=== PATIENT | male | born 1935 | race Caucasian/White ===

== ENCOUNTER 2017-05-22 10:00 | Outpatient (RCR) | payer OTHER, SELFPAY ==
[2017-04-22 00:22] VITALS: BP 143/84; PULSE 67; RESP 16; TEMP 36.7; BMI 21.2
[2017-04-24 09:51] VITALS: BP 134/77; PULSE 62; RESP 18; TEMP 36.4; BMI 21.2
--- NOTE | 2017-04-24 11:09 | PCM.WC.PN ---
(1) Hammer toe of right foot Status: Chronic Current Visit: Yes Code(s): M20.41 - Other hammer toe(s) (acquired), right foot (2) Ulcer of right foot with fat layer exposed Status: Chronic Current Visit: Yes Code(s): L97.512 - Non-pressure chronic ulcer of other part of right foot with fat layer exposed (3) Other specified peripheral vascular diseases Status: Chronic Current Visit: Yes Code(s): I73.89 - Other specified peripheral vascular diseases (4) Malnutrition Status: Chronic Current Visit: Yes Code(s): E46 - Unspecified protein-calorie malnutrition (5) Delayed wound healing Status: Chronic Current Visit: Yes Code(s): T14.8 - Other injury of unspecified body region (6) Osteomyelitis Status: Resolved Current Visit: Yes Code(s): M86.9 - Osteomyelitis, unspecified (7) Traumatic ecchymosis of right foot Status: Acute Current Visit: Yes Code(s): S90.31XA - Contusion of right foot, initial encounter Type of Wound Date of Service: 04/24/17 Chief Complaint: Chronic, nonhealing ulcerations of the right lateral foot and the right fourth toe History of Wound: This is an 81-year-old male who presents with 2 ulcerations on his right foot. He denies fever, chills, nausea, vomiting, loss of appetite. He continues to use Elba as advised. He denies foot pain. He refuses puraply application today due to cost. He reports he bumped his right foot and does not recall exactly when. She thinks this may be the cause of his ulcer site color skin change. Progress of Wound: Improving - Physical Exam Vital Signs Temp Pulse Resp BP 97.6 F L 62 18 134/77 H 04/24/17 09:51 04/24/17 09:51 04/24/17 09:51 04/24/17 09:51 General: Alert, Oriented x3, Cooperative Extremities: No cyanosis, Capillary Refill Less than 3 Seconds, No Calf Tenderness - Negative Heidi and Alfonso sign bilateral, Diminished Peripheral Pulses Skin: Ulcer/ Wound - No purulence, no erythema, no streaking, no odor, no exposed bone or deep tissue today. There is devitalized dorsal wound margin on the lateral right foot that appears ecchymotic. The skin is still well adhered however this is a new finding. Otherwise this ulcer has decreased in size. The fourth toe abuts the third toe. In the wound base is granular to the site. Wound Measurements and Assessment - Nurse 1 - General Ulcer Measurement Start: 04/24/17 09:51 Freq: Status: Active Protocol: Activity Type Activity Date Activity User E-Sign Co-Sign Detail Recorded Client Recorded Date Recorded By Document 04/24/17 09:51 DL [id number] 04/24/17 09:58 DL 04/24/17 09:51 Wound Center Nurse 1 [Ulcer Assessment Protocol: WC.WD.LOC] #2 Right Lateral Foot -Current Size (cm) - Length 0.7 -Current Size (cm) - Width 0.6 -Current Size (cm) - Depth 0.1 -Total Square Cm 0.42 -Photo Taken No -Exudate Amt Small (1-33%) -Exudate Type Serosanguineous -Wound Margin Distinct, Outline Attached -Granulation Amt Medium (34-66%) -Granulation Quality Red -Necrosis Amt Medium (34-66%) -Necrotic Tissue Type Adherent Slough -Structure Exposed N/A -Texture (Alba-wound Skin Appearance) No Abnormality -Moisture (Alba-wound Skin Appearance Maceration ) -Color (Alba-wound Skin Appearance) Ecchymosis -Temperature (Alba-wound Skin No Abnormality Appearance) (Pt Warm) -Ulcer Cleansing Rinsed/ Irrigated with Saline -Foul Odor after Cleansing No -Anesthetic Used 4% Lidocaine Solution #1 Right 4th Toe -Current Size (cm) - Length 0.2 -Current Size (cm) - Width 0.3 -Current Size (cm) - Depth 0.1 -Total Square Cm 0.06 -Photo Taken No -Exudate Amt Small (1-33%) -Exudate Type Serosanguineous -Wound Margin Thickened -Granulation Amt Small (1-33%) -Granulation Quality [place] -Necrosis Amt Small (1-33%) -Necrotic Tissue Type Adherent Slough -Structure Exposed N/A -Texture (Alba-wound Skin Appearance) No Abnormality -Moisture (Alba-wound Skin Appearance Dry/Scaly ) -Color (Alba-wound Skin Appearance) No Abnormality -Temperature (Alba-wound Skin No Abnormality Appearance) (Pt Warm) -Ulcer Cleansing Rinsed/ Irrigated with Saline -Foul Odor after Cleansing No -Anesthetic Used 4% Lidocaine Solution [place] - Nurse 2 - General Ulcer CM Notes Start: 04/24/17 09:51 Freq: Status: Active Protocol: Activity Type Activity Date Activity User E-Sign Co-Sign Detail Recorded Client Recorded Date Recorded By Document 04/24/17 10:15 [id number] 04/24/17 10:18 04/24/17 10:15 Wound Center Nurse 2 [Procedure/Treatment] #2 Right Lateral Foot -Time 10:16 -Correct Patient Yes -Correct Side, Site, Position Yes -Correct Procedure Yes -Procedure Performed Yes -Type of Procedure Debridement -Clinical Debridement Subcutaneous -Post Debridement Size (cm) - Length 0.8 -Post Debridement Size (cm) - Width 0.7 -Post Debridement Size (cm) - Depth 0.1 -Total Square Cm 0.56 -Wound/Ulcer Outcome Not Healed -Ulcer Cleansing Rinsed/ Irrigated with Saline -Foul Odor after Cleansing No -Bioengineered Tissue No -Cetacaine [place] No -Topical Lidocaine (%) 5 -Bleeding Controlled with Pressure -Treatment Response Procedure Tolerated Well #1 Right 4th Toe -Time 10:16 -Correct Patient Yes -Correct Side, Site, Position Yes -Correct Procedure Yes -Procedure Performed Yes -Type of Procedure Debridement -Clinical Debridement Subcutaneous -Post Debridement Size (cm) - Length 0.3 -Post Debridement Size (cm) - Width 0.4 -Post Debridement Size (cm) - Depth 0.1 -Total Square Cm 0.12 -Wound/Ulcer Outcome Not Healed -Ulcer Cleansing Rinsed/ Irrigated with Saline -Foul Odor after Cleansing No -Bioengineered Tissue No -Cetacaine [place] No -Topical Lidocaine (%) 5 -Bleeding Controlled with Pressure -Treatment Response Procedure Tolerated Well [See Physician Procedure note for Specifics] Pain Scale: 0-10 Numeric [Pain] -Is Patient Pain Free? Yes Musculoskeletal: No Tenderness to Palpation of Joints or Extremities, Muscle Wasting, - - Dorsal contraction and varus rotation of lesser digits. Third toe abuts fourth toe. Compartments remain soft to the foot and ankle right lower extremity Neurological: - - Lack of epicritic sensation light touch Psych/Mental Status: Normal Affect, Appropriate Debridement Note Post-Debridement Measurements/Treatment [place] - Nurse 2 - General Ulcer CM Notes Start: 04/24/17 09:51 Freq: Status: Active Protocol: Activity Type Activity Date Activity User E-Sign Co-Sign Detail Recorded Client Recorded Date Recorded By Document 04/24/17 10:15 [id number] 04/24/17 10:18 04/24/17 10:15 Wound Center Nurse 2 #2 Right Lateral Foot -Time 10:16 -Correct Patient Yes -Correct Side, Site, Position Yes -Correct Procedure Yes -Procedure Performed Yes -Type of Procedure Debridement -Clinical Debridement Subcutaneous -Post Debridement Size (cm) - Length 0.8 -Post Debridement Size (cm) - Width 0.7 -Post Debridement Size (cm) - Depth 0.1 -Total Square Cm 0.56 -Wound/Ulcer Outcome Not Healed -Ulcer Cleansing Rinsed/ Irrigated with Saline -Foul Odor after Cleansing No -Bioengineered Tissue No -Cetacaine [place] No -Topical Lidocaine (%) 5 -Bleeding Controlled with Pressure -Treatment Response Procedure Tolerated Well #1 Right 4th Toe -Time 10:16 -Correct Patient Yes -Correct Side, Site, Position Yes -Correct Procedure Yes -Procedure Performed Yes -Type of Procedure Debridement -Clinical Debridement Subcutaneous -Post Debridement Size (cm) - Length 0.3 -Post Debridement Size (cm) - Width 0.4 -Post Debridement Size (cm) - Depth 0.1 -Total Square Cm 0.12 -Wound/Ulcer Outcome Not Healed -Ulcer Cleansing Rinsed/ Irrigated with Saline -Foul Odor after Cleansing No -Bioengineered Tissue No -Cetacaine [place] No -Topical Lidocaine (%) 5 -Bleeding Controlled with Pressure -Treatment Response Procedure Tolerated Well Pain Scale: 0-10 Numeric Is Patient Pain Free? Yes Wound debrided: Lateral foot Laterality: Right Type of Debridement: Excisional debridement Anesthesia Used: 4% Lidocaine Solution Depth: in the subcutaneous layer Percentage of wound debrided: 100 Instrument Used: #15 blade Tissue Removed: Fibrous, devitalized subcutaneous, biofilm, slough Severity: Fat Layer Exposed Amount of bleeding with debridement: Mild Bleeding Controlled with: Pressure Patient tolerated procedure well - Additional Wound Wound debrided: Medial distal fourth toe Laterality: Right Type of Debridement: Excisional debridement Anesthesia Used: 4% Lidocaine Solution Depth: in the subcutaneous layer Percentage of wound debrided: 100 Instrument Used: #15 blade Tissue Removed: Fibrous, devitalized subcutaneous, biofilm, slough Severity: Fat Layer Exposed Amount of bleeding with debridement: None Bleeding Controlled with: Pressure Patient tolerated procedure: Patient tolerated procedure well Assessment/Plan Active Problems Hammer toe of right foot (Chronic) Ulcer of right foot with fat layer exposed (Chronic) Other specified peripheral vascular diseases (Chronic) Malnutrition (Chronic) Delayed wound healing (Chronic) Traumatic ecchymosis of right foot (Acute) Assessment: Nonhealing ulcer right fourth toe (bone previously exposed ; osteomyelitis)-treated and stable. right lateral foot (fat exposed; gouty tophi resolved). Severe peripheral vascular disease. Malnutrition. Delayed healing. Bilateral hammertoe deformities. Bruise right foot Plan: I Reviewed and discussed his case this morning. Debridement was performed today as noted in the clinical panel. 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 His previous microbiology results are on file. To continue with open toe shoe that does not put pressure on this site. His noninvasive vascular studies were also reviewed which demonstrated significant loss of flow with an TALIA of 0.27 in the right lower extremity. A referral to Dr. Reilly, vascular surgeon was completed and the patient refuses treatment recommendations. His prognosis is significantly worsened due to refusal to proceed with vascular intervention. His laboratory data was reviewed with a white blood cell count 9.7 prealbumin of 25 and hemoglobin A1c of 5.4%. To continue with proper nutrition optimize healing. Understand he is at risk for limb loss. I did also review his right foot x-rays which demonstrated osseous destruction. There is evidence of some tophi formation and diffuse decreased bone density noted to the entire foot. Approval for advanced wound care product has been denied by insurance. To continue to change dressing daily with Elba due to improved granulation formation in both wound beds; this is applied today. Approval for puraply (antimicrobial and collagen dressing) was obtained and he understands he would only be responsible for a co-pay. He refuses application of advanced collagen and antimicrobial product, pureaply. Answered his questions today about the purpose, indications, benefits, risks of this advanced wound care product and highly encourage its use. A dressing was applied today after debridement as noted in the clinical nursing panel. I advised him to take caution with traumatic accidents at home to the foot. He will continue to wear protective shoe gear as previously reviewed. He is not having any pain or signs of infection today and he was reassured of this. To return to clinic in 1 week or call sooner if there are any problems or concerns.
--- NOTE | 2017-04-24 11:15 | PN.PCM_ITS ---
(1) Hammer toe of right foot Status: Chronic Current Visit: Yes Code(s): M20.41 - Other hammer toe(s) ( acquired), right foot (2) Ulcer of right foot with fat layer exposed Status: Chronic Current Visit: Yes Code(s): L97.512 - Non-pressure chronic ulcer of other part of right foot with fat layer exposed (3) Other specified peripheral vascular diseases Status: Chronic Current Visit: Yes Code(s): I73.89 - Other specified peripheral vascular diseases (4) Malnutrition Status: Chronic Current Visit: Yes Code(s): E46 - Unspecified protein- calorie malnutrition (5) Delayed wound healing Status: Chronic Current Visit: Yes Code(s): T14.8 - Other injury of unspecified body region (6) Osteomyelitis Status: Resolved Current Visit: Yes Code(s): M86.9 - Osteomyelitis, unspecified (7) Traumatic ecchymosis of right foot Status: Acute Current Visit: Yes Code(s): S90.31XA - Contusion of right foot , initial encounter Type of Wound Date of Service: 04/24/17 Chief Complaint: Chronic, nonhealing ulcerations of the right lateral foot and the right fourth toe History of Wound: This is an 81-year-old male who presents with 2 ulcerations on his right foot. He denies fever, chills, nausea, vomiting, loss of appetite. He continues to use Elba as advised. He denies foot pain. He refuses puraply application today due to cost. He reports he bumped his right foot and does not recall exactly when. She thinks this may be the cause of his ulcer site color skin change. Progress of Wound: Improving - Physical Exam Vital Signs Temp Pulse Resp BP 97.6 F L 62 18 134/77 H 04/24/17 09:51 04/24/17 09:51 04/24/17 09:51 04/24/17 09:51 General: Alert, Oriented x3, Cooperative Extremities: No cyanosis, Capillary Refill Less than 3 Seconds, No Calf Tenderness - Negative Heidi and Alfonso sign bilateral, Diminished Peripheral Pulses Skin: Ulcer/ Wound - No purulence, no erythema, no streaking, no odor, no exposed bone or deep tissue today. There is devitalized dorsal wound margin on the lateral right foot that appears ecchymotic. The skin is still well adhered however this is a new finding. Otherwise this ulcer has decreased in size. The fourth toe abuts the third toe. In the wound base is granular to the site. Wound Measurements and Assessment - Nurse 1 - General Ulcer Measurement Start: 04/24/17 09:51 Freq: Status: Active Protocol: Activity Type Activity Date Activity User E-Sign Co-Sign Detail Recorded Client Recorded Date Recorded By Document 04/24/17 09:51 DL [id number] 04/24/17 09:58 DL 04/24/17 09:51 Wound Center Nurse 1 [Ulcer Assessment Protocol: WC.WD.LOC] #2 Right Lateral Foot -Current Size (cm) - Length 0.7 -Current Size (cm) - Width 0.6 -Current Size (cm) - Depth 0.1 -Total Square Cm 0.42 -Photo Taken No -Exudate Amt Small (1-33%) -Exudate Type Serosanguineous -Wound Margin Distinct, Outline Attached -Granulation Amt Medium (34-66%) -Granulation Quality Red -Necrosis Amt Medium (34-66%) -Necrotic Tissue Type Adherent Slough -Structure Exposed N/A -Texture (Alba-wound Skin Appearance) No Abnormality -Moisture (Alba-wound Skin Appearance Maceration ) -Color (Alba-wound Skin Appearance) Ecchymosis -Temperature (Alba-wound Skin No Abnormality Appearance) (Pt Warm) -Ulcer Cleansing Rinsed/ Irrigated with Saline -Foul Odor after Cleansing No -Anesthetic Used 4% Lidocaine Solution #1 Right 4th Toe -Current Size (cm) - Length 0.2 -Current Size (cm) - Width 0.3 -Current Size (cm) - Depth 0.1 -Total Square Cm 0.06 -Photo Taken No -Exudate Amt Small (1-33%) -Exudate Type Serosanguineous -Wound Margin Thickened -Granulation Amt Small (1-33%) -Granulation Quality [place] -Necrosis Amt Small (1-33%) -Necrotic Tissue Type Adherent Slough -Structure Exposed N/A -Texture (Alba-wound Skin Appearance) No Abnormality -Moisture (Alba-wound Skin Appearance Dry/Scaly ) -Color (Alba-wound Skin Appearance) No Abnormality -Temperature (Alba-wound Skin No Abnormality Appearance) (Pt Warm) -Ulcer Cleansing Rinsed/ Irrigated with Saline -Foul Odor after Cleansing No -Anesthetic Used 4% Lidocaine Solution [place] - Nurse 2 - General Ulcer CM Notes Start: 04/24/17 09:51 Freq: Status: Active Protocol: Activity Type Activity Date Activity User E-Sign Co-Sign Detail Recorded Client Recorded Date Recorded By Document 04/24/17 10:15 [id number] 04/24/17 10:18 04/24/17 10:15 Wound Center Nurse 2 [Procedure/Treatment] #2 Right Lateral Foot -Time 10:16 -Correct Patient Yes -Correct Side, Site, Position Yes -Correct Procedure Yes -Procedure Performed Yes -Type of Procedure Debridement -Clinical Debridement Subcutaneous -Post Debridement Size (cm) - Length 0.8 -Post Debridement Size (cm) - Width 0.7 -Post Debridement Size (cm) - Depth 0.1 -Total Square Cm 0.56 -Wound/Ulcer Outcome Not Healed -Ulcer Cleansing Rinsed/ Irrigated with Saline -Foul Odor after Cleansing No -Bioengineered Tissue No -Cetacaine [place] No -Topical Lidocaine (%) 5 -Bleeding Controlled with Pressure -Treatment Response Procedure Tolerated Well #1 Right 4th Toe -Time 10:16 -Correct Patient Yes -Correct Side, Site, Position Yes -Correct Procedure Yes -Procedure Performed Yes -Type of Procedure Debridement -Clinical Debridement Subcutaneous -Post Debridement Size (cm) - Length 0.3 -Post Debridement Size (cm) - Width 0.4 -Post Debridement Size (cm) - Depth 0.1 -Total Square Cm 0.12 -Wound/Ulcer Outcome Not Healed -Ulcer Cleansing Rinsed/ Irrigated with Saline -Foul Odor after Cleansing No -Bioengineered Tissue No -Cetacaine [place] No -Topical Lidocaine (%) 5 -Bleeding Controlled with Pressure -Treatment Response Procedure Tolerated Well [See Physician Procedure note for Specifics] Pain Scale: 0-10 Numeric [Pain] -Is Patient Pain Free? Yes Musculoskeletal: No Tenderness to Palpation of Joints or Extremities, Muscle Wasting, - - Dorsal contraction and varus rotation of lesser digits. Third toe abuts fourth toe. Compartments remain soft to the foot and ankle right lower extremity Neurological: - - Lack of epicritic sensation light touch Psych/Mental Status: Normal Affect, Appropriate Debridement Note Post-Debridement Measurements/Treatment [place] - Nurse 2 - General Ulcer CM Notes Start: 04/24/17 09:51 Freq: Status: Active Protocol: Activity Type Activity Date Activity User E-Sign Co-Sign Detail Recorded Client Recorded Date Recorded By Document 04/24/17 10:15 [id number] 04/24/17 10:18 04/24/17 10:15 Wound Center Nurse 2 #2 Right Lateral Foot -Time 10:16 -Correct Patient Yes -Correct Side, Site, Position Yes -Correct Procedure Yes -Procedure Performed Yes -Type of Procedure Debridement -Clinical Debridement Subcutaneous -Post Debridement Size (cm) - Length 0.8 -Post Debridement Size (cm) - Width 0.7 -Post Debridement Size (cm) - Depth 0.1 -Total Square Cm 0.56 -Wound/Ulcer Outcome Not Healed -Ulcer Cleansing Rinsed/ Irrigated with Saline -Foul Odor after Cleansing No -Bioengineered Tissue No -Cetacaine [place] No -Topical Lidocaine (%) 5 -Bleeding Controlled with Pressure -Treatment Response Procedure Tolerated Well #1 Right 4th Toe -Time 10:16 -Correct Patient Yes -Correct Side, Site, Position Yes -Correct Procedure Yes -Procedure Performed Yes -Type of Procedure Debridement -Clinical Debridement Subcutaneous -Post Debridement Size (cm) - Length 0.3 -Post Debridement Size (cm) - Width 0.4 -Post Debridement Size (cm) - Depth 0.1 -Total Square Cm 0.12 -Wound/Ulcer Outcome Not Healed -Ulcer Cleansing Rinsed/ Irrigated with Saline -Foul Odor after Cleansing No -Bioengineered Tissue No -Cetacaine [place] No -Topical Lidocaine (%) 5 -Bleeding Controlled with Pressure -Treatment Response Procedure Tolerated Well Pain Scale: 0-10 Numeric Is Patient Pain Free? Yes Wound debrided: Lateral foot Laterality: Right Type of Debridement: Excisional debridement Anesthesia Used: 4% Lidocaine Solution Depth: in the subcutaneous layer Percentage of wound debrided: 100 Instrument Used: #15 blade Tissue Removed: Fibrous, devitalized subcutaneous, biofilm, slough Severity: Fat Layer Exposed Amount of bleeding with debridement: Mild Bleeding Controlled with: Pressure Patient tolerated procedure well - Additional Wound Wound debrided: Medial distal fourth toe Laterality: Right Type of Debridement: Excisional debridement Anesthesia Used: 4% Lidocaine Solution Depth: in the subcutaneous layer Percentage of wound debrided: 100 Instrument Used: #15 blade Tissue Removed: Fibrous, devitalized subcutaneous, biofilm, slough Severity: Fat Layer Exposed Amount of bleeding with debridement: None Bleeding Controlled with: Pressure Patient tolerated procedure: Patient tolerated procedure well Assessment/Plan Active Problems Hammer toe of right foot (Chronic) Ulcer of right foot with fat layer exposed (Chronic) Other specified peripheral vascular diseases (Chronic) Malnutrition (Chronic) Delayed wound healing (Chronic) Traumatic ecchymosis of right foot (Acute) Assessment: Nonhealing ulcer right fourth toe (bone previously exposed ; osteomyelitis)-treated and stable. right lateral foot (fat exposed; gouty tophi resolved). Severe peripheral vascular disease. Malnutrition. Delayed healing. Bilateral hammertoe deformities. Bruise right foot Plan: I Reviewed and discussed his case this morning. Debridement was performed today as noted in the clinical panel. 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 His previous microbiology results are on file. To continue with open toe shoe that does not put pressure on this site. His noninvasive vascular studies were also reviewed which demonstrated significant loss of flow with an TALIA of 0.27 in the right lower extremity. A referral to Dr. Reilly, vascular surgeon was completed and the patient refuses treatment recommendations. His prognosis is significantly worsened due to refusal to proceed with vascular intervention. His laboratory data was reviewed with a white blood cell count 9.7 prealbumin of 25 and hemoglobin A1c of 5.4%. To continue with proper nutrition optimize healing. Understand he is at risk for limb loss. I did also review his right foot x-rays which demonstrated osseous destruction. There is evidence of some tophi formation and diffuse decreased bone density noted to the entire foot. Approval for advanced wound care product has been denied by insurance. To continue to change dressing daily with Elba due to improved granulation formation in both wound beds; this is applied today. Approval for puraply (antimicrobial and collagen dressing) was obtained and he understands he would only be responsible for a co-pay. He refuses application of advanced collagen and antimicrobial product, pureaply. Answered his questions today about the purpose, indications, benefits, risks of this advanced wound care product and highly encourage its use. A dressing was applied today after debridement as noted in the clinical nursing panel. I advised him to take caution with traumatic accidents at home to the foot. He will continue to wear protective shoe gear as previously reviewed. He is not having any pain or signs of infection today and he was reassured of this. To return to clinic in 1 week or call sooner if there are any problems or concerns.
[2017-05-01 09:52] VITALS: BP 122/58; PULSE 58; RESP 18; TEMP 36.6; BMI 21.2
--- NOTE | 2017-05-01 14:26 | PN.PCM_ITS ---
(1) Hammer toe of right foot Status: Chronic Current Visit: Yes Code(s): M20.41 - Other hammer toe(s) ( acquired), right foot (2) Ulcer of right foot with fat layer exposed Status: Chronic Current Visit: Yes Code(s): L97.512 - Non-pressure chronic ulcer of other part of right foot with fat layer exposed (3) Other specified peripheral vascular diseases Status: Chronic Current Visit: Yes Code(s): I73.89 - Other specified peripheral vascular diseases (4) Malnutrition Status: Chronic Current Visit: Yes Code(s): E46 - Unspecified protein- calorie malnutrition (5) Delayed wound healing Status: Chronic Current Visit: Yes Code(s): T14.8 - Other injury of unspecified body region (6) Osteomyelitis Status: Resolved Current Visit: Yes Code(s): M86.9 - Osteomyelitis, unspecified Type of Wound Date of Service: 05/02/17 Chief Complaint: Chronic, nonhealing ulcerations of the right lateral foot and the right fourth toe History of Wound: This is an 81-year-old male who presents with 2 ulcerations on his right foot. He denies fever, chills, nausea, vomiting, loss of appetite. He continues to use Elba as advised. He denies foot pain. Progress of Wound: Improving - Physical Exam Vital Signs Temp Pulse Resp BP 97.8 F 58 L 18 122/58 H 05/01/17 09:52 05/01/17 09:52 05/01/17 09:52 05/01/17 09:52 General: Alert, Oriented x3, Cooperative Extremities: No cyanosis, No edema, Capillary Refill Less than 3 Seconds, No Calf Tenderness - Negative Heidi and Alfonso sign bilateral, Diminished Peripheral Pulses Skin: Ulcer/ Wound - No purulence, no erythema, no streaking, no exposed bone, no necrosis, no acute infection right foot Wound Measurements and Assessment WC - Nurse 1 - General Ulcer Measurement Start: 04/24/17 09:51 Freq: Status: Active Protocol: Activity Type Activity Date Activity User E-Sign Co-Sign Detail Recorded Client Recorded Date Recorded By Document 05/01/17 09:52 DL [id number] 05/01/17 09:56 DL 05/01/17 09:52 Wound Center Nurse 1 [Ulcer Assessment Protocol: CAMILLE.WD.LOC] #2 Right Lateral Foot -Current Size (cm) - Length 0.6 -Current Size (cm) - Width 1.5 -Current Size (cm) - Depth 0.1 -Total Square Cm 0.90 -Photo Taken No -Exudate Amt Small (1-33%) -Exudate Type Serosanguineous -Wound Margin Thickened -Granulation Amt Large (67-100%) -Granulation Quality [place] -Necrosis Amt Small (1-33%) -Necrotic Tissue Type Adherent Slough -Structure Exposed N/A -Texture (Alba-wound Skin Appearance) Scarring -Moisture (Alba-wound Skin Appearance Dry/Scaly ) -Color (Alba-wound Skin Appearance) Hemosiderin Staining -Temperature (Alba-wound Skin No Abnormality Appearance) (Pt Warm) -Ulcer Cleansing Rinsed/ Irrigated with Saline -Foul Odor after Cleansing No -Anesthetic Used 4% Lidocaine Solution #1 Right 4th Toe -Current Size (cm) - Length 0.5 -Current Size (cm) - Width 0.6 -Current Size (cm) - Depth 0.1 -Total Square Cm 0.30 -Photo Taken No -Exudate Amt None Present (0 %) -Wound Margin Thickened -Granulation Amt None Present (0 %) -Necrosis Amt Large (67-100%) -Necrotic Tissue Type Adherent Slough -Structure Exposed N/A -Texture (Alba-wound Skin Appearance) No Abnormality -Moisture (Alba-wound Skin Appearance Dry/Scaly ) -Color (Alba-wound Skin Appearance) Hemosiderin Staining -Temperature (Alba-wound Skin No Abnormality Appearance) (Pt Warm) -Ulcer Cleansing Rinsed/ Irrigated with Saline -Foul Odor after Cleansing No -Anesthetic Used 4% Lidocaine Solution CAMILLE - Nurse 2 - General Ulcer CM Notes Start: 04/24/17 09:51 Freq: Status: Active Protocol: Activity Type Activity Date Activity User E-Sign Co-Sign Detail Recorded Client Recorded Date Recorded By Document 05/01/17 10:10 [email or web address] [id number] 05/01/17 10:12 LIZ 05/01/17 10:10 Wound Center Nurse 2 [Procedure/Treatment] #2 Right Lateral Foot -Time 10:10 -Correct Patient Yes -Correct Side, Site, Position Yes -Correct Procedure Yes -Procedure Performed Yes -Type of Procedure Debridement -Clinical Debridement Subcutaneous -Post Debridement Size (cm) - Length 0.5 -Post Debridement Size (cm) - Width 1.5 -Post Debridement Size (cm) - Depth 0.1 -Total Square Cm 0.75 -Wound/Ulcer Outcome Not Healed -Ulcer Cleansing Rinsed/ Irrigated with Saline -Foul Odor after Cleansing No -Bioengineered Tissue No -Cetacaine [place] No -Bleeding Controlled with Pressure -Treatment Response Procedure Tolerated Well #1 Right 4th Toe -Time 10:11 -Correct Patient Yes -Correct Side, Site, Position Yes -Correct Procedure Yes -Procedure Performed Yes -Type of Procedure Debridement -Clinical Debridement Subcutaneous -Post Debridement Size (cm) - Length 0.1 -Post Debridement Size (cm) - Width 0.2 -Post Debridement Size (cm) - Depth 0.1 -Total Square Cm 0.02 -Wound/Ulcer Outcome Not Healed -Ulcer Cleansing Rinsed/ Irrigated with Saline -Foul Odor after Cleansing No -Bioengineered Tissue No -Cetacaine [place] No -Bleeding Controlled with Pressure -Treatment Response Procedure Tolerated Well [See Physician Procedure note for Specifics] Pain Scale: 0-10 Numeric [Pain] -Is Patient Pain Free? Yes Musculoskeletal: No Tenderness to Palpation of Joints or Extremities, Muscle Wasting, - - Rigid digital toe deformities. Fourth toe abuts third toe Neurological: - - Lack of epicritic sensation to right foot Psych/Mental Status: Normal Affect, Appropriate Debridement Note Post-Debridement Measurements/Treatment WC - Nurse 2 - General Ulcer CM Notes Start: 04/24/17 09:51 Freq: Status: Active Protocol: Activity Type Activity Date Activity User E-Sign Co-Sign Detail Recorded Client Recorded Date Recorded By Document 04/24/17 10:15 [id number] 04/24/17 10:18 Document 05/01/17 10:10 [id number] 05/01/17 10:12 04/24/17 05/01/17 10:15 10:10 Wound Center Nurse 2 #2 Right Lateral Foot -Time 10:16 10:10 -Correct Patient Yes Yes -Correct Side, Site, Position Yes Yes -Correct Procedure Yes Yes -Procedure Performed Yes Yes -Type of Procedure Debridement Debridement -Clinical Debridement Subcutaneous Subcutaneous -Post Debridement Size (cm) - Length 0.8 0.5 -Post Debridement Size (cm) - Width 0.7 1.5 -Post Debridement Size (cm) - Depth 0.1 0.1 -Total Square Cm 0.56 0.75 -Wound/Ulcer Outcome Not Healed Not Healed -Ulcer Cleansing Rinsed/ Rinsed/ Irrigated with Irrigated with Saline Saline -Foul Odor after Cleansing No No -Bioengineered Tissue No No -Cetacaine [place] No No -Topical Lidocaine (%) 5 -Bleeding Controlled with Pressure Pressure -Treatment Response Procedure Procedure Tolerated Well Tolerated Well #1 Right 4th Toe -Time 10:16 10:11 -Correct Patient Yes Yes -Correct Side, Site, Position Yes Yes -Correct Procedure Yes Yes -Procedure Performed Yes Yes -Type of Procedure Debridement Debridement -Clinical Debridement Subcutaneous Subcutaneous -Post Debridement Size (cm) - Length 0.3 0.1 -Post Debridement Size (cm) - Width 0.4 0.2 -Post Debridement Size (cm) - Depth 0.1 0.1 -Total Square Cm 0.12 0.02 -Wound/Ulcer Outcome Not Healed Not Healed -Ulcer Cleansing Rinsed/ Rinsed/ Irrigated with Irrigated with Saline Saline -Foul Odor after Cleansing No No -Bioengineered Tissue No No -Cetacaine [place] No No -Topical Lidocaine (%) 5 -Bleeding Controlled with Pressure Pressure -Treatment Response Procedure Procedure Tolerated Well Tolerated Well Pain Scale: 0-10 Numeric Is Patient Pain Free? Yes Yes Wound debrided: Lateral forefoot Laterality: Right Type of Debridement: Excisional debridement Anesthesia Used: 4% Lidocaine Solution Depth: in the subcutaneous layer Percentage of wound debrided: 100 Instrument Used: #15 blade Tissue Removed: Fibrous, devitalized subcutaneous, biofilm, slough Severity: Fat Layer Exposed Amount of bleeding with debridement: Mild Bleeding Controlled with: Pressure Patient tolerated procedure well - Additional Wound Wound debrided: Medial distal fourth toe Laterality: Right Type of Debridement: Excisional debridement Anesthesia Used: 4% Lidocaine Solution Depth: in the subcutaneous layer Percentage of wound debrided: 100 Instrument Used: #15 blade Tissue Removed: Fibrous, devitalized subcutaneous, biofilm, slough Severity: Fat Layer Exposed Amount of bleeding with debridement: Mild Bleeding Controlled with: Pressure Patient tolerated procedure: Patient tolerated procedure well Assessment/Plan Active Problems Hammer toe of right foot (Chronic) Ulcer of right foot with fat layer exposed (Chronic) Other specified peripheral vascular diseases (Chronic) Malnutrition (Chronic) Delayed wound healing (Chronic) Traumatic ecchymosis of right foot (Acute) Assessment: Nonhealing ulcer right fourth toe (bone previously exposed ; osteomyelitis)-treated and stable. right lateral foot (fat exposed; gouty tophi resolved). Severe peripheral vascular disease. Malnutrition. Delayed healing. Bilateral hammertoe deformities. Bruise right foot -resolved Plan: I Reviewed and discussed his case this morning. Debridement was performed today as noted in the clinical panel. To continue with open toe shoe that does not put pressure on this site. His noninvasive vascular studies were also reviewed which demonstrated significant loss of flow with an TALIA of 0.27 in the right lower extremity. A referral to Dr. Reilly, vascular surgeon was completed and the patient refuses treatment recommendations. His prognosis is significantly worsened due to refusal to proceed with vascular intervention. His laboratory data was reviewed with a white blood cell count 9.7 prealbumin of 25 and hemoglobin A1c of 5.4%. To continue with proper nutrition optimize healing. Understand he is at risk for limb loss. I did also review his right foot x-rays which demonstrated osseous destruction. There is evidence of some tophi formation and diffuse decreased bone density noted to the entire foot. Approval for advanced wound care product has been denied by insurance. To continue to change dressing daily with Elba or hydrogel/adaptic. Approval for puraply (antimicrobial and collagen dressing) was obtained and he understands he would only be responsible for a co-pay. He refuses application of advanced collagen and antimicrobial product, puraply. To return to clinic in 1 week or call sooner if there are any problems or concerns.
[2017-05-08 09:50] VITALS: BP 155/69; PULSE 65; RESP 18; TEMP 37; BMI 21.2
--- NOTE | 2017-05-08 14:07 | PN.PCM_ITS ---
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 Status: Chronic Code(s): L97.512 - Non-pressure chronic ulcer of other part of right foot with fat layer exposed (3) Other specified peripheral vascular diseases Status: Chronic Code(s): I73.89 - Other specified peripheral vascular diseases (4) Malnutrition Status: Chronic Code(s): E46 - Unspecified protein-calorie malnutrition (5) Delayed wound healing Status: Chronic Code(s): T14.8 - Other injury of unspecified body region (6) Osteomyelitis Status: Resolved Code(s): M86.9 - Osteomyelitis, unspecified Type of Wound Date of Service: 05/12/17 Chief Complaint: Chronic, nonhealing ulcerations of the right lateral foot and the right fourth toe History of Wound: This is an 81-year-old male who presents with 2 ulcerations on his right foot. He denies fever, chills, nausea, vomiting, loss of appetite. He continues to use Elba as advised. He denies foot pain. Progress of Wound: Improving - Physical Exam Vital Signs Temp Pulse Resp BP 98.6 F 65 18 155/69 H 05/08/17 09:50 05/08/17 09:50 05/08/17 09:50 05/08/17 09:50 General: Alert, Oriented x3, Cooperative Extremities: No cyanosis, No edema, Capillary Refill Less than 3 Seconds, No Calf Tenderness - Negative Heidi and Alfonso sign bilateral, Diminished Peripheral Pulses Skin: Ulcer/ Wound - No purulence, no erythema, no streaking, no odor, no infection, no exposed bone. Wound Measurements and Assessment - Nurse 1 - General Ulcer Measurement Start: 04/24/17 09:51 Freq: Status: Active Protocol: Activity Type Activity Date Activity User E-Sign Co-Sign Detail Recorded Client Recorded Date Recorded By Document 05/08/17 09:50 [facility] [id number] 05/08/17 09:59 [facility] 05/08/17 09:50 Wound Center Nurse 1 [Ulcer Assessment Protocol: CAMILLE.WD.LOC] #2 Right Lateral Foot -Combined with other wound No -Current Size (cm) - Length 1.5 -Current Size (cm) - Width 1.9 -Current Size (cm) - Depth 0.3 -Total Square Cm 2.85 -Date of Last Picture (Recall this 05/08/17 field) -Photo Taken Yes -Epithelialization None Present -Tunneling No -Undermining/Tunneling No -Exudate Amt Medium (34-66%) -Exudate Type Serosanguineous -Wound Margin Distinct, Outline Attached -Granulation Amt Small (1-33%) -Granulation Quality [place] -Slough/Fibrin Yes -Necrosis Amt Large (67-100%) -Necrotic Tissue Type Adherent Slough -Texture (Alba-wound Skin Appearance) Scarring -Moisture (Alba-wound Skin Appearance Dry/Scaly ) -Color (Alba-wound Skin Appearance) Assessed -Temperature (Alba-wound Skin No Abnormality Appearance) (Pt Warm) -Tenderness on Palpation (Alba-wound No Skin Appearance) -Ulcer Cleansing Rinsed/ Irrigated with Saline -Foul Odor after Cleansing No -Anesthetic Used 5% Lidocaine Gel #1 Right 4th Toe -Combined with other wound No -Current Size (cm) - Length 2.6 -Current Size (cm) - Width 1 -Current Size (cm) - Depth 0.1 -Total Square Cm 2.6 -Date of Last Picture (Recall this 05/08/17 field) -Photo Taken Yes -Epithelialization None Present -Tunneling No -Undermining/Tunneling No -Exudate Amt None Present (0 %) -Wound Margin Distinct, Outline Attached -Granulation Amt Large (67-100%) -Granulation Quality Red -Slough/Fibrin Yes -Necrosis Amt Small (1-33%) -Necrotic Tissue Type Adherent Slough -Structure Exposed None/Limited to Skin Breakdown -Texture (Alba-wound Skin Appearance) Scarring -Moisture (Alba-wound Skin Appearance Dry/Scaly ) -Color (Alba-wound Skin Appearance) Assessed -Temperature (Alba-wound Skin No Abnormality Appearance) (Pt Warm) -Tenderness on Palpation (Alba-wound No Skin Appearance) -Ulcer Cleansing Rinsed/ Irrigated with Saline -Foul Odor after Cleansing No -Anesthetic Used 5% Lidocaine Gel WC - Nurse 2 - General Ulcer CM Notes Start: 04/24/17 09:51 Freq: Status: Active Protocol: Activity Type Activity Date Activity User E-Sign Co-Sign Detail Recorded Client Recorded Date Recorded By Document 05/08/17 10:37 TM [id number] 05/08/17 10:38 05/08/17 10:37 Wound Center Nurse 2 [Procedure/Treatment] #2 Right Lateral Foot -Time 10:37 -Correct Patient Yes -Correct Side, Site, Position Yes -Correct Procedure Yes -Procedure Performed Yes -Type of Procedure Debridement -Clinical Debridement Subcutaneous -Post Debridement Size (cm) - Length 1.6 -Post Debridement Size (cm) - Width 2.0 -Post Debridement Size (cm) - Depth 0.3 -Total Square Cm 3.20 -Wound/Ulcer Outcome Not Healed -Ulcer Cleansing Rinsed/ Irrigated with Saline -Foul Odor after Cleansing No -Bioengineered Tissue No -Cetacaine [place] No -Topical Lidocaine (%) 5 -Bleeding Controlled with Pressure -Treatment Response Procedure Tolerated Well #1 Right 4th Toe -Time 10:37 -Correct Patient Yes -Correct Side, Site, Position Yes -Correct Procedure Yes -Procedure Performed Yes -Type of Procedure Debridement -Clinical Debridement Subcutaneous -Post Debridement Size (cm) - Length 2.7 -Post Debridement Size (cm) - Width 1.1 -Post Debridement Size (cm) - Depth 0.1 -Total Square Cm 2.97 -Wound/Ulcer Outcome Not Healed -Ulcer Cleansing Rinsed/ Irrigated with Saline -Foul Odor after Cleansing No -Bioengineered Tissue No -Cetacaine [place] No -Topical Lidocaine (%) 5 -Bleeding Controlled with Pressure -Treatment Response Procedure Tolerated Well [See Physician Procedure note for Specifics] Pain Scale: 0-10 Numeric [Pain] -Is Patient Pain Free? Yes Musculoskeletal: No Tenderness to Palpation of Joints or Extremities, Muscle Wasting, - - Rigid dorsal digital contraction with varus rotation of the fifth fourth toes. The fourth toe abuts the third toe Neurological: - - Lack of sensation to digits on right foot Psych/Mental Status: Normal Affect, Appropriate Debridement Note Post-Debridement Measurements/Treatment WC - Nurse 2 - General Ulcer CM Notes Start: 04/24/17 09:51 Freq: Status: Active Protocol: Activity Type Activity Date Activity User E-Sign Co-Sign Detail Recorded Client Recorded Date Recorded By Document 04/24/17 10:15 [id number] 04/24/17 10:18 Document 05/01/17 10:10 [id number] 05/01/17 10:12 JF Document 05/08/17 10:37 [id number] 05/08/17 10:38 04/24/17 05/01/17 05/08/17 10:15 10:10 10:37 Wound Center Nurse 2 #2 Right Lateral Foot -Time 10:16 10:10 10:37 -Correct Patient Yes Yes Yes -Correct Side, Site, Position Yes Yes Yes -Correct Procedure Yes Yes Yes -Procedure Performed Yes Yes Yes -Type of Procedure Debridement Debridement Debridement -Clinical Debridement Subcutaneous Subcutaneous Subcutaneous -Post Debridement Size (cm) - Length 0.8 0.5 1.6 -Post Debridement Size (cm) - Width 0.7 1.5 2.0 -Post Debridement Size (cm) - Depth 0.1 0.1 0.3 -Total Square Cm 0.56 0.75 3.20 -Wound/Ulcer Outcome Not Healed Not Healed Not Healed -Ulcer Cleansing Rinsed/ Rinsed/ Rinsed/ Irrigated with Irrigated with Irrigated with Saline Saline Saline -Foul Odor after Cleansing No No No -Bioengineered Tissue No No No -Cetacaine [place] No No No -Topical Lidocaine (%) 5 5 -Bleeding Controlled with Pressure Pressure Pressure -Treatment Response Procedure Procedure Procedure Tolerated Well Tolerated Well Tolerated Well #1 Right 4th Toe -Time 10:16 10:11 10:37 -Correct Patient Yes Yes Yes -Correct Side, Site, Position Yes Yes Yes -Correct Procedure Yes Yes Yes -Procedure Performed Yes Yes Yes -Type of Procedure Debridement Debridement Debridement -Clinical Debridement Subcutaneous Subcutaneous Subcutaneous -Post Debridement Size (cm) - Length 0.3 0.1 2.7 -Post Debridement Size (cm) - Width 0.4 0.2 1.1 -Post Debridement Size (cm) - Depth 0.1 0.1 0.1 -Total Square Cm 0.12 0.02 2.97 -Wound/Ulcer Outcome Not Healed Not Healed Not Healed -Ulcer Cleansing Rinsed/ Rinsed/ Rinsed/ Irrigated with Irrigated with Irrigated with Saline Saline Saline -Foul Odor after Cleansing No No No -Bioengineered Tissue No No No -Cetacaine [place] No No No -Topical Lidocaine (%) 5 5 -Bleeding Controlled with Pressure Pressure Pressure -Treatment Response Procedure Procedure Procedure Tolerated Well Tolerated Well Tolerated Well Pain Scale: 0-10 Numeric Is Patient Pain Free? Yes Yes Yes Wound debrided: Lateral foot Laterality: Right Type of Debridement: Excisional debridement Anesthesia Used: 4% Lidocaine Solution Depth: in the subcutaneous layer Percentage of wound debrided: 100 Instrument Used: #15 blade Tissue Removed: Fibrous, devitalized subcutaneous, biofilm, slough Severity: Fat Layer Exposed Amount of bleeding with debridement: Mild Bleeding Controlled with: Pressure Patient tolerated procedure well - Additional Wound Wound debrided: Medial distal fourth toe Laterality: Right Type of Debridement: Excisional debridement Anesthesia Used: 4% Lidocaine Solution Depth: in the subcutaneous layer Percentage of wound debrided: 100 Instrument Used: #15 blade Tissue Removed: Fibrous, devitalized subcutaneous, biofilm, slough Severity: Fat Layer Exposed Amount of bleeding with debridement: Mild Bleeding Controlled with: Pressure Patient tolerated procedure: Patient tolerated procedure well Assessment/Plan Assessment: Nonhealing ulcer right fourth toe (bone previously exposed ; osteomyelitis)-treated and stable. right lateral foot (fat exposed; gouty tophi resolved). Severe peripheral vascular disease. Malnutrition. Delayed healing. Bilateral hammertoe deformities. Bruise right foot -resolved Plan: I Reviewed and discussed his case this morning. Debridement was performed today as noted in the clinical panel. To continue with open toe shoe that does not put pressure on this site. His noninvasive vascular studies were also reviewed which demonstrated significant loss of flow with an TALIA of 0.27 in the right lower extremity. A referral to Dr. Reilly, vascular surgeon was completed and the patient refuses treatment recommendations. His prognosis is significantly worsened due to refusal to proceed with vascular intervention. His laboratory data was reviewed with a white blood cell count 9.7 prealbumin of 25 and hemoglobin A1c of 5.4%. To continue with proper nutrition optimize healing. Understand he is at risk for limb loss. I did also review his right foot x-rays which demonstrated osseous destruction. There is evidence of some tophi formation and diffuse decreased bone density noted to the entire foot. Approval for advanced wound care product has been denied by insurance. To continue to change dressing daily with Elba or hydrogel/adaptic. He refuses application of advanced collagen and antimicrobial product, puraply. To decrease pressure at the ulcer site by continuing with a surgical shoe as well as placing a gauze to the proximal webspace between the third and fourth toe to avoid the toes touching. He demonstrates understanding and this application was demonstrated today. To return to clinic in 1 week or call sooner if there are any problems or concerns.
[2017-05-15 10:14] VITALS: BP 136/77; PULSE 96; RESP 18; TEMP 36.6; BMI 21.2
--- NOTE | 2017-05-15 11:10 | PCM.WC.PN ---
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 Status: Chronic Code(s): L97.512 - Non-pressure chronic ulcer of other part of right foot with fat layer exposed (3) Other specified peripheral vascular diseases Status: Chronic Code(s): I73.89 - Other specified peripheral vascular diseases (4) Malnutrition Status: Chronic Code(s): E46 - Unspecified protein-calorie malnutrition (5) Delayed wound healing Status: Chronic Code(s): T14.8 - Other injury of unspecified body region Type of Wound Date of Service: 05/18/17 Chief Complaint: Chronic, nonhealing ulcerations of the right lateral foot and the right fourth toe History of Wound: This is an 81-year-old male who presents with 2 ulcerations on his right foot. He denies fever, chills, nausea, vomiting, loss of appetite. He continues to use Elba as advised. He denies foot pain. Progress of Wound: Improving - Physical Exam Vital Signs Temp Pulse Resp BP 98 F 96 18 136/77 H 05/15/17 10:14 05/15/17 10:14 05/15/17 10:14 05/15/17 10:14 General: Alert, Oriented x3, Cooperative Extremities: No cyanosis, Capillary Refill Less than 3 Seconds, No Calf Tenderness, Diminished Peripheral Pulses Skin: Ulcer/ Wound - No purulence, no erythema, no streaking, no infection, no necrosis. There is full epithelialization to the fourth toe ulcer site and this is healed today. His skin is very atrophic. Wound Measurements and Assessment - Nurse 1 - General Ulcer Measurement Start: 04/24/17 09:51 Freq: Status: Active Protocol: Activity Type Activity Date Activity User E-Sign Co-Sign Detail Recorded Client Recorded Date Recorded By Document 05/15/17 10:14 [facility] [id number] 05/15/17 10:23 [facility] 05/15/17 10:14 Wound Center Nurse 1 [Ulcer Assessment Protocol: CAMILLE.WD.LOC] #2 Right Lateral Foot -Combined with other wound No -Current Size (cm) - Length 0.1 -Current Size (cm) - Width 0.1 -Current Size (cm) - Depth 0.2 -Total Square Cm 0.01 -Photo Taken No -Tunneling No -Undermining/Tunneling No -Exudate Amt Small (1-33%) -Exudate Type Serosanguineous -Wound Margin Distinct, Outline Attached -Granulation Amt Large (67-100%) -Granulation Quality [place] -Slough/Fibrin No -Structure Exposed N/A -Texture (Alba-wound Skin Appearance) Callus Scarring -Moisture (Alba-wound Skin Appearance Dry/Scaly ) -Color (Alba-wound Skin Appearance) Assessed -Temperature (Alba-wound Skin No Abnormality Appearance) (Pt Warm) -Tenderness on Palpation (Alba-wound Yes Skin Appearance) -Ulcer Cleansing Rinsed/ Irrigated with Saline -Foul Odor after Cleansing No -Anesthetic Used 5% Lidocaine Gel #1 Right 4th Toe -Combined with other wound No -Current Size (cm) - Length 0.4 -Current Size (cm) - Width 0.2 -Current Size (cm) - Depth 0.1 -Total Square Cm 0.08 -Photo Taken No -Epithelialization Small 1-33% -Tunneling No -Undermining/Tunneling No -Exudate Amt None Present (0 %) -Wound Margin Distinct, Outline Attached -Granulation Amt Large (67-100%) -Granulation Quality Pale [place] -Slough/Fibrin No -Necrosis Amt None Present (0 %) -Structure Exposed N/A -Texture (Alba-wound Skin Appearance) Callus Scarring -Moisture (Alba-wound Skin Appearance Dry/Scaly ) -Color (Alba-wound Skin Appearance) Assessed -Temperature (Alba-wound Skin No Abnormality Appearance) (Pt Warm) -Tenderness on Palpation (Alba-wound No Skin Appearance) -Ulcer Cleansing Rinsed/ Irrigated with Saline -Foul Odor after Cleansing No -Anesthetic Used 5% Lidocaine Gel WC - Nurse 2 - General Ulcer CM Notes Start: 04/24/17 09:51 Freq: Status: Active Protocol: Activity Type Activity Date Activity User E-Sign Co-Sign Detail Recorded Client Recorded Date Recorded By Document 05/15/17 10:32 [facility] [id number] 05/15/17 10:38 [facility] 05/15/17 10:32 Wound Center Nurse 2 [Procedure/Treatment] #2 Right Lateral Foot -Time 10:33 -Correct Patient Yes -Correct Side, Site, Position Yes -Correct Procedure Yes -Procedure Performed Yes -Type of Procedure Debridement -Clinical Debridement Subcutaneous -Post Debridement Size (cm) - Length 0.4 -Post Debridement Size (cm) - Width 1.4 -Post Debridement Size (cm) - Depth 0.2 -Total Square Cm 0.56 -Wound/Ulcer Outcome Not Healed -Ulcer Cleansing Rinsed/ Irrigated with Saline -Foul Odor after Cleansing No -Bioengineered Tissue No -Cetacaine [place] No -Bleeding Controlled with Pressure -Treatment Response Procedure Tolerated Well #1 Right 4th Toe -Time 10:33 -Correct Patient No -Correct Side, Site, Position No -Correct Procedure No -Procedure Performed No -Post Debridement Size (cm) - Length 0 -Post Debridement Size (cm) - Width 0 -Post Debridement Size (cm) - Depth 0 -Total Square Cm 0 -Wound/Ulcer Outcome Healed- Epithelialized [See Physician Procedure note for Specifics] Pain Scale: 0-10 Numeric [Pain] -Is Patient Pain Free? Yes Musculoskeletal: No Tenderness to Palpation of Joints or Extremities, Muscle Wasting, - - Digital contraction rigid right foot Neurological: - - Lack of sensation to light touch right foot Psych/Mental Status: Normal Affect, Appropriate Debridement Note Post-Debridement Measurements/Treatment WC - Nurse 2 - General Ulcer CM Notes Start: 04/24/17 09:51 Freq: Status: Active Protocol: Activity Type Activity Date Activity User E-Sign Co-Sign Detail Recorded Client Recorded Date Recorded By Document 04/24/17 10:15 [id number] 04/24/17 10:18 Document 05/01/17 10:10 [id number] 05/01/17 10:12 Document 05/08/17 10:37 [id number] 05/08/17 10:38 Document 05/15/17 10:32 [id number] 05/15/17 10:38 04/24/17 05/01/17 05/08/17 10:15 10:10 10:37 Wound Center Nurse 2 #2 Right Lateral Foot -Time 10:16 10:10 10:37 -Correct Patient Yes Yes Yes -Correct Side, Site, Position Yes Yes Yes -Correct Procedure Yes Yes Yes -Procedure Performed Yes Yes Yes -Type of Procedure Debridement Debridement Debridement -Clinical Debridement Subcutaneous Subcutaneous Subcutaneous -Post Debridement Size (cm) - Length 0.8 0.5 1.6 -Post Debridement Size (cm) - Width 0.7 1.5 2.0 -Post Debridement Size (cm) - Depth 0.1 0.1 0.3 -Total Square Cm 0.56 0.75 3.20 -Wound/Ulcer Outcome Not Healed Not Healed Not Healed -Ulcer Cleansing Rinsed/ Rinsed/ Rinsed/ Irrigated with Irrigated with Irrigated with Saline Saline Saline -Foul Odor after Cleansing No No No -Bioengineered Tissue No No No -Cetacaine [place] No No No -Topical Lidocaine (%) 5 5 -Bleeding Controlled with Pressure Pressure Pressure -Treatment Response Procedure Procedure Procedure Tolerated Well Tolerated Well Tolerated Well #1 Right 4th Toe -Time 10:16 10:11 10:37 -Correct Patient Yes Yes Yes -Correct Side, Site, Position Yes Yes Yes -Correct Procedure Yes Yes Yes -Procedure Performed Yes Yes Yes -Type of Procedure Debridement Debridement Debridement -Clinical Debridement Subcutaneous Subcutaneous Subcutaneous -Post Debridement Size (cm) - Length 0.3 0.1 2.7 -Post Debridement Size (cm) - Width 0.4 0.2 1.1 -Post Debridement Size (cm) - Depth 0.1 0.1 0.1 -Total Square Cm 0.12 0.02 2.97 -Wound/Ulcer Outcome Not Healed Not Healed Not Healed -Ulcer Cleansing Rinsed/ Rinsed/ Rinsed/ Irrigated with Irrigated with Irrigated with Saline Saline Saline -Foul Odor after Cleansing No No No -Bioengineered Tissue No No No -Cetacaine [place] No No No -Topical Lidocaine (%) 5 5 -Bleeding Controlled with Pressure Pressure Pressure -Treatment Response Procedure Procedure Procedure Tolerated Well Tolerated Well Tolerated Well Pain Scale: 0-10 Numeric Is Patient Pain Free? Yes Yes Yes 05/15/17 10:32 Wound Center Nurse 2 #2 Right Lateral Foot -Time 10:33 -Correct Patient Yes -Correct Side, Site, Position Yes -Correct Procedure Yes -Procedure Performed Yes -Type of Procedure Debridement -Clinical Debridement Subcutaneous -Post Debridement Size (cm) - Length 0.4 -Post Debridement Size (cm) - Width 1.4 -Post Debridement Size (cm) - Depth 0.2 -Total Square Cm 0.56 -Wound/Ulcer Outcome Not Healed -Ulcer Cleansing Rinsed/ Irrigated with Saline -Foul Odor after Cleansing No -Bioengineered Tissue No -Cetacaine [place] No -Topical Lidocaine (%) -Bleeding Controlled with Pressure -Treatment Response Procedure Tolerated Well #1 Right 4th Toe -Time 10:33 -Correct Patient No -Correct Side, Site, Position No -Correct Procedure No -Procedure Performed No -Type of Procedure -Clinical Debridement -Post Debridement Size (cm) - Length 0 -Post Debridement Size (cm) - Width 0 -Post Debridement Size (cm) - Depth 0 -Total Square Cm 0 -Wound/Ulcer Outcome Healed- Epithelialized -Ulcer Cleansing -Foul Odor after Cleansing -Bioengineered Tissue -Cetacaine [place] -Topical Lidocaine (%) -Bleeding Controlled with -Treatment Response Pain Scale: 0-10 Numeric Is Patient Pain Free? Yes Wound debrided: Lateral forefoot Laterality: Right Type of Debridement: Excisional debridement Anesthesia Used: 4% Lidocaine Solution Depth: in the subcutaneous layer Percentage of wound debrided: 100 Instrument Used: #15 blade Tissue Removed: Fibrous, devitalized subcutaneous, biofilm, slough Severity: Fat Layer Exposed Amount of bleeding with debridement: Mild Bleeding Controlled with: Pressure Patient tolerated procedure well Assessment/Plan Assessment: right fourth toe ulcer- healed. right lateral foot (fat exposed; gouty tophi resolved). Severe peripheral vascular disease. Malnutrition. Delayed healing. Bilateral hammertoe deformities Plan: I Reviewed and discussed his case this morning. Debridement was performed today as noted in the clinical panel. To continue with open toe shoe that does not put pressure on this site. His noninvasive vascular studies were also reviewed which demonstrated significant loss of flow with an TALIA of 0.27 in the right lower extremity. A referral to Dr. Reilly, vascular surgeon was completed and the patient refuses treatment recommendations. His prognosis is significantly worsened due to refusal to proceed with vascular intervention. His laboratory data was reviewed with a white blood cell count 9.7 prealbumin of 25 and hemoglobin A1c of 5.4%. To continue with proper nutrition optimize healing. Understand he is at risk for limb loss. I did also review his right foot x-rays which demonstrated osseous destruction. There is evidence of some tophi formation and diffuse decreased bone density noted to the entire foot. Approval for advanced wound care product has been denied by insurance. To continue to change dressing daily with Elba or hydrogel/adaptic. He refuses application of advanced collagen and antimicrobial product, puraply. To decrease pressure at the ulcer site by continuing with a surgical shoe as well as placing a gauze to the proximal webspace between the third and fourth toe to avoid the toes touching even though this site is recently healed he is at risk for reopening. He demonstrates understanding and this application was demonstrated today. To return to clinic in 1 week or call sooner if there are any problems or concerns.
[2017-05-22 09:45] VITALS: BP 148/70; PULSE 53; RESP 18; TEMP 36.3; BMI 21.2
--- NOTE | 2017-05-22 10:20 | PCM.WC.PN ---
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 Status: Chronic Current Visit: Yes Code(s): L97.512 - Non-pressure chronic ulcer of other part of right foot with fat layer exposed (2) Hammer toe of right foot Status: Chronic Current Visit: Yes Code(s): M20.41 - Other hammer toe(s) (acquired), right foot (3) Other specified peripheral vascular diseases Status: Chronic Current Visit: Yes Code(s): I73.89 - Other specified peripheral vascular diseases (4) Malnutrition Status: Chronic Current Visit: Yes Code(s): E46 - Unspecified protein-calorie malnutrition (5) Delayed wound healing Status: Chronic Current Visit: Yes Code(s): T14.8 - Other injury of unspecified body region Type of Wound Date of Service: 05/22/17 Chief Complaint: Chronic, nonhealing ulcerations of the right lateral foot History of Wound: This is an 81-year-old male who presents with 2 ulcerations on his right foot. He denies fever, chills, nausea, vomiting, loss of appetite. He continues to use Elba as advised. He denies foot pain. He wears a toe spacer. Progress of Wound: Improving - Physical Exam Vital Signs Temp Pulse Resp BP 97.3 F L 53 L 18 148/70 H 05/22/17 09:45 05/22/17 09:45 05/22/17 09:45 05/22/17 09:45 General: Alert, Oriented x3, Cooperative Extremities: No cyanosis, No edema, Capillary Refill Less than 3 Seconds, No Calf Tenderness, Diminished Peripheral Pulses Skin: Ulcer/ Wound - There is no purulence, no erythema, no streaking, no infection, no fluctuance on palpation right foot. The skin is hairless and atrophic. Wound Measurements and Assessment - Nurse 1 - General Ulcer Measurement Start: 04/24/17 09:51 Freq: Status: Active Protocol: Activity Type Activity Date Activity User E-Sign Co-Sign Detail Recorded Client Recorded Date Recorded By Document 05/22/17 09:45 RB [id number] 05/22/17 09:53 RB 05/22/17 09:45 Wound Center Nurse 1 [Ulcer Assessment Protocol: CAMILLE.WD.LOC] #2 Right Lateral Foot -Combined with other wound No -Current Size (cm) - Length 0.1 -Current Size (cm) - Width 0.1 -Current Size (cm) - Depth 0.1 -Total Square Cm 0.01 -Photo Taken No -Tunneling No -Undermining/Tunneling No -Circular Undermining No -Classification - Pressure Ulcer Stage 3 -Exudate Amt None Present (0 %) -Wound Margin Distinct, Outline Attached -Granulation Amt None Present (0 %) -Slough/Fibrin Yes -Necrosis Amt Large (67-100%) -Necrotic Tissue Type Eschar -Structure Exposed N/A -Texture (Alba-wound Skin Appearance) Assessed -Moisture (Alba-wound Skin Appearance Assessed ) -Color (Alba-wound Skin Appearance) Assessed -Temperature (Alba-wound Skin No Abnormality Appearance) (Pt Warm) -Ulcer Cleansing Rinsed/ Irrigated with Saline -Foul Odor after Cleansing No -Anesthetic Used 5% Lidocaine Gel WC - Nurse 2 - General Ulcer CM Notes Start: 04/24/17 09:51 Freq: Status: Active Protocol: Activity Type Activity Date Activity User E-Sign Co-Sign Detail Recorded Client Recorded Date Recorded By Document 05/22/17 10:13 LIZ [id number] 05/22/17 10:14 LIZ 05/22/17 10:13 Wound Center Nurse 2 [Procedure/Treatment] -Time 10:13 -Correct Patient Yes -Correct Side, Site, Position Yes -Correct Procedure Yes -Procedure Performed Yes -Type of Procedure Debridement -Clinical Debridement Subcutaneous -Post Debridement Size (cm) - Length 1.1 -Post Debridement Size (cm) - Width 0.4 -Post Debridement Size (cm) - Depth 0.1 -Total Square Cm 0.44 -Wound/Ulcer Outcome Not Healed -Ulcer Cleansing Rinsed/ Irrigated with Saline -Foul Odor after Cleansing No -Bioengineered Tissue No -Cetacaine [place] No -Bleeding Controlled with Pressure -Treatment Response Procedure Tolerated Well [See Physician Procedure note for Specifics] Pain Scale: 0-10 Numeric [Pain] -Is Patient Pain Free? Yes Musculoskeletal: No Tenderness to Palpation of Joints or Extremities, Muscle Wasting, - - Digital contraction. The fourth toe ulcer remains healed and the fourth toe is not abutting the third toe because the toe spacer remains in place. Neurological: - - Lack of epicritic sensation to light touch right foot Psych/Mental Status: Normal Affect, Appropriate Debridement Note Post-Debridement Measurements/Treatment WC - Nurse 2 - General Ulcer CM Notes Start: 04/24/17 09:51 Freq: Status: Active Protocol: Activity Type Activity Date Activity User E-Sign Co-Sign Detail Recorded Client Recorded Date Recorded By Document 04/24/17 10:15 TM [id number] 04/24/17 10:18 TM Document 05/01/17 10:10 [id number] 05/01/17 10:12 Document 05/08/17 10:37 [id number] 05/08/17 10:38 Document 05/15/17 10:32 [id number] 05/15/17 10:38 Document 05/22/17 10:13 [id number] 05/22/17 10:14 04/24/17 05/01/17 05/08/17 10:15 10:10 10:37 Wound Center Nurse 2 #2 Right Lateral Foot -Time 10:16 10:10 10:37 -Correct Patient Yes Yes Yes -Correct Side, Site, Position Yes Yes Yes -Correct Procedure Yes Yes Yes -Procedure Performed Yes Yes Yes -Type of Procedure Debridement Debridement Debridement -Clinical Debridement Subcutaneous Subcutaneous Subcutaneous -Post Debridement Size (cm) - Length 0.8 0.5 1.6 -Post Debridement Size (cm) - Width 0.7 1.5 2.0 -Post Debridement Size (cm) - Depth 0.1 0.1 0.3 -Total Square Cm 0.56 0.75 3.20 -Wound/Ulcer Outcome Not Healed Not Healed Not Healed -Ulcer Cleansing Rinsed/ Rinsed/ Rinsed/ Irrigated with Irrigated with Irrigated with Saline Saline Saline -Foul Odor after Cleansing No No No -Bioengineered Tissue No No No -Cetacaine [place] No No No -Topical Lidocaine (%) 5 5 -Bleeding Controlled with Pressure Pressure Pressure -Treatment Response Procedure Procedure Procedure Tolerated Well Tolerated Well Tolerated Well #1 Right 4th Toe -Time 10:16 10:11 10:37 -Correct Patient Yes Yes Yes -Correct Side, Site, Position Yes Yes Yes -Correct Procedure Yes Yes Yes -Procedure Performed Yes Yes Yes -Type of Procedure Debridement Debridement Debridement -Clinical Debridement Subcutaneous Subcutaneous Subcutaneous -Post Debridement Size (cm) - Length 0.3 0.1 2.7 -Post Debridement Size (cm) - Width 0.4 0.2 1.1 -Post Debridement Size (cm) - Depth 0.1 0.1 0.1 -Total Square Cm 0.12 0.02 2.97 -Wound/Ulcer Outcome Not Healed Not Healed Not Healed -Ulcer Cleansing Rinsed/ Rinsed/ Rinsed/ Irrigated with Irrigated with Irrigated with Saline Saline Saline -Foul Odor after Cleansing No No No -Bioengineered Tissue No No No -Cetacaine [place] No No No -Topical Lidocaine (%) 5 5 -Bleeding Controlled with Pressure Pressure Pressure -Treatment Response Procedure Procedure Procedure Tolerated Well Tolerated Well Tolerated Well Pain Scale: 0-10 Numeric Is Patient Pain Free? Yes Yes Yes 05/15/17 05/22/17 10:32 10:13 Wound Center Nurse 2 #2 Right Lateral Foot -Time 10:33 10:13 -Correct Patient Yes Yes -Correct Side, Site, Position Yes Yes -Correct Procedure Yes Yes -Procedure Performed Yes Yes -Type of Procedure Debridement Debridement -Clinical Debridement Subcutaneous Subcutaneous -Post Debridement Size (cm) - Length 0.4 1.1 -Post Debridement Size (cm) - Width 1.4 0.4 -Post Debridement Size (cm) - Depth 0.2 0.1 -Total Square Cm 0.56 0.44 -Wound/Ulcer Outcome Not Healed Not Healed -Ulcer Cleansing Rinsed/ Rinsed/ Irrigated with Irrigated with Saline Saline -Foul Odor after Cleansing No No -Bioengineered Tissue No No -Cetacaine [place] No No -Topical Lidocaine (%) -Bleeding Controlled with Pressure Pressure -Treatment Response Procedure Procedure Tolerated Well Tolerated Well #1 Right 4th Toe -Time 10:33 -Correct Patient No -Correct Side, Site, Position No -Correct Procedure No -Procedure Performed No -Type of Procedure -Clinical Debridement -Post Debridement Size (cm) - Length 0 -Post Debridement Size (cm) - Width 0 -Post Debridement Size (cm) - Depth 0 -Total Square Cm 0 -Wound/Ulcer Outcome Healed- Epithelialized -Ulcer Cleansing -Foul Odor after Cleansing -Bioengineered Tissue -Cetacaine [place] -Topical Lidocaine (%) -Bleeding Controlled with -Treatment Response Pain Scale: 0-10 Numeric Is Patient Pain Free? 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 right lateral foot (fat exposed; gouty tophi resolved). Severe peripheral vascular disease. Malnutrition. Delayed healing. Bilateral hammertoe deformities Plan: I Reviewed and discussed his case this morning. Debridement was performed today as noted in the clinical panel. To continue with open toe shoe that does not put pressure on this site. His noninvasive vascular studies were also reviewed which demonstrated significant loss of flow with an TALIA of 0.27 in the right lower extremity. A referral to Dr. Reilly, vascular surgeon was completed and the patient refuses treatment recommendations. His prognosis is significantly worsened due to refusal to proceed with vascular intervention. His laboratory data was reviewed with a white blood cell count 9.7 prealbumin of 25 and hemoglobin A1c of 5.4%. To continue with proper nutrition optimize healing. Understand he is at risk for limb loss. I did also review his right foot x-rays which demonstrated osseous destruction. There is evidence of some tophi formation and diffuse decreased bone density noted to the entire foot. Approval for advanced wound care product has been denied by insurance. To continue to change dressing daily with Elba or hydrogel/adaptic. He refuses application of advanced collagen and antimicrobial product, puraply. To decrease pressure at the ulcer site by continuing with a surgical shoe as well as placing a gauze to the proximal webspace between the third and fourth toe to avoid the toes touching even though this site is recently healed he is at risk for reopening. He demonstrates understanding and this application was demonstrated today. To return to clinic in 1 week or call sooner if there are any problems or concerns.
--- NOTE | 2017-05-22 10:23 | PN.PCM_ITS ---
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 Status: Chronic Current Visit: Yes Code(s): L97.512 - Non-pressure chronic ulcer of other part of right foot with fat layer exposed (2) Hammer toe of right foot Status: Chronic Current Visit: Yes Code(s): M20.41 - Other hammer toe(s) ( acquired), right foot (3) Other specified peripheral vascular diseases Status: Chronic Current Visit: Yes Code(s): I73.89 - Other specified peripheral vascular diseases (4) Malnutrition Status: Chronic Current Visit: Yes Code(s): E46 - Unspecified protein- calorie malnutrition (5) Delayed wound healing Status: Chronic Current Visit: Yes Code(s): T14.8 - Other injury of unspecified body region Type of Wound Date of Service: 05/22/17 Chief Complaint: Chronic, nonhealing ulcerations of the right lateral foot History of Wound: This is an 81-year-old male who presents with 2 ulcerations on his right foot. He denies fever, chills, nausea, vomiting, loss of appetite. He continues to use Elba as advised. He denies foot pain. He wears a toe spacer. Progress of Wound: Improving - Physical Exam Vital Signs Temp Pulse Resp BP 97.3 F L 53 L 18 148/70 H 05/22/17 09:45 05/22/17 09:45 05/22/17 09:45 05/22/17 09:45 General: Alert, Oriented x3, Cooperative Extremities: No cyanosis, No edema, Capillary Refill Less than 3 Seconds, No Calf Tenderness, Diminished Peripheral Pulses Skin: Ulcer/ Wound - There is no purulence, no erythema, no streaking, no infection, no fluctuance on palpation right foot. The skin is hairless and atrophic. Wound Measurements and Assessment - Nurse 1 - General Ulcer Measurement Start: 04/24/17 09:51 Freq: Status: Active Protocol: Activity Type Activity Date Activity User E-Sign Co-Sign Detail Recorded Client Recorded Date Recorded By Document 05/22/17 09:45 RB [id number] 05/22/17 09:53 RB 05/22/17 09:45 Wound Center Nurse 1 [Ulcer Assessment Protocol: CAMILLE.WD.LOC] #2 Right Lateral Foot -Combined with other wound No -Current Size (cm) - Length 0.1 -Current Size (cm) - Width 0.1 -Current Size (cm) - Depth 0.1 -Total Square Cm 0.01 -Photo Taken No -Tunneling No -Undermining/Tunneling No -Circular Undermining No -Classification - Pressure Ulcer Stage 3 -Exudate Amt None Present (0 %) -Wound Margin Distinct, Outline Attached -Granulation Amt None Present (0 %) -Slough/Fibrin Yes -Necrosis Amt Large (67-100%) -Necrotic Tissue Type Eschar -Structure Exposed N/A -Texture (Alba-wound Skin Appearance) Assessed -Moisture (Alba-wound Skin Appearance Assessed ) -Color (Alba-wound Skin Appearance) Assessed -Temperature (Alba-wound Skin No Abnormality Appearance) (Pt Warm) -Ulcer Cleansing Rinsed/ Irrigated with Saline -Foul Odor after Cleansing No -Anesthetic Used 5% Lidocaine Gel WC - Nurse 2 - General Ulcer CM Notes Start: 04/24/17 09:51 Freq: Status: Active Protocol: Activity Type Activity Date Activity User E-Sign Co-Sign Detail Recorded Client Recorded Date Recorded By Document 05/22/17 10:13 LIZ [id number] 05/22/17 10:14 LIZ 05/22/17 10:13 Wound Center Nurse 2 [Procedure/Treatment] -Time 10:13 -Correct Patient Yes -Correct Side, Site, Position Yes -Correct Procedure Yes -Procedure Performed Yes -Type of Procedure Debridement -Clinical Debridement Subcutaneous -Post Debridement Size (cm) - Length 1.1 -Post Debridement Size (cm) - Width 0.4 -Post Debridement Size (cm) - Depth 0.1 -Total Square Cm 0.44 -Wound/Ulcer Outcome Not Healed -Ulcer Cleansing Rinsed/ Irrigated with Saline -Foul Odor after Cleansing No -Bioengineered Tissue No -Cetacaine Tuthill No -Bleeding Controlled with Pressure -Treatment Response Procedure Tolerated Well [See Physician Procedure note for Specifics] Pain Scale: 0-10 Numeric [Pain] -Is Patient Pain Free? Yes Musculoskeletal: No Tenderness to Palpation of Joints or Extremities, Muscle Wasting, - - Digital contraction. The fourth toe ulcer remains healed and the fourth toe is not abutting the third toe because the toe spacer remains in place. Neurological: - - Lack of epicritic sensation to light touch right foot Psych/Mental Status: Normal Affect, Appropriate Debridement Note Post-Debridement Measurements/Treatment WC - Nurse 2 - General Ulcer CM Notes Start: 04/24/17 09:51 Freq: Status: Active Protocol: Activity Type Activity Date Activity User E-Sign Co-Sign Detail Recorded Client Recorded Date Recorded By Document 04/24/17 10:15 TM [id number] 04/24/17 10:18 TM Document 05/01/17 10:10 JF [id number] 05/01/17 10:12 Document 05/08/17 10:37 [id number] 05/08/17 10:38 Document 05/15/17 10:32 [id number] 05/15/17 10:38 Document 05/22/17 10:13 [id number] 05/22/17 10:14 04/24/17 05/01/17 05/08/17 10:15 10:10 10:37 Wound Center Nurse 2 #2 Right Lateral Foot -Time 10:16 10:10 10:37 -Correct Patient Yes Yes Yes -Correct Side, Site, Position Yes Yes Yes -Correct Procedure Yes Yes Yes -Procedure Performed Yes Yes Yes -Type of Procedure Debridement Debridement Debridement -Clinical Debridement Subcutaneous Subcutaneous Subcutaneous -Post Debridement Size (cm) - Length 0.8 0.5 1.6 -Post Debridement Size (cm) - Width 0.7 1.5 2.0 -Post Debridement Size (cm) - Depth 0.1 0.1 0.3 -Total Square Cm 0.56 0.75 3.20 -Wound/Ulcer Outcome Not Healed Not Healed Not Healed -Ulcer Cleansing Rinsed/ Rinsed/ Rinsed/ Irrigated with Irrigated with Irrigated with Saline Saline Saline -Foul Odor after Cleansing No No No -Bioengineered Tissue No No No -Cetacaine Tuthill No No No -Topical Lidocaine (%) 5 5 -Bleeding Controlled with Pressure Pressure Pressure -Treatment Response Procedure Procedure Procedure Tolerated Well Tolerated Well Tolerated Well #1 Right 4th Toe -Time 10:16 10:11 10:37 -Correct Patient Yes Yes Yes -Correct Side, Site, Position Yes Yes Yes -Correct Procedure Yes Yes Yes -Procedure Performed Yes Yes Yes -Type of Procedure Debridement Debridement Debridement -Clinical Debridement Subcutaneous Subcutaneous Subcutaneous -Post Debridement Size (cm) - Length 0.3 0.1 2.7 -Post Debridement Size (cm) - Width 0.4 0.2 1.1 -Post Debridement Size (cm) - Depth 0.1 0.1 0.1 -Total Square Cm 0.12 0.02 2.97 -Wound/Ulcer Outcome Not Healed Not Healed Not Healed -Ulcer Cleansing Rinsed/ Rinsed/ Rinsed/ Irrigated with Irrigated with Irrigated with Saline Saline Saline -Foul Odor after Cleansing No No No -Bioengineered Tissue No No No -Cetacaine Tuthill No No No -Topical Lidocaine (%) 5 5 -Bleeding Controlled with Pressure Pressure Pressure -Treatment Response Procedure Procedure Procedure Tolerated Well Tolerated Well Tolerated Well Pain Scale: 0-10 Numeric Is Patient Pain Free? Yes Yes Yes 05/15/17 05/22/17 10:32 10:13 Wound Center Nurse 2 #2 Right Lateral Foot -Time 10:33 10:13 -Correct Patient Yes Yes -Correct Side, Site, Position Yes Yes -Correct Procedure Yes Yes -Procedure Performed Yes Yes -Type of Procedure Debridement Debridement -Clinical Debridement Subcutaneous Subcutaneous -Post Debridement Size (cm) - Length 0.4 1.1 -Post Debridement Size (cm) - Width 1.4 0.4 -Post Debridement Size (cm) - Depth 0.2 0.1 -Total Square Cm 0.56 0.44 -Wound/Ulcer Outcome Not Healed Not Healed -Ulcer Cleansing Rinsed/ Rinsed/ Irrigated with Irrigated with Saline Saline -Foul Odor after Cleansing No No -Bioengineered Tissue No No -Cetacaine Tuthill No No -Topical Lidocaine (%) -Bleeding Controlled with Pressure Pressure -Treatment Response Procedure Procedure Tolerated Well Tolerated Well #1 Right 4th Toe -Time 10:33 -Correct Patient No -Correct Side, Site, Position No -Correct Procedure No -Procedure Performed No -Type of Procedure -Clinical Debridement -Post Debridement Size (cm) - Length 0 -Post Debridement Size (cm) - Width 0 -Post Debridement Size (cm) - Depth 0 -Total Square Cm 0 -Wound/Ulcer Outcome Healed- Epithelialized -Ulcer Cleansing -Foul Odor after Cleansing -Bioengineered Tissue -Cetacaine Tuthill -Topical Lidocaine (%) -Bleeding Controlled with -Treatment Response Pain Scale: 0-10 Numeric Is Patient Pain Free? 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 right lateral foot (fat exposed; gouty tophi resolved). Severe peripheral vascular disease. Malnutrition. Delayed healing. Bilateral hammertoe deformities Plan: I Reviewed and discussed his case this morning. Debridement was performed today as noted in the clinical panel. To continue with open toe shoe that does not put pressure on this site. His noninvasive vascular studies were also reviewed which demonstrated significant loss of flow with an TALIA of 0.27 in the right lower extremity. A referral to Dr. Reilly, vascular surgeon was completed and the patient refuses treatment recommendations. His prognosis is significantly worsened due to refusal to proceed with vascular intervention. His laboratory data was reviewed with a white blood cell count 9.7 prealbumin of 25 and hemoglobin A1c of 5.4%. To continue with proper nutrition optimize healing. Understand he is at risk for limb loss. I did also review his right foot x-rays which demonstrated osseous destruction. There is evidence of some tophi formation and diffuse decreased bone density noted to the entire foot. Approval for advanced wound care product has been denied by insurance. To continue to change dressing daily with Elba or hydrogel/adaptic. He refuses application of advanced collagen and antimicrobial product, puraply. To decrease pressure at the ulcer site by continuing with a surgical shoe as well as placing a gauze to the proximal webspace between the third and fourth toe to avoid the toes touching even though this site is recently healed he is at risk for reopening. He demonstrates understanding and this application was demonstrated today. To return to clinic in 1 week or call sooner if there are any problems or concerns.
== END 2017-05-22 23:59 ==
LOC: WC 10:00
PROVIDERS: Family Provider Family Medicine; PCP Family Medicine; Visit Provider Podiatrist
DX: I73.89 Other specified peripheral vascular diseases (principal); L97.512 Non-pressure chronic ulcer of other part of right foot with fat layer exposed; M20.41 Other hammer toe(s) (acquired), right foot; R09.89 Other specified symptoms and signs involving the circulatory and respiratory systems; M20.42 Other hammer toe(s) (acquired), left foot; S90.31XA Contusion of right foot, initial encounter; W22.8XXA Striking against or struck by other objects, initial encounter
CPT/HCPCS: 11042

== ENCOUNTER → 2017-06-14 09:42 | Outpatient (CLI) | payer OTHER, SELFPAY ==
--- NOTE | 2017-06-14 10:00 | RAD_ITS ---
STUDY: X-RAY - RIGHT FOOT CLINICAL: Male, 81 years old. Right foot ulceration. TECHNIQUE: 3 view(s) of the foot. COMPARISON: January 08, 2017 FINDINGS: There is stable generalized osteopenia. There are small superior and inferior calcaneal spurs. There is severe arthrosis of the first metatarsophalangeal joint with central erosions with overhanging margins. These findings may represent the sequelae of gout. There are circumscribed erosions of the bases of the fourth and fifth metatarsals which may also be secondary to gout. There is bony erosion of the head of the fifth metatarsal as well as at the base of the proximal phalanx of the fifth digit. These findings may represent remote trauma. There is moderate arthrosis of the DIP joint of the fifth digit. There are hammertoe deformities of the second through fifth digits. There is marked vascular calcification unchanged. RAD/Foot min 3 Views IMPRESSION: Stable appearance of the foot with generalized osteopenia and findings which may represent the sequelae of gout. No bone resorption suggestive of osteomyelitis. Electronically Signed: Beau Lynn MD at 16:52 EST , Service support ,
[2017-06-14 10:06] LABS: Absolute Lymphocyte Count 2.07 X10^3/ul (0.83-4.51); Absolute Neutrophil Count 4.7 X10^3/uL (2.0-7.7); Basophil# 0.04 X10^3/uL; Basophil% 0.5 % (0-1); Eosinophil# 0.33 X10^3/uL; Eosinophils% 4.1 % (0-5); Hematocrit 44.8 % (40-54); Hemoglobin 14.7 g/dl (13.0-16.5); Lymphocyte # 2.07 X10^3/ul (4.0); Lymphocyte % 25.7 % (19-41); Mean Corp Hgb Conc 32.8 g/gl (32-36); Mean Corpuscular Hgb 29.7 pg (27.0-32.0); Mean Corpuscular Volume 90.5 fL (80-94); Mean Platelet Vol. 10.9 fl (6.2-12.0); Monocyte% 11.2 % (0-10); Neutrophil % 58.4 % (47-70); Platelet Count 153 K/mm3 (150-450); RBC Distribution Width CV 14.5 % (11.6-14.6); RBC Distribution Width SD 47.1 fl (35.1-43.9); Red Blood Count 4.95 M/mm3 (4.6-6.2); White Blood Count 8.1 K/mm3 (4.4-11.0)
[2017-06-14 10:11] LABS: POSITIVE COUNT NO; POSITIVE DIFFERENTIAL NO; POSITIVE MORPHOLOGY NO
[2017-06-14 10:34] LABS: Erythrocyte Sedimentation Rate 9 mm/hr (0-20)
[2017-06-14 10:38] LABS: ALB/GLOB Ratio 0.9 RATIO (0.9-2.4); AST(SGOT) 19 U/L (15-37); Alanine Aminotransfer ALT/SGPT 15 U/L (16-61); Albumin, Serum 3.7 g/dL (3.2-5.0); Alkaline Phosphatase 110 U/L (45-117); Anion Gap 5 (5-15); BUN 34 mg/dL (7-18); BUN/Creat Ratio 21.8 RATIO (10-20); CRP 9.29 mg/L (0.0-3.0); Calcium,Total 8.9 mg/dL (8.5-10.1); Chloride 101 mmol/L (98-107); Creatinine, Serum 1.56 mg/dL (0.70-1.30); EST Glomerular Filtration Rate 46 mL/min (>60); Est Glom Filt Rate - Afr Amer 55 mL/min (>60); Globulin 4.2 g/dL (2.2-4.2); Glucose 104 mg/dL (74-106); Potassium 4.9 mmol/L (3.5-5.1); Protein, Total 7.9 g/dL (6.4-8.2); Sodium Level 137 mmol/L (136-145)
== END ==
PROVIDERS: Family Provider Family Medicine; PCP Family Medicine; Visit Provider Podiatrist
DX: L97.512 Non-pressure chronic ulcer of other part of right foot with fat layer exposed (principal); M86.9 Osteomyelitis, unspecified
CPT/HCPCS: 36415; 73630; 80053; 85025; 85652; 86140

== ENCOUNTER 2017-06-19 10:00 | Outpatient (RCR) | payer OTHER, SELFPAY ==
[2017-05-22 09:45] VITALS: BP 148/70
[2017-05-23 00:26] VITALS: PULSE 53; RESP 18; TEMP 36.3
[2017-06-05 10:16] VITALS: BP 137/70; PULSE 54; RESP 20; TEMP 36.8; BMI 21.2
--- NOTE | 2017-06-05 11:53 | PCM.WC.PN ---
(1) Ulcer of toe of right foot Status: Chronic Qualifiers: Non-pressure ulcer stage: with fat layer exposed Qualified Code(s): L97.512 - Non-pressure chronic ulcer of other part of right foot with fat layer exposed Code(s): L97.519 - Non-pressure chronic ulcer of other part of right foot with unspecified severity (2) Hammer toe of right foot Status: Chronic Code(s): M20.41 - Other hammer toe(s) (acquired), right foot (3) Other specified peripheral vascular diseases Status: Chronic Code(s): I73.89 - Other specified peripheral vascular diseases (4) Delayed wound healing Status: Chronic Code(s): T14.8 - Other injury of unspecified body region (5) Malnutrition Status: Chronic Code(s): E46 - Unspecified protein-calorie malnutrition Type of Wound Date of Service: 06/08/17 Chief Complaint: Chronic, nonhealing ulcerations of the right lateral foot. New ulcer to fourth toe right foot History of Wound: This is an 81-year-old male who presents with 2 ulcerations on his right foot. He denies fever, chills, nausea, vomiting, loss of appetite. He continues to use Elba as advised. He denies foot pain. He wears a toe spacer. He is new drainage to his fourth toe and thinks his wound has returned. Progress of Wound: Improving. Recurrent wound today - Physical Exam Vital Signs Temp Pulse Resp BP 98.2 F 54 L 20 H 137/70 H 06/05/17 10:16 06/05/17 10:16 06/05/17 10:16 06/05/17 10:16 General: Alert, Oriented x3, Cooperative Extremities: No cyanosis, Capillary Refill Less than 3 Seconds, No Calf Tenderness, Diminished Peripheral Pulses, Edema, Peripheral Pulses Normal Skin: Ulcer/ Wound - No purulence, no erythema, no streaking, no odor. There is skin discontinuity to the medial right fourth toe and the site has returned with granular base and invagination of adjacent skin. There is no tophi formation. The foot is hairless and has very atrophic skin. No exposed bone is noted. Wound Measurements and Assessment WC - Nurse 1 - General Ulcer Measurement Start: 06/05/17 10:16 Freq: Status: Active Protocol: Activity Type Activity Date Activity User E-Sign Co-Sign Detail Recorded Client Recorded Date Recorded By Document 06/05/17 10:16 [email or web address] [id number] 06/05/17 10:26 RIGOBERTO 06/05/17 10:16 Wound Center Nurse 1 [Ulcer Assessment Protocol: WC.WD.LOC] #2 Right Lateral Foot -Combined with other wound No -Current Size (cm) - Length 0.4 -Current Size (cm) - Width 1.2 -Current Size (cm) - Depth 0 -Total Square Cm 0.48 -Date of Last Picture (Recall this 06/05/17 field) -Photo Taken Yes -Epithelialization Small 1-33% -Tunneling No -Undermining/Tunneling No -Circular Undermining No -Classification - Thickness Full Thickness with Exposed Support Structure -Classification - Pressure Ulcer Stage 3 -Exudate Amt Small (1-33%) -Exudate Type Serosanguineous -Wound Margin Distinct, Outline Attached -Granulation Amt None Present (0 %) -Granulation Quality N/A -Slough/Fibrin Yes -Necrosis Amt None Present (0 %) -Necrotic Tissue Type Eschar -Structure Exposed N/A -Texture (Alba-wound Skin Appearance) No Abnormality -Moisture (Alba-wound Skin Appearance No Abnormality ) -Color (Alba-wound Skin Appearance) No Abnormality -Temperature (Alba-wound Skin No Abnormality Appearance) (Pt Warm) -Tenderness on Palpation (Alba-wound No Skin Appearance) -Ulcer Cleansing Rinsed/ Irrigated with Saline -Anesthetic Used 4% Lidocaine Solution [Edema Assessment] -Lower Limb Edema Present No - Nurse 2 - General Ulcer CM Notes Start: 06/05/17 10:16 Freq: Status: Active Protocol: Activity Type Activity Date Activity User E-Sign Co-Sign Detail Recorded Client Recorded Date Recorded By Document 06/05/17 11:21 LIZ [id number] 06/05/17 11:23 06/05/17 11:21 Wound Center Nurse 2 [Procedure/Treatment] #2 Right Lateral Foot -Time 11:22 -Correct Patient Yes -Correct Side, Site, Position Yes -Correct Procedure Yes -Procedure Performed Yes -Type of Procedure Debridement -Clinical Debridement Subcutaneous -Post Debridement Size (cm) - Length 1.5 -Post Debridement Size (cm) - Width 1.3 -Post Debridement Size (cm) - Depth 0.2 -Total Square Cm 1.95 -Wound/Ulcer Outcome Not Healed -Ulcer Cleansing Rinsed/ Irrigated with Saline -Foul Odor after Cleansing No -Bioengineered Tissue No -Bleeding Controlled with Pressure -Treatment Response Procedure Tolerated Well #1 Right 4th Toe -Time 11:22 -Correct Patient Yes -Correct Side, Site, Position Yes -Correct Procedure Yes -Procedure Performed Yes -Type of Procedure Debridement -Clinical Debridement Subcutaneous -Post Debridement Size (cm) - Length 1.3 -Post Debridement Size (cm) - Width 1.2 -Post Debridement Size (cm) - Depth 0.4 -Total Square Cm 1.56 -Wound/Ulcer Outcome Not Healed -Ulcer Cleansing Rinsed/ Irrigated with Saline -Foul Odor after Cleansing No -Bioengineered Tissue No -Bleeding Controlled with Pressure -Treatment Response Procedure Tolerated Well [See Physician Procedure note for Specifics] Pain Scale: 0-10 Numeric [Pain] -Is Patient Pain Free? Yes Musculoskeletal: No Tenderness to Palpation of Joints or Extremities, Muscle Wasting, - - Dorsal contraction of lesser digits with the fourth toe abutting the third toe. Neurological: - - Lack of epicritic sensation light touch right foot with debridement also Psych/Mental Status: Normal Affect, Appropriate Debridement Note Post-Debridement Measurements/Treatment WC - Nurse 2 - General Ulcer CM Notes Start: 06/05/17 10:16 Freq: Status: Active Protocol: Activity Type Activity Date Activity User E-Sign Co-Sign Detail Recorded Client Recorded Date Recorded By Document 06/05/17 11:21 LIZ [id number] 06/05/17 11:23 LIZ 06/05/17 11:21 Wound Center Nurse 2 #2 Right Lateral Foot -Time 11:22 -Correct Patient Yes -Correct Side, Site, Position Yes -Correct Procedure Yes -Procedure Performed Yes -Type of Procedure Debridement -Clinical Debridement Subcutaneous -Post Debridement Size (cm) - Length 1.5 -Post Debridement Size (cm) - Width 1.3 -Post Debridement Size (cm) - Depth 0.2 -Total Square Cm 1.95 -Wound/Ulcer Outcome Not Healed -Ulcer Cleansing Rinsed/ Irrigated with Saline -Foul Odor after Cleansing No -Bioengineered Tissue No -Bleeding Controlled with Pressure -Treatment Response Procedure Tolerated Well #1 Right 4th Toe -Time 11:22 -Correct Patient Yes -Correct Side, Site, Position Yes -Correct Procedure Yes -Procedure Performed Yes -Type of Procedure Debridement -Clinical Debridement Subcutaneous -Post Debridement Size (cm) - Length 1.3 -Post Debridement Size (cm) - Width 1.2 -Post Debridement Size (cm) - Depth 0.4 -Total Square Cm 1.56 -Wound/Ulcer Outcome Not Healed -Ulcer Cleansing Rinsed/ Irrigated with Saline -Foul Odor after Cleansing No -Bioengineered Tissue No -Bleeding Controlled with Pressure -Treatment Response Procedure Tolerated Well Pain Scale: 0-10 Numeric Is Patient Pain Free? Yes Wound debrided: lateral forefoot Laterality: Right Type of Debridement: Excisional debridement Anesthesia Used: 4% Lidocaine Solution Depth: in the subcutaneous layer Percentage of wound debrided: 100 Instrument Used: #15 blade Tissue Removed: fibrous, devitalilzed subcutaneous, biofilm, slough Severity: Fat Layer Exposed Amount of bleeding with debridement: Mild Bleeding Controlled with: Pressure Patient tolerated procedure well - Additional Wound Wound debrided: medial distal fourth toe Laterality: Left Type of Debridement: Excisional debridement Anesthesia Used: 4% Lidocaine Solution Depth: in the subcutaneous layer Percentage of wound debrided: 100 Instrument Used: #15 blade Tissue Removed: fibrous, devitalilzed subcutaneous, biofilm, slough Severity: Fat Layer Exposed Amount of bleeding with debridement: Mild Bleeding Controlled with: Pressure Patient tolerated procedure: Patient tolerated procedure well Assessment/Plan Assessment: right fourth toe ulcer- returned. right lateral foot (fat exposed; gouty tophi resolved). Severe peripheral vascular disease. Malnutrition. Delayed healing. Bilateral hammertoe deformities Plan: I Reviewed and discussed his case this morning. Debridement was performed today as noted in the clinical panel. To continue with open toe shoe that does not put pressure on this site. His noninvasive vascular studies were also reviewed which demonstrated significant loss of flow with an TALIA of 0.27 in the right lower extremity. A referral to Dr. Reilly, vascular surgeon was completed and the patient refuses treatment recommendations. His prognosis is significantly worsened due to refusal to proceed with vascular intervention. His laboratory data was reviewed with a white blood cell count 9.7 prealbumin of 25 and hemoglobin A1c of 5.4%. To continue with proper nutrition optimize healing. Understand he is at risk for limb loss. I did also review his right foot x-rays which demonstrated osseous destruction. There is evidence of some tophi formation and diffuse decreased bone density noted to the entire foot. Approval for advanced wound care product has been denied by insurance. To continue to change dressing daily with Elba or hydrogel/adaptic. He refuses application of advanced collagen and antimicrobial product, puraply. To decrease pressure at the ulcer site by continuing with a surgical shoe as well as placing a gauze to the proximal webspace between the third and fourth toe to avoid the toes touching even though this site is recently healed he is at risk for reopening. To discontinue foam toe spacer ; this is not likely offload this toe enough to prevent wound formation or worsening status. He demonstrates understanding and this application was demonstrated today. To return to clinic in 1 week or call sooner if there are any problems or concerns.
[2017-06-12 10:05] VITALS: BP 144/81; PULSE 56; RESP 16; TEMP 36.6; BMI 21.2
--- NOTE | 2017-06-12 13:00 | PCM.WC.PN ---
(1) Ulcer of toe of right foot Status: Chronic Current Visit: Yes Qualifiers: Non-pressure ulcer stage: with fat layer exposed Qualified Code(s): L97.512 - Non-pressure chronic ulcer of other part of right foot with fat layer exposed Code(s): L97.519 - Non-pressure chronic ulcer of other part of right foot with unspecified severity (2) Hammer toe of right foot Status: Chronic Current Visit: Yes Code(s): M20.41 - Other hammer toe(s) (acquired), right foot (3) Other specified peripheral vascular diseases Status: Chronic Current Visit: Yes Code(s): I73.89 - Other specified peripheral vascular diseases (4) Delayed wound healing Status: Chronic Current Visit: Yes Code(s): T14.8 - Other injury of unspecified body region (5) Malnutrition Status: Chronic Current Visit: Yes Code(s): E46 - Unspecified protein-calorie malnutrition Type of Wound Date of Service: 06/12/17 Chief Complaint: Chronic, nonhealing ulcerations of the right lateral foot. ulcer to fourth toe right foot History of Wound: This is an 81-year-old male who presents with 2 ulcerations on his right foot. He denies fever, chills, nausea, vomiting, loss of appetite. He continues to use Elba as advised. He denies foot pain. He wears a toe spacer. Progress of Wound: Improving - Physical Exam Vital Signs Temp Pulse Resp BP 97.8 F 56 L 16 144/81 H 06/12/17 10:05 06/12/17 10:05 06/12/17 10:05 06/12/17 10:05 General: Alert, Oriented x3, Cooperative Extremities: No cyanosis, No edema, No Calf Tenderness - Negative prepped right, Diminished Peripheral Pulses, - - Capillary refill less than 4 seconds to the lesser toes right foot Skin: Ulcer/ Wound - No purulence, no erythema, no streaking, no odor no necrosis, no infection right foot. The right fourth toe ulcer does probe to deep capsular tissue not directly to bone. The lateral foot wound has peripheral epithelialization and is progressing well. Wound Measurements and Assessment WC - Nurse 1 - General Ulcer Measurement Start: 06/05/17 10:16 Freq: Status: Active Protocol: Activity Type Activity Date Activity User E-Sign Co-Sign Detail Recorded Client Recorded Date Recorded By Document 06/12/17 10:05 [id number] 06/12/17 10:13 DL 06/12/17 10:05 Wound Center Nurse 1 [Ulcer Assessment] #2 Right Lateral Foot -Current Size (cm) - Length 0.1 -Current Size (cm) - Width 0.5 -Current Size (cm) - Depth 0.1 -Total Square Cm 0.05 -Photo Taken No -Exudate Amt None Present (0 %) -Wound Margin Flat & Intact -Granulation Amt Large (67-100%) -Granulation Quality Muse -Necrosis Amt None Present (0 %) -Structure Exposed N/A -Texture (Alba-wound Skin Appearance) Scarring -Moisture (Alba-wound Skin Appearance Dry/Scaly ) -Color (Alba-wound Skin Appearance) Hemosiderin Staining -Temperature (Alba-wound Skin No Abnormality Appearance) (Pt Warm) -Tenderness on Palpation (Alba-wound No Skin Appearance) -Ulcer Cleansing Rinsed/ Irrigated with Saline #1 Right 4th Toe -Current Size (cm) - Length 0.3 -Current Size (cm) - Width 0.3 -Current Size (cm) - Depth 0.1 -Total Square Cm 0.09 -Photo Taken No -Exudate Amt None Present (0 %) -Wound Margin Thickened -Granulation Amt None Present (0 %) -Necrosis Amt Large (67-100%) -Necrotic Tissue Type Adherent Slough -Structure Exposed N/A -Texture (Alba-wound Skin Appearance) No Abnormality -Moisture (Alba-wound Skin Appearance Dry/Scaly ) -Color (Alba-wound Skin Appearance) Hemosiderin Staining -Temperature (Alba-wound Skin No Abnormality Appearance) (Pt Warm) -Tenderness on Palpation (Alba-wound No Skin Appearance) -Ulcer Cleansing Rinsed/ Irrigated with Saline -Foul Odor after Cleansing No -Anesthetic Used 4% Lidocaine Solution WC - Nurse 2 - General Ulcer CM Notes Start: 06/05/17 10:16 Freq: Status: Active Protocol: Activity Type Activity Date Activity User E-Sign Co-Sign Detail Recorded Client Recorded Date Recorded By Document 06/12/17 10:43 [email or web address] [id number] 06/12/17 10:48 LIZ 06/12/17 10:43 Wound Center Nurse 2 [Procedure/Treatment] #2 Right Lateral Foot -Time 10:45 -Correct Patient Yes -Correct Side, Site, Position Yes -Correct Procedure Yes -Procedure Performed Yes -Type of Procedure Debridement -Clinical Debridement Subcutaneous -Post Debridement Size (cm) - Length 0.2 -Post Debridement Size (cm) - Width 0.5 -Post Debridement Size (cm) - Depth 0.1 -Total Square Cm 0.10 -Wound/Ulcer Outcome Not Healed -Ulcer Cleansing Rinsed/ Irrigated with Saline -Foul Odor after Cleansing No -Bioengineered Tissue No -Bleeding Controlled with Pressure -Treatment Response Procedure Tolerated Well #1 Right 4th Toe -Time 10:45 -Correct Patient Yes -Correct Side, Site, Position Yes -Correct Procedure Yes -Procedure Performed Yes -Type of Procedure Debridement -Clinical Debridement Subcutaneous -Post Debridement Size (cm) - Length 1.0 -Post Debridement Size (cm) - Width 0.4 -Post Debridement Size (cm) - Depth 0.1 -Total Square Cm 0.40 -Wound/Ulcer Outcome Not Healed -Ulcer Cleansing Rinsed/ Irrigated with Saline -Foul Odor after Cleansing No -Bioengineered Tissue No -Bleeding Controlled with Pressure -Treatment Response Procedure Tolerated Well [See Physician Procedure note for Specifics] Pain Scale: 0-10 Numeric [Pain] -Is Patient Pain Free? Yes Musculoskeletal: No Tenderness to Palpation of Joints or Extremities, Muscle Wasting, - - Rigid dorsal contracture abd 4th toe abuts 3rd toe Neurological: - - lack of epicritic sensation via light touch right foot Psych/Mental Status: Normal Affect, Appropriate Debridement Note Post-Debridement Measurements/Treatment WC - Nurse 2 - General Ulcer CM Notes Start: 06/05/17 10:16 Freq: Status: Active Protocol: Activity Type Activity Date Activity User E-Sign Co-Sign Detail Recorded Client Recorded Date Recorded By Document 06/05/17 11:21 [id number] 06/05/17 11:23 Document 06/12/17 10:43 [id number] [id number] 06/12/17 10:48 06/05/17 06/12/17 11:21 10:43 Wound Center Nurse 2 #2 Right Lateral Foot -Time 11:22 10:45 -Correct Patient Yes Yes -Correct Side, Site, Position Yes Yes -Correct Procedure Yes Yes -Procedure Performed Yes Yes -Type of Procedure Debridement Debridement -Clinical Debridement Subcutaneous Subcutaneous -Post Debridement Size (cm) - Length 1.5 0.2 -Post Debridement Size (cm) - Width 1.3 0.5 -Post Debridement Size (cm) - Depth 0.2 0.1 -Total Square Cm 1.95 0.10 -Wound/Ulcer Outcome Not Healed Not Healed -Ulcer Cleansing Rinsed/ Rinsed/ Irrigated with Irrigated with Saline Saline -Foul Odor after Cleansing No No -Bioengineered Tissue No No -Bleeding Controlled with Pressure Pressure -Treatment Response Procedure Procedure Tolerated Well Tolerated Well #1 Right 4th Toe -Time 11:22 10:45 -Correct Patient Yes Yes -Correct Side, Site, Position Yes Yes -Correct Procedure Yes Yes -Procedure Performed Yes Yes -Type of Procedure Debridement Debridement -Clinical Debridement Subcutaneous Subcutaneous -Post Debridement Size (cm) - Length 1.3 1.0 -Post Debridement Size (cm) - Width 1.2 0.4 -Post Debridement Size (cm) - Depth 0.4 0.1 -Total Square Cm 1.56 0.40 -Wound/Ulcer Outcome Not Healed Not Healed -Ulcer Cleansing Rinsed/ Rinsed/ Irrigated with Irrigated with Saline Saline -Foul Odor after Cleansing No No -Bioengineered Tissue No No -Bleeding Controlled with Pressure Pressure -Treatment Response Procedure Procedure Tolerated Well Tolerated Well Pain Scale: 0-10 Numeric Is Patient Pain Free? Yes Yes Wound debrided: fourth toe distal medial Laterality: Right Type of Debridement: Excisional debridement Anesthesia Used: 4% Lidocaine Solution Depth: in the subcutaneous layer Percentage of wound debrided: 100 Instrument Used: #15 blade Tissue Removed: fibrous, devitalized subcutaneous, biofilm, slough Severity: Fat Layer Exposed Amount of bleeding with debridement: Mild Bleeding Controlled with: Pressure Patient tolerated procedure well - Additional Wound Wound debrided: lateral forefoot Type of Debridement: Excisional debridement Anesthesia Used: 4% Lidocaine Solution Percentage of wound debrided: 100 Instrument Used: #15 blade Tissue Removed: fibrous, devitalized subcutaneous, biofilm, slough Severity: Fat Layer Exposed Amount of bleeding with debridement: Mild Bleeding Controlled with: Pressure Patient tolerated procedure: Patient tolerated procedure well Assessment/Plan Active Problems Hammer toe of right foot (Chronic) Ulcer of toe of right foot (Chronic) Other specified peripheral vascular diseases (Chronic) Delayed wound healing (Chronic) Malnutrition (Chronic) Assessment: right fourth toe ulcer - returned; rule out osteomyelitis. right lateral foot (fat exposed; gouty tophi resolved). Severe peripheral vascular disease. Malnutrition. Delayed healing. Bilateral hammertoe deformities Plan: I reviewed and discussed his case this morning. Debridement was performed as noted in the clinical panel. To change dressing every 1-2 days. To continue with open toe shoe that does not put pressure on this site. His noninvasive vascular studies were also reviewed which demonstrated significant loss of flow with an TALIA of 0.27 in the right lower extremity. A referral to Dr. Reilly, vascular surgeon was completed and the patient refuses treatment recommendations. His prognosis is significantly worsened due to refusal to proceed with vascular intervention. His laboratory data was reviewed with a white blood cell count 9.7 prealbumin of 25 and hemoglobin A1c of 5.4%. To continue with proper nutrition optimize healing. Understand he is at risk for limb loss. I did also review his right foot x-rays which demonstrated osseous destruction. There is evidence of some tophi formation and diffuse decreased bone density noted to the entire foot. New labs (cbc, cmp, esr, crp) and updated right foot xray were ordered today for furthe osteomyelitis and delayed healing work up. Approval for advanced wound care product has been denied by insurance. To continue to change dressing daily with Elba or hydrogel/adaptic. He refuses application of advanced collagen and antimicrobial product, puraply. To decrease pressure at the ulcer site by continuing with a surgical shoe as well as placing a gauze to the proximal webspace between the third and fourth toe to avoid the toes touching even though this site is recently healed he is at risk for reopening. To return to clinic in 1 week or call sooner if there are any problems or concerns.
--- NOTE | 2017-06-12 13:06 | PN.PCM_ITS ---
(1) Ulcer of toe of right foot Status: Chronic Current Visit: Yes Qualifiers: Non-pressure ulcer stage: with fat layer exposed Qualified Code(s): L97.512 - Non-pressure chronic ulcer of other part of right foot with fat layer exposed Code(s): L97.519 - Non-pressure chronic ulcer of other part of right foot with unspecified severity (2) Hammer toe of right foot Status: Chronic Current Visit: Yes Code(s): M20.41 - Other hammer toe(s) ( acquired), right foot (3) Other specified peripheral vascular diseases Status: Chronic Current Visit: Yes Code(s): I73.89 - Other specified peripheral vascular diseases (4) Delayed wound healing Status: Chronic Current Visit: Yes Code(s): T14.8 - Other injury of unspecified body region (5) Malnutrition Status: Chronic Current Visit: Yes Code(s): E46 - Unspecified protein- calorie malnutrition Type of Wound Date of Service: 06/12/17 Chief Complaint: Chronic, nonhealing ulcerations of the right lateral foot. ulcer to fourth toe right foot History of Wound: This is an 81-year-old male who presents with 2 ulcerations on his right foot. He denies fever, chills, nausea, vomiting, loss of appetite. He continues to use Elba as advised. He denies foot pain. He wears a toe spacer. Progress of Wound: Improving - Physical Exam Vital Signs Temp Pulse Resp BP 97.8 F 56 L 16 144/81 H 06/12/17 10:05 06/12/17 10:05 06/12/17 10:05 06/12/17 10:05 General: Alert, Oriented x3, Cooperative Extremities: No cyanosis, No edema, No Calf Tenderness - Negative prepped right , Diminished Peripheral Pulses, - - Capillary refill less than 4 seconds to the lesser toes right foot Skin: Ulcer/ Wound - No purulence, no erythema, no streaking, no odor no necrosis, no infection right foot. The right fourth toe ulcer does probe to deep capsular tissue not directly to bone. The lateral foot wound has peripheral epithelialization and is progressing well. Wound Measurements and Assessment WC - Nurse 1 - General Ulcer Measurement Start: 06/05/17 10:16 Freq: Status: Active Protocol: Activity Type Activity Date Activity User E-Sign Co-Sign Detail Recorded Client Recorded Date Recorded By Document 06/12/17 10:05 [id number] 06/12/17 10:13 DL 06/12/17 10:05 Wound Center Nurse 1 [Ulcer Assessment] #2 Right Lateral Foot -Current Size (cm) - Length 0.1 -Current Size (cm) - Width 0.5 -Current Size (cm) - Depth 0.1 -Total Square Cm 0.05 -Photo Taken No -Exudate Amt None Present (0 %) -Wound Margin Flat & Intact -Granulation Amt Large (67-100%) -Granulation Quality [place] -Necrosis Amt None Present (0 %) -Structure Exposed N/A -Texture (Alba-wound Skin Appearance) Scarring -Moisture (Alba-wound Skin Appearance Dry/Scaly ) -Color (Alba-wound Skin Appearance) Hemosiderin Staining -Temperature (Alba-wound Skin No Abnormality Appearance) (Pt Warm) -Tenderness on Palpation (Alba-wound No Skin Appearance) -Ulcer Cleansing Rinsed/ Irrigated with Saline #1 Right 4th Toe -Current Size (cm) - Length 0.3 -Current Size (cm) - Width 0.3 -Current Size (cm) - Depth 0.1 -Total Square Cm 0.09 -Photo Taken No -Exudate Amt None Present (0 %) -Wound Margin Thickened -Granulation Amt None Present (0 %) -Necrosis Amt Large (67-100%) -Necrotic Tissue Type Adherent Slough -Structure Exposed N/A -Texture (Alba-wound Skin Appearance) No Abnormality -Moisture (Alba-wound Skin Appearance Dry/Scaly ) -Color (Alba-wound Skin Appearance) Hemosiderin Staining -Temperature (Alba-wound Skin No Abnormality Appearance) (Pt Warm) -Tenderness on Palpation (Alba-wound No Skin Appearance) -Ulcer Cleansing Rinsed/ Irrigated with Saline -Foul Odor after Cleansing No -Anesthetic Used 4% Lidocaine Solution WC - Nurse 2 - General Ulcer CM Notes Start: 06/05/17 10:16 Freq: Status: Active Protocol: Activity Type Activity Date Activity User E-Sign Co-Sign Detail Recorded Client Recorded Date Recorded By Document 06/12/17 10:43 [email or web address] [id number] 06/12/17 10:48 LIZ 06/12/17 10:43 Wound Center Nurse 2 [Procedure/Treatment] #2 Right Lateral Foot -Time 10:45 -Correct Patient Yes -Correct Side, Site, Position Yes -Correct Procedure Yes -Procedure Performed Yes -Type of Procedure Debridement -Clinical Debridement Subcutaneous -Post Debridement Size (cm) - Length 0.2 -Post Debridement Size (cm) - Width 0.5 -Post Debridement Size (cm) - Depth 0.1 -Total Square Cm 0.10 -Wound/Ulcer Outcome Not Healed -Ulcer Cleansing Rinsed/ Irrigated with Saline -Foul Odor after Cleansing No -Bioengineered Tissue No -Bleeding Controlled with Pressure -Treatment Response Procedure Tolerated Well #1 Right 4th Toe -Time 10:45 -Correct Patient Yes -Correct Side, Site, Position Yes -Correct Procedure Yes -Procedure Performed Yes -Type of Procedure Debridement -Clinical Debridement Subcutaneous -Post Debridement Size (cm) - Length 1.0 -Post Debridement Size (cm) - Width 0.4 -Post Debridement Size (cm) - Depth 0.1 -Total Square Cm 0.40 -Wound/Ulcer Outcome Not Healed -Ulcer Cleansing Rinsed/ Irrigated with Saline -Foul Odor after Cleansing No -Bioengineered Tissue No -Bleeding Controlled with Pressure -Treatment Response Procedure Tolerated Well [See Physician Procedure note for Specifics] Pain Scale: 0-10 Numeric [Pain] -Is Patient Pain Free? Yes Musculoskeletal: No Tenderness to Palpation of Joints or Extremities, Muscle Wasting, - - Rigid dorsal contracture abd 4th toe abuts 3rd toe Neurological: - - lack of epicritic sensation via light touch right foot Psych/Mental Status: Normal Affect, Appropriate Debridement Note Post-Debridement Measurements/Treatment WC - Nurse 2 - General Ulcer CM Notes Start: 06/05/17 10:16 Freq: Status: Active Protocol: Activity Type Activity Date Activity User E-Sign Co-Sign Detail Recorded Client Recorded Date Recorded By Document 06/05/17 11:21 [id number] 06/05/17 11:23 Document 06/12/17 10:43 [id number] [id number] 06/12/17 10:48 06/05/17 06/12/17 11:21 10:43 Wound Center Nurse 2 #2 Right Lateral Foot -Time 11:22 10:45 -Correct Patient Yes Yes -Correct Side, Site, Position Yes Yes -Correct Procedure Yes Yes -Procedure Performed Yes Yes -Type of Procedure Debridement Debridement -Clinical Debridement Subcutaneous Subcutaneous -Post Debridement Size (cm) - Length 1.5 0.2 -Post Debridement Size (cm) - Width 1.3 0.5 -Post Debridement Size (cm) - Depth 0.2 0.1 -Total Square Cm 1.95 0.10 -Wound/Ulcer Outcome Not Healed Not Healed -Ulcer Cleansing Rinsed/ Rinsed/ Irrigated with Irrigated with Saline Saline -Foul Odor after Cleansing No No -Bioengineered Tissue No No -Bleeding Controlled with Pressure Pressure -Treatment Response Procedure Procedure Tolerated Well Tolerated Well #1 Right 4th Toe -Time 11:22 10:45 -Correct Patient Yes Yes -Correct Side, Site, Position Yes Yes -Correct Procedure Yes Yes -Procedure Performed Yes Yes -Type of Procedure Debridement Debridement -Clinical Debridement Subcutaneous Subcutaneous -Post Debridement Size (cm) - Length 1.3 1.0 -Post Debridement Size (cm) - Width 1.2 0.4 -Post Debridement Size (cm) - Depth 0.4 0.1 -Total Square Cm 1.56 0.40 -Wound/Ulcer Outcome Not Healed Not Healed -Ulcer Cleansing Rinsed/ Rinsed/ Irrigated with Irrigated with Saline Saline -Foul Odor after Cleansing No No -Bioengineered Tissue No No -Bleeding Controlled with Pressure Pressure -Treatment Response Procedure Procedure Tolerated Well Tolerated Well Pain Scale: 0-10 Numeric Is Patient Pain Free? Yes Yes Wound debrided: fourth toe distal medial Laterality: Right Type of Debridement: Excisional debridement Anesthesia Used: 4% Lidocaine Solution Depth: in the subcutaneous layer Percentage of wound debrided: 100 Instrument Used: #15 blade Tissue Removed: fibrous, devitalized subcutaneous, biofilm, slough Severity: Fat Layer Exposed Amount of bleeding with debridement: Mild Bleeding Controlled with: Pressure Patient tolerated procedure well - Additional Wound Wound debrided: lateral forefoot Type of Debridement: Excisional debridement Anesthesia Used: 4% Lidocaine Solution Percentage of wound debrided: 100 Instrument Used: #15 blade Tissue Removed: fibrous, devitalized subcutaneous, biofilm, slough Severity: Fat Layer Exposed Amount of bleeding with debridement: Mild Bleeding Controlled with: Pressure Patient tolerated procedure: Patient tolerated procedure well Assessment/Plan Active Problems Hammer toe of right foot (Chronic) Ulcer of toe of right foot (Chronic) Other specified peripheral vascular diseases (Chronic) Delayed wound healing (Chronic) Malnutrition (Chronic) Assessment: right fourth toe ulcer - returned; rule out osteomyelitis. right lateral foot (fat exposed; gouty tophi resolved). Severe peripheral vascular disease. Malnutrition. Delayed healing. Bilateral hammertoe deformities Plan: I reviewed and discussed his case this morning. Debridement was performed as noted in the clinical panel. To change dressing every 1-2 days. To continue with open toe shoe that does not put pressure on this site. His noninvasive vascular studies were also reviewed which demonstrated significant loss of flow with an TALIA of 0.27 in the right lower extremity. A referral to Dr. Reilly, vascular surgeon was completed and the patient refuses treatment recommendations. His prognosis is significantly worsened due to refusal to proceed with vascular intervention. His laboratory data was reviewed with a white blood cell count 9.7 prealbumin of 25 and hemoglobin A1c of 5.4%. To continue with proper nutrition optimize healing. Understand he is at risk for limb loss. I did also review his right foot x-rays which demonstrated osseous destruction. There is evidence of some tophi formation and diffuse decreased bone density noted to the entire foot. New labs (cbc, cmp, esr, crp) and updated right foot xray were ordered today for furthe osteomyelitis and delayed healing work up. Approval for advanced wound care product has been denied by insurance. To continue to change dressing daily with Elba or hydrogel/ adaptic. He refuses application of advanced collagen and antimicrobial product , puraply. To decrease pressure at the ulcer site by continuing with a surgical shoe as well as placing a gauze to the proximal webspace between the third and fourth toe to avoid the toes touching even though this site is recently healed he is at risk for reopening. To return to clinic in 1 week or call sooner if there are any problems or concerns.
[2017-06-19 10:20] VITALS: BP 127/60; PULSE 60; RESP 16; TEMP 36.3; BMI 21.2
--- NOTE | 2017-06-19 11:49 | PN.PCM_ITS ---
(1) Ulcer of toe of right foot Status: Chronic Current Visit: Yes Qualifiers: Non-pressure ulcer stage: with fat layer exposed Qualified Code(s): L97.512 - Non-pressure chronic ulcer of other part of right foot with fat layer exposed Code(s): L97.519 - Non-pressure chronic ulcer of other part of right foot with unspecified severity (2) Hammer toe of right foot Status: Chronic Current Visit: Yes Code(s): M20.41 - Other hammer toe(s) ( acquired), right foot (3) Other specified peripheral vascular diseases Status: Chronic Current Visit: Yes Code(s): I73.89 - Other specified peripheral vascular diseases (4) Delayed wound healing Status: Chronic Current Visit: Yes Code(s): T14.8 - Other injury of unspecified body region (5) Malnutrition Status: Chronic Current Visit: Yes Code(s): E46 - Unspecified protein- calorie malnutrition Type of Wound Date of Service: 06/19/17 Chief Complaint: Chronic, nonhealing ulcerations of the right lateral foot. ulcer to fourth toe right foot. New ulcer left fourth toe. New ulcer right third toe History of Wound: This is an 81-year-old male who presents with 2 ulcerations on his right foot. He denies fever, chills, nausea, vomiting, loss of appetite. He continues to use Elba as advised. He denies foot pain. He wears a toe spacer. He is not aware that he has been foot ulcers however he reports comfort to the right third toe and the left fourth toe. He denies any known redness odor or drainage Progress of Wound: Improving lateral right foot. Stable right fourth toe. New ulcers noted - Physical Exam Vital Signs Temp Pulse Resp BP 97.3 F L 60 16 127/60 H 06/19/17 10:20 06/19/17 10:20 06/19/17 10:20 06/19/17 10:20 General: Alert, Oriented x3, Cooperative Extremities: No cyanosis, Capillary Refill Less than 3 Seconds, No Calf Tenderness - Negative Heidi and Alfonso bilateral, Diminished Peripheral Pulses, Edema - Scant, - - Digital deformities are rigid bilateral Skin: Ulcer/ Wound - No purulence, no erythema, no streaking, no infection, no eschar. The skin is atrophic and hairless bilateral, - - Toenails are long, thick, dystrophic, with subungual debris to digits 1, 2, 3, 4, and 5 bilateral foot. There is a callus with no bleeding or ulcer noted to the sub-fifth metatarsal head of the left foot Wound Measurements and Assessment WC - Nurse 1 - General Ulcer Measurement Start: 06/05/17 10:16 Freq: Status: Active Protocol: Activity Type Activity Date Activity User E-Sign Co-Sign Detail Recorded Client Recorded Date Recorded By Document 06/19/17 10:20 [facility] [id number] 06/19/17 10:28 [facility] 06/19/17 10:20 Wound Center Nurse 1 [Ulcer Assessment] #2 Right Lateral Foot -Combined with other wound No -Current Size (cm) - Length 0.3 -Current Size (cm) - Width 0.6 -Current Size (cm) - Depth 0.1 -Total Square Cm 0.18 -Photo Taken No -Epithelialization None Present -Tunneling No -Undermining/Tunneling No -Exudate Amt Small (1-33%) -Exudate Type Serosanguineous -Wound Margin Distinct, Outline Attached -Granulation Amt None Present (0 %) -Slough/Fibrin Yes -Necrosis Amt Large (67-100%) -Necrotic Tissue Type Eschar -Structure Exposed N/A -Texture (Alba-wound Skin Appearance) Scarring -Moisture (Alba-wound Skin Appearance Weeping ) -Color (Alba-wound Skin Appearance) Assessed -Temperature (Alba-wound Skin No Abnormality Appearance) (Pt Warm) -Tenderness on Palpation (Alba-wound Yes Skin Appearance) -Ulcer Cleansing Rinsed/ Irrigated with Saline -Foul Odor after Cleansing No -Anesthetic Used 4% Lidocaine Solution #1 Right 4th Toe -Combined with other wound No -Current Size (cm) - Length 1.3 -Current Size (cm) - Width 0.3 -Current Size (cm) - Depth 0.1 -Total Square Cm 0.39 -Photo Taken No -Epithelialization None Present -Tunneling No -Undermining/Tunneling No -Exudate Amt Small (1-33%) -Exudate Type Sanguineous -Wound Margin Distinct, Outline Attached -Granulation Amt None Present (0 %) -Slough/Fibrin Yes -Necrosis Amt Large (67-100%) -Necrotic Tissue Type Eschar -Structure Exposed N/A -Texture (Alba-wound Skin Appearance) Scarring -Moisture (Alba-wound Skin Appearance Dry/Scaly ) -Color (Alba-wound Skin Appearance) Assessed -Temperature (Alba-wound Skin No Abnormality Appearance) (Pt Warm) -Tenderness on Palpation (Alba-wound No Skin Appearance) -Ulcer Cleansing Rinsed/ Irrigated with Saline -Foul Odor after Cleansing No -Anesthetic Used 4% Lidocaine Solution WC - Nurse 2 - General Ulcer CM Notes Start: 06/05/17 10:16 Freq: Status: Active Protocol: Activity Type Activity Date Activity User E-Sign Co-Sign Detail Recorded Client Recorded Date Recorded By Document 06/19/17 10:45 TM [id number] 06/19/17 10:52 TM 06/19/17 10:45 Wound Center Nurse 2 [Procedure/Treatment] #4 left 4th toe -Time 10:50 -Correct Patient Yes -Correct Side, Site, Position Yes -Correct Procedure Yes -Procedure Performed Yes -Type of Procedure Debridement -Clinical Debridement Subcutaneous -Post Debridement Size (cm) - Length 0.8 -Post Debridement Size (cm) - Width 0.4 -Post Debridement Size (cm) - Depth 0.1 -Total Square Cm 0.32 -Wound/Ulcer Outcome Not Healed -Ulcer Cleansing Rinsed/ Irrigated with Saline -Foul Odor after Cleansing No -Bioengineered Tissue No -Topical Lidocaine (%) 4 -Bleeding Controlled with Pressure -Treatment Response Procedure Tolerated Well #3 right 3rd toe -Time 10:48 -Correct Patient Yes -Correct Side, Site, Position Yes -Correct Procedure Yes -Procedure Performed Yes -Type of Procedure Debridement -Clinical Debridement Subcutaneous -Post Debridement Size (cm) - Length 0.5 -Post Debridement Size (cm) - Width 0.9 -Post Debridement Size (cm) - Depth 0.1 -Total Square Cm 0.45 -Wound/Ulcer Outcome Not Healed -Ulcer Cleansing Rinsed/ Irrigated with Saline -Foul Odor after Cleansing No -Bioengineered Tissue No -Bleeding Controlled with Pressure -Treatment Response Procedure Tolerated Well #2 Right Lateral Foot -Time 10:46 -Correct Patient Yes -Correct Side, Site, Position Yes -Correct Procedure Yes -Procedure Performed Yes -Type of Procedure Debridement -Clinical Debridement Subcutaneous -Post Debridement Size (cm) - Length 0.4 -Post Debridement Size (cm) - Width 0.7 -Post Debridement Size (cm) - Depth 0.1 -Total Square Cm 0.28 -Wound/Ulcer Outcome Not Healed -Ulcer Cleansing Rinsed/ Irrigated with Saline -Foul Odor after Cleansing No -Bioengineered Tissue No -Topical Lidocaine (%) 4 -Bleeding Controlled with Pressure -Treatment Response Procedure Tolerated Well #1 Right 4th Toe -Time 10:46 -Correct Patient Yes -Correct Side, Site, Position Yes -Correct Procedure Yes -Procedure Performed Yes -Type of Procedure Debridement -Clinical Debridement Subcutaneous -Post Debridement Size (cm) - Length 1.4 -Post Debridement Size (cm) - Width 0.4 -Post Debridement Size (cm) - Depth 0.1 -Total Square Cm 0.56 -Wound/Ulcer Outcome Not Healed -Ulcer Cleansing Rinsed/ Irrigated with Saline -Foul Odor after Cleansing No -Bioengineered Tissue No -Topical Lidocaine (%) 4 -Bleeding Controlled with Pressure -Treatment Response Procedure Tolerated Well [See Physician Procedure note for Specifics] Pain Scale: 0-10 Numeric [Pain] -Is Patient Pain Free? Yes Musculoskeletal: No Tenderness to Palpation of Joints or Extremities, Muscle Wasting Neurological: - - Lack of epicritic sensation light touch bilateral lower extremities Psych/Mental Status: Normal Affect, Appropriate Debridement Note Post-Debridement Measurements/Treatment WC - Nurse 2 - General Ulcer CM Notes Start: 06/05/17 10:16 Freq: Status: Active Protocol: Activity Type Activity Date Activity User E-Sign Co-Sign Detail Recorded Client Recorded Date Recorded By Document 06/05/17 11:21 [id number] 06/05/17 11:23 Document 06/12/17 10:43 [id number] 06/12/17 10:48 Document 06/19/17 10:45 [id number] 06/19/17 10:52 06/05/17 06/12/17 06/19/17 11:21 10:43 10:45 Wound Center Nurse 2 #4 left 4th toe -Time 10:50 -Correct Patient Yes -Correct Side, Site, Position Yes -Correct Procedure Yes -Procedure Performed Yes -Type of Procedure Debridement -Clinical Debridement Subcutaneous -Post Debridement Size (cm) - Length 0.8 -Post Debridement Size (cm) - Width 0.4 -Post Debridement Size (cm) - Depth 0.1 -Total Square Cm 0.32 -Wound/Ulcer Outcome Not Healed -Ulcer Cleansing Rinsed/ Irrigated with Saline -Foul Odor after Cleansing No -Bioengineered Tissue No -Topical Lidocaine (%) 4 -Bleeding Controlled with Pressure -Treatment Response Procedure Tolerated Well #3 right 3rd toe -Time 10:48 -Correct Patient Yes -Correct Side, Site, Position Yes -Correct Procedure Yes -Procedure Performed Yes -Type of Procedure Debridement -Clinical Debridement Subcutaneous -Post Debridement Size (cm) - Length 0.5 -Post Debridement Size (cm) - Width 0.9 -Post Debridement Size (cm) - Depth 0.1 -Total Square Cm 0.45 -Wound/Ulcer Outcome Not Healed -Ulcer Cleansing Rinsed/ Irrigated with Saline -Foul Odor after Cleansing No -Bioengineered Tissue No -Bleeding Controlled with Pressure -Treatment Response Procedure Tolerated Well #2 Right Lateral Foot -Time 11:22 10:45 10:46 -Correct Patient Yes Yes Yes -Correct Side, Site, Position Yes Yes Yes -Correct Procedure Yes Yes Yes -Procedure Performed Yes Yes Yes -Type of Procedure Debridement Debridement Debridement -Clinical Debridement Subcutaneous Subcutaneous Subcutaneous -Post Debridement Size (cm) - Length 1.5 0.2 0.4 -Post Debridement Size (cm) - Width 1.3 0.5 0.7 -Post Debridement Size (cm) - Depth 0.2 0.1 0.1 -Total Square Cm 1.95 0.10 0.28 -Wound/Ulcer Outcome Not Healed Not Healed Not Healed -Ulcer Cleansing Rinsed/ Rinsed/ Rinsed/ Irrigated with Irrigated with Irrigated with Saline Saline Saline -Foul Odor after Cleansing No No No -Bioengineered Tissue No No No -Topical Lidocaine (%) 4 -Bleeding Controlled with Pressure Pressure Pressure -Treatment Response Procedure Procedure Procedure Tolerated Well Tolerated Well Tolerated Well #1 Right 4th Toe -Time 11:22 10:45 10:46 -Correct Patient Yes Yes Yes -Correct Side, Site, Position Yes Yes Yes -Correct Procedure Yes Yes Yes -Procedure Performed Yes Yes Yes -Type of Procedure Debridement Debridement Debridement -Clinical Debridement Subcutaneous Subcutaneous Subcutaneous -Post Debridement Size (cm) - Length 1.3 1.0 1.4 -Post Debridement Size (cm) - Width 1.2 0.4 0.4 -Post Debridement Size (cm) - Depth 0.4 0.1 0.1 -Total Square Cm 1.56 0.40 0.56 -Wound/Ulcer Outcome Not Healed Not Healed Not Healed -Ulcer Cleansing Rinsed/ Rinsed/ Rinsed/ Irrigated with Irrigated with Irrigated with Saline Saline Saline -Foul Odor after Cleansing No No No -Bioengineered Tissue No No No -Topical Lidocaine (%) 4 -Bleeding Controlled with Pressure Pressure Pressure -Treatment Response Procedure Procedure Procedure Tolerated Well Tolerated Well Tolerated Well Pain Scale: 0-10 Numeric Is Patient Pain Free? Yes Yes Yes Wound debrided: lateral forefoot Laterality: Right Wound Grade/Stage: grade 1 Type of Debridement: Excisional debridement Anesthesia Used: 4% Lidocaine Solution Depth: in the subcutaneous layer Percentage of wound debrided: 100 Instrument Used: #15 blade Tissue Removed: fibrous, devitalized subcutaneous, biofilm, slough Severity: Fat Layer Exposed Amount of bleeding with debridement: Mild Bleeding Controlled with: Pressure Patient tolerated procedure well - Additional Wound Wound debrided: distal medial fourth toe Laterality: Right Wound Grade/Stage: grade 1 Type of Debridement: Excisional debridement Anesthesia Used: 4% Lidocaine Solution Depth: in the subcutaneous layer Percentage of wound debrided: 100 Instrument Used: #15 blade Tissue Removed: fibrous, devitalized subcutaneous, biofilm, slough Severity: Fat Layer Exposed Amount of bleeding with debridement: Mild Bleeding Controlled with: Pressure Patient tolerated procedure: Patient tolerated procedure well - Additional Wound Wound debrided: distal third toe Laterality: Right Wound Grade/Stage: grade 1 Type of Debridement: Excisional debridement Anesthesia Used: 4% Lidocaine Solution Depth: in the subcutaneous layer Percentage of wound debrided: 100 Instrument Used: #15 blade Tissue Removed: fibrous, devitalized subcutaneous, biofilm, slough Severity: Fat Layer Exposed Amount of bleeding with debridement: Mild Bleeding Controlled with: Pressure Patient tolerated procedure: Patient tolerated procedure well - Additional Wound Wound debrided: distal lateral fourth toe Laterality: Left Wound Grade/Stage: grade 1 Type of Debridement: Excisional debridement Anesthesia Used: 4% Lidocaine Solution Depth: in the subcutaneous layer Percentage of wound debrided: 100 Instrument Used: #15 blade Tissue Removed: fibrous, devitalized subcutaneous, biofilm, slough Severity: Fat Layer Exposed Amount of bleeding with debridement: Mild Bleeding Controlled with: Pressure Patient tolerated procedure: Patient tolerated procedure well Assessment/Plan Active Problems Hammer toe of right foot (Chronic) Ulcer of toe of right foot (Chronic) Other specified peripheral vascular diseases (Chronic) Delayed wound healing (Chronic) Malnutrition (Chronic) Assessment: right fourth toe ulcer. right lateral foot (fat exposed; gouty tophi resolved). New right third toe ulcer. New left fourth toe ulcer. Severe peripheral vascular disease. Malnutrition. Delayed healing. Bilateral hammertoe deformities Plan: I reviewed and discussed his case this morning. Debridement was performed as noted in the clinical panel. To change dressing every 1-2 days. To continue with open toe shoe that does not put pressure on this site. Toe ulcers are noted. He was reassured there are no signs of infection. His noninvasive vascular studies were also reviewed which demonstrated significant loss of flow with an TALIA of 0.27 in the right lower extremity. A referral to Dr. Reilly, vascular surgeon was completed and the patient refuses treatment recommendations. His prognosis is significantly worsened due to refusal to proceed with vascular intervention. His laboratory data was reviewed with a white blood cell count 9.7 prealbumin of 25 and hemoglobin A1c of 5.4%. To continue with proper nutrition optimize healing. Understand he is at risk for limb loss. I did also review his right foot x-rays which demonstrated osseous destruction. There is evidence of some tophi formation and diffuse decreased bone density noted to the entire foot. New labs (cbc, cmp, esr, crp) and updated right foot xray were ordered and reviewed today. He has generalized osteopenia and his foot x-rays but no bone resorption suggestive of osteomyelitis. His white blood cell count was 8.1, limitation rate 9 9.29. His albumin is noted at 3.7 and hemoglobin A1c at 5.4%. Approval for advanced wound care product has been denied by insurance. To continue to change dressing daily with Elba or hydrogel/adaptic. He refuses application of advanced collagen and antimicrobial product, puraply. To decrease pressure at the ulcer site by continuing with a surgical shoe as well as placing a gauze to the proximal webspace between the third and fourth toe to avoid the toes touching even though this site is recently healed he is at risk for reopening. A surgical shoe was ordered for the left lower extremity to keep pressure off of his newly recognized toe ulcer site. He does not feel safe trimming his nails and calluses on his own and elongated toenails appear to be putting pressure on the wound sites. A clean nail nipper was used to debrided the toenails 1, 2, 3, 4, 5 bilateral to reduce them in length and thickness to relieve pressure and avoid further ulcer formation. The callus sub-fifth metatarsal head of the left foot was also debrided with a 15 blade to reduce the risk of wound infection. No incident was noted and he tolerated this well. To return to clinic in 1 week or call sooner if there are any problems or concerns.
== END 2017-06-19 23:59 ==
LOC: WC 10:00
PROVIDERS: Family Provider Family Medicine; PCP Family Medicine; Visit Provider Podiatrist
DX: I73.89 Other specified peripheral vascular diseases (principal); L97.512 Non-pressure chronic ulcer of other part of right foot with fat layer exposed; M20.41 Other hammer toe(s) (acquired), right foot; R09.89 Other specified symptoms and signs involving the circulatory and respiratory systems; R60.0 Localized edema; L97.522 Non-pressure chronic ulcer of other part of left foot with fat layer exposed; M20.42 Other hammer toe(s) (acquired), left foot; M1A.9XX1 Chronic gout, unspecified, with tophus (tophi)
CPT/HCPCS: 11042; 11721

== ENCOUNTER 2017-07-17 10:00 | Outpatient (RCR) | payer OTHER, SELFPAY ==
[2017-06-20 00:25] VITALS: BP 148/70; PULSE 60; RESP 16; TEMP 36.3; BMI 21.2
[2017-06-26 13:50] VITALS: BMI 21.2
--- NOTE | 2017-06-26 14:45 | PN.PCM_ITS ---
(1) Chronic ulcer of left foot with fat layer exposed Status: Chronic Current Visit: Yes Code(s): L97.522 - Non-pressure chronic ulcer of other part of left foot with fat layer exposed (2) Hammer toe of right foot Status: Chronic Current Visit: Yes Code(s): M20.41 - Other hammer toe(s) ( acquired), right foot (3) Other specified peripheral vascular diseases Status: Chronic Current Visit: Yes Code(s): I73.89 - Other specified peripheral vascular diseases (4) Hammer toe of left foot Status: Chronic Current Visit: Yes Code(s): M20.42 - Other hammer toe(s) ( acquired), left foot (5) Delayed wound healing Status: Chronic Current Visit: No Code(s): T14.8 - Other injury of unspecified body region (6) Malnutrition Status: Chronic Current Visit: No Code(s): E46 - Unspecified protein- calorie malnutrition (7) Ulcer of right foot with fat layer exposed Status: Chronic Current Visit: Yes Code(s): L97.512 - Non-pressure chronic ulcer of other part of right foot with fat layer exposed Type of Wound Date of Service: 06/26/17 Chief Complaint: Chronic, nonhealing ulcerations of the right lateral foot. ulcer to fourth toe right foot. New ulcer left fourth toe. New ulcer right third toe History of Wound: This is an 81-year-old male who presents with 3 ulcerations on his right foot and one ulcer to the left fourth toe. He denies fever, chills , nausea, vomiting, loss of appetite. He continues to use Elba as advised. He denies foot pain. He wears a toe spacer. He is considering proceeding with vascular intervention and skin graft substitute intervention. He is apprehensive due to previous poor experiences. He had a major complication with the previous arterial surgery when he lived in [facility] and he also did not feel comfortable with his previous vascular surgery referral. Progress of Wound: Stable bilateral - Physical Exam Vital Signs Temp Pulse Resp BP 97.3 F L 60 16 148/70 H 06/20/17 00:25 06/20/17 00:25 06/20/17 00:25 06/20/17 00:25 General: Alert, Oriented x3, Cooperative Extremities: No cyanosis, Capillary Refill Less than 3 Seconds, No Calf Tenderness, Diminished Peripheral Pulses Skin: Ulcer/ Wound - No purulence, no erythema, no streaking, no infection. The skin is atrophic and hairless and there is significant delays in healing Wound Measurements and Assessment WC - Nurse 1 - General Ulcer Measurement Start: 06/26/17 13:50 Freq: Status: Active Protocol: Activity Type Activity Date Activity User E-Sign Co-Sign Detail Recorded Client Recorded Date Recorded By Document 06/26/17 13:50 [facility] [id number] 06/26/17 14:03 [facility] 06/26/17 13:50 Wound Center Nurse 1 [Ulcer Assessment] #4 left 4th toe -Combined with other wound No -Current Size (cm) - Length 0.1 -Current Size (cm) - Width 0.2 -Current Size (cm) - Depth 0.1 -Total Square Cm 0.02 -Photo Taken No -Epithelialization None Present -Tunneling No -Undermining/Tunneling No -Exudate Amt None Present (0 %) -Wound Margin Distinct, Outline Attached -Granulation Amt None Present (0 %) -Slough/Fibrin Yes -Necrosis Amt Large (67-100%) -Necrotic Tissue Type Eschar -Structure Exposed N/A -Texture (Alba-wound Skin Appearance) Callus Scarring -Moisture (Alba-wound Skin Appearance Dry/Scaly ) -Color (Alba-wound Skin Appearance) Assessed -Temperature (Alba-wound Skin No Abnormality Appearance) (Pt Warm) -Tenderness on Palpation (Alba-wound Yes Skin Appearance) -Ulcer Cleansing Rinsed/ Irrigated with Saline -Foul Odor after Cleansing No -Anesthetic Used 5% Lidocaine Gel #3 right 3rd toe -Combined with other wound No -Current Size (cm) - Length 0.1 -Current Size (cm) - Width 0.1 -Current Size (cm) - Depth 0.1 -Total Square Cm 0.01 -Photo Taken No -Epithelialization None Present -Tunneling No -Undermining/Tunneling No -Exudate Amt None Present (0 %) -Granulation Amt None Present (0 %) -Slough/Fibrin Yes -Necrosis Amt Large (67-100%) -Necrotic Tissue Type Eschar -Structure Exposed N/A -Texture (Alba-wound Skin Appearance) Callus Scarring -Moisture (Alba-wound Skin Appearance Dry/Scaly ) -Color (Alba-wound Skin Appearance) Assessed -Temperature (Alba-wound Skin No Abnormality Appearance) (Pt Warm) -Tenderness on Palpation (Alba-wound No Skin Appearance) -Ulcer Cleansing Rinsed/ Irrigated with Saline -Foul Odor after Cleansing No -Anesthetic Used 5% Lidocaine Gel #2 Right Lateral Foot -Combined with other wound No -Current Size (cm) - Length 0.1 -Current Size (cm) - Width 0.1 -Current Size (cm) - Depth 0.1 -Total Square Cm 0.01 -Photo Taken No -Epithelialization None Present -Tunneling No -Undermining/Tunneling No -Exudate Amt None Present (0 %) -Granulation Amt None Present (0 %) -Slough/Fibrin Yes -Necrosis Amt Large (67-100%) -Necrotic Tissue Type Adherent Slough -Structure Exposed N/A -Texture (Alba-wound Skin Appearance) Callus Scarring -Moisture (Alba-wound Skin Appearance Dry/Scaly ) -Color (Alba-wound Skin Appearance) No Abnormality Assessed -Temperature (Alba-wound Skin No Abnormality Appearance) (Pt Warm) -Tenderness on Palpation (Alba-wound No Skin Appearance) -Ulcer Cleansing Rinsed/ Irrigated with Saline -Foul Odor after Cleansing No -Anesthetic Used 4% Lidocaine Solution #1 Right 4th Toe -Combined with other wound No -Current Size (cm) - Length 0.9 -Current Size (cm) - Width 0.4 -Current Size (cm) - Depth 0.1 -Total Square Cm 0.36 -Photo Taken No -Epithelialization None Present -Tunneling No -Undermining/Tunneling No -Exudate Amt None Present (0 %) -Granulation Amt None Present (0 %) -Slough/Fibrin Yes -Necrosis Amt Large (67-100%) -Necrotic Tissue Type Eschar -Structure Exposed N/A -Texture (Alba-wound Skin Appearance) Callus Scarring -Moisture (Alba-wound Skin Appearance Dry/Scaly ) -Color (Alba-wound Skin Appearance) Assessed -Temperature (Alba-wound Skin No Abnormality Appearance) (Pt Warm) -Tenderness on Palpation (Alba-wound No Skin Appearance) -Ulcer Cleansing Rinsed/ Irrigated with Saline -Foul Odor after Cleansing No -Anesthetic Used 5% Lidocaine Gel WC - Nurse 2 - General Ulcer CM Notes Start: 06/26/17 13:50 Freq: Status: Active Protocol: Activity Type Activity Date Activity User E-Sign Co-Sign Detail Recorded Client Recorded Date Recorded By Document 06/26/17 14:11 [id number] 06/26/17 14:18 06/26/17 14:11 Wound Center Nurse 2 [Procedure/Treatment] #4 left 4th toe -Time 14:11 -Correct Patient Yes -Correct Side, Site, Position Yes -Correct Procedure Yes -Procedure Performed Yes -Type of Procedure Debridement -Clinical Debridement Subcutaneous -Post Debridement Size (cm) - Length 0.2 -Post Debridement Size (cm) - Width 0.3 -Post Debridement Size (cm) - Depth 0.1 -Total Square Cm 0.06 -Wound/Ulcer Outcome Not Healed -Ulcer Cleansing Rinsed/ Irrigated with Saline -Foul Odor after Cleansing No -Bioengineered Tissue No -Topical Lidocaine (%) 5 -Bleeding Controlled with Pressure -Treatment Response Procedure Tolerated Well #3 right 3rd toe -Time 14:16 -Correct Patient Yes -Correct Side, Site, Position Yes -Correct Procedure Yes -Procedure Performed Yes -Type of Procedure Debridement -Clinical Debridement Subcutaneous -Post Debridement Size (cm) - Length 0.2 -Post Debridement Size (cm) - Width 0.2 -Post Debridement Size (cm) - Depth 0.1 -Total Square Cm 0.04 -Wound/Ulcer Outcome Not Healed -Ulcer Cleansing Rinsed/ Irrigated with Saline -Foul Odor after Cleansing No -Bioengineered Tissue No -Topical Lidocaine (%) 5 -Bleeding Controlled with Pressure -Treatment Response Procedure Tolerated Well #2 Right Lateral Foot -Time 14:17 -Correct Patient Yes -Correct Side, Site, Position Yes -Correct Procedure Yes -Procedure Performed Yes -Type of Procedure Debridement -Clinical Debridement Subcutaneous -Post Debridement Size (cm) - Length 0.2 -Post Debridement Size (cm) - Width 0.2 -Post Debridement Size (cm) - Depth 0.1 -Total Square Cm 0.04 -Wound/Ulcer Outcome Not Healed -Ulcer Cleansing Rinsed/ Irrigated with Saline -Foul Odor after Cleansing No -Bioengineered Tissue No -Topical Lidocaine (%) 5 -Bleeding Controlled with Pressure -Treatment Response Procedure Not Tolerated Well #1 Right 4th Toe -Time 14:17 -Correct Patient Yes -Correct Side, Site, Position Yes -Correct Procedure Yes -Procedure Performed Yes -Type of Procedure Debridement -Clinical Debridement Subcutaneous -Post Debridement Size (cm) - Length 1.0 -Post Debridement Size (cm) - Width 0.5 -Post Debridement Size (cm) - Depth 0.1 -Total Square Cm 0.50 -Wound/Ulcer Outcome Not Healed -Ulcer Cleansing Rinsed/ Irrigated with Saline -Foul Odor after Cleansing No -Bioengineered Tissue No -Topical Lidocaine (%) 5 -Bleeding Controlled with Pressure -Treatment Response Procedure Not Tolerated Well [See Physician Procedure note for Specifics] Pain Scale: 0-10 Numeric [Pain] -Is Patient Pain Free? Yes Musculoskeletal: No Tenderness to Palpation of Joints or Extremities, Muscle Wasting, - - Rigid digital contraction bilateral Neurological: - - Lack of epicritic sensation light touch bilateral lower extremity Psych/Mental Status: Normal Affect, Appropriate Debridement Note Post-Debridement Measurements/Treatment WC - Nurse 2 - General Ulcer CM Notes Start: 06/26/17 13:50 Freq: Status: Active Protocol: Activity Type Activity Date Activity User E-Sign Co-Sign Detail Recorded Client Recorded Date Recorded By Document 06/26/17 14:11 [id number] 06/26/17 14:18 06/26/17 14:11 Wound Center Nurse 2 #4 left 4th toe -Time 14:11 -Correct Patient Yes -Correct Side, Site, Position Yes -Correct Procedure Yes -Procedure Performed Yes -Type of Procedure Debridement -Clinical Debridement Subcutaneous -Post Debridement Size (cm) - Length 0.2 -Post Debridement Size (cm) - Width 0.3 -Post Debridement Size (cm) - Depth 0.1 -Total Square Cm 0.06 -Wound/Ulcer Outcome Not Healed -Ulcer Cleansing Rinsed/ Irrigated with Saline -Foul Odor after Cleansing No -Bioengineered Tissue No -Topical Lidocaine (%) 5 -Bleeding Controlled with Pressure -Treatment Response Procedure Tolerated Well #3 right 3rd toe -Time 14:16 -Correct Patient Yes -Correct Side, Site, Position Yes -Correct Procedure Yes -Procedure Performed Yes -Type of Procedure Debridement -Clinical Debridement Subcutaneous -Post Debridement Size (cm) - Length 0.2 -Post Debridement Size (cm) - Width 0.2 -Post Debridement Size (cm) - Depth 0.1 -Total Square Cm 0.04 -Wound/Ulcer Outcome Not Healed -Ulcer Cleansing Rinsed/ Irrigated with Saline -Foul Odor after Cleansing No -Bioengineered Tissue No -Topical Lidocaine (%) 5 -Bleeding Controlled with Pressure -Treatment Response Procedure Tolerated Well #2 Right Lateral Foot -Time 14:17 -Correct Patient Yes -Correct Side, Site, Position Yes -Correct Procedure Yes -Procedure Performed Yes -Type of Procedure Debridement -Clinical Debridement Subcutaneous -Post Debridement Size (cm) - Length 0.2 -Post Debridement Size (cm) - Width 0.2 -Post Debridement Size (cm) - Depth 0.1 -Total Square Cm 0.04 -Wound/Ulcer Outcome Not Healed -Ulcer Cleansing Rinsed/ Irrigated with Saline -Foul Odor after Cleansing No -Bioengineered Tissue No -Topical Lidocaine (%) 5 -Bleeding Controlled with Pressure -Treatment Response Procedure Not Tolerated Well #1 Right 4th Toe -Time 14:17 -Correct Patient Yes -Correct Side, Site, Position Yes -Correct Procedure Yes -Procedure Performed Yes -Type of Procedure Debridement -Clinical Debridement Subcutaneous -Post Debridement Size (cm) - Length 1.0 -Post Debridement Size (cm) - Width 0.5 -Post Debridement Size (cm) - Depth 0.1 -Total Square Cm 0.50 -Wound/Ulcer Outcome Not Healed -Ulcer Cleansing Rinsed/ Irrigated with Saline -Foul Odor after Cleansing No -Bioengineered Tissue No -Topical Lidocaine (%) 5 -Bleeding Controlled with Pressure -Treatment Response Procedure Not Tolerated Well Pain Scale: 0-10 Numeric Is Patient Pain Free? Yes Wound debrided: lateral forefoot Laterality: Right Type of Debridement: Excisional debridement Anesthesia Used: 4% Lidocaine Solution Depth: in the subcutaneous layer Percentage of wound debrided: 100 Instrument Used: #15 blade Tissue Removed: fibrous, devitalized subcutaneous, biofilm, slough Severity: Fat Layer Exposed Amount of bleeding with debridement: Mild Bleeding Controlled with: Pressure Patient tolerated procedure well - Additional Wound Wound debrided: medial 4th distal toe Laterality: Right Type of Debridement: Excisional debridement Anesthesia Used: 4% Lidocaine Solution Depth: in the subcutaneous layer Percentage of wound debrided: 100 Instrument Used: #15 blade Tissue Removed: fibrous, devitalized subcutaneous, biofilm, slough Severity: Fat Layer Exposed Amount of bleeding with debridement: Mild Bleeding Controlled with: Pressure Patient tolerated procedure: Patient tolerated procedure well - Additional Wound Wound debrided: distal third toe Laterality: Right Type of Debridement: Excisional debridement Anesthesia Used: 4% Lidocaine Solution Depth: Down to and including healthy tissue Percentage of wound debrided: 100 Instrument Used: #15 blade Tissue Removed: fibrous, devitalized subcutaneous, biofilm, slough Severity: Fat Layer Exposed Amount of bleeding with debridement: Mild Bleeding Controlled with: Pressure Patient tolerated procedure: Patient tolerated procedure well - Additional Wound Wound debrided: distal fourth toe Laterality: Left Type of Debridement: Excisional debridement Anesthesia Used: 4% Lidocaine Solution Depth: in the subcutaneous layer Percentage of wound debrided: 100 Instrument Used: #15 blade Tissue Removed: fibrous, devitalized subcutaneous, biofilm, slough Severity: Fat Layer Exposed Amount of bleeding with debridement: Mild Bleeding Controlled with: Pressure Patient tolerated procedure: Patient tolerated procedure well Assessment/Plan Active Problems 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 right lateral foot (fat exposed; gouty tophi resolved). right third toe ulcer. left fourth toe ulcer. Severe peripheral vascular disease. Malnutrition. Delayed healing. Bilateral hammertoe deformities Plan: I reviewed and discussed his case this morning. Debridement was performed as noted in the clinical panel. To change dressing every 1-2 days. To continue with open toe shoe that does not put pressure on this site. Toe ulcers are noted. He was reassured there are no signs of infection. His noninvasive vascular studies were also reviewed which demonstrated significant loss of flow with an TALIA of 0.27 in the right lower extremity. He would like to consider a new referral in the future and is not amenable to proceed at this time. His prognosis is significantly worsened due to refusal to proceed with vascular intervention. His laboratory data was reviewed with a white blood cell count 9.7 prealbumin of 25 and hemoglobin A1c of 5.4%. To continue with proper nutrition optimize healing. Understand he is at risk for limb loss. I did also review his right foot x-rays which demonstrated osseous destruction. There is evidence of some tophi formation and diffuse decreased bone density noted to the entire foot. He has generalized osteopenia and his foot x-rays but no bone resorption suggestive of osteomyelitis. His white blood cell count was 8.1, sedimentation rate 9. His albumin is noted at 3.7 and hemoglobin A1c at 5.4%. Approval for advanced wound care product has been denied by insurance. To continue to change dressing daily with Elba or hydrogel/ adaptic. He refuses application of advanced collagen and antimicrobial product , puraply. To decrease pressure at the ulcer site by continuing with a surgical shoe as well as placing a gauze to the proximal webspace between the third and fourth toe to avoid the toes touching even though this site is recently healed he is at risk for reopening. Continue bilateral surgical shoe use. To return to clinic in 1 week or call sooner if there are any problems or concerns.
[2017-07-03 14:18] VITALS: BP 147/68; PULSE 64; RESP 16; TEMP 36.3; BMI 21.2
--- NOTE | 2017-07-03 17:23 | PN.PCM_ITS ---
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 Status: Chronic Current Visit: Yes Code(s): L97.512 - Non-pressure chronic ulcer of other part of right foot with fat layer exposed (2) Chronic ulcer of left foot with fat layer exposed Status: Chronic Current Visit: Yes Code(s): L97.522 - Non-pressure chronic ulcer of other part of left foot with fat layer exposed (3) Hammer toe of right foot Status: Chronic Current Visit: Yes Code(s): M20.41 - Other hammer toe(s) ( acquired), right foot (4) Other specified peripheral vascular diseases Status: Chronic Current Visit: Yes Code(s): I73.89 - Other specified peripheral vascular diseases (5) Hammer toe of left foot Status: Chronic Current Visit: Yes Code(s): M20.42 - Other hammer toe(s) ( acquired), left foot (6) Delayed wound healing Status: Chronic Current Visit: No Code(s): T14.8 - Other injury of unspecified body region (7) Malnutrition Status: Chronic Current Visit: No Code(s): E46 - Unspecified protein- calorie malnutrition Type of Wound Date of Service: 07/05/17 Chief Complaint: Chronic, nonhealing ulcerations of the right lateral foot. ulcer to fourth toe right foot. peripheral vascular disease. delayed healing History of Wound: This is an 81-year-old male who presents with 3 ulcerations on his right foot and one ulcer to the left fourth toe. He denies fever, chills , nausea, vomiting, loss of appetite. He continues to use Elba as advised. He denies foot pain. He wears a toe spacer. He is considering proceeding with vascular intervention and skin graft substitute intervention. He is apprehensive due to previous poor experiences. He had a major complication with the previous arterial surgery. He denies other new injuries or wound formation. Progress of Wound: Stable bilateral - Physical Exam Vital Signs Temp Pulse Resp BP 97.4 F L 64 16 147/68 H 07/03/17 14:18 07/03/17 14:18 07/03/17 14:18 07/03/17 14:18 General: Alert, Oriented x3, Cooperative Extremities: No cyanosis, No edema, Capillary Refill Less than 3 Seconds, Diminished Peripheral Pulses Skin: Ulcer/ Wound - no purulence, no erythema, no infction, no streaking, no odor, no infection bilateral. the skin is atrophic and hairless. Wound Measurements and Assessment WC - Nurse 1 - General Ulcer Measurement Start: 06/26/17 13:50 Freq: Status: Active Protocol: Activity Type Activity Date Activity User E-Sign Co-Sign Detail Recorded Client Recorded Date Recorded By Document 07/03/17 14:18 DL [id number] 07/03/17 14:27 DL 07/03/17 14:18 Wound Center Nurse 1 [Ulcer Assessment] #4 left 4th toe -Current Size (cm) - Length 0.4 -Current Size (cm) - Width 0.4 -Current Size (cm) - Depth 0.1 -Total Square Cm 0.16 -Photo Taken No -Exudate Amt None Present (0 %) -Wound Margin Thickened -Granulation Amt None Present (0 %) -Necrosis Amt Large (67-100%) -Necrotic Tissue Type Adherent Slough -Structure Exposed N/A -Texture (Alba-wound Skin Appearance) Callus -Moisture (Alba-wound Skin Appearance Dry/Scaly ) -Color (Alba-wound Skin Appearance) Hemosiderin Staining -Temperature (Alba-wound Skin No Abnormality Appearance) (Pt Warm) -Ulcer Cleansing Rinsed/ Irrigated with Saline -Foul Odor after Cleansing No -Anesthetic Used 4% Lidocaine Solution #3 right 3rd toe -Current Size (cm) - Length 0.3 -Current Size (cm) - Width 0.4 -Current Size (cm) - Depth 0.2 -Total Square Cm 0.12 -Photo Taken No -Exudate Amt None Present (0 %) -Wound Margin Thickened -Granulation Amt Small (1-33%) -Granulation Quality Pale -Necrosis Amt Small (1-33%) -Necrotic Tissue Type Adherent Slough -Structure Exposed N/A -Texture (Alba-wound Skin Appearance) Callus -Moisture (Alba-wound Skin Appearance Dry/Scaly ) -Color (Alba-wound Skin Appearance) Hemosiderin Staining -Temperature (Alba-wound Skin No Abnormality Appearance) (Pt Warm) -Ulcer Cleansing Rinsed/ Irrigated with Saline -Foul Odor after Cleansing No -Anesthetic Used 4% Lidocaine Solution #2 Right Lateral Foot -Current Size (cm) - Length 0.2 -Current Size (cm) - Width 0.2 -Current Size (cm) - Depth 0.2 -Total Square Cm 0.04 -Photo Taken No -Exudate Amt None Present (0 %) -Wound Margin Distinct, Outline Attached -Granulation Amt Small (1-33%) -Granulation Quality [place] -Necrosis Amt Small (1-33%) -Necrotic Tissue Type Adherent Slough -Structure Exposed N/A -Texture (Alba-wound Skin Appearance) Localized Edema -Moisture (Alba-wound Skin Appearance Dry/Scaly ) -Color (Alba-wound Skin Appearance) Hemosiderin Staining -Temperature (Alba-wound Skin No Abnormality Appearance) (Pt Warm) -Ulcer Cleansing Rinsed/ Irrigated with Saline -Foul Odor after Cleansing No -Anesthetic Used 4% Lidocaine Solution #1 Right 4th Toe -Current Size (cm) - Length 0.7 -Current Size (cm) - Width 0.2 -Current Size (cm) - Depth 0.1 -Total Square Cm 0.14 -Photo Taken No -Exudate Amt None Present (0 %) -Wound Margin Thickened -Granulation Amt Small (1-33%) -Granulation Quality Pale -Necrosis Amt Small (1-33%) -Necrotic Tissue Type Adherent Slough -Structure Exposed N/A -Texture (Alba-wound Skin Appearance) Scarring -Moisture (Alba-wound Skin Appearance Dry/Scaly ) -Color (Alba-wound Skin Appearance) Hemosiderin Staining -Temperature (Alba-wound Skin No Abnormality Appearance) (Pt Warm) -Ulcer Cleansing Rinsed/ Irrigated with Saline -Foul Odor after Cleansing No -Anesthetic Used 4% Lidocaine Solution WC - Nurse 2 - General Ulcer CM Notes Start: 06/26/17 13:50 Freq: Status: Active Protocol: Activity Type Activity Date Activity User E-Sign Co-Sign Detail Recorded Client Recorded Date Recorded By Document 07/03/17 14:56 LIZ [id number] 07/03/17 14:58 LIZ 07/03/17 14:56 Wound Center Nurse 2 [Procedure/Treatment] #4 left 4th toe -Time 14:56 -Correct Patient Yes -Correct Side, Site, Position Yes -Correct Procedure Yes -Procedure Performed Yes -Type of Procedure Debridement -Clinical Debridement Subcutaneous -Post Debridement Size (cm) - Length 0.4 -Post Debridement Size (cm) - Width 0.6 -Post Debridement Size (cm) - Depth 0.1 -Total Square Cm 0.24 -Wound/Ulcer Outcome Not Healed -Ulcer Cleansing Rinsed/ Irrigated with Saline -Foul Odor after Cleansing No -Bioengineered Tissue No -Bleeding Controlled with Pressure -Treatment Response Procedure Tolerated Well #3 right 3rd toe -Time 14:56 -Correct Patient Yes -Correct Side, Site, Position Yes -Correct Procedure Yes -Procedure Performed Yes -Type of Procedure Debridement -Clinical Debridement Subcutaneous -Post Debridement Size (cm) - Length 0.4 -Post Debridement Size (cm) - Width 0.4 -Post Debridement Size (cm) - Depth 0.1 -Total Square Cm 0.16 -Wound/Ulcer Outcome Not Healed -Ulcer Cleansing Rinsed/ Irrigated with Saline -Foul Odor after Cleansing No -Bioengineered Tissue No -Bleeding Controlled with Pressure -Treatment Response Procedure Tolerated Well #2 Right Lateral Foot -Time 14:57 -Correct Patient Yes -Correct Side, Site, Position Yes -Correct Procedure Yes -Procedure Performed Yes -Type of Procedure Debridement -Clinical Debridement Subcutaneous -Post Debridement Size (cm) - Length 0.2 -Post Debridement Size (cm) - Width 0.3 -Post Debridement Size (cm) - Depth 0.1 -Total Square Cm 0.06 -Wound/Ulcer Outcome Not Healed -Ulcer Cleansing Rinsed/ Irrigated with Saline -Foul Odor after Cleansing No -Bioengineered Tissue No -Bleeding Controlled with Pressure -Treatment Response Procedure Tolerated Well #1 Right 4th Toe -Time 14:57 -Correct Patient Yes -Correct Side, Site, Position Yes -Correct Procedure Yes -Procedure Performed Yes -Type of Procedure Debridement -Clinical Debridement Subcutaneous -Post Debridement Size (cm) - Length 0.7 -Post Debridement Size (cm) - Width 0.3 -Post Debridement Size (cm) - Depth 0.1 -Total Square Cm 0.21 -Wound/Ulcer Outcome Not Healed -Ulcer Cleansing Rinsed/ Irrigated with Saline -Foul Odor after Cleansing No -Bioengineered Tissue No -Bleeding Controlled with Pressure -Treatment Response Procedure Tolerated Well [See Physician Procedure note for Specifics] Pain Scale: 0-10 Numeric [Pain] -Is Patient Pain Free? Yes Musculoskeletal: No Tenderness to Palpation of Joints or Extremities, Muscle Wasting, - - non reducible digital contractions Neurological: - - decreased sensation via light touch bilateral Psych/Mental Status: Normal Affect, Appropriate Debridement Note Post-Debridement Measurements/Treatment WC - Nurse 2 - General Ulcer CM Notes Start: 06/26/17 13:50 Freq: Status: Active Protocol: Activity Type Activity Date Activity User E-Sign Co-Sign Detail Recorded Client Recorded Date Recorded By Document 06/26/17 14:11 [id number] 06/26/17 14:18 TM Document 07/03/17 14:56 [id number] 07/03/17 14:58 06/26/17 07/03/17 14:11 14:56 Wound Center Nurse 2 #4 left 4th toe -Time 14:11 14:56 -Correct Patient Yes Yes -Correct Side, Site, Position Yes Yes -Correct Procedure Yes Yes -Procedure Performed Yes Yes -Type of Procedure Debridement Debridement -Clinical Debridement Subcutaneous Subcutaneous -Post Debridement Size (cm) - Length 0.2 0.4 -Post Debridement Size (cm) - Width 0.3 0.6 -Post Debridement Size (cm) - Depth 0.1 0.1 -Total Square Cm 0.06 0.24 -Wound/Ulcer Outcome Not Healed Not Healed -Ulcer Cleansing Rinsed/ Rinsed/ Irrigated with Irrigated with Saline Saline -Foul Odor after Cleansing No No -Bioengineered Tissue No No -Topical Lidocaine (%) 5 -Bleeding Controlled with Pressure Pressure -Treatment Response Procedure Procedure Tolerated Well Tolerated Well #3 right 3rd toe -Time 14:16 14:56 -Correct Patient Yes Yes -Correct Side, Site, Position Yes Yes -Correct Procedure Yes Yes -Procedure Performed Yes Yes -Type of Procedure Debridement Debridement -Clinical Debridement Subcutaneous Subcutaneous -Post Debridement Size (cm) - Length 0.2 0.4 -Post Debridement Size (cm) - Width 0.2 0.4 -Post Debridement Size (cm) - Depth 0.1 0.1 -Total Square Cm 0.04 0.16 -Wound/Ulcer Outcome Not Healed Not Healed -Ulcer Cleansing Rinsed/ Rinsed/ Irrigated with Irrigated with Saline Saline -Foul Odor after Cleansing No No -Bioengineered Tissue No No -Topical Lidocaine (%) 5 -Bleeding Controlled with Pressure Pressure -Treatment Response Procedure Procedure Tolerated Well Tolerated Well #2 Right Lateral Foot -Time 14:17 14:57 -Correct Patient Yes Yes -Correct Side, Site, Position Yes Yes -Correct Procedure Yes Yes -Procedure Performed Yes Yes -Type of Procedure Debridement Debridement -Clinical Debridement Subcutaneous Subcutaneous -Post Debridement Size (cm) - Length 0.2 0.2 -Post Debridement Size (cm) - Width 0.2 0.3 -Post Debridement Size (cm) - Depth 0.1 0.1 -Total Square Cm 0.04 0.06 -Wound/Ulcer Outcome Not Healed Not Healed -Ulcer Cleansing Rinsed/ Rinsed/ Irrigated with Irrigated with Saline Saline -Foul Odor after Cleansing No No -Bioengineered Tissue No No -Topical Lidocaine (%) 5 -Bleeding Controlled with Pressure Pressure -Treatment Response Procedure Not Procedure Tolerated Well Tolerated Well #1 Right 4th Toe -Time 14:17 14:57 -Correct Patient Yes Yes -Correct Side, Site, Position Yes Yes -Correct Procedure Yes Yes -Procedure Performed Yes Yes -Type of Procedure Debridement Debridement -Clinical Debridement Subcutaneous Subcutaneous -Post Debridement Size (cm) - Length 1.0 0.7 -Post Debridement Size (cm) - Width 0.5 0.3 -Post Debridement Size (cm) - Depth 0.1 0.1 -Total Square Cm 0.50 0.21 -Wound/Ulcer Outcome Not Healed Not Healed -Ulcer Cleansing Rinsed/ Rinsed/ Irrigated with Irrigated with Saline Saline -Foul Odor after Cleansing No No -Bioengineered Tissue No No -Topical Lidocaine (%) 5 -Bleeding Controlled with Pressure Pressure -Treatment Response Procedure Not Procedure Tolerated Well Tolerated Well Pain Scale: 0-10 Numeric Is Patient Pain Free? Yes Yes Wound debrided: lateral foot Laterality: Right Type of Debridement: Excisional debridement Anesthesia Used: 4% Lidocaine Solution Depth: in the subcutaneous layer Percentage of wound debrided: 100 Instrument Used: #15 blade Tissue Removed: fibrous, devitalized subcutaneous, biofilm, slough Severity: Fat Layer Exposed Amount of bleeding with debridement: Mild Bleeding Controlled with: Pressure Patient tolerated procedure well - Additional Wound Wound debrided: 4th toe Laterality: Right Type of Debridement: Excisional debridement Anesthesia Used: 4% Lidocaine Solution Depth: Down to and including healthy tissue Percentage of wound debrided: 100 Instrument Used: #15 blade Tissue Removed: fibrous, devitalized subcutaneous, biofilm, slough Severity: Fat Layer Exposed Amount of bleeding with debridement: Mild Bleeding Controlled with: Pressure Patient tolerated procedure: Patient tolerated procedure well - Additional Wound Wound debrided: distal third toe Laterality: Right Type of Debridement: Excisional debridement Anesthesia Used: 4% Lidocaine Solution Depth: in the subcutaneous layer Percentage of wound debrided: 100 Instrument Used: #15 blade Tissue Removed: fibrous, devitalized subcutaneous, biofilm, slough Severity: Fat Layer Exposed Amount of bleeding with debridement: Mild Bleeding Controlled with: Pressure Patient tolerated procedure: Patient tolerated procedure well - Additional Wound Wound debrided: distal fourth toe Laterality: Left Type of Debridement: Excisional debridement Anesthesia Used: 4% Lidocaine Solution Depth: in the subcutaneous layer Percentage of wound debrided: 100 Instrument Used: #15 blade Tissue Removed: fibrous, devitalized subcutaneous, biofilm, slough Severity: Fat Layer Exposed Amount of bleeding with debridement: Mild Bleeding Controlled with: Pressure Patient tolerated procedure: Patient tolerated procedure well Assessment/Plan Active Problems 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 right lateral foot (fat exposed; gouty tophi resolved). right third toe ulcer. left fourth toe ulcer. Severe peripheral vascular disease. Malnutrition. Delayed healing. Bilateral hammertoe deformities Plan: I reviewed and discussed his case this morning. Debridement was performed as noted in the clinical panel. To change dressing every 1-2 days with aquacel ag. To continue with open toe shoe that does not put pressure on this site. Toe ulcers are noted. He was reassured there are no signs of infection. His noninvasive vascular studies were also reviewed which demonstrated significant loss of flow with an TALIA of 0.27 in the right lower extremity. He would like to consider a new referral and this was provided today (Dr. Cazares). His prognosis is significantly worsened due to refusal to proceed with vascular intervention. His laboratory data was reviewed with a white blood cell count 9.7 prealbumin of 25 and hemoglobin A1c of 5.4%. To continue with proper nutrition optimize healing. Understand he is at risk for limb loss. I did also review his right foot x-rays which demonstrated osseous destruction. There is evidence of some tophi formation and diffuse decreased bone density noted to the entire foot. He has generalized osteopenia and his foot x-rays but no bone resorption suggestive of osteomyelitis. His white blood cell count was 8.1, sedimentation rate 9. His albumin is noted at 3.7 and hemoglobin A1c at 5.4%. Approval for advanced wound care product has been denied by insurance. To continue to change dressing daily with Elba or hydrogel/adaptic. He refuses application of advanced collagen and antimicrobial product, puraply. To decrease pressure at the ulcer site by continuing with a surgical shoe as well as placing a gauze to the proximal webspace between the third and fourth toe to avoid the toes touching even though this site is recently healed he is at risk for reopening. Continue bilateral surgical shoe use. To return to clinic in 1 week or call sooner if there are any problems or concerns.
[2017-07-10 09:53] VITALS: BP 131/61; PULSE 59; RESP 18; TEMP 36.6; BMI 21.2
--- NOTE | 2017-07-10 12:43 | PN.PCM_ITS ---
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 Status: Chronic Current Visit: Yes Code(s): L97.512 - Non-pressure chronic ulcer of other part of right foot with fat layer exposed (2) Chronic ulcer of left foot with fat layer exposed Status: Chronic Current Visit: Yes Code(s): L97.522 - Non-pressure chronic ulcer of other part of left foot with fat layer exposed (3) Hammer toe of right foot Status: Chronic Current Visit: Yes Code(s): M20.41 - Other hammer toe(s) ( acquired), right foot (4) Other specified peripheral vascular diseases Status: Chronic Current Visit: Yes Code(s): I73.89 - Other specified peripheral vascular diseases (5) Hammer toe of left foot Status: Chronic Current Visit: Yes Code(s): M20.42 - Other hammer toe(s) ( acquired), left foot (6) Malnutrition Status: Chronic Current Visit: Yes Code(s): E46 - Unspecified protein- calorie malnutrition (7) Delayed wound healing Status: Chronic Current Visit: Yes Code(s): T14.8XXD - Other injury of unspecified body region, subsequent encounter Type of Wound Date of Service: 07/10/17 Chief Complaint: Chronic, nonhealing ulcerations of the right and left foot. peripheral vascular disease. delayed healing History of Wound: This is an 81-year-old male who presents with multiple ulcerations on his right foot and one ulcer to the left fourth toe. He denies fever, chills, nausea, vomiting, loss of appetite. He continues to use [facility] as advised. He denies foot pain. He wears a toe spacer. He is considering proceeding with vascular intervention and skin graft substitute intervention. He has an appointment scheduled for vascular consultation with Dr. Cazares for August 07, 2017. He is apprehensive due to previous poor experiences. He had a major complication with the previous arterial surgery. He denies other new injuries or wound formation. Progress of Wound: Stable bilateral. Healed right fourth toe - Physical Exam Vital Signs Temp Pulse Resp BP 97.8 F 59 L 18 131/61 H 07/10/17 09:53 07/10/17 09:53 07/10/17 09:53 07/10/17 09:53 General: Alert, Oriented x3, Cooperative Extremities: No cyanosis, Capillary Refill Less than 3 Seconds, No Calf Tenderness - Negative Heidi and Alfonso sign bilateral, Diminished Peripheral Pulses Skin: Ulcer/ Wound - No purulence, no erythema, no streaking, no infection, no exposed bone or deep tissue noted today bilateral. The peripheral skin is atrophic and hairless. There is full epithelialization noted to the right fourth distal medial toe Wound Measurements and Assessment WC - Nurse 1 - General Ulcer Measurement Start: 06/26/17 13:50 Freq: Status: Active Protocol: Activity Type Activity Date Activity User E-Sign Co-Sign Detail Recorded Client Recorded Date Recorded By Document 07/10/17 09:53 [id number] 07/10/17 09:59 LIZ 07/10/17 09:53 Wound Center Nurse 1 [Ulcer Assessment] #4 left 4th toe -Combined with other wound No -Current Size (cm) - Length 0.4 -Current Size (cm) - Width 0.3 -Current Size (cm) - Depth 0.1 -Total Square Cm 0.12 -Photo Taken No -Epithelialization Large 67-100% -Tunneling No -Undermining/Tunneling No -Circular Undermining No -Exudate Amt None Present (0 %) -Wound Margin Flat & Intact -Granulation Amt None Present (0 %) -Slough/Fibrin Yes -Necrosis Amt Medium (34-66%) -Necrotic Tissue Type Adherent Slough -Structure Exposed N/A -Texture (Alba-wound Skin Appearance) Assessed Scarring -Moisture (Alba-wound Skin Appearance Assessed ) Dry/Scaly -Color (Alba-wound Skin Appearance) Assessed -Temperature (Alba-wound Skin No Abnormality Appearance) (Pt Warm) -Tenderness on Palpation (Alba-wound No Skin Appearance) -Ulcer Cleansing Rinsed/ Irrigated with Saline -Foul Odor after Cleansing No -Anesthetic Used 4% Lidocaine Solution #3 right 3rd toe -Combined with other wound No -Current Size (cm) - Length 0.4 -Current Size (cm) - Width 0.5 -Current Size (cm) - Depth 0.1 -Total Square Cm 0.20 -Photo Taken No -Epithelialization Large 67-100% -Tunneling No -Undermining/Tunneling No -Circular Undermining No -Exudate Amt None Present (0 %) -Wound Margin Flat & Intact -Granulation Amt Small (1-33%) -Granulation Quality Pale -Slough/Fibrin Yes -Necrosis Amt Medium (34-66%) -Necrotic Tissue Type Adherent Slough -Structure Exposed N/A -Texture (Alba-wound Skin Appearance) Assessed Callus Scarring -Moisture (Alba-wound Skin Appearance Assessed ) Dry/Scaly -Color (Alba-wound Skin Appearance) Assessed -Temperature (Alba-wound Skin No Abnormality Appearance) (Pt Warm) -Tenderness on Palpation (Alba-wound No Skin Appearance) -Ulcer Cleansing Rinsed/ Irrigated with Saline -Foul Odor after Cleansing No -Anesthetic Used 4% Lidocaine Solution #2 Right Lateral Foot -Combined with other wound No -Current Size (cm) - Length 0.5 -Current Size (cm) - Width 0.4 -Current Size (cm) - Depth 0.1 -Total Square Cm 0.20 -Photo Taken No -Epithelialization Medium 34-66% -Tunneling No -Undermining/Tunneling No -Circular Undermining No -Exudate Amt None Present (0 %) -Wound Margin Flat & Intact -Granulation Amt None Present (0 %) -Slough/Fibrin Yes -Necrosis Amt Large (67-100%) -Necrotic Tissue Type Adherent Slough -Structure Exposed N/A -Texture (Alba-wound Skin Appearance) Assessed Localized Edema -Moisture (Alba-wound Skin Appearance Assessed ) Dry/Scaly -Color (Alba-wound Skin Appearance) Assessed -Temperature (Alba-wound Skin No Abnormality Appearance) (Pt Warm) -Tenderness on Palpation (Alba-wound No Skin Appearance) -Ulcer Cleansing Rinsed/ Irrigated with Saline -Foul Odor after Cleansing No -Anesthetic Used 4% Lidocaine Solution #1 Right 4th Toe -Combined with other wound No -Current Size (cm) - Length 0.1 -Current Size (cm) - Width 0.1 -Current Size (cm) - Depth 0.1 -Total Square Cm 0.01 -Photo Taken No -Epithelialization Large 67-100% -Tunneling No -Undermining/Tunneling No -Circular Undermining No -Exudate Amt None Present (0 %) -Wound Margin Flat & Intact -Granulation Amt None Present (0 %) -Slough/Fibrin Yes -Necrosis Amt Large (67-100%) -Necrotic Tissue Type Adherent Slough -Structure Exposed N/A -Texture (Alba-wound Skin Appearance) Assessed Scarring -Moisture (Alba-wound Skin Appearance Assessed ) Dry/Scaly -Color (Alba-wound Skin Appearance) Assessed -Temperature (Alba-wound Skin No Abnormality Appearance) (Pt Warm) -Tenderness on Palpation (Alba-wound No Skin Appearance) -Ulcer Cleansing Rinsed/ Irrigated with Saline -Foul Odor after Cleansing No -Anesthetic Used 4% Lidocaine Solution [Edema Assessment] -Lower Limb Edema Present NA WC - Nurse 2 - General Ulcer CM Notes Start: 06/26/17 13:50 Freq: Status: Active Protocol: Activity Type Activity Date Activity User E-Sign Co-Sign Detail Recorded Client Recorded Date Recorded By Document 07/10/17 10:24 LIZ [id number] 07/10/17 10:29 LIZ 07/10/17 10:24 Wound Center Nurse 2 [Procedure/Treatment] #4 left 4th toe -Time 10:24 -Correct Patient Yes -Correct Side, Site, Position Yes -Correct Procedure Yes -Procedure Performed Yes -Type of Procedure Debridement -Clinical Debridement Subcutaneous -Post Debridement Size (cm) - Length 0.4 -Post Debridement Size (cm) - Width 0.4 -Post Debridement Size (cm) - Depth 0.1 -Total Square Cm 0.16 -Wound/Ulcer Outcome Healed- Epithelialized -Ulcer Cleansing Rinsed/ Irrigated with Saline -Foul Odor after Cleansing No -Bioengineered Tissue No -Bleeding Controlled with Pressure -Treatment Response Procedure Tolerated Well #3 right 3rd toe -Time 10:24 -Correct Patient Yes -Correct Side, Site, Position Yes -Correct Procedure Yes -Procedure Performed Yes -Type of Procedure Debridement -Clinical Debridement Subcutaneous -Post Debridement Size (cm) - Length 0.5 -Post Debridement Size (cm) - Width 0.5 -Post Debridement Size (cm) - Depth 0.1 -Total Square Cm 0.25 -Wound/Ulcer Outcome Not Healed -Ulcer Cleansing Rinsed/ Irrigated with Saline -Foul Odor after Cleansing No -Bioengineered Tissue No -Bleeding Controlled with Pressure -Treatment Response Procedure Tolerated Well #2 Right Lateral Foot -Time 10:24 -Correct Patient Yes -Correct Side, Site, Position Yes -Correct Procedure Yes -Procedure Performed Yes -Type of Procedure Debridement -Clinical Debridement Subcutaneous -Post Debridement Size (cm) - Length 0.5 -Post Debridement Size (cm) - Width 0.5 -Post Debridement Size (cm) - Depth 0.1 -Total Square Cm 0.25 -Wound/Ulcer Outcome Not Healed -Bioengineered Tissue No -Bleeding Controlled with Pressure -Treatment Response Procedure Tolerated Well #1 Right 4th Toe -Time 10:25 -Correct Patient No -Correct Side, Site, Position No -Correct Procedure No -Procedure Performed No -Post Debridement Size (cm) - Length 0 -Post Debridement Size (cm) - Width 0 -Post Debridement Size (cm) - Depth 0 -Total Square Cm 0 -Wound/Ulcer Outcome Healed- Epithelialized -Ulcer Cleansing Rinsed/ Irrigated with Saline -Foul Odor after Cleansing No -Bioengineered Tissue No -Bleeding Controlled with Pressure -Treatment Response Procedure Tolerated Well [See Physician Procedure note for Specifics] Pain Scale: 0-10 Numeric [Pain] -Is Patient Pain Free? Yes Musculoskeletal: No Tenderness to Palpation of Joints or Extremities, Muscle Wasting, - - Rigid contraction of bilateral digits. No crepitus on palpation Neurological: - - Altered sensation via light touch bilateral lower extremities Psych/Mental Status: Normal Affect, Appropriate Debridement Note Post-Debridement Measurements/Treatment WC - Nurse 2 - General Ulcer CM Notes Start: 06/26/17 13:50 Freq: Status: Active Protocol: Activity Type Activity Date Activity User E-Sign Co-Sign Detail Recorded Client Recorded Date Recorded By Document 06/26/17 14:11 [id number] 06/26/17 14:18 Document 07/03/17 14:56 [id number] 07/03/17 14:58 Document 07/10/17 10:24 [id number] 07/10/17 10:29 06/26/17 07/03/17 07/10/17 14:11 14:56 10:24 Wound Center Nurse 2 #4 left 4th toe -Time 14:11 14:56 10:24 -Correct Patient Yes Yes Yes -Correct Side, Site, Position Yes Yes Yes -Correct Procedure Yes Yes Yes -Procedure Performed Yes Yes Yes -Type of Procedure Debridement Debridement Debridement -Clinical Debridement Subcutaneous Subcutaneous Subcutaneous -Post Debridement Size (cm) - Length 0.2 0.4 0.4 -Post Debridement Size (cm) - Width 0.3 0.6 0.4 -Post Debridement Size (cm) - Depth 0.1 0.1 0.1 -Total Square Cm 0.06 0.24 0.16 -Wound/Ulcer Outcome Not Healed Not Healed Healed- Epithelialized -Ulcer Cleansing Rinsed/ Rinsed/ Rinsed/ Irrigated with Irrigated with Irrigated with Saline Saline Saline -Foul Odor after Cleansing No No No -Bioengineered Tissue No No No -Topical Lidocaine (%) 5 -Bleeding Controlled with Pressure Pressure Pressure -Treatment Response Procedure Procedure Procedure Tolerated Well Tolerated Well Tolerated Well #3 right 3rd toe -Time 14:16 14:56 10:24 -Correct Patient Yes Yes Yes -Correct Side, Site, Position Yes Yes Yes -Correct Procedure Yes Yes Yes -Procedure Performed Yes Yes Yes -Type of Procedure Debridement Debridement Debridement -Clinical Debridement Subcutaneous Subcutaneous Subcutaneous -Post Debridement Size (cm) - Length 0.2 0.4 0.5 -Post Debridement Size (cm) - Width 0.2 0.4 0.5 -Post Debridement Size (cm) - Depth 0.1 0.1 0.1 -Total Square Cm 0.04 0.16 0.25 -Wound/Ulcer Outcome Not Healed Not Healed Not Healed -Ulcer Cleansing Rinsed/ Rinsed/ Rinsed/ Irrigated with Irrigated with Irrigated with Saline Saline Saline -Foul Odor after Cleansing No No No -Bioengineered Tissue No No No -Topical Lidocaine (%) 5 -Bleeding Controlled with Pressure Pressure Pressure -Treatment Response Procedure Procedure Procedure Tolerated Well Tolerated Well Tolerated Well #2 Right Lateral Foot -Time 14:17 14:57 10:24 -Correct Patient Yes Yes Yes -Correct Side, Site, Position Yes Yes Yes -Correct Procedure Yes Yes Yes -Procedure Performed Yes Yes Yes -Type of Procedure Debridement Debridement Debridement -Clinical Debridement Subcutaneous Subcutaneous Subcutaneous -Post Debridement Size (cm) - Length 0.2 0.2 0.5 -Post Debridement Size (cm) - Width 0.2 0.3 0.5 -Post Debridement Size (cm) - Depth 0.1 0.1 0.1 -Total Square Cm 0.04 0.06 0.25 -Wound/Ulcer Outcome Not Healed Not Healed Not Healed -Ulcer Cleansing Rinsed/ Rinsed/ Irrigated with Irrigated with Saline Saline -Foul Odor after Cleansing No No -Bioengineered Tissue No No No -Topical Lidocaine (%) 5 -Bleeding Controlled with Pressure Pressure Pressure -Treatment Response Procedure Not Procedure Procedure Tolerated Well Tolerated Well Tolerated Well #1 Right 4th Toe -Time 14:17 14:57 10:25 -Correct Patient Yes Yes No -Correct Side, Site, Position Yes Yes No -Correct Procedure Yes Yes No -Procedure Performed Yes Yes No -Type of Procedure Debridement Debridement -Clinical Debridement Subcutaneous Subcutaneous -Post Debridement Size (cm) - Length 1.0 0.7 0 -Post Debridement Size (cm) - Width 0.5 0.3 0 -Post Debridement Size (cm) - Depth 0.1 0.1 0 -Total Square Cm 0.50 0.21 0 -Wound/Ulcer Outcome Not Healed Not Healed Healed- Epithelialized -Ulcer Cleansing Rinsed/ Rinsed/ Rinsed/ Irrigated with Irrigated with Irrigated with Saline Saline Saline -Foul Odor after Cleansing No No No -Bioengineered Tissue No No No -Topical Lidocaine (%) 5 -Bleeding Controlled with Pressure Pressure Pressure -Treatment Response Procedure Not Procedure Procedure Tolerated Well Tolerated Well Tolerated Well Pain Scale: 0-10 Numeric Is Patient Pain Free? Yes Yes Yes Wound debrided: Lateral distal forefoot Laterality: Right Type of Debridement: Excisional debridement Anesthesia Used: 4% Lidocaine Solution Depth: in the subcutaneous layer Percentage of wound debrided: 100 Instrument Used: #15 blade Tissue Removed: fibrous, devitalized subcutaneous, biofilm, slough Severity: Fat Layer Exposed Amount of bleeding with debridement: Mild Bleeding Controlled with: Pressure Patient tolerated procedure well - Additional Wound Wound debrided: Distal third toe Laterality: Right Type of Debridement: Excisional debridement Anesthesia Used: 4% Lidocaine Solution Depth: in the subcutaneous layer Percentage of wound debrided: 100 Instrument Used: #15 blade Tissue Removed: fibrous, devitalized subcutaneous, biofilm, slough Severity: Fat Layer Exposed Amount of bleeding with debridement: Mild Bleeding Controlled with: Pressure Patient tolerated procedure: Patient tolerated procedure well - Additional Wound Wound debrided: Distal fourth toe Laterality: Left Type of Debridement: Excisional debridement Anesthesia Used: 4% Lidocaine Solution Depth: in the subcutaneous layer Percentage of wound debrided: 100 Instrument Used: #15 blade Tissue Removed: fibrous, devitalized subcutaneous, biofilm, slough Severity: Fat Layer Exposed Amount of bleeding with debridement: Mild Bleeding Controlled with: Pressure Patient tolerated procedure: Patient tolerated procedure well Assessment/Plan Active Problems Chronic ulcer of left foot with fat layer exposed (Chronic) Delayed wound healing (Chronic) Hammer toe of right foot (Chronic) Other specified peripheral vascular diseases (Chronic) Hammer toe of left foot (Chronic) Malnutrition (Chronic) Ulcer of right foot with fat layer exposed (Chronic) Assessment: right fourth toe ulcer -healed. right lateral foot (fat exposed; gouty tophi resolved). right third toe ulcer. left fourth toe ulcer. Severe peripheral vascular disease. Malnutrition. Delayed healing. Bilateral hammertoe deformities Plan: I reviewed and discussed his case this morning. Debridement was performed as noted in the clinical panel. To change dressing every 1-2 days with aquacel ag. To continue with open toe shoe that does not put pressure on this site. Toe ulcers are noted. He was reassured there are no signs of infection. His noninvasive vascular studies were also reviewed which demonstrated significant loss of flow with an TALIA of 0.27 in the right lower extremity. He would like to consider a new referral and this was provided today (Dr. Cazares). His prognosis is significantly worsened due to refusal to proceed with vascular intervention. He is now scheduled for consultation and compliance was reiterated. His laboratory data was reviewed with a white blood cell count 9.7 prealbumin of 25 and hemoglobin A1c of 5.4%. To continue with proper nutrition optimize healing. Understand he is at risk for limb loss. I did also review his right foot x-rays which demonstrated osseous destruction. There is evidence of some tophi formation and diffuse decreased bone density noted to the entire foot. He has generalized osteopenia and his foot x-rays but no bone resorption suggestive of osteomyelitis. His white blood cell count was 8.1, sedimentation rate 9. His albumin is noted at 3.7 and hemoglobin A1c at 5.4%. Approval for advanced wound care product has been denied by insurance noted. To decrease pressure at the ulcer site by continuing with a surgical shoe as well as placing a gauze to the proximal webspace between the third and fourth toe to avoid the toes touching even though this site is recently healed he is at risk for reopening. Continue bilateral surgical shoe use. To return to clinic in 1 week or call sooner if there are any problems or concerns.
[2017-07-17 10:04] VITALS: BP 114/56; PULSE 55; RESP 18; TEMP 36.8; BMI 21.2
--- NOTE | 2017-07-17 11:38 | PN.PCM_ITS ---
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 Status: Chronic Current Visit: Yes Code(s): L97.512 - Non-pressure chronic ulcer of other part of right foot with fat layer exposed (2) Chronic ulcer of left foot with fat layer exposed Status: Chronic Current Visit: Yes Code(s): L97.522 - Non-pressure chronic ulcer of other part of left foot with fat layer exposed (3) Hammer toe of right foot Status: Chronic Current Visit: Yes Code(s): M20.41 - Other hammer toe(s) ( acquired), right foot (4) Other specified peripheral vascular diseases Status: Chronic Current Visit: Yes Code(s): I73.89 - Other specified peripheral vascular diseases (5) Hammer toe of left foot Status: Chronic Current Visit: Yes Code(s): M20.42 - Other hammer toe(s) ( acquired), left foot (6) Malnutrition Status: Chronic Current Visit: Yes Code(s): E46 - Unspecified protein- calorie malnutrition (7) Delayed wound healing Status: Chronic Current Visit: Yes Code(s): T14.8XXD - Other injury of unspecified body region, subsequent encounter Type of Wound Date of Service: 07/17/17 Chief Complaint: Chronic, nonhealing ulcerations of the right and left foot. peripheral vascular disease. delayed healing History of Wound: This is an 81-year-old male who presents with multiple ulcerations on his right foot and one ulcer to the left fourth toe. He denies fever, chills, nausea, vomiting, loss of appetite. He continues to use aquacell Ag as advised. He denies foot pain. He wears a toe spacer. He is considering proceeding with vascular intervention and skin graft substitute intervention. He has an appointment scheduled for vascular consultation with Dr. Cazares for August 07, 2017. He denies other new injuries or wound formation. Progress of Wound: Stable bilateral - Physical Exam Vital Signs Temp Pulse Resp BP 98.2 F 55 L 18 114/56 L 07/17/17 10:04 07/17/17 10:04 07/17/17 10:04 07/17/17 10:04 General: Alert, Oriented x3, Cooperative Extremities: No cyanosis, No edema, Capillary Refill Less than 3 Seconds, No Calf Tenderness, Diminished Peripheral Pulses Skin: Ulcer/ Wound - No purulence, no erythema, no streaking, no exposed deep tissue, no infection Bilateral. The skin is atrophic and there is no hair present bilateral lower extremities Wound Measurements and Assessment WC - Nurse 1 - General Ulcer Measurement Start: 06/26/17 13:50 Freq: Status: Active Protocol: Activity Type Activity Date Activity User E-Sign Co-Sign Detail Recorded Client Recorded Date Recorded By Document 07/17/17 10:04 LIZ [id number] 07/17/17 10:08 LIZ 07/17/17 10:04 Wound Center Nurse 1 [Ulcer Assessment] #4 left 4th toe -Combined with other wound No -Current Size (cm) - Length 0.1 -Current Size (cm) - Width 0.1 -Current Size (cm) - Depth 0.1 -Total Square Cm 0.01 -Photo Taken No -Epithelialization Large 67-100% -Tunneling No -Undermining/Tunneling No -Circular Undermining No -Exudate Amt None Present (0 %) -Wound Margin Flat & Intact -Granulation Amt None Present (0 %) -Slough/Fibrin Yes -Necrosis Amt Large (67-100%) -Necrotic Tissue Type Adherent Slough -Structure Exposed N/A -Texture (Alba-wound Skin Appearance) Assessed -Moisture (Alba-wound Skin Appearance Assessed ) Dry/Scaly -Temperature (Alba-wound Skin No Abnormality Appearance) (Pt Warm) -Tenderness on Palpation (Alba-wound No Skin Appearance) -Ulcer Cleansing Rinsed/ Irrigated with Saline -Foul Odor after Cleansing No -Anesthetic Used 4% Lidocaine Solution #3 right 3rd toe -Combined with other wound No -Current Size (cm) - Length 0.2 -Current Size (cm) - Width 1.0 -Current Size (cm) - Depth 0.1 -Total Square Cm 0.20 -Photo Taken No -Epithelialization Small 1-33% -Tunneling No -Undermining/Tunneling No -Circular Undermining No -Exudate Amt Small (1-33%) -Exudate Type Serosanguineous -Wound Margin Flat & Intact -Granulation Amt None Present (0 %) -Slough/Fibrin Yes -Necrosis Amt Large (67-100%) -Necrotic Tissue Type Adherent Slough -Structure Exposed N/A -Texture (Alba-wound Skin Appearance) Assessed Scarring -Moisture (Alba-wound Skin Appearance Assessed ) Dry/Scaly -Color (Alba-wound Skin Appearance) Assessed -Temperature (Alba-wound Skin No Abnormality Appearance) (Pt Warm) -Tenderness on Palpation (Alba-wound No Skin Appearance) -Ulcer Cleansing Rinsed/ Irrigated with Saline -Foul Odor after Cleansing No -Anesthetic Used 4% Lidocaine Solution #2 Right Lateral Foot -Combined with other wound No -Current Size (cm) - Length 0.1 -Current Size (cm) - Width 0.1 -Current Size (cm) - Depth 0.1 -Total Square Cm 0.01 -Photo Taken No -Epithelialization Medium 34-66% -Tunneling No -Undermining/Tunneling No -Circular Undermining No -Exudate Amt Small (1-33%) -Exudate Type Serosanguineous -Wound Margin Flat & Intact -Granulation Amt Small (1-33%) -Granulation Quality [place] -Slough/Fibrin Yes -Necrosis Amt Medium (34-66%) -Necrotic Tissue Type Adherent Slough -Structure Exposed N/A -Texture (Alba-wound Skin Appearance) Assessed -Moisture (Alba-wound Skin Appearance Assessed ) Dry/Scaly -Color (Alba-wound Skin Appearance) Assessed -Temperature (Alba-wound Skin No Abnormality Appearance) (Pt Warm) -Tenderness on Palpation (Alba-wound No Skin Appearance) -Ulcer Cleansing Rinsed/ Irrigated with Saline -Foul Odor after Cleansing No -Anesthetic Used 4% Lidocaine Solution [Edema Assessment] -Lower Limb Edema Present No WC - Nurse 2 - General Ulcer CM Notes Start: 06/26/17 13:50 Freq: Status: Active Protocol: Activity Type Activity Date Activity User E-Sign Co-Sign Detail Recorded Client Recorded Date Recorded By Document 07/17/17 10:24 LIZ [id number] 07/17/17 10:26 LIZ 07/17/17 10:24 Wound Center Nurse 2 [Procedure/Treatment] #4 left 4th toe -Time 10:25 -Correct Patient Yes -Correct Side, Site, Position Yes -Correct Procedure Yes -Procedure Performed Yes -Type of Procedure Debridement -Clinical Debridement Subcutaneous -Post Debridement Size (cm) - Length 0.1 -Post Debridement Size (cm) - Width 0.2 -Post Debridement Size (cm) - Depth 0.1 -Total Square Cm 0.02 -Wound/Ulcer Outcome Not Healed -Ulcer Cleansing Rinsed/ Irrigated with Saline -Foul Odor after Cleansing No -Bioengineered Tissue No -Bleeding Controlled with Pressure -Treatment Response Procedure Tolerated Well #3 right 3rd toe -Time 10:25 -Correct Patient Yes -Correct Side, Site, Position Yes -Correct Procedure Yes -Procedure Performed Yes -Type of Procedure Debridement -Clinical Debridement Subcutaneous -Post Debridement Size (cm) - Length 0.3 -Post Debridement Size (cm) - Width 1.2 -Post Debridement Size (cm) - Depth 0.1 -Total Square Cm 0.36 -Wound/Ulcer Outcome Not Healed -Ulcer Cleansing Rinsed/ Irrigated with Saline -Foul Odor after Cleansing No -Bioengineered Tissue No -Bleeding Controlled with Pressure -Treatment Response Procedure Tolerated Well #2 Right Lateral Foot -Time 10:26 -Correct Patient Yes -Correct Side, Site, Position Yes -Correct Procedure Yes -Procedure Performed Yes -Type of Procedure Debridement -Clinical Debridement Subcutaneous -Post Debridement Size (cm) - Length 0.2 -Post Debridement Size (cm) - Width 0.2 -Post Debridement Size (cm) - Depth 0.1 -Total Square Cm 0.04 -Wound/Ulcer Outcome Not Healed -Ulcer Cleansing Rinsed/ Irrigated with Saline -Foul Odor after Cleansing No -Bioengineered Tissue No -Bleeding Controlled with Pressure -Treatment Response Procedure Tolerated Well [See Physician Procedure note for Specifics] Pain Scale: 0-10 Numeric [Pain] -Is Patient Pain Free? Yes Musculoskeletal: Muscle Wasting, - - Digital contraction rigid bilateral Neurological: - - Lack of epicritic sensation light touch bilateral lower extremities Psych/Mental Status: Normal Affect, Appropriate Debridement Note Post-Debridement Measurements/Treatment WC - Nurse 2 - General Ulcer CM Notes Start: 06/26/17 13:50 Freq: Status: Active Protocol: Activity Type Activity Date Activity User E-Sign Co-Sign Detail Recorded Client Recorded Date Recorded By Document 06/26/17 14:11 [id number] 06/26/17 14:18 Document 07/03/17 14:56 [id number] 07/03/17 14:58 Document 07/10/17 10:24 [id number] [id number] 07/10/17 10:29 Document 07/17/17 10:24 [id number] 07/17/17 10:26 06/26/17 07/03/17 07/10/17 14:11 14:56 10:24 Wound Center Nurse 2 #4 left 4th toe -Time 14:11 14:56 10:24 -Correct Patient Yes Yes Yes -Correct Side, Site, Position Yes Yes Yes -Correct Procedure Yes Yes Yes -Procedure Performed Yes Yes Yes -Type of Procedure Debridement Debridement Debridement -Clinical Debridement Subcutaneous Subcutaneous Subcutaneous -Post Debridement Size (cm) - Length 0.2 0.4 0.4 -Post Debridement Size (cm) - Width 0.3 0.6 0.4 -Post Debridement Size (cm) - Depth 0.1 0.1 0.1 -Total Square Cm 0.06 0.24 0.16 -Wound/Ulcer Outcome Not Healed Not Healed Healed- Epithelialized -Ulcer Cleansing Rinsed/ Rinsed/ Rinsed/ Irrigated with Irrigated with Irrigated with Saline Saline Saline -Foul Odor after Cleansing No No No -Bioengineered Tissue No No No -Topical Lidocaine (%) 5 -Bleeding Controlled with Pressure Pressure Pressure -Treatment Response Procedure Procedure Procedure Tolerated Well Tolerated Well Tolerated Well #3 right 3rd toe -Time 14:16 14:56 10:24 -Correct Patient Yes Yes Yes -Correct Side, Site, Position Yes Yes Yes -Correct Procedure Yes Yes Yes -Procedure Performed Yes Yes Yes -Type of Procedure Debridement Debridement Debridement -Clinical Debridement Subcutaneous Subcutaneous Subcutaneous -Post Debridement Size (cm) - Length 0.2 0.4 0.5 -Post Debridement Size (cm) - Width 0.2 0.4 0.5 -Post Debridement Size (cm) - Depth 0.1 0.1 0.1 -Total Square Cm 0.04 0.16 0.25 -Wound/Ulcer Outcome Not Healed Not Healed Not Healed -Ulcer Cleansing Rinsed/ Rinsed/ Rinsed/ Irrigated with Irrigated with Irrigated with Saline Saline Saline -Foul Odor after Cleansing No No No -Bioengineered Tissue No No No -Topical Lidocaine (%) 5 -Bleeding Controlled with Pressure Pressure Pressure -Treatment Response Procedure Procedure Procedure Tolerated Well Tolerated Well Tolerated Well #2 Right Lateral Foot -Time 14:17 14:57 10:24 -Correct Patient Yes Yes Yes -Correct Side, Site, Position Yes Yes Yes -Correct Procedure Yes Yes Yes -Procedure Performed Yes Yes Yes -Type of Procedure Debridement Debridement Debridement -Clinical Debridement Subcutaneous Subcutaneous Subcutaneous -Post Debridement Size (cm) - Length 0.2 0.2 0.5 -Post Debridement Size (cm) - Width 0.2 0.3 0.5 -Post Debridement Size (cm) - Depth 0.1 0.1 0.1 -Total Square Cm 0.04 0.06 0.25 -Wound/Ulcer Outcome Not Healed Not Healed Not Healed -Ulcer Cleansing Rinsed/ Rinsed/ Irrigated with Irrigated with Saline Saline -Foul Odor after Cleansing No No -Bioengineered Tissue No No No -Topical Lidocaine (%) 5 -Bleeding Controlled with Pressure Pressure Pressure -Treatment Response Procedure Not Procedure Procedure Tolerated Well Tolerated Well Tolerated Well #1 Right 4th Toe -Time 14:17 14:57 10:25 -Correct Patient Yes Yes No -Correct Side, Site, Position Yes Yes No -Correct Procedure Yes Yes No -Procedure Performed Yes Yes No -Type of Procedure Debridement Debridement -Clinical Debridement Subcutaneous Subcutaneous -Post Debridement Size (cm) - Length 1.0 0.7 0 -Post Debridement Size (cm) - Width 0.5 0.3 0 -Post Debridement Size (cm) - Depth 0.1 0.1 0 -Total Square Cm 0.50 0.21 0 -Wound/Ulcer Outcome Not Healed Not Healed Healed- Epithelialized -Ulcer Cleansing Rinsed/ Rinsed/ Rinsed/ Irrigated with Irrigated with Irrigated with Saline Saline Saline -Foul Odor after Cleansing No No No -Bioengineered Tissue No No No -Topical Lidocaine (%) 5 -Bleeding Controlled with Pressure Pressure Pressure -Treatment Response Procedure Not Procedure Procedure Tolerated Well Tolerated Well Tolerated Well Pain Scale: 0-10 Numeric Is Patient Pain Free? Yes Yes Yes 07/17/17 10:24 Wound Center Nurse 2 #4 left 4th toe -Time 10:25 -Correct Patient Yes -Correct Side, Site, Position Yes -Correct Procedure Yes -Procedure Performed Yes -Type of Procedure Debridement -Clinical Debridement Subcutaneous -Post Debridement Size (cm) - Length 0.1 -Post Debridement Size (cm) - Width 0.2 -Post Debridement Size (cm) - Depth 0.1 -Total Square Cm 0.02 -Wound/Ulcer Outcome Not Healed -Ulcer Cleansing Rinsed/ Irrigated with Saline -Foul Odor after Cleansing No -Bioengineered Tissue No -Topical Lidocaine (%) -Bleeding Controlled with Pressure -Treatment Response Procedure Tolerated Well #3 right 3rd toe -Time 10:25 -Correct Patient Yes -Correct Side, Site, Position Yes -Correct Procedure Yes -Procedure Performed Yes -Type of Procedure Debridement -Clinical Debridement Subcutaneous -Post Debridement Size (cm) - Length 0.3 -Post Debridement Size (cm) - Width 1.2 -Post Debridement Size (cm) - Depth 0.1 -Total Square Cm 0.36 -Wound/Ulcer Outcome Not Healed -Ulcer Cleansing Rinsed/ Irrigated with Saline -Foul Odor after Cleansing No -Bioengineered Tissue No -Topical Lidocaine (%) -Bleeding Controlled with Pressure -Treatment Response Procedure Tolerated Well #2 Right Lateral Foot -Time 10:26 -Correct Patient Yes -Correct Side, Site, Position Yes -Correct Procedure Yes -Procedure Performed Yes -Type of Procedure Debridement -Clinical Debridement Subcutaneous -Post Debridement Size (cm) - Length 0.2 -Post Debridement Size (cm) - Width 0.2 -Post Debridement Size (cm) - Depth 0.1 -Total Square Cm 0.04 -Wound/Ulcer Outcome Not Healed -Ulcer Cleansing Rinsed/ Irrigated with Saline -Foul Odor after Cleansing No -Bioengineered Tissue No -Topical Lidocaine (%) -Bleeding Controlled with Pressure -Treatment Response Procedure Tolerated Well #1 Right 4th Toe -Time -Correct Patient -Correct Side, Site, Position -Correct Procedure -Procedure Performed -Type of Procedure -Clinical Debridement -Post Debridement Size (cm) - Length -Post Debridement Size (cm) - Width -Post Debridement Size (cm) - Depth -Total Square Cm -Wound/Ulcer Outcome -Ulcer Cleansing -Foul Odor after Cleansing -Bioengineered Tissue -Topical Lidocaine (%) -Bleeding Controlled with -Treatment Response Pain Scale: 0-10 Numeric Is Patient Pain Free? Yes Wound debrided: lateral foot Laterality: Right Wound Grade/Stage: Type of Debridement: Excisional debridement Anesthesia Used: 4% Lidocaine Solution Depth: in the subcutaneous layer Percentage of wound debrided: 100 Instrument Used: #15 blade Tissue Removed: fibrous, devitalized subcutaneous, biofilm, slough Severity: Fat Layer Exposed Amount of bleeding with debridement: Mild Bleeding Controlled with: Pressure Patient tolerated procedure well - Additional Wound Wound debrided: distal third toe Laterality: Right Type of Debridement: Excisional debridement Anesthesia Used: 4% Lidocaine Solution Depth: in the subcutaneous layer Percentage of wound debrided: 100 Instrument Used: #15 blade Tissue Removed: fibrous, devitalized subcutaneous, biofilm, slough Severity: Fat Layer Exposed Amount of bleeding with debridement: Mild Bleeding Controlled with: Pressure Patient tolerated procedure: Patient tolerated procedure well - Additional Wound Wound debrided: distal fourth toe Laterality: Left Type of Debridement: Excisional debridement Anesthesia Used: 4% Lidocaine Solution Depth: in the subcutaneous layer Percentage of wound debrided: 100 Instrument Used: #15 blade Tissue Removed: fibrous, devitalized subcutaneous, biofilm, slough Severity: Fat Layer Exposed Amount of bleeding with debridement: Mild Bleeding Controlled with: Pressure Patient tolerated procedure: Patient tolerated procedure well Assessment/Plan Active Problems Chronic ulcer of left foot with fat layer exposed (Chronic) Delayed wound healing (Chronic) Hammer toe of right foot (Chronic) Other specified peripheral vascular diseases (Chronic) Hammer toe of left foot (Chronic) Malnutrition (Chronic) Ulcer of right foot with fat layer exposed (Chronic) Assessment: right fourth toe ulcer - remains healed. right lateral foot (fat exposed; gouty tophi resolved). right third toe ulcer. left fourth toe ulcer. Severe peripheral vascular disease. Malnutrition. Delayed healing. Bilateral hammertoe deformities Plan: I reviewed and discussed his case this morning. Debridement was performed as noted in the clinical panel. To change dressing every 1-2 days with aquacel ag. To continue with open toe shoe that does not put pressure on this site. Toe ulcers are noted. He was reassured there are no signs of infection. His noninvasive vascular studies were also reviewed which demonstrated significant loss of flow with an TALIA of 0.27 in the right lower extremity. He would like to consider a new referral and this was provided today (Dr. Cazares). His prognosis is significantly worsened due to refusal to proceed with vascular intervention. He is now scheduled for consultation and compliance was reiterated. His laboratory data was reviewed with a white blood cell count 9.7 prealbumin of 25 and hemoglobin A1c of 5.4%. To continue with proper nutrition optimize healing. Understand he is at risk for limb loss. I did also review his right foot x-rays which demonstrated osseous destruction. There is evidence of some tophi formation and diffuse decreased bone density noted to the entire foot. He has generalized osteopenia and his foot x-rays but no bone resorption suggestive of osteomyelitis. His white blood cell count was 8.1, sedimentation rate 9. His albumin is noted at 3.7 and hemoglobin A1c at 5.4%. Approval for advanced wound care product has been denied by insurance noted. To decrease pressure at the ulcer site by continuing with a surgical shoe as well as placing a gauze to the proximal webspace between the third and fourth toe to avoid the toes touching even though this site is recently healed he is at risk for reopening. Continue bilateral surgical shoe use. To return to clinic in 1 week or call sooner if there are any problems or concerns.
== END 2017-07-20 23:59 ==
LOC: WC 10:00
PROVIDERS: Family Provider Family Medicine; PCP Family Medicine; Visit Provider Podiatrist
DX: I73.89 Other specified peripheral vascular diseases (principal); L97.512 Non-pressure chronic ulcer of other part of right foot with fat layer exposed; L97.522 Non-pressure chronic ulcer of other part of left foot with fat layer exposed; M20.41 Other hammer toe(s) (acquired), right foot; M20.42 Other hammer toe(s) (acquired), left foot
CPT/HCPCS: 11042

== ENCOUNTER 2017-08-14 11:00 | Outpatient (RCR) | payer OTHER, SELFPAY ==
[2017-07-21 00:26] VITALS: BP 148/70; PULSE 55; RESP 18; TEMP 36.8; BMI 21.2
[2017-07-24 10:33] VITALS: BP 141/86; PULSE 53; RESP 20; TEMP 37; BMI 21.2
--- NOTE | 2017-07-24 11:16 | PN.PCM_ITS ---
(1) Chronic ulcer of left foot with fat layer exposed Status: Chronic Current Visit: Yes Code(s): L97.522 - Non-pressure chronic ulcer of other part of left foot with fat layer exposed (2) Delayed wound healing Status: Chronic Current Visit: Yes Code(s): T14.8XXD - Other injury of unspecified body region, subsequent encounter (3) Hammer toe of right foot Status: Chronic Current Visit: Yes Code(s): M20.41 - Other hammer toe(s) ( acquired), right foot (4) Other specified peripheral vascular diseases Status: Chronic Current Visit: Yes Code(s): I73.89 - Other specified peripheral vascular diseases (5) Hammer toe of left foot Status: Chronic Current Visit: Yes Code(s): M20.42 - Other hammer toe(s) ( acquired), left foot (6) Malnutrition Status: Chronic Current Visit: Yes Code(s): E46 - Unspecified protein- calorie malnutrition (7) Ulcer of right foot with fat layer exposed Status: Chronic Current Visit: Yes Code(s): L97.512 - Non-pressure chronic ulcer of other part of right foot with fat layer exposed Type of Wound Date of Service: 07/25/17 Chief Complaint: Chronic, nonhealing ulcerations of the right and left foot. peripheral vascular disease. delayed healing History of Wound: This is an 81-year-old male who presents with multiple ulcerations on his right foot and one ulcer to the left fourth toe. He denies fever, chills, nausea, vomiting, loss of appetite. He continues to use aquacel Ag as advised. He denies foot pain. He wears a toe spacer. He is considering proceeding with vascular intervention and skin graft substitute intervention. He has an appointment scheduled for vascular consultation with Dr. Cazares for August 07, 2017. He denies other new injuries or wound formation. Progress of Wound: Improving bilateral - Physical Exam Vital Signs Temp Pulse Resp BP 98.6 F 53 L 20 H 141/86 H 07/24/17 10:33 07/24/17 10:33 07/24/17 10:33 07/24/17 10:33 General: Alert, Oriented x3, Cooperative Extremities: No cyanosis, No edema, Capillary Refill Less than 3 Seconds, No Calf Tenderness, Diminished Peripheral Pulses Skin: Ulcer/ Wound - No purulence, no erythema, no streaking, no odor bilateral , - - There is no hair present in the skin is atrophic bilateral lower extremities Wound Measurements and Assessment WC - Nurse 1 - General Ulcer Measurement Start: 07/24/17 10:33 Freq: Status: Active Protocol: Activity Type Activity Date Activity User E-Sign Co-Sign Detail Recorded Client Recorded Date Recorded By Document 07/24/17 10:33 RIGOBERTO [id number] 07/24/17 10:40 RIGOBERTO 07/24/17 10:33 Wound Center Nurse 1 [Ulcer Assessment] #4 left 4th toe -Combined with other wound No -Current Size (cm) - Length 0.1 -Current Size (cm) - Width 0.1 -Current Size (cm) - Depth 0.1 -Total Square Cm 0.01 -Date of Last Picture (Recall this 07/24/17 field) -Photo Taken Yes -Circular Undermining No -Classification - Thickness Full Thickness without Exposed Support Structure -Exudate Amt None Present (0 %) -Wound Margin Distinct, Outline Attached -Granulation Amt Medium (34-66%) -Granulation Quality N/A -Slough/Fibrin Yes -Necrosis Amt None Present (0 %) -Necrotic Tissue Type Adherent Slough -Structure Exposed N/A -Texture (Alba-wound Skin Appearance) No Abnormality -Moisture (Alba-wound Skin Appearance No Abnormality ) -Color (Alba-wound Skin Appearance) No Abnormality -Temperature (Alba-wound Skin No Abnormality Appearance) (Pt Warm) -Tenderness on Palpation (Alba-wound No Skin Appearance) -Ulcer Cleansing Rinsed/ Irrigated with Saline -Foul Odor after Cleansing No -Anesthetic Used 4% Lidocaine Solution #3 right 3rd toe -Combined with other wound No -Current Size (cm) - Length 0.1 -Current Size (cm) - Width 0.1 -Current Size (cm) - Depth 0.1 -Total Square Cm 0.01 -Date of Last Picture (Recall this 07/24/17 field) -Photo Taken Yes -Epithelialization Medium 34-66% -Tunneling No -Undermining/Tunneling No -Circular Undermining No -Classification - Thickness Full Thickness without Exposed Support Structure -Exudate Amt None Present (0 %) -Wound Margin Distinct, Outline Attached -Granulation Amt Medium (34-66%) -Granulation Quality N/A -Slough/Fibrin Yes -Necrosis Amt None Present (0 %) -Necrotic Tissue Type Adherent Slough -Structure Exposed N/A -Texture (Alba-wound Skin Appearance) No Abnormality -Moisture (Alba-wound Skin Appearance No Abnormality ) -Color (Laba-wound Skin Appearance) No Abnormality -Temperature (Alba-wound Skin No Abnormality Appearance) (Pt Warm) -Ulcer Cleansing Rinsed/ Irrigated with Saline -Foul Odor after Cleansing No -Anesthetic Used 4% Lidocaine Solution #2 Right Lateral Foot -Combined with other wound No -Current Size (cm) - Length 0.1 -Current Size (cm) - Width 0.1 -Current Size (cm) - Depth 0.1 -Total Square Cm 0.01 -Date of Last Picture (Recall this 07/24/17 field) -Photo Taken Yes -Epithelialization None Present -Tunneling No -Undermining/Tunneling No -Circular Undermining No -Classification - Thickness Full Thickness with Exposed Support Structure -Classification - Pressure Ulcer Stage 3 -Exudate Amt None Present (0 %) -Wound Margin Distinct, Outline Attached -Granulation Amt Medium (34-66%) -Granulation Quality N/A -Slough/Fibrin Yes -Necrosis Amt None Present (0 %) -Necrotic Tissue Type Adherent Slough -Structure Exposed N/A -Texture (Alba-wound Skin Appearance) No Abnormality -Moisture (Alba-wound Skin Appearance No Abnormality ) -Color (Alba-wound Skin Appearance) No Abnormality -Temperature (Alba-wound Skin No Abnormality Appearance) (Pt Warm) -Tenderness on Palpation (Alba-wound No Skin Appearance) -Ulcer Cleansing Rinsed/ Irrigated with Saline -Foul Odor after Cleansing No -Anesthetic Used 4% Lidocaine Solution WC - Nurse 2 - General Ulcer CM Notes Start: 07/24/17 10:33 Freq: Status: Active Protocol: Activity Type Activity Date Activity User E-Sign Co-Sign Detail Recorded Client Recorded Date Recorded By Document 07/24/17 10:44 LIZ [id number] 07/24/17 10:47 LIZ 07/24/17 10:44 Wound Center Nurse 2 [Procedure/Treatment] #4 left 4th toe -Time 10:45 -Correct Patient Yes -Correct Side, Site, Position Yes -Correct Procedure Yes -Procedure Performed Yes -Type of Procedure Debridement -Clinical Debridement Subcutaneous -Post Debridement Size (cm) - Length 0.4 -Post Debridement Size (cm) - Width 0.3 -Post Debridement Size (cm) - Depth 0.1 -Total Square Cm 0.12 -Wound/Ulcer Outcome Not Healed -Ulcer Cleansing Rinsed/ Irrigated with Saline -Foul Odor after Cleansing No -Bioengineered Tissue No -Bleeding Controlled with Pressure -Treatment Response Procedure Tolerated Well #3 right 3rd toe -Time 10:46 -Correct Patient Yes -Correct Side, Site, Position Yes -Correct Procedure Yes -Procedure Performed Yes -Type of Procedure Debridement -Clinical Debridement Subcutaneous -Post Debridement Size (cm) - Length 0.2 -Post Debridement Size (cm) - Width 0.2 -Post Debridement Size (cm) - Depth 0.1 -Total Square Cm 0.04 -Wound/Ulcer Outcome Not Healed -Ulcer Cleansing Rinsed/ Irrigated with Saline -Foul Odor after Cleansing No -Bioengineered Tissue No -Bleeding Controlled with Pressure -Treatment Response Procedure Tolerated Well #2 Right Lateral Foot -Time 10:46 -Correct Patient Yes -Correct Side, Site, Position Yes -Correct Procedure Yes -Procedure Performed Yes -Type of Procedure Debridement -Clinical Debridement Subcutaneous -Post Debridement Size (cm) - Length 0.3 -Post Debridement Size (cm) - Width 0.1 -Post Debridement Size (cm) - Depth 0.1 -Total Square Cm 0.03 -Wound/Ulcer Outcome Not Healed -Ulcer Cleansing Rinsed/ Irrigated with Saline -Foul Odor after Cleansing No -Bioengineered Tissue No -Bleeding Controlled with Pressure -Treatment Response Procedure Tolerated Well [See Physician Procedure note for Specifics] Pain Scale: 0-10 Numeric [Pain] -Is Patient Pain Free? Yes Musculoskeletal: No Tenderness to Palpation of Joints or Extremities, Muscle Wasting, - - Dorsal rigid contraction of bilateral toes ?5 Neurological: - - Lack of epicritic sensation light touch toes bilateral Psych/Mental Status: Normal Affect, Appropriate Debridement Note Post-Debridement Measurements/Treatment WC - Nurse 2 - General Ulcer CM Notes Start: 07/24/17 10:33 Freq: Status: Active Protocol: Activity Type Activity Date Activity User E-Sign Co-Sign Detail Recorded Client Recorded Date Recorded By Document 07/24/17 10:44 LIZ [id number] 07/24/17 10:47 LIZ 07/24/17 10:44 Wound Center Nurse 2 #4 left 4th toe -Time 10:45 -Correct Patient Yes -Correct Side, Site, Position Yes -Correct Procedure Yes -Procedure Performed Yes -Type of Procedure Debridement -Clinical Debridement Subcutaneous -Post Debridement Size (cm) - Length 0.4 -Post Debridement Size (cm) - Width 0.3 -Post Debridement Size (cm) - Depth 0.1 -Total Square Cm 0.12 -Wound/Ulcer Outcome Not Healed -Ulcer Cleansing Rinsed/ Irrigated with Saline -Foul Odor after Cleansing No -Bioengineered Tissue No -Bleeding Controlled with Pressure -Treatment Response Procedure Tolerated Well #3 right 3rd toe -Time 10:46 -Correct Patient Yes -Correct Side, Site, Position Yes -Correct Procedure Yes -Procedure Performed Yes -Type of Procedure Debridement -Clinical Debridement Subcutaneous -Post Debridement Size (cm) - Length 0.2 -Post Debridement Size (cm) - Width 0.2 -Post Debridement Size (cm) - Depth 0.1 -Total Square Cm 0.04 -Wound/Ulcer Outcome Not Healed -Ulcer Cleansing Rinsed/ Irrigated with Saline -Foul Odor after Cleansing No -Bioengineered Tissue No -Bleeding Controlled with Pressure -Treatment Response Procedure Tolerated Well #2 Right Lateral Foot -Time 10:46 -Correct Patient Yes -Correct Side, Site, Position Yes -Correct Procedure Yes -Procedure Performed Yes -Type of Procedure Debridement -Clinical Debridement Subcutaneous -Post Debridement Size (cm) - Length 0.3 -Post Debridement Size (cm) - Width 0.1 -Post Debridement Size (cm) - Depth 0.1 -Total Square Cm 0.03 -Wound/Ulcer Outcome Not Healed -Ulcer Cleansing Rinsed/ Irrigated with Saline -Foul Odor after Cleansing No -Bioengineered Tissue No -Bleeding Controlled with Pressure -Treatment Response Procedure Tolerated Well Pain Scale: 0-10 Numeric Is Patient Pain Free? Yes Wound debrided: lateral forefoot Laterality: Right Type of Debridement: Excisional debridement Anesthesia Used: 4% Lidocaine Solution Depth: in the subcutaneous layer Percentage of wound debrided: 100 Instrument Used: #15 blade Tissue Removed: Devitalized subcutaneous, biofilm, slough, fibrous tissue Severity: Fat Layer Exposed Amount of bleeding with debridement: Mild Bleeding Controlled with: Pressure Patient tolerated procedure well - Additional Wound Wound debrided: distal third toe Laterality: Right Type of Debridement: Excisional debridement Depth: in the subcutaneous layer Percentage of wound debrided: 100 Instrument Used: #15 blade Tissue Removed: Devitalized subcutaneous, biofilm, slough, fibrous tissue Severity: Fat Layer Exposed Amount of bleeding with debridement: Mild Bleeding Controlled with: Pressure Patient tolerated procedure: Patient tolerated procedure well - Additional Wound Wound debrided: distal 4th toe Laterality: Left Type of Debridement: Excisional debridement Anesthesia Used: 4% Lidocaine Solution Depth: in the subcutaneous layer Percentage of wound debrided: 100 Instrument Used: #15 blade Tissue Removed: Devitalized subcutaneous, biofilm, slough, fibrous tissue Severity: Fat Layer Exposed Amount of bleeding with debridement: Mild Bleeding Controlled with: Pressure Patient tolerated procedure: Patient tolerated procedure well Assessment/Plan Active Problems Chronic ulcer of left foot with fat layer exposed (Chronic) Delayed wound healing (Chronic) Hammer toe of right foot (Chronic) Other specified peripheral vascular diseases (Chronic) Hammer toe of left foot (Chronic) Malnutrition (Chronic) Ulcer of right foot with fat layer exposed (Chronic) Assessment: right fourth toe ulcer - remains healed. right lateral foot (fat exposed). right third toe ulcer. left fourth toe ulcer. Severe peripheral vascular disease. Malnutrition. Delayed healing. Bilateral hammertoe deformities Plan: I reviewed and discussed his case this morning. Debridement was performed as noted in the clinical panel. To change dressing every 1-2 days with aquacel ag. To continue with open toe shoe that does not put pressure on this site. Toe ulcers are noted. He was reassured there are no signs of infection. His noninvasive vascular studies were also reviewed which demonstrated significant loss of flow with an TALIA of 0.27 in the right lower extremity. He would like to consider a new referral and this was provided today (Dr. Cazares). His prognosis is significantly worsened due to refusal to proceed with vascular intervention. He is now scheduled for consultation and compliance was reiterated. His laboratory data was reviewed with a white blood cell count 9.7 prealbumin of 25 and hemoglobin A1c of 5.4%. To continue with proper nutrition optimize healing. Understand he is at risk for limb loss. I did also review his right foot x-rays which demonstrated osseous destruction. There is evidence of some tophi formation and diffuse decreased bone density noted to the entire foot. He has generalized osteopenia and his foot x-rays but no bone resorption suggestive of osteomyelitis. His white blood cell count was 8.1, sedimentation rate 9. His albumin is noted at 3.7 and hemoglobin A1c at 5.4%. Approval for advanced wound care product has been denied by insurance noted. To decrease pressure at the ulcer site by continuing with a surgical shoe as well as placing a gauze to the proximal webspace between the third and fourth toe to avoid the toes touching even though this site is recently healed he is at risk for reopening. Continue bilateral surgical shoe use. To return to clinic in 1 week or call sooner if there are any problems or concerns.
[2017-07-31 09:57] VITALS: BP 132/61; PULSE 58; RESP 16; TEMP 36.6; BMI 21.2
--- NOTE | 2017-07-31 11:08 | PCM.WC.PN ---
(1) Chronic ulcer of left foot with fat layer exposed Status: Chronic Current Visit: Yes Code(s): L97.522 - Non-pressure chronic ulcer of other part of left foot with fat layer exposed (2) Delayed wound healing Status: Chronic Current Visit: Yes Code(s): T14.8XXD - Other injury of unspecified body region, subsequent encounter (3) Hammer toe of right foot Status: Chronic Current Visit: Yes Code(s): M20.41 - Other hammer toe(s) (acquired), right foot (4) Other specified peripheral vascular diseases Status: Chronic Current Visit: Yes Code(s): I73.89 - Other specified peripheral vascular diseases (5) Hammer toe of left foot Status: Chronic Current Visit: Yes Code(s): M20.42 - Other hammer toe(s) (acquired), left foot (6) Malnutrition Status: Chronic Current Visit: Yes Code(s): E46 - Unspecified protein-calorie malnutrition (7) Ulcer of right foot with fat layer exposed Status: Chronic Current Visit: Yes Code(s): L97.512 - Non-pressure chronic ulcer of other part of right foot with fat layer exposed Type of Wound Date of Service: 07/31/17 Chief Complaint: Chronic, nonhealing ulcerations of the right and left foot. peripheral vascular disease. delayed healing History of Wound: This is an 81-year-old male who presents with multiple ulcerations on his right foot and one ulcer to the left fourth toe. He denies fever, chills, nausea, vomiting, loss of appetite. He continues to use aquacel Ag as advised. He denies foot pain. He wears a toe spacer. He is considering proceeding with vascular intervention and skin graft substitute intervention. He has an appointment scheduled for vascular consultation with Dr. Cazares for August 07, 2017. He denies other new injuries or wound formation. Progress of Wound: Stable - Physical Exam Vital Signs Temp Pulse Resp BP 97.8 F 58 L 16 132/61 H 07/31/17 09:57 07/31/17 09:57 07/31/17 09:57 07/31/17 09:57 General: Alert, Oriented x3, Cooperative Extremities: No cyanosis, Capillary Refill Less than 3 Seconds, No Calf Tenderness, Diminished Peripheral Pulses, Edema, - - Rigid digital contraction unchanged bilateral lower extremities Skin: Ulcer/ Wound - No purulence, no erythema, streaking, no odor, no exposed bone or joint, bilateral., - - The skin is hairless and atrophic bilateral Wound Measurements and Assessment WC - Nurse 1 - General Ulcer Measurement Start: 07/24/17 10:33 Freq: Status: Active Protocol: Activity Type Activity Date Activity User E-Sign Co-Sign Detail Recorded Client Recorded Date Recorded By Document 07/31/17 09:57 [facility] [id number] 07/31/17 10:06 [facility] 07/31/17 09:57 Wound Center Nurse 1 [Ulcer Assessment] #4 left 4th toe -Combined with other wound No -Current Size (cm) - Length 0.4 -Current Size (cm) - Width 0.1 -Current Size (cm) - Depth 0.1 -Total Square Cm 0.04 -Photo Taken No -Epithelialization Medium 34-66% -Tunneling No -Undermining/Tunneling No -Circular Undermining No -Exudate Amt None Present (0 %) -Wound Margin Distinct, Outline Attached -Granulation Amt Small (1-33%) -Granulation Quality Red -Slough/Fibrin Yes -Necrosis Amt Large (67-100%) -Necrotic Tissue Type Adherent Slough -Structure Exposed N/A -Texture (Alba-wound Skin Appearance) Callus -Moisture (Alba-wound Skin Appearance Dry/Scaly ) -Color (Alba-wound Skin Appearance) Ecchymosis -Temperature (Alba-wound Skin No Abnormality Appearance) (Pt Warm) -Tenderness on Palpation (Alba-wound No Skin Appearance) -Ulcer Cleansing Rinsed/ Irrigated with Saline -Foul Odor after Cleansing No -Anesthetic Used 5% Lidocaine Gel #3 right 3rd toe -Combined with other wound No -Current Size (cm) - Length 0.1 -Current Size (cm) - Width 0.1 -Current Size (cm) - Depth 0.1 -Total Square Cm 0.01 -Photo Taken No -Epithelialization Large 67-100% -Tunneling No -Undermining/Tunneling No -Circular Undermining No -Exudate Amt None Present (0 %) -Texture (Alba-wound Skin Appearance) Callus -Moisture (Alba-wound Skin Appearance Dry/Scaly ) -Color (Alba-wound Skin Appearance) Assessed -Temperature (Alba-wound Skin No Abnormality Appearance) (Pt Warm) -Tenderness on Palpation (Alba-wound No Skin Appearance) -Ulcer Cleansing Wound Cleanser -Foul Odor after Cleansing No -Anesthetic Used 5% Lidocaine Gel #2 Right Lateral Foot -Combined with other wound No -Current Size (cm) - Length 0.1 -Current Size (cm) - Width 0.2 -Current Size (cm) - Depth 0.2 -Total Square Cm 0.02 -Photo Taken No -Epithelialization None Present -Tunneling No -Undermining/Tunneling No -Circular Undermining No -Exudate Amt Small (1-33%) -Exudate Type Serosanguineous -Wound Margin Distinct, Outline Attached -Granulation Amt Large (67-100%) -Granulation Quality Ensley -Slough/Fibrin No -Necrosis Amt None Present (0 %) -Structure Exposed N/A -Texture (Alba-wound Skin Appearance) Scarring -Moisture (Alba-wound Skin Appearance Maceration ) -Color (Alba-wound Skin Appearance) Palor -Temperature (Alba-wound Skin No Abnormality Appearance) (Pt Warm) -Tenderness on Palpation (Alba-wound No Skin Appearance) -Ulcer Cleansing Rinsed/ Irrigated with Saline -Foul Odor after Cleansing No -Anesthetic Used 5% Lidocaine Gel WC - Nurse 2 - General Ulcer CM Notes Start: 07/24/17 10:33 Freq: Status: Active Protocol: Activity Type Activity Date Activity User E-Sign Co-Sign Detail Recorded Client Recorded Date Recorded By Document 07/31/17 10:32 [id number] 07/31/17 10:34 07/31/17 10:32 Wound Center Nurse 2 [Procedure/Treatment] #4 left 4th toe -Time 10:32 -Correct Patient Yes -Correct Side, Site, Position Yes -Correct Procedure Yes -Procedure Performed Yes -Type of Procedure Debridement -Clinical Debridement Subcutaneous -Post Debridement Size (cm) - Length 0.5 -Post Debridement Size (cm) - Width 0.2 -Post Debridement Size (cm) - Depth 0.1 -Total Square Cm 0.10 -Wound/Ulcer Outcome Not Healed -Ulcer Cleansing Rinsed/ Irrigated with Saline -Foul Odor after Cleansing No -Bioengineered Tissue No -Topical Lidocaine (%) 5 -Bleeding Controlled with Pressure -Treatment Response Procedure Tolerated Well #3 right 3rd toe -Time 10:32 -Correct Patient Yes -Correct Side, Site, Position Yes -Correct Procedure Yes -Procedure Performed Yes -Type of Procedure Debridement -Clinical Debridement Subcutaneous -Post Debridement Size (cm) - Length 0.1 -Post Debridement Size (cm) - Width 0.1 -Post Debridement Size (cm) - Depth 0.1 -Total Square Cm 0.01 -Wound/Ulcer Outcome Not Healed -Ulcer Cleansing Rinsed/ Irrigated with Saline -Foul Odor after Cleansing No -Bioengineered Tissue No -Topical Lidocaine (%) 5 -Bleeding Controlled with Pressure -Treatment Response Procedure Tolerated Well #2 Right Lateral Foot -Time 10:33 -Correct Patient Yes -Correct Side, Site, Position Yes -Correct Procedure Yes -Procedure Performed Yes -Type of Procedure Debridement -Clinical Debridement Subcutaneous -Post Debridement Size (cm) - Length 0.2 -Post Debridement Size (cm) - Width 0.2 -Post Debridement Size (cm) - Depth 0.2 -Total Square Cm 0.04 -Wound/Ulcer Outcome Not Healed -Ulcer Cleansing Rinsed/ Irrigated with Saline -Foul Odor after Cleansing No -Bioengineered Tissue No -Topical Lidocaine (%) 5 -Bleeding Controlled with Pressure -Treatment Response Procedure Tolerated Well [See Physician Procedure note for Specifics] Pain Scale: 0-10 Numeric [Pain] -Is Patient Pain Free? Yes Musculoskeletal: No Tenderness to Palpation of Joints or Extremities, Muscle Wasting Neurological: Sensory exam intact to light touch and pain Psych/Mental Status: Normal Affect, Appropriate Debridement Note Post-Debridement Measurements/Treatment WC - Nurse 2 - General Ulcer CM Notes Start: 07/24/17 10:33 Freq: Status: Active Protocol: Activity Type Activity Date Activity User E-Sign Co-Sign Detail Recorded Client Recorded Date Recorded By Document 07/24/17 10:44 [id number] 07/24/17 10:47 Document 07/31/17 10:32 TM [id number] 07/31/17 10:34 TM 07/24/17 07/31/17 10:44 10:32 Wound Center Nurse 2 #4 left 4th toe -Time 10:45 10:32 -Correct Patient Yes Yes -Correct Side, Site, Position Yes Yes -Correct Procedure Yes Yes -Procedure Performed Yes Yes -Type of Procedure Debridement Debridement -Clinical Debridement Subcutaneous Subcutaneous -Post Debridement Size (cm) - Length 0.4 0.5 -Post Debridement Size (cm) - Width 0.3 0.2 -Post Debridement Size (cm) - Depth 0.1 0.1 -Total Square Cm 0.12 0.10 -Wound/Ulcer Outcome Not Healed Not Healed -Ulcer Cleansing Rinsed/ Rinsed/ Irrigated with Irrigated with Saline Saline -Foul Odor after Cleansing No No -Bioengineered Tissue No No -Topical Lidocaine (%) 5 -Bleeding Controlled with Pressure Pressure -Treatment Response Procedure Procedure Tolerated Well Tolerated Well #3 right 3rd toe -Time 10:46 10:32 -Correct Patient Yes Yes -Correct Side, Site, Position Yes Yes -Correct Procedure Yes Yes -Procedure Performed Yes Yes -Type of Procedure Debridement Debridement -Clinical Debridement Subcutaneous Subcutaneous -Post Debridement Size (cm) - Length 0.2 0.1 -Post Debridement Size (cm) - Width 0.2 0.1 -Post Debridement Size (cm) - Depth 0.1 0.1 -Total Square Cm 0.04 0.01 -Wound/Ulcer Outcome Not Healed Not Healed -Ulcer Cleansing Rinsed/ Rinsed/ Irrigated with Irrigated with Saline Saline -Foul Odor after Cleansing No No -Bioengineered Tissue No No -Topical Lidocaine (%) 5 -Bleeding Controlled with Pressure Pressure -Treatment Response Procedure Procedure Tolerated Well Tolerated Well #2 Right Lateral Foot -Time 10:46 10:33 -Correct Patient Yes Yes -Correct Side, Site, Position Yes Yes -Correct Procedure Yes Yes -Procedure Performed Yes Yes -Type of Procedure Debridement Debridement -Clinical Debridement Subcutaneous Subcutaneous -Post Debridement Size (cm) - Length 0.3 0.2 -Post Debridement Size (cm) - Width 0.1 0.2 -Post Debridement Size (cm) - Depth 0.1 0.2 -Total Square Cm 0.03 0.04 -Wound/Ulcer Outcome Not Healed Not Healed -Ulcer Cleansing Rinsed/ Rinsed/ Irrigated with Irrigated with Saline Saline -Foul Odor after Cleansing No No -Bioengineered Tissue No No -Topical Lidocaine (%) 5 -Bleeding Controlled with Pressure Pressure -Treatment Response Procedure Procedure Tolerated Well Tolerated Well Pain Scale: 0-10 Numeric Is Patient Pain Free? Yes Yes Wound debrided: lateral forefoot Laterality: Right Type of Debridement: Excisional debridement Anesthesia Used: 4% Lidocaine Solution Depth: in the subcutaneous layer Percentage of wound debrided: 100 Instrument Used: #15 blade Severity: Fat Layer Exposed Amount of bleeding with debridement: Mild Bleeding Controlled with: Pressure Patient tolerated procedure well - Additional Wound Wound debrided: distal third toe Laterality: Right Type of Debridement: Excisional debridement Depth: in the subcutaneous layer Percentage of wound debrided: 100 Instrument Used: #15 blade Tissue Removed: fibrous, devitalized subcutaneous, biofilm, slough Severity: Fat Layer Exposed Amount of bleeding with debridement: Mild Bleeding Controlled with: Pressure Patient tolerated procedure: Patient tolerated procedure well - Additional Wound Wound debrided: distal fourth toe Laterality: Left Type of Debridement: Excisional debridement Anesthesia Used: 4% Lidocaine Solution Depth: in the subcutaneous layer Percentage of wound debrided: 100 Instrument Used: #15 blade Tissue Removed: fibrous, devitalized subcutaneous, biofilm, slough Severity: Fat Layer Exposed Amount of bleeding with debridement: Mild Bleeding Controlled with: Pressure Patient tolerated procedure: Patient tolerated procedure well Assessment/Plan Active Problems Chronic ulcer of left foot with fat layer exposed (Chronic) Delayed wound healing (Chronic) Hammer toe of right foot (Chronic) Other specified peripheral vascular diseases (Chronic) Hammer toe of left foot (Chronic) Malnutrition (Chronic) Ulcer of right foot with fat layer exposed (Chronic) Assessment: right fourth toe ulcer - remains healed. right lateral foot (fat exposed). right third toe ulcer. left fourth toe ulcer. Severe peripheral vascular disease. Malnutrition. Delayed healing. Bilateral hammertoe deformities Plan: I reviewed and discussed his case this morning. Debridement was performed as noted in the clinical panel. To change dressing every 1-2 days with aquacel ag. To continue with open toe shoe that does not put pressure on this site. Toe ulcers are noted. He was reassured there are no signs of infection. His noninvasive vascular studies were also reviewed which demonstrated significant loss of flow with an TALIA of 0.27 in the right lower extremity. He would like to consider a new referral and this was provided today (Dr. Cazares). His prognosis is significantly worsened due to refusal to proceed with vascular intervention. He is now scheduled for consultation and compliance was reiterated. His laboratory data was reviewed with a white blood cell count 9.7 prealbumin of 25 and hemoglobin A1c of 5.4%. To continue with proper nutrition optimize healing. Understand he is at risk for limb loss. I did also review his right foot x-rays which demonstrated osseous destruction. There is evidence of some tophi formation and diffuse decreased bone density noted to the entire foot. He has generalized osteopenia and his foot x-rays but no bone resorption suggestive of osteomyelitis. His white blood cell count was 8.1, sedimentation rate 9. His albumin is noted at 3.7 and hemoglobin A1c at 5.4%. Approval for advanced wound care product has been denied by insurance noted. To decrease pressure at the ulcer site by continuing with a surgical shoe as well as placing a gauze to the proximal webspace between the third and fourth toe to avoid the toes touching even though this site is recently healed he is at risk for reopening. Continue bilateral surgical shoe use. To return to clinic in 1 week or call sooner if there are any problems or concerns.
--- NOTE | 2017-07-31 11:11 | PN.PCM_ITS ---
(1) Chronic ulcer of left foot with fat layer exposed Status: Chronic Current Visit: Yes Code(s): L97.522 - Non-pressure chronic ulcer of other part of left foot with fat layer exposed (2) Delayed wound healing Status: Chronic Current Visit: Yes Code(s): T14.8XXD - Other injury of unspecified body region, subsequent encounter (3) Hammer toe of right foot Status: Chronic Current Visit: Yes Code(s): M20.41 - Other hammer toe(s) ( acquired), right foot (4) Other specified peripheral vascular diseases Status: Chronic Current Visit: Yes Code(s): I73.89 - Other specified peripheral vascular diseases (5) Hammer toe of left foot Status: Chronic Current Visit: Yes Code(s): M20.42 - Other hammer toe(s) ( acquired), left foot (6) Malnutrition Status: Chronic Current Visit: Yes Code(s): E46 - Unspecified protein- calorie malnutrition (7) Ulcer of right foot with fat layer exposed Status: Chronic Current Visit: Yes Code(s): L97.512 - Non-pressure chronic ulcer of other part of right foot with fat layer exposed Type of Wound Date of Service: 07/31/17 Chief Complaint: Chronic, nonhealing ulcerations of the right and left foot. peripheral vascular disease. delayed healing History of Wound: This is an 81-year-old male who presents with multiple ulcerations on his right foot and one ulcer to the left fourth toe. He denies fever, chills, nausea, vomiting, loss of appetite. He continues to use aquacel Ag as advised. He denies foot pain. He wears a toe spacer. He is considering proceeding with vascular intervention and skin graft substitute intervention. He has an appointment scheduled for vascular consultation with Dr. Cazares for August 07, 2017. He denies other new injuries or wound formation. Progress of Wound: Stable - Physical Exam Vital Signs Temp Pulse Resp BP 97.8 F 58 L 16 132/61 H 07/31/17 09:57 07/31/17 09:57 07/31/17 09:57 07/31/17 09:57 General: Alert, Oriented x3, Cooperative Extremities: No cyanosis, Capillary Refill Less than 3 Seconds, No Calf Tenderness, Diminished Peripheral Pulses, Edema, - - Rigid digital contraction unchanged bilateral lower extremities Skin: Ulcer/ Wound - No purulence, no erythema, streaking, no odor, no exposed bone or joint, bilateral., - - The skin is hairless and atrophic bilateral Wound Measurements and Assessment WC - Nurse 1 - General Ulcer Measurement Start: 07/24/17 10:33 Freq: Status: Active Protocol: Activity Type Activity Date Activity User E-Sign Co-Sign Detail Recorded Client Recorded Date Recorded By Document 07/31/17 09:57 [facility] [id number] 07/31/17 10:06 [facility] 07/31/17 09:57 W[facility] Center Nurse 1 [Ulcer Assessment] #4 left 4th toe -Combined with other wound No -Current Size (cm) - Length 0.4 -Current Size (cm) - Width 0.1 -Current Size (cm) - Depth 0.1 -Total Square Cm 0.04 -Photo Taken No -Epithelialization Medium 34-66% -Tunneling No -Undermining/Tunneling No -Circular Undermining No -Exudate Amt None Present (0 %) -Wound Margin Distinct, Outline Attached -Granulation Amt Small (1-33%) -Granulation Quality Red -Slough/Fibrin Yes -Necrosis Amt Large (67-100%) -Necrotic Tissue Type Adherent Slough -Structure Exposed N/A -Texture (Alba-wound Skin Appearance) Callus -Moisture (Alba-wound Skin Appearance Dry/Scaly ) -Color (Alba-wound Skin Appearance) Ecchymosis -Temperature (Alba-wound Skin No Abnormality Appearance) (Pt Warm) -Tenderness on Palpation (Alba-wound No Skin Appearance) -Ulcer Cleansing Rinsed/ Irrigated with Saline -Foul Odor after Cleansing No -Anesthetic Used 5% Lidocaine Gel #3 right 3rd toe -Combined with other wound No -Current Size (cm) - Length 0.1 -Current Size (cm) - Width 0.1 -Current Size (cm) - Depth 0.1 -Total Square Cm 0.01 -Photo Taken No -Epithelialization Large 67-100% -Tunneling No -Undermining/Tunneling No -Circular Undermining No -Exudate Amt None Present (0 %) -Texture (Alba-wound Skin Appearance) Callus -Moisture (Alba-wound Skin Appearance Dry/Scaly ) -Color (Alba-wound Skin Appearance) Assessed -Temperature (Alba-wound Skin No Abnormality Appearance) (Pt Warm) -Tenderness on Palpation (Alba-wound No Skin Appearance) -Ulcer Cleansing Wound Cleanser -Foul Odor after Cleansing No -Anesthetic Used 5% Lidocaine Gel #2 Right Lateral Foot -Combined with other wound No -Current Size (cm) - Length 0.1 -Current Size (cm) - Width 0.2 -Current Size (cm) - Depth 0.2 -Total Square Cm 0.02 -Photo Taken No -Epithelialization None Present -Tunneling No -Undermining/Tunneling No -Circular Undermining No -Exudate Amt Small (1-33%) -Exudate Type Serosanguineous -Wound Margin Distinct, Outline Attached -Granulation Amt Large (67-100%) -Granulation Quality [place] -Slough/Fibrin No -Necrosis Amt None Present (0 %) -Structure Exposed N/A -Texture (Alba-wound Skin Appearance) Scarring -Moisture (Alba-wound Skin Appearance Maceration ) -Color (Alba-wound Skin Appearance) Palor -Temperature (Alba-wound Skin No Abnormality Appearance) (Pt Warm) -Tenderness on Palpation (Alba-wound No Skin Appearance) -Ulcer Cleansing Rinsed/ Irrigated with Saline -Foul Odor after Cleansing No -Anesthetic Used 5% Lidocaine Gel WC - Nurse 2 - General Ulcer CM Notes Start: 07/24/17 10:33 Freq: Status: Active Protocol: Activity Type Activity Date Activity User E-Sign Co-Sign Detail Recorded Client Recorded Date Recorded By Document 07/31/17 10:32 [id number] 07/31/17 10:34 07/31/17 10:32 Wound Center Nurse 2 [Procedure/Treatment] #4 left 4th toe -Time 10:32 -Correct Patient Yes -Correct Side, Site, Position Yes -Correct Procedure Yes -Procedure Performed Yes -Type of Procedure Debridement -Clinical Debridement Subcutaneous -Post Debridement Size (cm) - Length 0.5 -Post Debridement Size (cm) - Width 0.2 -Post Debridement Size (cm) - Depth 0.1 -Total Square Cm 0.10 -Wound/Ulcer Outcome Not Healed -Ulcer Cleansing Rinsed/ Irrigated with Saline -Foul Odor after Cleansing No -Bioengineered Tissue No -Topical Lidocaine (%) 5 -Bleeding Controlled with Pressure -Treatment Response Procedure Tolerated Well #3 right 3rd toe -Time 10:32 -Correct Patient Yes -Correct Side, Site, Position Yes -Correct Procedure Yes -Procedure Performed Yes -Type of Procedure Debridement -Clinical Debridement Subcutaneous -Post Debridement Size (cm) - Length 0.1 -Post Debridement Size (cm) - Width 0.1 -Post Debridement Size (cm) - Depth 0.1 -Total Square Cm 0.01 -Wound/Ulcer Outcome Not Healed -Ulcer Cleansing Rinsed/ Irrigated with Saline -Foul Odor after Cleansing No -Bioengineered Tissue No -Topical Lidocaine (%) 5 -Bleeding Controlled with Pressure -Treatment Response Procedure Tolerated Well #2 Right Lateral Foot -Time 10:33 -Correct Patient Yes -Correct Side, Site, Position Yes -Correct Procedure Yes -Procedure Performed Yes -Type of Procedure Debridement -Clinical Debridement Subcutaneous -Post Debridement Size (cm) - Length 0.2 -Post Debridement Size (cm) - Width 0.2 -Post Debridement Size (cm) - Depth 0.2 -Total Square Cm 0.04 -Wound/Ulcer Outcome Not Healed -Ulcer Cleansing Rinsed/ Irrigated with Saline -Foul Odor after Cleansing No -Bioengineered Tissue No -Topical Lidocaine (%) 5 -Bleeding Controlled with Pressure -Treatment Response Procedure Tolerated Well [See Physician Procedure note for Specifics] Pain Scale: 0-10 Numeric [Pain] -Is Patient Pain Free? Yes Musculoskeletal: No Tenderness to Palpation of Joints or Extremities, Muscle Wasting Neurological: Sensory exam intact to light touch and pain Psych/Mental Status: Normal Affect, Appropriate Debridement Note Post-Debridement Measurements/Treatment WC - Nurse 2 - General Ulcer CM Notes Start: 07/24/17 10:33 Freq: Status: Active Protocol: Activity Type Activity Date Activity User E-Sign Co-Sign Detail Recorded Client Recorded Date Recorded By Document 07/24/17 10:44 [id number] 07/24/17 10:47 Document 07/31/17 10:32 TM [id number] 07/31/17 10:34 TM 07/24/17 07/31/17 10:44 10:32 Wound Center Nurse 2 #4 left 4th toe -Time 10:45 10:32 -Correct Patient Yes Yes -Correct Side, Site, Position Yes Yes -Correct Procedure Yes Yes -Procedure Performed Yes Yes -Type of Procedure Debridement Debridement -Clinical Debridement Subcutaneous Subcutaneous -Post Debridement Size (cm) - Length 0.4 0.5 -Post Debridement Size (cm) - Width 0.3 0.2 -Post Debridement Size (cm) - Depth 0.1 0.1 -Total Square Cm 0.12 0.10 -Wound/Ulcer Outcome Not Healed Not Healed -Ulcer Cleansing Rinsed/ Rinsed/ Irrigated with Irrigated with Saline Saline -Foul Odor after Cleansing No No -Bioengineered Tissue No No -Topical Lidocaine (%) 5 -Bleeding Controlled with Pressure Pressure -Treatment Response Procedure Procedure Tolerated Well Tolerated Well #3 right 3rd toe -Time 10:46 10:32 -Correct Patient Yes Yes -Correct Side, Site, Position Yes Yes -Correct Procedure Yes Yes -Procedure Performed Yes Yes -Type of Procedure Debridement Debridement -Clinical Debridement Subcutaneous Subcutaneous -Post Debridement Size (cm) - Length 0.2 0.1 -Post Debridement Size (cm) - Width 0.2 0.1 -Post Debridement Size (cm) - Depth 0.1 0.1 -Total Square Cm 0.04 0.01 -Wound/Ulcer Outcome Not Healed Not Healed -Ulcer Cleansing Rinsed/ Rinsed/ Irrigated with Irrigated with Saline Saline -Foul Odor after Cleansing No No -Bioengineered Tissue No No -Topical Lidocaine (%) 5 -Bleeding Controlled with Pressure Pressure -Treatment Response Procedure Procedure Tolerated Well Tolerated Well #2 Right Lateral Foot -Time 10:46 10:33 -Correct Patient Yes Yes -Correct Side, Site, Position Yes Yes -Correct Procedure Yes Yes -Procedure Performed Yes Yes -Type of Procedure Debridement Debridement -Clinical Debridement Subcutaneous Subcutaneous -Post Debridement Size (cm) - Length 0.3 0.2 -Post Debridement Size (cm) - Width 0.1 0.2 -Post Debridement Size (cm) - Depth 0.1 0.2 -Total Square Cm 0.03 0.04 -Wound/Ulcer Outcome Not Healed Not Healed -Ulcer Cleansing Rinsed/ Rinsed/ Irrigated with Irrigated with Saline Saline -Foul Odor after Cleansing No No -Bioengineered Tissue No No -Topical Lidocaine (%) 5 -Bleeding Controlled with Pressure Pressure -Treatment Response Procedure Procedure Tolerated Well Tolerated Well Pain Scale: 0-10 Numeric Is Patient Pain Free? Yes Yes Wound debrided: lateral forefoot Laterality: Right Type of Debridement: Excisional debridement Anesthesia Used: 4% Lidocaine Solution Depth: in the subcutaneous layer Percentage of wound debrided: 100 Instrument Used: #15 blade Severity: Fat Layer Exposed Amount of bleeding with debridement: Mild Bleeding Controlled with: Pressure Patient tolerated procedure well - Additional Wound Wound debrided: distal third toe Laterality: Right Type of Debridement: Excisional debridement Depth: in the subcutaneous layer Percentage of wound debrided: 100 Instrument Used: #15 blade Tissue Removed: fibrous, devitalized subcutaneous, biofilm, slough Severity: Fat Layer Exposed Amount of bleeding with debridement: Mild Bleeding Controlled with: Pressure Patient tolerated procedure: Patient tolerated procedure well - Additional Wound Wound debrided: distal fourth toe Laterality: Left Type of Debridement: Excisional debridement Anesthesia Used: 4% Lidocaine Solution Depth: in the subcutaneous layer Percentage of wound debrided: 100 Instrument Used: #15 blade Tissue Removed: fibrous, devitalized subcutaneous, biofilm, slough Severity: Fat Layer Exposed Amount of bleeding with debridement: Mild Bleeding Controlled with: Pressure Patient tolerated procedure: Patient tolerated procedure well Assessment/Plan Active Problems Chronic ulcer of left foot with fat layer exposed (Chronic) Delayed wound healing (Chronic) Hammer toe of right foot (Chronic) Other specified peripheral vascular diseases (Chronic) Hammer toe of left foot (Chronic) Malnutrition (Chronic) Ulcer of right foot with fat layer exposed (Chronic) Assessment: right fourth toe ulcer - remains healed. right lateral foot (fat exposed). right third toe ulcer. left fourth toe ulcer. Severe peripheral vascular disease. Malnutrition. Delayed healing. Bilateral hammertoe deformities Plan: I reviewed and discussed his case this morning. Debridement was performed as noted in the clinical panel. To change dressing every 1-2 days with aquacel ag. To continue with open toe shoe that does not put pressure on this site. Toe ulcers are noted. He was reassured there are no signs of infection. His noninvasive vascular studies were also reviewed which demonstrated significant loss of flow with an TALIA of 0.27 in the right lower extremity. He would like to consider a new referral and this was provided today (Dr. Cazares). His prognosis is significantly worsened due to refusal to proceed with vascular intervention. He is now scheduled for consultation and compliance was reiterated. His laboratory data was reviewed with a white blood cell count 9.7 prealbumin of 25 and hemoglobin A1c of 5.4%. To continue with proper nutrition optimize healing. Understand he is at risk for limb loss. I did also review his right foot x-rays which demonstrated osseous destruction. There is evidence of some tophi formation and diffuse decreased bone density noted to the entire foot. He has generalized osteopenia and his foot x-rays but no bone resorption suggestive of osteomyelitis. His white blood cell count was 8.1, sedimentation rate 9. His albumin is noted at 3.7 and hemoglobin A1c at 5.4%. Approval for advanced wound care product has been denied by insurance noted. To decrease pressure at the ulcer site by continuing with a surgical shoe as well as placing a gauze to the proximal webspace between the third and fourth toe to avoid the toes touching even though this site is recently healed he is at risk for reopening. Continue bilateral surgical shoe use. To return to clinic in 1 week or call sooner if there are any problems or concerns.
[2017-08-07 13:07] VITALS: BP 122/64; PULSE 57; RESP 16; TEMP 36; BMI 21.2
--- NOTE | 2017-08-07 15:35 | PN.PCM_ITS ---
(1) Chronic ulcer of left foot with fat layer exposed Status: Chronic Current Visit: Yes Code(s): L97.522 - Non-pressure chronic ulcer of other part of left foot with fat layer exposed (2) Delayed wound healing Status: Chronic Current Visit: Yes Code(s): T14.8XXD - Other injury of unspecified body region, subsequent encounter (3) Hammer toe of right foot Status: Chronic Current Visit: Yes Code(s): M20.41 - Other hammer toe(s) ( acquired), right foot (4) Other specified peripheral vascular diseases Status: Chronic Current Visit: Yes Code(s): I73.89 - Other specified peripheral vascular diseases (5) Hammer toe of left foot Status: Chronic Current Visit: Yes Code(s): M20.42 - Other hammer toe(s) ( acquired), left foot (6) Malnutrition Status: Chronic Current Visit: Yes Code(s): E46 - Unspecified protein- calorie malnutrition (7) Ulcer of right foot with fat layer exposed Status: Chronic Current Visit: Yes Code(s): L97.512 - Non-pressure chronic ulcer of other part of right foot with fat layer exposed Type of Wound Date of Service: 08/07/17 Chief Complaint: Chronic, nonhealing ulcerations of the right and left foot. peripheral vascular disease. delayed healing History of Wound: This is an 81-year-old male who presents with multiple ulcerations on his right foot and one ulcer to the left fourth toe. He denies fever, chills, nausea, vomiting, loss of appetite. He continues to use aquacel Ag as advised. He denies foot pain. He wears a toe spacer. He is considering proceeding with vascular intervention and skin graft substitute intervention. He has an appointment scheduled for vascular consultation with Dr. Cazares for August 07, 2017. He attended this session and additional Doppler workup will be scheduled within the next couple weeks. He denies other new injuries or wound formation. Progress of Wound: Stable. Healed right third toe - Physical Exam Vital Signs Temp Pulse Resp BP 96.8 F L 57 L 16 122/64 H 08/07/17 13:07 08/07/17 13:07 08/07/17 13:07 08/07/17 13:07 General: Alert, Oriented x3, Cooperative Extremities: No cyanosis, No edema, Capillary Refill Less than 3 Seconds, No Calf Tenderness - Negative Heidi and Alfonso bilateral, Diminished Peripheral Pulses Skin: Ulcer/ Wound - No purulence, no erythema, skin, no odor, no versus other crystal-like exudate coming from the lateral right foot ulcer. This does not look infected. There is no exposed bone or joint. There is full epithelialization to the distal right third toe. Bilateral lower extremities are lacking hair and the skin is very atrophic Wound Measurements and Assessment WC - Nurse 1 - General Ulcer Measurement Start: 07/24/17 10:33 Freq: Status: Active Protocol: Activity Type Activity Date Activity User E-Sign Co-Sign Detail Recorded Client Recorded Date Recorded By Document 08/07/17 13:07 [id number] 08/07/17 13:10 08/07/17 13:07 Wound Center Nurse 1 [Ulcer Assessment] #4 left 4th toe -Combined with other wound No -Current Size (cm) - Length 0.2 -Current Size (cm) - Width 0.2 -Current Size (cm) - Depth 0.1 -Total Square Cm 0.04 -Photo Taken No -Epithelialization Medium 34-66% -Tunneling No -Undermining/Tunneling No -Circular Undermining No -Exudate Amt None Present (0 %) -Wound Margin Flat & Intact -Granulation Amt Medium (34-66%) -Granulation Quality Red -Slough/Fibrin Yes -Necrosis Amt Small (1-33%) -Necrotic Tissue Type Adherent Slough -Structure Exposed N/A -Texture (Alba-wound Skin Appearance) Assessed Scarring -Moisture (Alba-wound Skin Appearance Assessed ) Dry/Scaly -Color (Alba-wound Skin Appearance) Assessed -Temperature (Alba-wound Skin No Abnormality Appearance) (Pt Warm) -Tenderness on Palpation (Alba-wound No Skin Appearance) -Ulcer Cleansing Rinsed/ Irrigated with Saline -Foul Odor after Cleansing No -Anesthetic Used 4% Lidocaine Solution #3 right 3rd toe -Combined with other wound No -Current Size (cm) - Length 0.1 -Current Size (cm) - Width 0.1 -Current Size (cm) - Depth 0.1 -Total Square Cm 0.01 -Photo Taken No -Epithelialization Large 67-100% -Tunneling No -Undermining/Tunneling No -Circular Undermining No -Exudate Amt None Present (0 %) -Wound Margin Flat & Intact -Granulation Amt None Present (0 %) -Slough/Fibrin No -Structure Exposed N/A -Texture (Alba-wound Skin Appearance) Assessed -Moisture (Alba-wound Skin Appearance Assessed ) Dry/Scaly -Color (Alba-wound Skin Appearance) Assessed -Temperature (Alba-wound Skin No Abnormality Appearance) (Pt Warm) -Tenderness on Palpation (Alba-wound No Skin Appearance) -Ulcer Cleansing Rinsed/ Irrigated with Saline -Foul Odor after Cleansing No -Anesthetic Used 4% Lidocaine Solution #2 Right Lateral Foot -Combined with other wound No -Current Size (cm) - Length 0.2 -Current Size (cm) - Width 0.3 -Current Size (cm) - Depth 0.1 -Total Square Cm 0.06 -Photo Taken No -Epithelialization Medium 34-66% -Tunneling No -Undermining/Tunneling No -Circular Undermining No -Exudate Amt Small (1-33%) -Exudate Type Serosanguineous -Wound Margin Flat & Intact -Granulation Amt Small (1-33%) -Granulation Quality Red -Slough/Fibrin Yes -Necrosis Amt Large (67-100%) -Necrotic Tissue Type Adherent Slough -Structure Exposed N/A -Texture (Alba-wound Skin Appearance) Assessed Localized Edema -Moisture (Alba-wound Skin Appearance Assessed ) Dry/Scaly -Color (Alba-wound Skin Appearance) Assessed -Temperature (Alba-wound Skin No Abnormality Appearance) (Pt Warm) -Tenderness on Palpation (Alba-wound No Skin Appearance) -Ulcer Cleansing Rinsed/ Irrigated with Saline -Foul Odor after Cleansing No -Anesthetic Used 4% Lidocaine Solution [Edema Assessment] -Lower Limb Edema Present No WC - Nurse 2 - General Ulcer CM Notes Start: 07/24/17 10:33 Freq: Status: Active Protocol: Activity Type Activity Date Activity User E-Sign Co-Sign Detail Recorded Client Recorded Date Recorded By Document 08/07/17 13:14 LIZ [id number] 08/07/17 13:34 LIZ 08/07/17 13:14 Wound Center Nurse 2 [Procedure/Treatment] #4 left 4th toe -Time 13:18 -Correct Patient Yes -Correct Side, Site, Position Yes -Correct Procedure Yes -Procedure Performed Yes -Type of Procedure Debridement -Clinical Debridement Subcutaneous -Post Debridement Size (cm) - Length 0.5 -Post Debridement Size (cm) - Width 0.2 -Post Debridement Size (cm) - Depth 0.1 -Total Square Cm 0.10 -Wound/Ulcer Outcome Not Healed -Ulcer Cleansing Rinsed/ Irrigated with Saline -Foul Odor after Cleansing No -Bioengineered Tissue No -Bleeding Controlled with Pressure -Treatment Response Procedure Tolerated Well #3 right 3rd toe -Time 13:19 -Correct Patient No -Correct Side, Site, Position No -Correct Procedure No -Procedure Performed No -Post Debridement Size (cm) - Length 0 -Post Debridement Size (cm) - Width 0 -Post Debridement Size (cm) - Depth 0 -Total Square Cm 0 -Wound/Ulcer Outcome Healed- Epithelialized #2 Right Lateral Foot -Time 13:19 -Correct Patient Yes -Correct Side, Site, Position Yes -Correct Procedure Yes -Procedure Performed Yes -Type of Procedure Debridement -Clinical Debridement Subcutaneous -Post Debridement Size (cm) - Length 0.7 -Post Debridement Size (cm) - Width 0.6 -Post Debridement Size (cm) - Depth 0.2 -Total Square Cm 0.42 -Wound/Ulcer Outcome Not Healed -Ulcer Cleansing Rinsed/ Irrigated with Saline -Foul Odor after Cleansing No -Bioengineered Tissue No -Bleeding Controlled with Pressure -Treatment Response Procedure Tolerated Well [See Physician Procedure note for Specifics] Musculoskeletal: No Tenderness to Palpation of Joints or Extremities, Muscle Wasting, - - Rigid contraction of lesser toes unchanged bilateral Neurological: - - Lack of normal epicritic sensation light touch bilateral lower extremity Psych/Mental Status: Normal Affect, Appropriate Debridement Note Post-Debridement Measurements/Treatment WC - Nurse 2 - General Ulcer CM Notes Start: 07/24/17 10:33 Freq: Status: Active Protocol: Activity Type Activity Date Activity User E-Sign Co-Sign Detail Recorded Client Recorded Date Recorded By Document 07/24/17 10:44 [id number] 07/24/17 10:47 Document 07/31/17 10:32 [id number] 07/31/17 10:34 Document 08/07/17 13:14 [id number] 08/07/17 13:34 07/24/17 07/31/17 08/07/17 10:44 10:32 13:14 Wound Center Nurse 2 #4 left 4th toe -Time 10:45 10:32 13:18 -Correct Patient Yes Yes Yes -Correct Side, Site, Position Yes Yes Yes -Correct Procedure Yes Yes Yes -Procedure Performed Yes Yes Yes -Type of Procedure Debridement Debridement Debridement -Clinical Debridement Subcutaneous Subcutaneous Subcutaneous -Post Debridement Size (cm) - Length 0.4 0.5 0.5 -Post Debridement Size (cm) - Width 0.3 0.2 0.2 -Post Debridement Size (cm) - Depth 0.1 0.1 0.1 -Total Square Cm 0.12 0.10 0.10 -Wound/Ulcer Outcome Not Healed Not Healed Not Healed -Ulcer Cleansing Rinsed/ Rinsed/ Rinsed/ Irrigated with Irrigated with Irrigated with Saline Saline Saline -Foul Odor after Cleansing No No No -Bioengineered Tissue No No No -Topical Lidocaine (%) 5 -Bleeding Controlled with Pressure Pressure Pressure -Treatment Response Procedure Procedure Procedure Tolerated Well Tolerated Well Tolerated Well #3 right 3rd toe -Time 10:46 10:32 13:19 -Correct Patient Yes Yes No -Correct Side, Site, Position Yes Yes No -Correct Procedure Yes Yes No -Procedure Performed Yes Yes No -Type of Procedure Debridement Debridement -Clinical Debridement Subcutaneous Subcutaneous -Post Debridement Size (cm) - Length 0.2 0.1 0 -Post Debridement Size (cm) - Width 0.2 0.1 0 -Post Debridement Size (cm) - Depth 0.1 0.1 0 -Total Square Cm 0.04 0.01 0 -Wound/Ulcer Outcome Not Healed Not Healed Healed- Epithelialized -Ulcer Cleansing Rinsed/ Rinsed/ Irrigated with Irrigated with Saline Saline -Foul Odor after Cleansing No No -Bioengineered Tissue No No -Topical Lidocaine (%) 5 -Bleeding Controlled with Pressure Pressure -Treatment Response Procedure Procedure Tolerated Well Tolerated Well #2 Right Lateral Foot -Time 10:46 10:33 13:19 -Correct Patient Yes Yes Yes -Correct Side, Site, Position Yes Yes Yes -Correct Procedure Yes Yes Yes -Procedure Performed Yes Yes Yes -Type of Procedure Debridement Debridement Debridement -Clinical Debridement Subcutaneous Subcutaneous Subcutaneous -Post Debridement Size (cm) - Length 0.3 0.2 0.7 -Post Debridement Size (cm) - Width 0.1 0.2 0.6 -Post Debridement Size (cm) - Depth 0.1 0.2 0.2 -Total Square Cm 0.03 0.04 0.42 -Wound/Ulcer Outcome Not Healed Not Healed Not Healed -Ulcer Cleansing Rinsed/ Rinsed/ Rinsed/ Irrigated with Irrigated with Irrigated with Saline Saline Saline -Foul Odor after Cleansing No No No -Bioengineered Tissue No No No -Topical Lidocaine (%) 5 -Bleeding Controlled with Pressure Pressure Pressure -Treatment Response Procedure Procedure Procedure Tolerated Well Tolerated Well Tolerated Well Pain Scale: 0-10 Numeric Is Patient Pain Free? Yes Yes Wound debrided: lateral forefoot Laterality: Right Type of Debridement: Excisional debridement Anesthesia Used: 4% Lidocaine Solution Depth: in the subcutaneous layer Percentage of wound debrided: 100 Instrument Used: #15 blade Tissue Removed: fibrous, devitalized subcutaneous, biofilm, slough Severity: Fat Layer Exposed Amount of bleeding with debridement: Mild Bleeding Controlled with: Pressure Patient tolerated procedure well - Additional Wound Wound debrided: distal fourth toe Laterality: Left Type of Debridement: Excisional debridement Anesthesia Used: 4% Lidocaine Solution Depth: in the subcutaneous layer Percentage of wound debrided: 100 Instrument Used: #15 blade Tissue Removed: fibrous, devitalized subcutaneous, biofilm, slough Severity: Fat Layer Exposed Amount of bleeding with debridement: Mild Bleeding Controlled with: Pressure Patient tolerated procedure: Patient tolerated procedure well Assessment/Plan Active Problems Chronic ulcer of left foot with fat layer exposed (Chronic) Delayed wound healing (Chronic) Hammer toe of right foot (Chronic) Other specified peripheral vascular diseases (Chronic) Hammer toe of left foot (Chronic) Malnutrition (Chronic) Ulcer of right foot with fat layer exposed (Chronic) Assessment: right third toe ulcer - healed today. right lateral foot (fat exposed). left fourth toe ulcer (fat exposed). Severe peripheral vascular disease. Malnutrition. Delayed healing. Bilateral hammertoe deformities Plan: I reviewed and discussed his case this morning. Debridement was performed as noted in the clinical panel. To change dressing every 1-2 days with aquacel ag. To continue with open toe shoe that does not put pressure on this site. Toe ulcers are noted. He was reassured there are no signs of infection. His noninvasive vascular studies were also reviewed which demonstrated significant loss of flow with an TALIA of 0.27 in the right lower extremity. He attended the vascular surgery referral is recommended an additional screening exam will be scheduled. His prognosis is significantly worsened due to his previous refusal to proceed with vascular intervention. His laboratory data was reviewed with a white blood cell count 9.7 prealbumin of 25 and hemoglobin A1c of 5.4%. To continue with proper nutrition optimize healing. Understand he is at risk for limb loss. I did also review his right foot x-rays which demonstrated osseous destruction. There is evidence of some tophi formation and diffuse decreased bone density noted to the entire foot. He has generalized osteopenia and his foot x-rays but no bone resorption suggestive of osteomyelitis. His white blood cell count was 8.1, sedimentation rate 9. His albumin is noted at 3.7 and hemoglobin A1c at 5.4%. Approval for advanced wound care product has been denied by insurance noted. To decrease pressure at the ulcer site by continuing with a surgical shoe as well as placing a gauze to the proximal webspace between the third and fourth toe to avoid the toes touching even though this site is recently healed he is at risk for reopening. Continue bilateral surgical shoe use. 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 To return to clinic in 1 week or call sooner if there are any problems or concerns.
[2017-08-14 11:54] VITALS: BP 146/71; PULSE 59; RESP 18; TEMP 36.5; BMI 21.2
--- NOTE | 2017-08-14 13:18 | PCM.WC.PN ---
(1) Chronic ulcer of left foot with fat layer exposed Status: Chronic Current Visit: Yes Code(s): L97.522 - Non-pressure chronic ulcer of other part of left foot with fat layer exposed (2) Delayed wound healing Status: Chronic Current Visit: Yes Code(s): T14.8XXD - Other injury of unspecified body region, subsequent encounter (3) Hammer toe of right foot Status: Chronic Current Visit: Yes Code(s): M20.41 - Other hammer toe(s) (acquired), right foot (4) Other specified peripheral vascular diseases Status: Chronic Current Visit: Yes Code(s): I73.89 - Other specified peripheral vascular diseases (5) Hammer toe of left foot Status: Chronic Current Visit: Yes Code(s): M20.42 - Other hammer toe(s) (acquired), left foot (6) Malnutrition Status: Chronic Current Visit: Yes Code(s): E46 - Unspecified protein-calorie malnutrition (7) Ulcer of right foot with fat layer exposed Status: Chronic Current Visit: Yes Code(s): L97.512 - Non-pressure chronic ulcer of other part of right foot with fat layer exposed Type of Wound Date of Service: 08/16/17 Chief Complaint: Chronic, nonhealing ulcerations of the right and left foot. peripheral vascular disease. delayed healing. New ulcer right second toe History of Wound: This is an 81-year-old male who presents with multiple ulcerations on his right foot and one ulcer to the left fourth toe. He denies fever, chills, nausea, vomiting, loss of appetite. He continues to use aquacel Ag as advised. He denies foot pain. He wears a toe spacer. He is considering proceeding with vascular intervention and skin graft substitute intervention. He has an appointment scheduled for vascular consultation with Dr. Cazares for August 07, 2017. He attended this session and additional Doppler workup will be scheduled within the next couple weeks. He does report a new ulcer to his right second toe and denies distinct trauma. Progress of Wound: Stable. new ulcer noted - Physical Exam Vital Signs Temp Pulse Resp BP 97.7 F L 59 L 18 146/71 H 08/14/17 11:54 08/14/17 11:54 08/14/17 11:54 08/14/17 11:54 General: Alert, Oriented x3, Cooperative Extremities: No cyanosis, No edema, Capillary Refill Less than 3 Seconds, No Calf Tenderness - Negative Heidi and Alfonso sign bilateral, Diminished Peripheral Pulses Skin: Ulcer/ Wound - No erythema, no purulence, no odor, no acute signs of infection or nicki necrosis. There is no probe to bone or deep tissue structures bilateral. The skin is very atrophic and hairless. There is no tophi expressed from any of the wound beds today. The wound beds are fibrous and granular base. Wound Measurements and Assessment WC - Nurse 1 - General Ulcer Measurement Start: 07/24/17 10:33 Freq: Status: Active Protocol: Activity Type Activity Date Activity User E-Sign Co-Sign Detail Recorded Client Recorded Date Recorded By Document 08/14/17 11:54 RB [id number] 08/14/17 12:08 RB 08/14/17 11:54 Wound Center Nurse 1 [Ulcer Assessment] 5. R second toe -Combined with other wound No -Current Size (cm) - Length 0.7 -Current Size (cm) - Width 1 -Current Size (cm) - Depth 0.1 -Total Square Cm 0.7 -Photo Taken Yes -Tunneling No -Undermining/Tunneling No -Circular Undermining No -Classification - Thickness Full Thickness without Exposed Support Structure -Exudate Amt Small (1-33%) -Exudate Type Serosanguineous -Wound Margin Distinct, Outline Attached -Granulation Amt Large (67-100%) -Granulation [place] -Slough/Fibrin Yes -Necrosis Amt Small (1-33%) -Necrotic Tissue Type Adherent Slough -Structure Exposed N/A -Texture (Alba-wound Skin Appearance) Assessed -Moisture (Alba-wound Skin Appearance Assessed ) -Color (Alba-wound Skin Appearance) Assessed -Temperature (Alba-wound Skin No Abnormality Appearance) (Pt Warm) -Tenderness on Palpation (Alba-wound No Skin Appearance) -Ulcer Cleansing Rinsed/ Irrigated with Saline -Foul Odor after Cleansing No -Anesthetic Used 5% Lidocaine Gel #4 left 4th toe -Combined with other wound No -Current Size (cm) - Length 0.5 -Current Size (cm) - Width 0.4 -Current Size (cm) - Depth 0.2 -Total Square Cm 0.20 -Photo Taken No -Tunneling No -Undermining/Tunneling No -Circular Undermining No -Classification - Thickness Full Thickness without Exposed Support Structure -Exudate Amt Small (1-33%) -Exudate Type Serosanguineous -Wound Margin Distinct, Outline Attached -Granulation Amt Medium (34-66%) -Granulation [place] -Slough/Fibrin Yes -Necrosis Amt Medium (34-66%) -Necrotic Tissue Type Adherent Slough -Structure Exposed N/A -Texture (Alba-wound Skin Appearance) Assessed -Moisture (Alba-wound Skin Appearance Assessed ) Dry/Scaly -Color (Alba-wound Skin Appearance) Assessed -Temperature (Alba-wound Skin No Abnormality Appearance) (Pt Warm) -Tenderness on Palpation (Alba-wound No Skin Appearance) -Ulcer Cleansing Rinsed/ Irrigated with Saline -Foul Odor after Cleansing No -Anesthetic Used 5% Lidocaine Gel #2 Right Lateral Foot -Combined with other wound No -Current Size (cm) - Length 0.2 -Current Size (cm) - Width 0.2 -Current Size (cm) - Depth 0.2 -Total Square Cm 0.04 -Photo Taken No -Tunneling No -Undermining/Tunneling No -Circular Undermining No -Classification - Thickness Full Thickness without Exposed Support Structure -Exudate Amt Small (1-33%) -Exudate Type Serosanguineous -Wound Margin Distinct, Outline Attached -Granulation Amt Medium (34-66%) -Granulation [place] -Slough/Fibrin Yes -Necrosis Amt Medium (34-66%) -Necrotic Tissue Type Adherent Slough -Structure Exposed N/A -Texture (Alba-wound Skin Appearance) Assessed Callus -Moisture (Alba-wound Skin Appearance Dry/Scaly ) -Color (Alba-wound Skin Appearance) Assessed -Temperature (Alba-wound Skin No Abnormality Appearance) (Pt Warm) -Tenderness on Palpation (Alba-wound No Skin Appearance) -Ulcer Cleansing Rinsed/ Irrigated with Saline -Foul Odor after Cleansing No -Anesthetic Used 5% Lidocaine Gel WC - Nurse 2 - General Ulcer CM Notes Start: 07/24/17 10:33 Freq: Status: Active Protocol: Activity Type Activity Date Activity User E-Sign Co-Sign Detail Recorded Client Recorded Date Recorded By Document 08/14/17 12:23 LIZ [id number] 08/14/17 12:26 LIZ 08/14/17 12:23 Wound Center Nurse 2 [Procedure/Treatment] 5. R second toe -Time 12:24 -Correct Patient Yes -Correct Side, Site, Position Yes -Correct Procedure Yes -Procedure Performed Yes -Type of Procedure Debridement -Clinical Debridement Subcutaneous -Post Debridement Size (cm) - Length 0.8 -Post Debridement Size (cm) - Width 1 -Post Debridement Size (cm) - Depth 0.1 -Total Square Cm 0.8 -Wound/Ulcer Outcome Not Healed -Ulcer Cleansing Rinsed/ Irrigated with Saline -Foul Odor after Cleansing No -Bioengineered Tissue No -Bleeding Controlled with Pressure -Treatment Response Procedure Tolerated Well #4 left 4th toe -Time 12:24 -Correct Patient Yes -Correct Side, Site, Position Yes -Correct Procedure Yes -Procedure Performed Yes -Type of Procedure Debridement -Clinical Debridement Subcutaneous -Post Debridement Size (cm) - Length 0.5 -Post Debridement Size (cm) - Width 0.5 -Post Debridement Size (cm) - Depth 0.1 -Total Square Cm 0.25 -Wound/Ulcer Outcome Not Healed -Ulcer Cleansing Rinsed/ Irrigated with Saline -Foul Odor after Cleansing No -Bioengineered Tissue No -Bleeding Controlled with Pressure -Treatment Response Procedure Tolerated Well #2 Right Lateral Foot -Time 12:25 -Correct Patient Yes -Correct Side, Site, Position Yes -Correct Procedure Yes -Procedure Performed Yes -Type of Procedure Debridement -Clinical Debridement Subcutaneous -Post Debridement Size (cm) - Length 0.3 -Post Debridement Size (cm) - Width 0.2 -Post Debridement Size (cm) - Depth 0.1 -Total Square Cm 0.06 -Wound/Ulcer Outcome Not Healed -Ulcer Cleansing Rinsed/ Irrigated with Saline -Foul Odor after Cleansing No -Bioengineered Tissue No -Bleeding Controlled with Pressure -Treatment Response Procedure Tolerated Well [See Physician Procedure note for Specifics] Pain Scale: 0-10 Numeric [Pain] -Is Patient Pain Free? Yes Musculoskeletal: No Tenderness to Palpation of Joints or Extremities, Muscle Wasting, - - Dorsal contraction of lesser digits bilateral Neurological: Sensory exam intact to light touch and pain Psych/Mental Status: Normal Affect, Appropriate Debridement Note Post-Debridement Measurements/Treatment WC - Nurse 2 - General Ulcer CM Notes Start: 07/24/17 10:33 Freq: Status: Active Protocol: Activity Type Activity Date Activity User E-Sign Co-Sign Detail Recorded Client Recorded Date Recorded By Document 07/24/17 10:44 [id number] 07/24/17 10:47 JF Document 07/31/17 10:32 [id number] 07/31/17 10:34 TM Document 08/07/17 13:14 JF [id number] 08/07/17 13:34 JF Document 08/14/17 12:23 JF [id number] 08/14/17 12:26 JF 07/24/17 07/31/17 08/07/17 10:44 10:32 13:14 Wound Center Nurse 2 5. R second toe -Time -Correct Patient -Correct Side, Site, Position -Correct Procedure -Procedure Performed -Type of Procedure -Clinical Debridement -Post Debridement Size (cm) - Length -Post Debridement Size (cm) - Width -Post Debridement Size (cm) - Depth -Total Square Cm -Wound/Ulcer Outcome -Ulcer Cleansing -Foul Odor after Cleansing -Bioengineered Tissue -Bleeding Controlled with -Treatment Response #4 left 4th toe -Time 10:45 10:32 13:18 -Correct Patient Yes Yes Yes -Correct Side, Site, Position Yes Yes Yes -Correct Procedure Yes Yes Yes -Procedure Performed Yes Yes Yes -Type of Procedure Debridement Debridement Debridement -Clinical Debridement Subcutaneous Subcutaneous Subcutaneous -Post Debridement Size (cm) - Length 0.4 0.5 0.5 -Post Debridement Size (cm) - Width 0.3 0.2 0.2 -Post Debridement Size (cm) - Depth 0.1 0.1 0.1 -Total Square Cm 0.12 0.10 0.10 -Wound/Ulcer Outcome Not Healed Not Healed Not Healed -Ulcer Cleansing Rinsed/ Rinsed/ Rinsed/ Irrigated with Irrigated with Irrigated with Saline Saline Saline -Foul Odor after Cleansing No No No -Bioengineered Tissue No No No -Topical Lidocaine (%) 5 -Bleeding Controlled with Pressure Pressure Pressure -Treatment Response Procedure Procedure Procedure Tolerated Well Tolerated Well Tolerated Well #3 right 3rd toe -Time 10:46 10:32 13:19 -Correct Patient Yes Yes No -Correct Side, Site, Position Yes Yes No -Correct Procedure Yes Yes No -Procedure Performed Yes Yes No -Type of Procedure Debridement Debridement -Clinical Debridement Subcutaneous Subcutaneous -Post Debridement Size (cm) - Length 0.2 0.1 0 -Post Debridement Size (cm) - Width 0.2 0.1 0 -Post Debridement Size (cm) - Depth 0.1 0.1 0 -Total Square Cm 0.04 0.01 0 -Wound/Ulcer Outcome Not Healed Not Healed Healed- Epithelialized -Ulcer Cleansing Rinsed/ Rinsed/ Irrigated with Irrigated with Saline Saline -Foul Odor after Cleansing No No -Bioengineered Tissue No No -Topical Lidocaine (%) 5 -Bleeding Controlled with Pressure Pressure -Treatment Response Procedure Procedure Tolerated Well Tolerated Well #2 Right Lateral Foot -Time 10:46 10:33 13:19 -Correct Patient Yes Yes Yes -Correct Side, Site, Position Yes Yes Yes -Correct Procedure Yes Yes Yes -Procedure Performed Yes Yes Yes -Type of Procedure Debridement Debridement Debridement -Clinical Debridement Subcutaneous Subcutaneous Subcutaneous -Post Debridement Size (cm) - Length 0.3 0.2 0.7 -Post Debridement Size (cm) - Width 0.1 0.2 0.6 -Post Debridement Size (cm) - Depth 0.1 0.2 0.2 -Total Square Cm 0.03 0.04 0.42 -Wound/Ulcer Outcome Not Healed Not Healed Not Healed -Ulcer Cleansing Rinsed/ Rinsed/ Rinsed/ Irrigated with Irrigated with Irrigated with Saline Saline Saline -Foul Odor after Cleansing No No No -Bioengineered Tissue No No No -Topical Lidocaine (%) 5 -Bleeding Controlled with Pressure Pressure Pressure -Treatment Response Procedure Procedure Procedure Tolerated Well Tolerated Well Tolerated Well Pain Scale: 0-10 Numeric Is Patient Pain Free? Yes Yes 08/14/17 12:23 Wound Center Nurse 2 5. R second toe -Time 12:24 -Correct Patient Yes -Correct Side, Site, Position Yes -Correct Procedure Yes -Procedure Performed Yes -Type of Procedure Debridement -Clinical Debridement Subcutaneous -Post Debridement Size (cm) - Length 0.8 -Post Debridement Size (cm) - Width 1 -Post Debridement Size (cm) - Depth 0.1 -Total Square Cm 0.8 -Wound/Ulcer Outcome Not Healed -Ulcer Cleansing Rinsed/ Irrigated with Saline -Foul Odor after Cleansing No -Bioengineered Tissue No -Bleeding Controlled with Pressure -Treatment Response Procedure Tolerated Well #4 left 4th toe -Time 12:24 -Correct Patient Yes -Correct Side, Site, Position Yes -Correct Procedure Yes -Procedure Performed Yes -Type of Procedure Debridement -Clinical Debridement Subcutaneous -Post Debridement Size (cm) - Length 0.5 -Post Debridement Size (cm) - Width 0.5 -Post Debridement Size (cm) - Depth 0.1 -Total Square Cm 0.25 -Wound/Ulcer Outcome Not Healed -Ulcer Cleansing Rinsed/ Irrigated with Saline -Foul Odor after Cleansing No -Bioengineered Tissue No -Topical Lidocaine (%) -Bleeding Controlled with Pressure -Treatment Response Procedure Tolerated Well #3 right 3rd toe -Time -Correct Patient -Correct Side, Site, Position -Correct Procedure -Procedure Performed -Type of Procedure -Clinical Debridement -Post Debridement Size (cm) - Length -Post Debridement Size (cm) - Width -Post Debridement Size (cm) - Depth -Total Square Cm -Wound/Ulcer Outcome -Ulcer Cleansing -Foul Odor after Cleansing -Bioengineered Tissue -Topical Lidocaine (%) -Bleeding Controlled with -Treatment Response #2 Right Lateral Foot -Time 12:25 -Correct Patient Yes -Correct Side, Site, Position Yes -Correct Procedure Yes -Procedure Performed Yes -Type of Procedure Debridement -Clinical Debridement Subcutaneous -Post Debridement Size (cm) - Length 0.3 -Post Debridement Size (cm) - Width 0.2 -Post Debridement Size (cm) - Depth 0.1 -Total Square Cm 0.06 -Wound/Ulcer Outcome Not Healed -Ulcer Cleansing Rinsed/ Irrigated with Saline -Foul Odor after Cleansing No -Bioengineered Tissue No -Topical Lidocaine (%) -Bleeding Controlled with Pressure -Treatment Response Procedure Tolerated Well Pain Scale: 0-10 Numeric Is Patient Pain Free? Yes Wound debrided: third toe Laterality: Right Type of Debridement: Excisional debridement Anesthesia Used: 5% Lidocaine Gel Depth: in the subcutaneous layer Percentage of wound debrided: 100 Instrument Used: #15 blade Tissue Removed: fibrous, devitalized subcutaneous, biofilm, slough Severity: Fat Layer Exposed Amount of bleeding with debridement: Mild Bleeding Controlled with: Pressure Patient tolerated procedure well - Additional Wound Wound debrided: lateral forefoot Laterality: Right Type of Debridement: Excisional debridement Anesthesia Used: 5% Lidocaine Gel Depth: in the subcutaneous layer Percentage of wound debrided: 100 Instrument Used: #15 blade Tissue Removed: fibrous, devitalized subcutaneous, biofilm, slough Severity: Fat Layer Exposed Amount of bleeding with debridement: Mild Bleeding Controlled with: Pressure Patient tolerated procedure: Patient tolerated procedure well - Additional Wound Wound debrided: distal 2nd toe Laterality: Right Type of Debridement: Excisional debridement Anesthesia Used: 5% Lidocaine Gel Depth: in the subcutaneous layer Percentage of wound debrided: 100 Instrument Used: #15 blade Tissue Removed: fibrous, devitalized subcutaneous, biofilm, slough Severity: Fat Layer Exposed Amount of bleeding with debridement: Mild Bleeding Controlled with: Pressure Patient tolerated procedure: Patient tolerated procedure well - Additional Wound Wound debrided: fourth toe Laterality: Left Type of Debridement: Excisional debridement Anesthesia Used: 5% Lidocaine Gel Depth: in the subcutaneous layer Percentage of wound debrided: 100 Instrument Used: #15 blade Tissue Removed: fibrous, devitalized subcutaneous, biofilm, slough Severity: Fat Layer Exposed Amount of bleeding with debridement: Mild Bleeding Controlled with: Pressure Patient tolerated procedure: Patient tolerated procedure well Assessment/Plan Active Problems Chronic ulcer of left foot with fat layer exposed (Chronic) Delayed wound healing (Chronic) Hammer toe of right foot (Chronic) Other specified peripheral vascular diseases (Chronic) Hammer toe of left foot (Chronic) Malnutrition (Chronic) Ulcer of right foot with fat layer exposed (Chronic) Assessment: right third toe ulcer. right lateral foot (fat exposed). left fourth toe ulcer (fat exposed). new right second distal toe ulcer (fat exposed). Severe peripheral vascular disease. Malnutrition. Delayed healing. Bilateral hammertoe deformities Plan: I reviewed and discussed his case this morning. Debridement was performed as noted in the clinical panel. To change dressing every 1-2 days with aquacel ag. To continue with open toe shoe that does not put pressure on this site. Toe ulcers are noted. He was reassured there are no signs of infection. His noninvasive vascular studies were also reviewed which demonstrated significant loss of flow with an TALIA of 0.27 in the right lower extremity. He attended the vascular surgery referral is recommended an additional screening exam will be scheduled. His prognosis is significantly worsened due to his previous way with proceeding with vascular intervention. His laboratory data was reviewed with a white blood cell count 9.7 prealbumin of 25 and hemoglobin A1c of 5.4%. To continue with proper nutrition optimize healing. Understand he is at risk for limb loss. I did also review his right foot x-rays which demonstrated osseous destruction. There is evidence of some tophi formation and diffuse decreased bone density noted to the entire foot. He has generalized osteopenia and his foot x-rays but no bone resorption suggestive of osteomyelitis. His white blood cell count was 8.1, sedimentation rate 9. His albumin is noted at 3.7 and hemoglobin A1c at 5.4%. Approval for advanced wound care product has been denied by insurance noted. To decrease pressure at the ulcer site by continuing with a surgical shoe as well as placing a gauze to the proximal webspace between the third and fourth toe to avoid the toes touching even though this site is recently healed he is at risk for reopening. Continue bilateral surgical shoe use. 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 To return to clinic in 1 week or call sooner if there are any problems or concerns.
== END 2017-08-19 23:59 ==
LOC: WC 11:00
PROVIDERS: Family Provider Family Medicine; PCP Family Medicine; Visit Provider Podiatrist
DX: I73.9 Peripheral vascular disease, unspecified (principal); M20.42 Other hammer toe(s) (acquired), left foot; L97.512 Non-pressure chronic ulcer of other part of right foot with fat layer exposed; L97.522 Non-pressure chronic ulcer of other part of left foot with fat layer exposed; M20.41 Other hammer toe(s) (acquired), right foot; M85.879 Other specified disorders of bone density and structure, unspecified ankle and foot
CPT/HCPCS: 11042

== ENCOUNTER → 2017-08-28 09:36 | Outpatient (CLI) | payer OTHER, SELFPAY ==
--- NOTE | 2017-08-28 09:39 | ADU_ITS ---
Reason For Study: ATHEROSCLEROSIS Right Velocities Left Velocities Common Femoral Artery, mid = 86 cm./sec. Common Femoral Artery, mid = 64 cm./sec. Supf Femoral Artery, prox = 83 cm./sec. Supf. Femoral Artery, prox = 64 cm./sec. Supf Femoral Artery, mid = 75 cm./sec. Supf. Femoral Artery, mid = 67 cm./sec. Supf Femoral Artery, dist. = 65 cm./sec. Supf. Femoral Artery, dist = 67 cm./sec. Profunda Femoral Artery = 72 cm./sec. Profunda Femoral Artery = 84 cm./sec. Popliteal Artery, prox. = 66 cm./sec. Popliteal Artery, proximal, = 65 cm./sec. Popliteal Artery, dist = 58 cm./sec. Popliteal Artery, distal = 133 cm./sec. Post. Tibial Artery, prox = 35 cm./sec. Post. Tibial Artery, prox = 52 cm./sec. Post. Tibial Artery, mid = 41 cm./sec. Absent flow mid to distal [employer]SEM[employer]ER. Absent flow SEMICONDUCTOR ASSEMBLER distally. Peroneal Artery, prox = 53 cm./sec. Peroneal Artery, prox = 64 cm./sec. Peroneal Artery, mid = 78 cm./sec. Peroneal Artery, mid = 83 cm./sec. Peroneal Artery,dist. = 89 cm./sec. Peroneal Artery,dist = 93 cm./sec. Ant.Tibial Artery, prox = 34 cm./sec. Ant. Tibial Artery, prox = 24 cm./sec. Ant Tibial Artery, mid = 33 cm./sec. Ant. Tibial Artery, mid = 64 cm./sec. Ant. Tibial Artery, distal = 86 cm./sec. Ant. Tibial Artery, dist = 32 cm./sec. Procedure Exam performed in department. Interpretation Summary 1. Right leg no stenosis except occluded posterior tibial artery. Otherwise triphasic flow. 2. Left leg no stenosis except posterior tibial occlussion. Triphasic flow through popliteal and monophasic flow in tibials. Ordering Physician: Torrey Cazares Referring Physician: Torrey Cazares Performed By: Patrica Ford RDCS, RVT
--- NOTE | 2017-08-28 11:35 | LEAS ---
Arterial Study - Arterial Study Arterial Study: next Date of scan 08/28/[address] Cazares History: Patient with nonhealing wound right lower extremity is been at the wound center is here for evaluation does have a history of hyperlipidemia hypertension coronary artery disease with a stent Interpretation: Right lower extremity does have pulsatile flow down through the at the ankle both the posterior tibial and dorsalis pedis are noncompressible Left lower extremity again at the ankle noncompressibility from the posterior tibial and the dorsalis pedis Impression: 1. Bilateral lower extremities show noncompressibility throughout bilateral lower extremities. Further evaluation as clinically warranted
== END ==
PROVIDERS: Family Provider Family Medicine; PCP Family Medicine; Visit Provider Surgery Vascular Surgery
DX: I70.235 Atherosclerosis of native arteries of right leg with ulceration of other part of foot (principal); I70.245 Atherosclerosis of native arteries of left leg with ulceration of other part of foot
CPT/HCPCS: 93922; 93925

== ENCOUNTER 2017-09-18 10:30 | Outpatient (RCR) | payer OTHER, SELFPAY ==
[2017-08-20 00:25] VITALS: BP 148/70; PULSE 59; RESP 18; TEMP 36.5; BMI 21.2
[2017-08-21 10:46] VITALS: BP 142/69; PULSE 59; RESP 18; TEMP 36.9; BMI 21.2
--- NOTE | 2017-08-21 13:10 | PN.PCM_ITS ---
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 Status: Chronic Current Visit: Yes Code(s): L97.512 - Non-pressure chronic ulcer of other part of right foot with fat layer exposed (2) Chronic ulcer of left foot with fat layer exposed Status: Chronic Current Visit: Yes Code(s): L97.522 - Non-pressure chronic ulcer of other part of left foot with fat layer exposed (3) Delayed wound healing Status: Chronic Current Visit: Yes Code(s): T14.8XXD - Other injury of unspecified body region, subsequent encounter (4) Hammer toe of right foot Status: Chronic Current Visit: Yes Code(s): M20.41 - Other hammer toe(s) ( acquired), right foot (5) Other specified peripheral vascular diseases Status: Chronic Current Visit: Yes Code(s): I73.89 - Other specified peripheral vascular diseases Type of Wound Date of Service: 08/22/17 Chief Complaint: Chronic, nonhealing ulcerations of the right and left foot. peripheral vascular disease. delayed healing. ulcer right second toe History of Wound: This is an 81-year-old male who presents with multiple ulcerations on his right foot and one ulcer to the left fourth toe. He denies fever, chills, nausea, vomiting, loss of appetite. He continues to use aquacel Ag as advised. He denies foot pain. He wears a toe spacer. He is considering proceeding with vascular intervention and skin graft substitute intervention. He had an appointment scheduled for vascular consultation with Dr. Cazares for August 07, 2017. He attended this session and additional Doppler workup will be scheduled within the next couple weeks. Progress of Wound: Stable - Physical Exam Vital Signs Temp Pulse Resp BP 98.4 F 59 L 18 142/69 H 08/21/17 10:46 08/21/17 10:46 08/21/17 10:46 08/21/17 10:46 General: Alert, Oriented x3, Cooperative Extremities: No cyanosis, Capillary Refill Less than 3 Seconds, No Calf Tenderness - Negative Heidi and Alfonso sign bilateral, Diminished Peripheral Pulses, Edema - mild bilateral Skin: Ulcer/ Wound - No purulence, no erythema, streaking, no infection bilateral, - - atrophic skin bilateral lower extremities Wound Measurements and Assessment WC - Nurse 1 - General Ulcer Measurement Start: 05/02/18 10:45 Freq: Status: Active Protocol: Activity Type Activity Date Activity User E-Sign Co-Sign Detail Recorded Client Recorded Date Recorded By Document 08/21/17 10:46 LIZ [id number] 08/21/17 10:50 LIZ 08/21/17 10:46 Wound Center Nurse 1 [Ulcer Assessment] 5. R second toe -Combined with other wound No -Current Size (cm) - Length 0.5 -Current Size (cm) - Width 0.4 -Current Size (cm) - Depth 0.1 -Total Square Cm 0.20 -Photo Taken No -Epithelialization Medium 34-66% -Tunneling No -Undermining/Tunneling No -Circular Undermining No -Exudate Amt Small (1-33%) -Exudate Type Serosanguineous -Wound Margin Flat & Intact -Granulation Amt Medium (34-66%) -Granulation Quality [place] -Slough/Fibrin Yes -Necrosis Amt Small (1-33%) -Necrotic Tissue Type Adherent Slough -Structure Exposed N/A -Texture (Alba-wound Skin Appearance) Assessed Callus -Moisture (Alba-wound Skin Appearance Assessed ) Dry/Scaly -Color (Alba-wound Skin Appearance) Assessed -Temperature (Alba-wound Skin No Abnormality Appearance) (Pt Warm) -Tenderness on Palpation (Alba-wound No Skin Appearance) -Ulcer Cleansing Rinsed/ Irrigated with Saline -Foul Odor after Cleansing No -Anesthetic Used 4% Lidocaine Solution #4 left 4th toe -Combined with other wound No -Current Size (cm) - Length 0.2 -Current Size (cm) - Width 0.4 -Current Size (cm) - Depth 0.1 -Total Square Cm 0.08 -Photo Taken No -Epithelialization Small 1-33% -Tunneling No -Undermining/Tunneling No -Circular Undermining No -Exudate Amt Small (1-33%) -Exudate Type Serosanguineous -Wound Margin Flat & Intact -Granulation Amt Large (67-100%) -Granulation Quality Red -Slough/Fibrin Yes -Necrosis Amt Small (1-33%) -Necrotic Tissue Type Adherent Slough -Structure Exposed N/A -Texture (Alba-wound Skin Appearance) Assessed Callus -Moisture (Alba-wound Skin Appearance Assessed ) Dry/Scaly -Color (Alba-wound Skin Appearance) Assessed -Temperature (Alba-wound Skin No Abnormality Appearance) (Pt Warm) -Tenderness on Palpation (Alba-wound No Skin Appearance) -Ulcer Cleansing Rinsed/ Irrigated with Saline -Foul Odor after Cleansing No -Anesthetic Used 4% Lidocaine Solution #2 Right Lateral Foot -Combined with other wound No -Current Size (cm) - Length 0.3 -Current Size (cm) - Width 0.2 -Current Size (cm) - Depth 0.2 -Total Square Cm 0.06 -Photo Taken No -Epithelialization Small 1-33% -Tunneling No -Undermining/Tunneling No -Circular Undermining No -Exudate Amt Small (1-33%) -Exudate Type Serosanguineous -Wound Margin Flat & Intact -Granulation Amt Large (67-100%) -Granulation Quality Red -Slough/Fibrin Yes -Necrosis Amt Small (1-33%) -Necrotic Tissue Type Adherent Slough -Structure Exposed N/A -Texture (Alba-wound Skin Appearance) Assessed -Moisture (Alba-wound Skin Appearance Assessed ) Maceration -Color (Alba-wound Skin Appearance) Assessed -Temperature (Alba-wound Skin No Abnormality Appearance) (Pt Warm) -Tenderness on Palpation (Alba-wound No Skin Appearance) -Ulcer Cleansing Rinsed/ Irrigated with Saline -Foul Odor after Cleansing No -Anesthetic Used 4% Lidocaine Solution [Edema Assessment] -Lower Limb Edema Present No WC - Nurse 2 - General Ulcer CM Notes Start: 08/21/17 10:45 Freq: Status: Active Protocol: Activity Type Activity Date Activity User E-Sign Co-Sign Detail Recorded Client Recorded Date Recorded By Document 08/21/17 11:15 [id number] 08/21/17 11:19 08/21/17 11:15 Wound Center Nurse 2 [Procedure/Treatment] 5. R second toe -Time 11:16 -Correct Patient Yes -Correct Side, Site, Position Yes -Correct Procedure Yes -Procedure Performed Yes -Type of Procedure Debridement -Clinical Debridement Subcutaneous -Post Debridement Size (cm) - Length 0.6 -Post Debridement Size (cm) - Width 0.5 -Post Debridement Size (cm) - Depth 0.1 -Total Square Cm 0.30 -Wound/Ulcer Outcome Not Healed -Ulcer Cleansing Rinsed/ Irrigated with Saline -Foul Odor after Cleansing No -Bioengineered Tissue No -Topical Lidocaine (%) 4 -Bleeding Controlled with Pressure -Treatment Response Procedure Tolerated Well #4 left 4th toe -Time 11:17 -Correct Patient Yes -Correct Side, Site, Position Yes -Correct Procedure Yes -Procedure Performed Yes -Type of Procedure Debridement -Clinical Debridement Subcutaneous -Post Debridement Size (cm) - Length 0.3 -Post Debridement Size (cm) - Width 0.5 -Post Debridement Size (cm) - Depth 0.1 -Total Square Cm 0.15 -Wound/Ulcer Outcome Not Healed -Ulcer Cleansing Rinsed/ Irrigated with Saline -Foul Odor after Cleansing No -Bioengineered Tissue No -Topical Lidocaine (%) 4 -Bleeding Controlled with Pressure -Treatment Response Procedure Tolerated Well #2 Right Lateral Foot -Time 11:17 -Correct Patient Yes -Correct Side, Site, Position Yes -Correct Procedure Yes -Procedure Performed Yes -Type of Procedure Debridement -Clinical Debridement Subcutaneous -Post Debridement Size (cm) - Length 0.4 -Post Debridement Size (cm) - Width 0.3 -Post Debridement Size (cm) - Depth 0.2 -Total Square Cm 0.12 -Wound/Ulcer Outcome Not Healed -Ulcer Cleansing Rinsed/ Irrigated with Saline -Foul Odor after Cleansing No -Bioengineered Tissue No -Topical Lidocaine (%) 4 -Bleeding Controlled with Pressure -Treatment Response Procedure Tolerated Well [See Physician Procedure note for Specifics] Pain Scale: 0-10 Numeric [Pain] -Is Patient Pain Free? Yes Musculoskeletal: No Tenderness to Palpation of Joints or Extremities, Muscle Wasting, - - dorsal digital contraction bilateral bilateral Neurological: - - lack of sensation light touch to digits bilateral Psych/Mental Status: Normal Affect, Appropriate Debridement Note Post-Debridement Measurements/Treatment WC - Nurse 2 - General Ulcer CM Notes Start: 08/21/17 10:45 Freq: Status: Active Protocol: Activity Type Activity Date Activity User E-Sign Co-Sign Detail Recorded Client Recorded Date Recorded By Document 08/21/17 11:15 [id number] 08/21/17 11:19 08/21/17 11:15 Wound Center Nurse 2 5. R second toe -Time 11:16 -Correct Patient Yes -Correct Side, Site, Position Yes -Correct Procedure Yes -Procedure Performed Yes -Type of Procedure Debridement -Clinical Debridement Subcutaneous -Post Debridement Size (cm) - Length 0.6 -Post Debridement Size (cm) - Width 0.5 -Post Debridement Size (cm) - Depth 0.1 -Total Square Cm 0.30 -Wound/Ulcer Outcome Not Healed -Ulcer Cleansing Rinsed/ Irrigated with Saline -Foul Odor after Cleansing No -Bioengineered Tissue No -Topical Lidocaine (%) 4 -Bleeding Controlled with Pressure -Treatment Response Procedure Tolerated Well #4 left 4th toe -Time 11:17 -Correct Patient Yes -Correct Side, Site, Position Yes -Correct Procedure Yes -Procedure Performed Yes -Type of Procedure Debridement -Clinical Debridement Subcutaneous -Post Debridement Size (cm) - Length 0.3 -Post Debridement Size (cm) - Width 0.5 -Post Debridement Size (cm) - Depth 0.1 -Total Square Cm 0.15 -Wound/Ulcer Outcome Not Healed -Ulcer Cleansing Rinsed/ Irrigated with Saline -Foul Odor after Cleansing No -Bioengineered Tissue No -Topical Lidocaine (%) 4 -Bleeding Controlled with Pressure -Treatment Response Procedure Tolerated Well #2 Right Lateral Foot -Time 11:17 -Correct Patient Yes -Correct Side, Site, Position Yes -Correct Procedure Yes -Procedure Performed Yes -Type of Procedure Debridement -Clinical Debridement Subcutaneous -Post Debridement Size (cm) - Length 0.4 -Post Debridement Size (cm) - Width 0.3 -Post Debridement Size (cm) - Depth 0.2 -Total Square Cm 0.12 -Wound/Ulcer Outcome Not Healed -Ulcer Cleansing Rinsed/ Irrigated with Saline -Foul Odor after Cleansing No -Bioengineered Tissue No -Topical Lidocaine (%) 4 -Bleeding Controlled with Pressure -Treatment Response Procedure Tolerated Well Pain Scale: 0-10 Numeric Is Patient Pain Free? Yes Wound debrided: lateral foot Laterality: Left Type of Debridement: Excisional debridement Anesthesia Used: 5% Lidocaine Gel Depth: in the subcutaneous layer Percentage of wound debrided: 100 Instrument Used: #15 blade Tissue Removed: fibrous, devitalized subcutaneous, biofilm, slough Severity: Fat Layer Exposed Amount of bleeding with debridement: Mild Bleeding Controlled with: Pressure Patient tolerated procedure well - Additional Wound Wound debrided: distal second toe Laterality: Left Type of Debridement: Excisional debridement Anesthesia Used: 5% Lidocaine Gel Depth: in the subcutaneous layer Percentage of wound debrided: 100 Instrument Used: #15 blade Tissue Removed: fibrous, devitalized subcutaneous, biofilm, slough Severity: Fat Layer Exposed Amount of bleeding with debridement: Mild Bleeding Controlled with: Pressure Patient tolerated procedure: Patient tolerated procedure well - Additional Wound Wound debrided: distal fourth toe Laterality: Left Type of Debridement: Excisional debridement Anesthesia Used: 5% Lidocaine Gel Depth: in the subcutaneous layer Percentage of wound debrided: 100 Instrument Used: #15 blade Tissue Removed: fibrous, devitalized subcutaneous, biofilm, slough Severity: Fat Layer Exposed Amount of bleeding with debridement: Mild Bleeding Controlled with: Pressure Patient tolerated procedure: Patient tolerated procedure well Assessment/Plan Active Problems 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 right lateral foot (fat exposed). left fourth toe ulcer (fat exposed). Severe peripheral vascular disease. Malnutrition. Delayed healing. Bilateral hammertoe deformities Plan: I reviewed and discussed his case this morning. Debridement was performed as noted in the clinical panel. To change dressing every 1-2 days with aquacel ag. To continue with open toe shoe that does not put pressure on this site. Toe ulcers are noted. He was reassured there are no signs of infection. His noninvasive vascular studies were also reviewed which demonstrated significant loss of flow with an TALIA of 0.27 in the right lower extremity. He attended the vascular surgery referral is recommended an additional screening exam will be scheduled. His prognosis is significantly worsened due to his previous way with proceeding with vascular intervention. His laboratory data was reviewed with a white blood cell count 9.7 prealbumin of 25 and hemoglobin A1c of 5.4%. To continue with proper nutrition optimize healing. Understand he is at risk for limb loss. I did also review his right foot x-rays which demonstrated osseous destruction. There is evidence of some tophi formation and diffuse decreased bone density noted to the entire foot. He has generalized osteopenia and his foot x-rays but no bone resorption suggestive of osteomyelitis. His white blood cell count was 8.1, sedimentation rate 9. His albumin is noted at 3.7 and hemoglobin A1c at 5.4%. Approval for advanced wound care product has been denied by insurance noted. To decrease pressure at the ulcer site by continuing with a surgical shoe as well as placing a gauze to the proximal webspace between the third and fourth toe to avoid the toes touching even though this site is recently healed he is at risk for reopening. Continue bilateral surgical shoe use. 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 I recommend he returns to clinic in 1 week with another wound care center provider; it is noted he has a vascular evaluation scheduled for next Saturday. He refuses and plans to return to clinic in two weeks.
[2017-09-04 10:38] VITALS: BP 175/64; PULSE 55; RESP 18; TEMP 36.6; BMI 21.2
--- NOTE | 2017-09-04 13:13 | PN.PCM_ITS ---
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 Status: Chronic Current Visit: Yes Code(s): L97.512 - Non-pressure chronic ulcer of other part of right foot with fat layer exposed (2) Chronic ulcer of left foot with fat layer exposed Status: Chronic Current Visit: Yes Code(s): L97.522 - Non-pressure chronic ulcer of other part of left foot with fat layer exposed (3) Delayed wound healing Status: Chronic Current Visit: Yes Code(s): T14.8XXD - Other injury of unspecified body region, subsequent encounter (4) Hammer toe of right foot Status: Chronic Current Visit: Yes Code(s): M20.41 - Other hammer toe(s) ( acquired), right foot (5) Other specified peripheral vascular diseases Status: Chronic Current Visit: Yes Code(s): I73.89 - Other specified peripheral vascular diseases Type of Wound Date of Service: 09/04/17 Chief Complaint: Chronic, nonhealing ulcerations of the right and left foot. peripheral vascular disease. delayed healing. ulcer right second toe History of Wound: This is an 81-year-old male who presents with multiple ulcerations on his right foot and one ulcer to the left fourth toe. He denies fever, chills, nausea, vomiting, loss of appetite. He continues to use aquacel Ag as advised. He denies foot pain. He wears a toe spacer. He is scheduled to proceed with vascular intervention and skin graft substitute intervention this upcoming month. 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 He now thinks he has a finger infection with swelling and joint pain. He denies following up with his PCP recently for this condition. Progress of Wound: Stable - Physical Exam Vital Signs Temp Pulse Resp BP 97.8 F 55 L 18 175/64 H 09/04/17 10:38 09/04/17 10:38 09/04/17 10:38 09/04/17 10:38 General: Alert, Oriented x3, Cooperative Extremities: No cyanosis, Capillary Refill Less than 3 Seconds, No Calf Tenderness - negative krista and choe sign bilateral, Diminished Peripheral Pulses, Edema - mild bilateral Skin: Ulcer/ Wound - no purulence, no erythema, no streaking, no odor, no acute infection bilateral foot. atrophic skin without hair Wound Measurements and Assessment WC - Nurse 1 - General Ulcer Measurement Start: 08/21/17 10:45 Freq: Status: Active Protocol: Activity Type Activity Date Activity User E-Sign Co-Sign Detail Recorded Client Recorded Date Recorded By Document 09/04/17 10:38 DL [id number] 09/04/17 10:47 DL 09/04/17 10:38 Wound Center Nurse 1 [Ulcer Assessment] 5. R second toe -Current Size (cm) - Length 0.2 -Current Size (cm) - Width 0.2 -Current Size (cm) - Depth 0.2 -Total Square Cm 0.04 -Photo Taken No -Maximum Distance #2 (cm) 0.2 -Circular Undermining Yes -Exudate Amt None Present (0 %) -Wound Margin Thickened -Granulation Amt Small (1-33%) -Granulation Quality Pale -Necrosis Amt Small (1-33%) -Necrotic Tissue Type Adherent Slough -Structure Exposed N/A -Texture (Alba-wound Skin Appearance) Callus -Moisture (Alba-wound Skin Appearance Dry/Scaly ) -Color (Alba-wound Skin Appearance) No Abnormality Hemosiderin Staining -Temperature (Alba-wound Skin No Abnormality Appearance) (Pt Warm) -Ulcer Cleansing Wound Cleanser -Anesthetic Used 4% Lidocaine Solution #4 left 4th toe -Current Size (cm) - Length 0.1 -Current Size (cm) - Width 0.1 -Current Size (cm) - Depth 0.1 -Total Square Cm 0.01 -Photo Taken No -Exudate Amt None Present (0 %) -Wound Margin Thickened -Granulation Amt None Present (0 %) -Necrosis Amt Small (1-33%) -Necrotic Tissue Type Adherent Slough -Structure Exposed N/A -Texture (Alba-wound Skin Appearance) Callus -Moisture (Alba-wound Skin Appearance Dry/Scaly ) -Color (Alba-wound Skin Appearance) Hemosiderin Staining -Temperature (Alba-wound Skin No Abnormality Appearance) (Pt Warm) -Tenderness on Palpation (Alba-wound No Skin Appearance) -Ulcer Cleansing Wound Cleanser -Foul Odor after Cleansing No -Anesthetic Used 4% Lidocaine Solution #2 Right Lateral Foot -Current Size (cm) - Length 0.1 -Current Size (cm) - Width 0.1 -Current Size (cm) - Depth 1 -Total Square Cm 0.01 -Photo Taken No -Exudate Amt None Present (0 %) -Wound Margin Thickened -Granulation Amt Small (1-33%) -Granulation Quality Red -Necrosis Amt Small (1-33%) -Necrotic Tissue Type Adherent Slough -Structure Exposed N/A -Texture (Alba-wound Skin Appearance) Assessed -Moisture (Alba-wound Skin Appearance Dry/Scaly ) -Color (Alba-wound Skin Appearance) Hemosiderin Staining -Temperature (Alba-wound Skin No Abnormality Appearance) (Pt Warm) -Tenderness on Palpation (Alba-wound No Skin Appearance) -Ulcer Cleansing Wound Cleanser -Foul Odor after Cleansing No -Anesthetic Used 4% Lidocaine Solution WC - Nurse 2 - General Ulcer CM Notes Start: 08/21/17 10:45 Freq: Status: Active Protocol: Activity Type Activity Date Activity User E-Sign Co-Sign Detail Recorded Client Recorded Date Recorded By Document 09/04/17 11:00 [id number] 09/04/17 11:02 09/04/17 11:00 Wound Center Nurse 2 [Procedure/Treatment] 5. R second toe -Time 11:01 -Correct Patient Yes -Correct Side, Site, Position Yes -Correct Procedure Yes -Procedure Performed Yes -Type of Procedure Debridement -Clinical Debridement Subcutaneous -Post Debridement Size (cm) - Length 0.9 -Post Debridement Size (cm) - Width 0.3 -Post Debridement Size (cm) - Depth 0.1 -Total Square Cm 0.27 -Wound/Ulcer Outcome Not Healed -Foul Odor after Cleansing No -Bioengineered Tissue No -Bleeding Controlled with Pressure -Treatment Response Procedure Tolerated Well #4 left 4th toe -Time 11:01 -Correct Patient Yes -Correct Side, Site, Position Yes -Correct Procedure Yes -Procedure Performed Yes -Type of Procedure Debridement -Clinical Debridement Subcutaneous -Post Debridement Size (cm) - Length 0.2 -Post Debridement Size (cm) - Width 0.3 -Post Debridement Size (cm) - Depth 0.1 -Total Square Cm 0.06 -Wound/Ulcer Outcome Not Healed -Ulcer Cleansing Rinsed/ Irrigated with Saline -Foul Odor after Cleansing No -Bioengineered Tissue No -Bleeding Controlled with Pressure -Treatment Response Procedure Tolerated Well #2 Right Lateral Foot -Time 11:01 -Correct Patient Yes -Correct Side, Site, Position Yes -Correct Procedure Yes -Procedure Performed Yes -Type of Procedure Debridement -Clinical Debridement Subcutaneous -Post Debridement Size (cm) - Length 0.1 -Post Debridement Size (cm) - Width 0.1 -Post Debridement Size (cm) - Depth 0.1 -Total Square Cm 0.01 -Wound/Ulcer Outcome Not Healed -Ulcer Cleansing Rinsed/ Irrigated with Saline -Foul Odor after Cleansing No -Bioengineered Tissue No -Bleeding Controlled with Pressure -Treatment Response Procedure Tolerated Well [See Physician Procedure note for Specifics] Pain Scale: 0-10 Numeric [Pain] -Is Patient Pain Free? Yes Musculoskeletal: No Tenderness to Palpation of Joints or Extremities, Muscle Wasting, - - dorsal contraction of lesser toes bilateral Neurological: - - epicritic sensation via light touch bilateral lower extremities Psych/Mental Status: Normal Affect, Appropriate Debridement Note Post-Debridement Measurements/Treatment WC - Nurse 2 - General Ulcer CM Notes Start: 08/21/17 10:45 Freq: Status: Active Protocol: Activity Type Activity Date Activity User E-Sign Co-Sign Detail Recorded Client Recorded Date Recorded By Document 08/21/17 11:15 [id number] 08/21/17 11:19 Document 09/04/17 11:00 [id number] 09/04/17 11:02 08/21/17 09/04/17 11:15 11:00 Wound Center Nurse 2 5. R second toe -Time 11:16 11:01 -Correct Patient Yes Yes -Correct Side, Site, Position Yes Yes -Correct Procedure Yes Yes -Procedure Performed Yes Yes -Type of Procedure Debridement Debridement -Clinical Debridement Subcutaneous Subcutaneous -Post Debridement Size (cm) - Length 0.6 0.9 -Post Debridement Size (cm) - Width 0.5 0.3 -Post Debridement Size (cm) - Depth 0.1 0.1 -Total Square Cm 0.30 0.27 -Wound/Ulcer Outcome Not Healed Not Healed -Ulcer Cleansing Rinsed/ Irrigated with Saline -Foul Odor after Cleansing No No -Bioengineered Tissue No No -Topical Lidocaine (%) 4 -Bleeding Controlled with Pressure Pressure -Treatment Response Procedure Procedure Tolerated Well Tolerated Well #4 left 4th toe -Time 11:17 11:01 -Correct Patient Yes Yes -Correct Side, Site, Position Yes Yes -Correct Procedure Yes Yes -Procedure Performed Yes Yes -Type of Procedure Debridement Debridement -Clinical Debridement Subcutaneous Subcutaneous -Post Debridement Size (cm) - Length 0.3 0.2 -Post Debridement Size (cm) - Width 0.5 0.3 -Post Debridement Size (cm) - Depth 0.1 0.1 -Total Square Cm 0.15 0.06 -Wound/Ulcer Outcome Not Healed Not Healed -Ulcer Cleansing Rinsed/ Rinsed/ Irrigated with Irrigated with Saline Saline -Foul Odor after Cleansing No No -Bioengineered Tissue No No -Topical Lidocaine (%) 4 -Bleeding Controlled with Pressure Pressure -Treatment Response Procedure Procedure Tolerated Well Tolerated Well #2 Right Lateral Foot -Time 11:17 11:01 -Correct Patient Yes Yes -Correct Side, Site, Position Yes Yes -Correct Procedure Yes Yes -Procedure Performed Yes Yes -Type of Procedure Debridement Debridement -Clinical Debridement Subcutaneous Subcutaneous -Post Debridement Size (cm) - Length 0.4 0.1 -Post Debridement Size (cm) - Width 0.3 0.1 -Post Debridement Size (cm) - Depth 0.2 0.1 -Total Square Cm 0.12 0.01 -Wound/Ulcer Outcome Not Healed Not Healed -Ulcer Cleansing Rinsed/ Rinsed/ Irrigated with Irrigated with Saline Saline -Foul Odor after Cleansing No No -Bioengineered Tissue No No -Topical Lidocaine (%) 4 -Bleeding Controlled with Pressure Pressure -Treatment Response Procedure Procedure Tolerated Well Tolerated Well Pain Scale: 0-10 Numeric Is Patient Pain Free? Yes Yes Wound debrided: lateral forefoot Laterality: Right Wound Grade/Stage: grade 1 Type of Debridement: Excisional debridement Anesthesia Used: 5% Lidocaine Gel Depth: in the subcutaneous layer Percentage of wound debrided: 100 Instrument Used: #15 blade Tissue Removed: fibrous, devitalized subcutaneous tissue, biofilm, slough Severity: Fat Layer Exposed Amount of bleeding with debridement: Mild Bleeding Controlled with: Pressure Patient tolerated procedure well - Additional Wound Wound debrided: 2 toe Laterality: Right Wound Grade/Stage: grade 1 Type of Debridement: Excisional debridement Anesthesia Used: 5% Lidocaine Gel Depth: in the subcutaneous layer Percentage of wound debrided: 100 Instrument Used: #15 blade Tissue Removed: fibrous, devitalized subcutaneous tissue, biofilm, slough Severity: Fat Layer Exposed Amount of bleeding with debridement: Mild Bleeding Controlled with: Pressure Patient tolerated procedure: Patient tolerated procedure well - Additional Wound Wound debrided: 4th toe Laterality: Left Wound Grade/Stage: grade 1 Type of Debridement: Excisional debridement Anesthesia Used: 5% Lidocaine Gel Depth: in the subcutaneous layer Percentage of wound debrided: 100 Instrument Used: #15 blade Tissue Removed: fibrous, devitalized subcutaneous tissue, biofilm, slough Severity: Fat Layer Exposed Amount of bleeding with debridement: Mild Bleeding Controlled with: Pressure Patient tolerated procedure: Patient tolerated procedure well Assessment/Plan Active Problems 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 right lateral foot (fat exposed). left fourth toe ulcer (fat exposed). Severe peripheral vascular disease. Malnutrition. Delayed healing. Bilateral hammertoe deformities Plan: I reviewed and discussed his case this morning. Debridement was performed as noted in the clinical panel. To change dressing every 1-2 days with aquacel ag. To continue with open toe shoe that does not put pressure on this site. Toe ulcers are noted. He was reassured there are no signs of infection. His noninvasive vascular studies were also reviewed which demonstrated significant loss of flow with an TALIA of 0.27 in the right lower extremity. He attended the vascular surgery and will proceed with surgical intervention this upcoming month with Dr. Cazares. His laboratory data was reviewed with a white blood cell count 9.7 prealbumin of 25 and hemoglobin A1c of 5.4%. To continue with proper nutrition optimize healing. Understand he is at risk for limb loss. I did also review his right foot x-rays which demonstrated osseous destruction. There is evidence of some tophi formation and diffuse decreased bone density noted to the entire foot. He has generalized osteopenia and his foot x-rays but no bone resorption suggestive of osteomyelitis. His white blood cell count was 8.1, sedimentation rate 9. His albumin is noted at 3.7 and hemoglobin A1c at 5.4%. Approval for advanced wound care product has been denied by insurance noted. . Continue bilateral surgical shoe use. 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 I also suspect he may have a gout or other arthritic systemic condition contributing to his hand condition. He is asking for treatment of his hand today and I reminded him that this is not a my scope of practice. I recommend he probably follows up with his primary care physician. I will request a primary care physician visit via written method for long-term gout management and additional hand evaluation. This note will be faxed to Dr. Anderson or colleague for communication purposes. I recommend he returns to clinic in 1 week or call sooner if he has any questions or concerns.
[2017-09-11 10:21] VITALS: BP 138/74; PULSE 51; RESP 18; TEMP 36.4; BMI 21.2
--- NOTE | 2017-09-11 10:51 | PCM.WC.PN ---
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 Status: Chronic Current Visit: Yes Code(s): L97.512 - Non-pressure chronic ulcer of other part of right foot with fat layer exposed (2) Chronic ulcer of left foot with fat layer exposed Status: Chronic Current Visit: Yes Code(s): L97.522 - Non-pressure chronic ulcer of other part of left foot with fat layer exposed (3) Delayed wound healing Status: Chronic Current Visit: Yes Code(s): T14.8XXD - Other injury of unspecified body region, subsequent encounter (4) Hammer toe of right foot Status: Chronic Current Visit: Yes Code(s): M20.41 - Other hammer toe(s) (acquired), right foot (5) Other specified peripheral vascular diseases Status: Chronic Current Visit: Yes Code(s): I73.89 - Other specified peripheral vascular diseases Type of Wound Date of Service: 09/11/17 Chief Complaint: Chronic, nonhealing ulcerations of the right and left foot. peripheral vascular disease. delayed healing. ulcer right second toe History of Wound: This is an 81-year-old male who presents with multiple ulcerations on his right foot and one ulcer to the left fourth toe. He denies fever, chills, nausea, vomiting, loss of appetite. He continues to use aquacel Ag as advised. He denies foot pain. He wears a toe spacer. He is scheduled to proceed with vascular intervention. He is scheduled to have left lower extremity intervention surgery in [address] Cazares. 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 He now thinks he has a finger infection with swelling and joint pain. He did follow-up as advised with his PCP recently for these conditions. He denies redness or odor to the feet. Progress of Wound: Stable right toe and left toe wounds. Worse lateral right forefoot - Physical Exam Vital Signs Temp Pulse Resp BP 97.5 F L 51 L 18 138/74 H 09/11/17 10:21 09/11/17 10:21 09/11/17 10:21 09/11/17 10:21 General: Alert, Oriented x3, Cooperative Extremities: No cyanosis, Capillary Refill Less than 3 Seconds, No Calf Tenderness, Diminished Peripheral Pulses, Edema - Mild Skin: Ulcer/ Wound - No purulence, erythema, streaking, odor, no infection bilateral. There is inflammation to the right lateral forefoot wound with increased serosanguineous drainage and additional gouty tophi expression is noted and removed from the wound today. There is no purulence or nicki necrosis. His skin is atrophic bilateral lower extremities without hair. Wound Measurements and Assessment WC - Nurse 1 - General Ulcer Measurement Start: 08/21/17 10:45 Freq: Status: Active Protocol: Activity Type Activity Date Activity User E-Sign Co-Sign Detail Recorded Client Recorded Date Recorded By Document 09/11/17 10:21 DL [id number] 09/11/17 10:31 DL 09/11/17 10:21 Wound Center Nurse 1 [Ulcer Assessment] 5. R second toe -Current Size (cm) - Length 0.3 -Current Size (cm) - Width 0.2 -Current Size (cm) - Depth 0.2 -Total Square Cm 0.06 -Photo Taken No -Exudate Amt None Present (0 %) -Wound Margin Thickened -Granulation Amt Small (1-33%) -Granulation Quality [place] -Necrosis Amt None Present (0 %) -Structure Exposed N/A -Texture (Alba-wound Skin Appearance) Callus Scarring -Moisture (Alba-wound Skin Appearance Dry/Scaly ) -Color (Alba-wound Skin Appearance) No Abnormality -Temperature (Alba-wound Skin No Abnormality Appearance) (Pt Warm) -Tenderness on Palpation (Alba-wound No Skin Appearance) -Ulcer Cleansing Rinsed/ Irrigated with Saline -Foul Odor after Cleansing No -Anesthetic Used 4% Lidocaine Solution #4 left 4th toe -Current Size (cm) - Length 0.1 -Current Size (cm) - Width 0.1 -Current Size (cm) - Depth 0.1 -Total Square Cm 0.01 -Photo Taken No -Exudate Amt None Present (0 %) -Wound Margin Thickened -Granulation Amt None Present (0 %) -Necrosis Amt Small (1-33%) -Necrotic Tissue Type Adherent Slough -Structure Exposed N/A -Texture (Alba-wound Skin Appearance) No Abnormality -Moisture (Alba-wound Skin Appearance No Abnormality ) -Color (Alba-wound Skin Appearance) No Abnormality -Temperature (Alba-wound Skin No Abnormality Appearance) (Pt Warm) -Ulcer Cleansing Rinsed/ Irrigated with Saline -Foul Odor after Cleansing No #2 Right Lateral Foot -Current Size (cm) - Length 0.7 -Current Size (cm) - Width 0.5 -Current Size (cm) - Depth 0.1 -Total Square Cm 0.35 -Photo Taken No -Exudate Amt None Present (0 %) -Wound Margin Thickened -Granulation Amt None Present (0 %) -Necrosis Amt Large (67-100%) -Necrotic Tissue Type Adherent Slough -Structure Exposed N/A -Texture (Alba-wound Skin Appearance) No Abnormality -Moisture (Alba-wound Skin Appearance Dry/Scaly ) -Color (Alba-wound Skin Appearance) Hemosiderin Staining -Temperature (Alba-wound Skin No Abnormality Appearance) (Pt Warm) -Ulcer Cleansing Rinsed/ Irrigated with Saline -Foul Odor after Cleansing No -Anesthetic Used 4% Lidocaine Solution WC - Nurse 2 - General Ulcer CM Notes Start: 08/21/17 10:45 Freq: Status: Active Protocol: Activity Type Activity Date Activity User E-Sign Co-Sign Detail Recorded Client Recorded Date Recorded By Document 09/11/17 10:44 LIZ [id number] 09/11/17 10:47 LIZ 09/11/17 10:44 Wound Center Nurse 2 [Procedure/Treatment] 5. R second toe -Time 10:45 -Correct Patient Yes -Correct Side, Site, Position Yes -Correct Procedure Yes -Procedure Performed Yes -Type of Procedure Debridement -Clinical Debridement Subcutaneous -Post Debridement Size (cm) - Length 0.7 -Post Debridement Size (cm) - Width 0.3 -Post Debridement Size (cm) - Depth 0.2 -Total Square Cm 0.21 -Wound/Ulcer Outcome Not Healed -Ulcer Cleansing Rinsed/ Irrigated with Saline -Foul Odor after Cleansing No -Bioengineered Tissue No -Bleeding Controlled with Pressure -Treatment Response Procedure Tolerated Well #4 left 4th toe -Time 10:45 -Correct Patient Yes -Correct Side, Site, Position Yes -Correct Procedure Yes -Procedure Performed Yes -Type of Procedure Debridement -Clinical Debridement Subcutaneous -Post Debridement Size (cm) - Length 0.5 -Post Debridement Size (cm) - Width 0.3 -Post Debridement Size (cm) - Depth 0.2 -Total Square Cm 0.15 #2 Right Lateral Foot -Time 10:45 -Correct Patient Yes -Correct Side, Site, Position Yes -Correct Procedure Yes -Procedure Performed Yes -Type of Procedure Debridement -Clinical Debridement Subcutaneous -Post Debridement Size (cm) - Length 0.9 -Post Debridement Size (cm) - Width 0.9 -Post Debridement Size (cm) - Depth 0.2 -Total Square Cm 0.81 -Wound/Ulcer Outcome Not Healed -Ulcer Cleansing Rinsed/ Irrigated with Saline -Foul Odor after Cleansing No -Bioengineered Tissue No -Bleeding Controlled with Pressure -Treatment Response Procedure Tolerated Well [See Physician Procedure note for Specifics] Pain Scale: 0-10 Numeric [Pain] -Is Patient Pain Free? Yes Musculoskeletal: No Tenderness to Palpation of Joints or Extremities, Muscle Wasting, - - Rigid digital contractions bilateral lower extremities Neurological: - - Lack of epicritic sensation to bilateral lower extremities including the digits Psych/Mental Status: Normal Affect, Appropriate Debridement Note Post-Debridement Measurements/Treatment WC - Nurse 2 - General Ulcer CM Notes Start: 08/21/17 10:45 Freq: Status: Active Protocol: Activity Type Activity Date Activity User E-Sign Co-Sign Detail Recorded Client Recorded Date Recorded By Document 08/21/17 11:15 [id number] 08/21/17 11:19 Document 09/04/17 11:00 [id number] 09/04/17 11:02 Document 09/11/17 10:44 [id number] 09/11/17 10:47 08/21/17 09/04/17 09/11/17 11:15 11:00 10:44 Wound Center Nurse 2 5. R second toe -Time 11:16 11:01 10:45 -Correct Patient Yes Yes Yes -Correct Side, Site, Position Yes Yes Yes -Correct Procedure Yes Yes Yes -Procedure Performed Yes Yes Yes -Type of Procedure Debridement Debridement Debridement -Clinical Debridement Subcutaneous Subcutaneous Subcutaneous -Post Debridement Size (cm) - Length 0.6 0.9 0.7 -Post Debridement Size (cm) - Width 0.5 0.3 0.3 -Post Debridement Size (cm) - Depth 0.1 0.1 0.2 -Total Square Cm 0.30 0.27 0.21 -Wound/Ulcer Outcome Not Healed Not Healed Not Healed -Ulcer Cleansing Rinsed/ Rinsed/ Irrigated with Irrigated with Saline Saline -Foul Odor after Cleansing No No No -Bioengineered Tissue No No No -Topical Lidocaine (%) 4 -Bleeding Controlled with Pressure Pressure Pressure -Treatment Response Procedure Procedure Procedure Tolerated Well Tolerated Well Tolerated Well #4 left 4th toe -Time 11:17 11:01 10:45 -Correct Patient Yes Yes Yes -Correct Side, Site, Position Yes Yes Yes -Correct Procedure Yes Yes Yes -Procedure Performed Yes Yes Yes -Type of Procedure Debridement Debridement Debridement -Clinical Debridement Subcutaneous Subcutaneous Subcutaneous -Post Debridement Size (cm) - Length 0.3 0.2 0.5 -Post Debridement Size (cm) - Width 0.5 0.3 0.3 -Post Debridement Size (cm) - Depth 0.1 0.1 0.2 -Total Square Cm 0.15 0.06 0.15 -Wound/Ulcer Outcome Not Healed Not Healed -Ulcer Cleansing Rinsed/ Rinsed/ Irrigated with Irrigated with Saline Saline -Foul Odor after Cleansing No No -Bioengineered Tissue No No -Topical Lidocaine (%) 4 -Bleeding Controlled with Pressure Pressure -Treatment Response Procedure Procedure Tolerated Well Tolerated Well #2 Right Lateral Foot -Time 11:17 11:01 10:45 -Correct Patient Yes Yes Yes -Correct Side, Site, Position Yes Yes Yes -Correct Procedure Yes Yes Yes -Procedure Performed Yes Yes Yes -Type of Procedure Debridement Debridement Debridement -Clinical Debridement Subcutaneous Subcutaneous Subcutaneous -Post Debridement Size (cm) - Length 0.4 0.1 0.9 -Post Debridement Size (cm) - Width 0.3 0.1 0.9 -Post Debridement Size (cm) - Depth 0.2 0.1 0.2 -Total Square Cm 0.12 0.01 0.81 -Wound/Ulcer Outcome Not Healed Not Healed Not Healed -Ulcer Cleansing Rinsed/ Rinsed/ Rinsed/ Irrigated with Irrigated with Irrigated with Saline Saline Saline -Foul Odor after Cleansing No No No -Bioengineered Tissue No No No -Topical Lidocaine (%) 4 -Bleeding Controlled with Pressure Pressure Pressure -Treatment Response Procedure Procedure Procedure Tolerated Well Tolerated Well Tolerated Well Pain Scale: 0-10 Numeric Is Patient Pain Free? Yes Yes Yes Wound debrided: lateral foot Laterality: Right Type of Debridement: Excisional debridement Anesthesia Used: 5% Lidocaine Gel Depth: in the subcutaneous layer Percentage of wound debrided: 100 Instrument Used: #15 blade Tissue Removed: fibrous, devitalized subcutaneous, biofilm, slough. tophi Severity: Fat Layer Exposed Amount of bleeding with debridement: Mild Bleeding Controlled with: Pressure Patient tolerated procedure well - Additional Wound Wound debrided: distal third toe Laterality: Right Type of Debridement: Excisional debridement Anesthesia Used: 5% Lidocaine Gel Depth: in the subcutaneous layer Percentage of wound debrided: 100 Instrument Used: #15 blade Tissue Removed: fibrous, devitalized subcutaneous, biofilm, slough Severity: Fat Layer Exposed Amount of bleeding with debridement: Mild Bleeding Controlled with: Pressure Patient tolerated procedure: Patient tolerated procedure well - Additional Wound Wound debrided: distal fourth toe Laterality: Left Type of Debridement: Excisional debridement Anesthesia Used: 5% Lidocaine Gel Depth: in the subcutaneous layer Percentage of wound debrided: 100 Instrument Used: #15 blade Tissue Removed: fibrous, devitalized subcutaneous, biofilm, slough Severity: Fat Layer Exposed Amount of bleeding with debridement: Mild Bleeding Controlled with: Pressure Patient tolerated procedure: Patient tolerated procedure well Assessment/Plan Active Problems Chronic ulcer of left foot with fat layer exposed (Chronic) Delayed wound healing (Chronic) Hammer toe of right foot (Chronic) Other specified peripheral vascular diseases (Chronic) Ulcer of right foot with fat layer exposed (Chronic) Assessment: right toe ulcer. right lateral foot (fat exposed). left fourth toe ulcer (fat exposed). Severe peripheral vascular disease. Malnutrition. Delayed healing. Bilateral hammertoe deformities Plan: I reviewed and discussed his case this morning. Debridement was performed as noted in the clinical panel. To change dressing every 1-2 days with aquacel ag. To continue with open toe shoe that does not put pressure on this site. Toe ulcers are noted. He was reassured there are no signs of infection. His noninvasive vascular studies were also reviewed which demonstrated significant loss of flow with an TALIA of 0.27 in the right lower extremity. He attended the vascular surgery and will proceed with surgical intervention this upcoming month with Dr. Cazares on 09/25. His full note will be requested. His laboratory data was reviewed with a white blood cell count 9.7 prealbumin of 25 and hemoglobin A1c of 5.4%. To continue with proper nutrition optimize healing. Understand he is at risk for limb loss. I did also review his right foot x-rays which demonstrated osseous destruction. There is evidence of some tophi formation and diffuse decreased bone density noted to the entire foot. He has generalized osteopenia and his foot x-rays but no bone resorption suggestive of osteomyelitis. His white blood cell count was 8.1, sedimentation rate 9. His albumin is noted at 3.7 and hemoglobin A1c at 5.4%. Approval for advanced wound care product has been denied by insurance noted. . Continue bilateral surgical shoe use. Futher gout work up was initiated when he saw his primary care physician Dr. Iniguez this past week. He was started on a new medication for better control. He is asking for treatment of his hand today and reports his primary care physician also address this with him during his recent visit. I recommend he returns to clinic in 1 week or call sooner if he has any questions or concerns.
--- NOTE | 2017-09-11 10:57 | PN.PCM_ITS ---
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 Status: Chronic Current Visit: Yes Code(s): L97.512 - Non-pressure chronic ulcer of other part of right foot with fat layer exposed (2) Chronic ulcer of left foot with fat layer exposed Status: Chronic Current Visit: Yes Code(s): L97.522 - Non-pressure chronic ulcer of other part of left foot with fat layer exposed (3) Delayed wound healing Status: Chronic Current Visit: Yes Code(s): T14.8XXD - Other injury of unspecified body region, subsequent encounter (4) Hammer toe of right foot Status: Chronic Current Visit: Yes Code(s): M20.41 - Other hammer toe(s) ( acquired), right foot (5) Other specified peripheral vascular diseases Status: Chronic Current Visit: Yes Code(s): I73.89 - Other specified peripheral vascular diseases Type of Wound Date of Service: 09/11/17 Chief Complaint: Chronic, nonhealing ulcerations of the right and left foot. peripheral vascular disease. delayed healing. ulcer right second toe History of Wound: This is an 81-year-old male who presents with multiple ulcerations on his right foot and one ulcer to the left fourth toe. He denies fever, chills, nausea, vomiting, loss of appetite. He continues to use aquacel Ag as advised. He denies foot pain. He wears a toe spacer. He is scheduled to proceed with vascular intervention. He is scheduled to have left lower extremity intervention surgery in [address] Cazares. 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 He now thinks he has a finger infection with swelling and joint pain. He did follow -up as advised with his PCP recently for these conditions. He denies redness or odor to the feet. Progress of Wound: Stable right toe and left toe wounds. Worse lateral right forefoot - Physical Exam Vital Signs Temp Pulse Resp BP 97.5 F L 51 L 18 138/74 H 09/11/17 10:21 09/11/17 10:21 09/11/17 10:21 09/11/17 10:21 General: Alert, Oriented x3, Cooperative Extremities: No cyanosis, Capillary Refill Less than 3 Seconds, No Calf Tenderness, Diminished Peripheral Pulses, Edema - Mild Skin: Ulcer/ Wound - No purulence, erythema, streaking, odor, no infection bilateral. There is inflammation to the right lateral forefoot wound with increased serosanguineous drainage and additional gouty tophi expression is noted and removed from the wound today. There is no purulence or nicki necrosis. His skin is atrophic bilateral lower extremities without hair. Wound Measurements and Assessment WC - Nurse 1 - General Ulcer Measurement Start: 08/21/17 10:45 Freq: Status: Active Protocol: Activity Type Activity Date Activity User E-Sign Co-Sign Detail Recorded Client Recorded Date Recorded By Document 09/11/17 10:21 DL [id number] 09/11/17 10:31 DL 09/11/17 10:21 Wound Center Nurse 1 [Ulcer Assessment] 5. R second toe -Current Size (cm) - Length 0.3 -Current Size (cm) - Width 0.2 -Current Size (cm) - Depth 0.2 -Total Square Cm 0.06 -Photo Taken No -Exudate Amt None Present (0 %) -Wound Margin Thickened -Granulation Amt Small (1-33%) -Granulation Quality [place] -Necrosis Amt None Present (0 %) -Structure Exposed N/A -Texture (Alba-wound Skin Appearance) Callus Scarring -Moisture (Alba-wound Skin Appearance Dry/Scaly ) -Color (Alba-wound Skin Appearance) No Abnormality -Temperature (Alba-wound Skin No Abnormality Appearance) (Pt Warm) -Tenderness on Palpation (Alba-wound No Skin Appearance) -Ulcer Cleansing Rinsed/ Irrigated with Saline -Foul Odor after Cleansing No -Anesthetic Used 4% Lidocaine Solution #4 left 4th toe -Current Size (cm) - Length 0.1 -Current Size (cm) - Width 0.1 -Current Size (cm) - Depth 0.1 -Total Square Cm 0.01 -Photo Taken No -Exudate Amt None Present (0 %) -Wound Margin Thickened -Granulation Amt None Present (0 %) -Necrosis Amt Small (1-33%) -Necrotic Tissue Type Adherent Slough -Structure Exposed N/A -Texture (Alba-wound Skin Appearance) No Abnormality -Moisture (Alba-wound Skin Appearance No Abnormality ) -Color (Alba-wound Skin Appearance) No Abnormality -Temperature (Alba-wound Skin No Abnormality Appearance) (Pt Warm) -Ulcer Cleansing Rinsed/ Irrigated with Saline -Foul Odor after Cleansing No #2 Right Lateral Foot -Current Size (cm) - Length 0.7 -Current Size (cm) - Width 0.5 -Current Size (cm) - Depth 0.1 -Total Square Cm 0.35 -Photo Taken No -Exudate Amt None Present (0 %) -Wound Margin Thickened -Granulation Amt None Present (0 %) -Necrosis Amt Large (67-100%) -Necrotic Tissue Type Adherent Slough -Structure Exposed N/A -Texture (Alba-wound Skin Appearance) No Abnormality -Moisture (Alba-wound Skin Appearance Dry/Scaly ) -Color (Alba-wound Skin Appearance) Hemosiderin Staining -Temperature (Alba-wound Skin No Abnormality Appearance) (Pt Warm) -Ulcer Cleansing Rinsed/ Irrigated with Saline -Foul Odor after Cleansing No -Anesthetic Used 4% Lidocaine Solution WC - Nurse 2 - General Ulcer CM Notes Start: 08/21/17 10:45 Freq: Status: Active Protocol: Activity Type Activity Date Activity User E-Sign Co-Sign Detail Recorded Client Recorded Date Recorded By Document 09/11/17 10:44 LIZ [id number] 09/11/17 10:47 LIZ 09/11/17 10:44 Wound Center Nurse 2 [Procedure/Treatment] 5. R second toe -Time 10:45 -Correct Patient Yes -Correct Side, Site, Position Yes -Correct Procedure Yes -Procedure Performed Yes -Type of Procedure Debridement -Clinical Debridement Subcutaneous -Post Debridement Size (cm) - Length 0.7 -Post Debridement Size (cm) - Width 0.3 -Post Debridement Size (cm) - Depth 0.2 -Total Square Cm 0.21 -Wound/Ulcer Outcome Not Healed -Ulcer Cleansing Rinsed/ Irrigated with Saline -Foul Odor after Cleansing No -Bioengineered Tissue No -Bleeding Controlled with Pressure -Treatment Response Procedure Tolerated Well #4 left 4th toe -Time 10:45 -Correct Patient Yes -Correct Side, Site, Position Yes -Correct Procedure Yes -Procedure Performed Yes -Type of Procedure Debridement -Clinical Debridement Subcutaneous -Post Debridement Size (cm) - Length 0.5 -Post Debridement Size (cm) - Width 0.3 -Post Debridement Size (cm) - Depth 0.2 -Total Square Cm 0.15 #2 Right Lateral Foot -Time 10:45 -Correct Patient Yes -Correct Side, Site, Position Yes -Correct Procedure Yes -Procedure Performed Yes -Type of Procedure Debridement -Clinical Debridement Subcutaneous -Post Debridement Size (cm) - Length 0.9 -Post Debridement Size (cm) - Width 0.9 -Post Debridement Size (cm) - Depth 0.2 -Total Square Cm 0.81 -Wound/Ulcer Outcome Not Healed -Ulcer Cleansing Rinsed/ Irrigated with Saline -Foul Odor after Cleansing No -Bioengineered Tissue No -Bleeding Controlled with Pressure -Treatment Response Procedure Tolerated Well [See Physician Procedure note for Specifics] Pain Scale: 0-10 Numeric [Pain] -Is Patient Pain Free? Yes Musculoskeletal: No Tenderness to Palpation of Joints or Extremities, Muscle Wasting, - - Rigid digital contractions bilateral lower extremities Neurological: - - Lack of epicritic sensation to bilateral lower extremities including the digits Psych/Mental Status: Normal Affect, Appropriate Debridement Note Post-Debridement Measurements/Treatment WC - Nurse 2 - General Ulcer CM Notes Start: 08/21/17 10:45 Freq: Status: Active Protocol: Activity Type Activity Date Activity User E-Sign Co-Sign Detail Recorded Client Recorded Date Recorded By Document 08/21/17 11:15 [id number] 08/21/17 11:19 Document 09/04/17 11:00 [id number] 09/04/17 11:02 Document 09/11/17 10:44 [id number] 09/11/17 10:47 08/21/17 09/04/17 09/11/17 11:15 11:00 10:44 Wound Center Nurse 2 5. R second toe -Time 11:16 11:01 10:45 -Correct Patient Yes Yes Yes -Correct Side, Site, Position Yes Yes Yes -Correct Procedure Yes Yes Yes -Procedure Performed Yes Yes Yes -Type of Procedure Debridement Debridement Debridement -Clinical Debridement Subcutaneous Subcutaneous Subcutaneous -Post Debridement Size (cm) - Length 0.6 0.9 0.7 -Post Debridement Size (cm) - Width 0.5 0.3 0.3 -Post Debridement Size (cm) - Depth 0.1 0.1 0.2 -Total Square Cm 0.30 0.27 0.21 -Wound/Ulcer Outcome Not Healed Not Healed Not Healed -Ulcer Cleansing Rinsed/ Rinsed/ Irrigated with Irrigated with Saline Saline -Foul Odor after Cleansing No No No -Bioengineered Tissue No No No -Topical Lidocaine (%) 4 -Bleeding Controlled with Pressure Pressure Pressure -Treatment Response Procedure Procedure Procedure Tolerated Well Tolerated Well Tolerated Well #4 left 4th toe -Time 11:17 11:01 10:45 -Correct Patient Yes Yes Yes -Correct Side, Site, Position Yes Yes Yes -Correct Procedure Yes Yes Yes -Procedure Performed Yes Yes Yes -Type of Procedure Debridement Debridement Debridement -Clinical Debridement Subcutaneous Subcutaneous Subcutaneous -Post Debridement Size (cm) - Length 0.3 0.2 0.5 -Post Debridement Size (cm) - Width 0.5 0.3 0.3 -Post Debridement Size (cm) - Depth 0.1 0.1 0.2 -Total Square Cm 0.15 0.06 0.15 -Wound/Ulcer Outcome Not Healed Not Healed -Ulcer Cleansing Rinsed/ Rinsed/ Irrigated with Irrigated with Saline Saline -Foul Odor after Cleansing No No -Bioengineered Tissue No No -Topical Lidocaine (%) 4 -Bleeding Controlled with Pressure Pressure -Treatment Response Procedure Procedure Tolerated Well Tolerated Well #2 Right Lateral Foot -Time 11:17 11:01 10:45 -Correct Patient Yes Yes Yes -Correct Side, Site, Position Yes Yes Yes -Correct Procedure Yes Yes Yes -Procedure Performed Yes Yes Yes -Type of Procedure Debridement Debridement Debridement -Clinical Debridement Subcutaneous Subcutaneous Subcutaneous -Post Debridement Size (cm) - Length 0.4 0.1 0.9 -Post Debridement Size (cm) - Width 0.3 0.1 0.9 -Post Debridement Size (cm) - Depth 0.2 0.1 0.2 -Total Square Cm 0.12 0.01 0.81 -Wound/Ulcer Outcome Not Healed Not Healed Not Healed -Ulcer Cleansing Rinsed/ Rinsed/ Rinsed/ Irrigated with Irrigated with Irrigated with Saline Saline Saline -Foul Odor after Cleansing No No No -Bioengineered Tissue No No No -Topical Lidocaine (%) 4 -Bleeding Controlled with Pressure Pressure Pressure -Treatment Response Procedure Procedure Procedure Tolerated Well Tolerated Well Tolerated Well Pain Scale: 0-10 Numeric Is Patient Pain Free? Yes Yes Yes Wound debrided: lateral foot Laterality: Right Type of Debridement: Excisional debridement Anesthesia Used: 5% Lidocaine Gel Depth: in the subcutaneous layer Percentage of wound debrided: 100 Instrument Used: #15 blade Tissue Removed: fibrous, devitalized subcutaneous, biofilm, slough. tophi Severity: Fat Layer Exposed Amount of bleeding with debridement: Mild Bleeding Controlled with: Pressure Patient tolerated procedure well - Additional Wound Wound debrided: distal third toe Laterality: Right Type of Debridement: Excisional debridement Anesthesia Used: 5% Lidocaine Gel Depth: in the subcutaneous layer Percentage of wound debrided: 100 Instrument Used: #15 blade Tissue Removed: fibrous, devitalized subcutaneous, biofilm, slough Severity: Fat Layer Exposed Amount of bleeding with debridement: Mild Bleeding Controlled with: Pressure Patient tolerated procedure: Patient tolerated procedure well - Additional Wound Wound debrided: distal fourth toe Laterality: Left Type of Debridement: Excisional debridement Anesthesia Used: 5% Lidocaine Gel Depth: in the subcutaneous layer Percentage of wound debrided: 100 Instrument Used: #15 blade Tissue Removed: fibrous, devitalized subcutaneous, biofilm, slough Severity: Fat Layer Exposed Amount of bleeding with debridement: Mild Bleeding Controlled with: Pressure Patient tolerated procedure: Patient tolerated procedure well Assessment/Plan Active Problems Chronic ulcer of left foot with fat layer exposed (Chronic) Delayed wound healing (Chronic) Hammer toe of right foot (Chronic) Other specified peripheral vascular diseases (Chronic) Ulcer of right foot with fat layer exposed (Chronic) Assessment: right toe ulcer. right lateral foot (fat exposed). left fourth toe ulcer (fat exposed). Severe peripheral vascular disease. Malnutrition. Delayed healing. Bilateral hammertoe deformities Plan: I reviewed and discussed his case this morning. Debridement was performed as noted in the clinical panel. To change dressing every 1-2 days with aquacel ag. To continue with open toe shoe that does not put pressure on this site. Toe ulcers are noted. He was reassured there are no signs of infection. His noninvasive vascular studies were also reviewed which demonstrated significant loss of flow with an TALIA of 0.27 in the right lower extremity. He attended the vascular surgery and will proceed with surgical intervention this upcoming month with Dr. Cazares on 09/25. His full note will be requested. His laboratory data was reviewed with a white blood cell count 9.7 prealbumin of 25 and hemoglobin A1c of 5.4%. To continue with proper nutrition optimize healing. Understand he is at risk for limb loss. I did also review his right foot x-rays which demonstrated osseous destruction. There is evidence of some tophi formation and diffuse decreased bone density noted to the entire foot. He has generalized osteopenia and his foot x-rays but no bone resorption suggestive of osteomyelitis. His white blood cell count was 8.1 , sedimentation rate 9. His albumin is noted at 3.7 and hemoglobin A1c at 5.4% . Approval for advanced wound care product has been denied by insurance noted. . Continue bilateral surgical shoe use. Futher gout work up was initiated when he saw his primary care physician Dr. Iniguez this past week. He was started on a new medication for better control. He is asking for treatment of his hand today and reports his primary care physician also address this with him during his recent visit. I recommend he returns to clinic in 1 week or call sooner if he has any questions or concerns.
[2017-09-18 11:15] VITALS: BP 157/84; PULSE 58; RESP 18; TEMP 36.6; BMI 21.2
--- NOTE | 2017-09-18 11:54 | PN.PCM_ITS ---
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 Status: Chronic Current Visit: Yes Code(s): L97.512 - Non-pressure chronic ulcer of other part of right foot with fat layer exposed (2) Chronic ulcer of left foot with fat layer exposed Status: Chronic Current Visit: Yes Code(s): L97.522 - Non-pressure chronic ulcer of other part of left foot with fat layer exposed (3) Delayed wound healing Status: Chronic Current Visit: Yes Code(s): T14.8XXD - Other injury of unspecified body region, subsequent encounter (4) Hammer toe of right foot Status: Chronic Current Visit: Yes Code(s): M20.41 - Other hammer toe(s) ( acquired), right foot (5) Other specified peripheral vascular diseases Status: Chronic Current Visit: Yes Code(s): I73.89 - Other specified peripheral vascular diseases (6) Tinea unguium Status: Chronic Current Visit: Yes Code(s): B35.1 - Tinea unguium Type of Wound Date of Service: 09/18/17 Chief Complaint: Chronic, nonhealing ulcerations of the right and left foot. peripheral vascular disease. delayed healing. ulcer right toe-2. toenails History of Wound: This is an 81-year-old male who presents with multiple ulcerations on his right foot and one ulcer to the left fourth toe. He denies fever, chills, nausea, vomiting, loss of appetite. He continues to use aquacel Ag as advised. He denies foot pain. He wears a toe spacer. He is scheduled to proceed with vascular intervention. He is scheduled to have left lower extremity intervention surgery in [address] Cazares. 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 He now thinks he has a finger infection with swelling and joint pain. He did follow -up as advised with his PCP recently for these conditions. He denies redness or odor to the feet. He also complains of long thick toenails that he is unable to trim on his own. He asked for help today. He also is concerned because the long thick toenail is starting to digging into his adjacent good skin and he does not want any new wound formation. He does have known peripheral vascular disease and is under the care of vascular physician, Dr. Cazares. He also asked for help trimming his calluses to his left foot in which he also does not feel safe performing on his own. Progress of Wound: Stable - Physical Exam Vital Signs Temp Pulse Resp BP 97.8 F 58 L 18 157/84 H 09/18/17 11:15 09/18/17 11:15 09/18/17 11:15 09/18/17 11:15 General: Alert, Oriented x3, Cooperative Extremities: No cyanosis, No edema, Capillary Refill Less than 3 Seconds, No Calf Tenderness, Diminished Peripheral Pulses, - - Rigid digital deformity is noted bilateral. The toes abut each other bilateral Skin: Ulcer/ Wound - No purulence, no erythema, streaking, no odor, no acute infection, no necrosis, no exposed bone or deep capsular tissue bilateral lower extremities. His skin is atrophic and hairless. No gouty tophi are expressed from any of the wounds today., - - Toenails bilateral 1, 2, 3, 4, 5 are long thick dystrophic with subungual debris and are poking into the adjacent friable skin without new wound formation or infection. There is pain with compression to the right second toenail and left great toenail. No onycholysis is noted bilateral. Callus plantar left heel and distal third toe without some hemorrhagic tissue or ulcer noted with debridement. Wound Measurements and Assessment WC - Nurse 1 - General Ulcer Measurement Start: 08/21/17 10:45 Freq: Status: Active Protocol: Activity Type Activity Date Activity User E-Sign Co-Sign Detail Recorded Client Recorded Date Recorded By Document 09/18/17 11:15 [id number] 09/18/17 11:22 DL 09/18/17 11:15 Wound Center Nurse 1 [Ulcer Assessment] 5. R second toe -Current Size (cm) - Length 0.4 -Current Size (cm) - Width 0.2 -Current Size (cm) - Depth 0.2 -Total Square Cm 0.08 -Photo Taken No -Exudate Amt Small (1-33%) -Exudate Type Serosanguineous -Wound Margin Thickened -Granulation Amt Small (1-33%) -Granulation Quality Pale [place] -Necrosis Amt Small (1-33%) -Necrotic Tissue Type Adherent Slough -Structure Exposed N/A -Texture (Alba-wound Skin Appearance) Callus Localized Edema Scarring -Moisture (Alba-wound Skin Appearance Dry/Scaly ) -Color (Alba-wound Skin Appearance) No Abnormality Erythema -Temperature ([place]ba-wound Skin No Abnormality Appearance) (Pt Warm) -Ulcer Cleansing Rinsed/ Irrigated with Saline -Foul Odor after Cleansing No -Anesthetic Used 4% Lidocaine Solution #4 left 4th toe -Current Size (cm) - Length 0.2 -Current Size (cm) - Width 0.1 -Current Size (cm) - Depth 0.1 -Total Square Cm 0.02 -Photo Taken No -Exudate Amt None Present (0 %) -Wound Margin Thickened -Granulation Amt None Present (0 %) -Necrosis Amt Small (1-33%) -Necrotic Tissue Type Adherent Slough -Structure Exposed N/A -Texture (Alba-wound Skin Appearance) Callus Scarring -Moisture ([place]ba-wound Skin Appearance Dry/Scaly ) -Color (Alba-wound Skin Appearance) No Abnormality -Temperature ([place]-wound Skin No Abnormality Appearance) (Pt Warm) -Ulcer Cleansing Rinsed/ Irrigated with Saline -Foul Odor after Cleansing No -Anesthetic Used 4% Lidocaine Solution #2 Right Lateral Foot -Current Size (cm) - Length 0.3 -Current Size (cm) - Width 0.2 -Current Size (cm) - Depth 0.1 -Total Square Cm 0.06 -Photo Taken No -Exudate Amt None Present (0 %) -Wound Margin Thickened -Granulation Amt None Present (0 %) -Necrosis Amt Small (1-33%) -Necrotic Tissue Type Adherent Slough -Structure Exposed N/A -Texture (Alba-wound Skin Appearance) Scarring -Moisture ([place]ba-wound Skin Appearance Dry/Scaly ) -Color (Alba-wound Skin Appearance) Hemosiderin Staining -Temperature ([place]-wound Skin No Abnormality Appearance) (Pt Warm) -Ulcer Cleansing Rinsed/ Irrigated with Saline -Foul Odor after Cleansing No -Anesthetic Used 4% Lidocaine Solution WC - Nurse 2 - General Ulcer CM Notes Start: 08/21/17 10:45 Freq: Status: Active Protocol: Activity Type Activity Date Activity User E-Sign Co-Sign Detail Recorded Client Recorded Date Recorded By Document 09/18/17 11:29 DL [id number] 09/18/17 11:32 DL 09/18/17 11:29 Wound Center Nurse 2 [Procedure/Treatment] 5. R second toe -Time 11:29 -Correct Patient Yes -Correct Side, Site, Position Yes -Correct Procedure Yes -Procedure Performed Yes -Type of Procedure Debridement -Clinical Debridement Subcutaneous -Post Debridement Size (cm) - Length 0.5 -Post Debridement Size (cm) - Width 0.2 -Post Debridement Size (cm) - Depth 0.2 -Total Square Cm 0.10 -Wound/Ulcer Outcome Not Healed -Ulcer Cleansing Rinsed/ Irrigated with Saline -Foul Odor after Cleansing No -Bioengineered Tissue No -Bleeding Controlled with Pressure -Treatment Response Procedure Tolerated Well #4 left 4th toe -Time 11:30 -Correct Patient Yes -Correct Side, Site, Position Yes -Correct Procedure Yes -Procedure Performed Yes -Type of Procedure Debridement -Clinical Debridement Subcutaneous -Post Debridement Size (cm) - Length 0.3 -Post Debridement Size (cm) - Width 0.2 -Post Debridement Size (cm) - Depth 0.1 -Total Square Cm 0.06 -Wound/Ulcer Outcome Not Healed -Ulcer Cleansing Rinsed/ Irrigated with Saline -Foul Odor after Cleansing No -Bioengineered Tissue No -Bleeding Controlled with Pressure -Treatment Response Procedure Tolerated Well #2 Right Lateral Foot -Time 11:30 -Correct Patient Yes -Correct Side, Site, Position Yes -Correct Procedure Yes -Procedure Performed Yes -Type of Procedure Debridement -Clinical Debridement Subcutaneous -Post Debridement Size (cm) - Length 0.3 -Post Debridement Size (cm) - Width 0.3 -Post Debridement Size (cm) - Depth 0.1 -Total Square Cm 0.09 -Wound/Ulcer Outcome Not Healed -Ulcer Cleansing Rinsed/ Irrigated with Saline -Foul Odor after Cleansing No -Bioengineered Tissue No -Bleeding Controlled with Pressure -Treatment Response Procedure Tolerated Well [See Physician Procedure note for Specifics] Pain Scale: 0-10 Numeric [Pain] -Is Patient Pain Free? Yes Musculoskeletal: No Tenderness to Palpation of Joints or Extremities, Muscle Wasting, - - Compartments bilateral lower extremities remain soft Neurological: - - Lack of epicritic sensation light touch bilateral lower extremities Psych/Mental Status: Normal Affect, Appropriate Debridement Note Post-Debridement Measurements/Treatment WC - Nurse 2 - General Ulcer CM Notes Start: 08/21/17 10:45 Freq: Status: Active Protocol: Activity Type Activity Date Activity User E-Sign Co-Sign Detail Recorded Client Recorded Date Recorded By Document 08/21/17 11:15 TM [id number] 08/21/17 11:19 TM Document 09/04/17 11:00 JF [id number] 09/04/17 11:02 JF Document 09/11/17 10:44 JF [id number] 09/11/17 10:47 JF Document 09/18/17 11:29 DL [id number] 09/18/17 11:32 DL 08/21/17 09/04/17 09/11/17 11:15 11:00 10:44 Wound Center Nurse 2 5. R second toe -Time 11:16 11:01 10:45 -Correct Patient Yes Yes Yes -Correct Side, Site, Position Yes Yes Yes -Correct Procedure Yes Yes Yes -Procedure Performed Yes Yes Yes -Type of Procedure Debridement Debridement Debridement -Clinical Debridement Subcutaneous Subcutaneous Subcutaneous -Post Debridement Size (cm) - Length 0.6 0.9 0.7 -Post Debridement Size (cm) - Width 0.5 0.3 0.3 -Post Debridement Size (cm) - Depth 0.1 0.1 0.2 -Total Square Cm 0.30 0.27 0.21 -Wound/Ulcer Outcome Not Healed Not Healed Not Healed -Ulcer Cleansing Rinsed/ Rinsed/ Irrigated with Irrigated with Saline Saline -Foul Odor after Cleansing No No No -Bioengineered Tissue No No No -Topical Lidocaine (%) 4 -Bleeding Controlled with Pressure Pressure Pressure -Treatment Response Procedure Procedure Procedure Tolerated Well Tolerated Well Tolerated Well #4 left 4th toe -Time 11:17 11:01 10:45 -Correct Patient Yes Yes Yes -Correct Side, Site, Position Yes Yes Yes -Correct Procedure Yes Yes Yes -Procedure Performed Yes Yes Yes -Type of Procedure Debridement Debridement Debridement -Clinical Debridement Subcutaneous Subcutaneous Subcutaneous -Post Debridement Size (cm) - Length 0.3 0.2 0.5 -Post Debridement Size (cm) - Width 0.5 0.3 0.3 -Post Debridement Size (cm) - Depth 0.1 0.1 0.2 -Total Square Cm 0.15 0.06 0.15 -Wound/Ulcer Outcome Not Healed Not Healed -Ulcer Cleansing Rinsed/ Rinsed/ Irrigated with Irrigated with Saline Saline -Foul Odor after Cleansing No No -Bioengineered Tissue No No -Topical Lidocaine (%) 4 -Bleeding Controlled with Pressure Pressure -Treatment Response Procedure Procedure Tolerated Well Tolerated Well #2 Right Lateral Foot -Time 11:17 11:01 10:45 -Correct Patient Yes Yes Yes -Correct Side, Site, Position Yes Yes Yes -Correct Procedure Yes Yes Yes -Procedure Performed Yes Yes Yes -Type of Procedure Debridement Debridement Debridement -Clinical Debridement Subcutaneous Subcutaneous Subcutaneous -Post Debridement Size (cm) - Length 0.4 0.1 0.9 -Post Debridement Size (cm) - Width 0.3 0.1 0.9 -Post Debridement Size (cm) - Depth 0.2 0.1 0.2 -Total Square Cm 0.12 0.01 0.81 -Wound/Ulcer Outcome Not Healed Not Healed Not Healed -Ulcer Cleansing Rinsed/ Rinsed/ Rinsed/ Irrigated with Irrigated with Irrigated with Saline Saline Saline -Foul Odor after Cleansing No No No -Bioengineered Tissue No No No -Topical Lidocaine (%) 4 -Bleeding Controlled with Pressure Pressure Pressure -Treatment Response Procedure Procedure Procedure Tolerated Well Tolerated Well Tolerated Well Pain Scale: 0-10 Numeric Is Patient Pain Free? Yes Yes Yes 09/18/17 11:29 Wound Center Nurse 2 5. R second toe -Time 11:29 -Correct Patient Yes -Correct Side, Site, Position Yes -Correct Procedure Yes -Procedure Performed Yes -Type of Procedure Debridement -Clinical Debridement Subcutaneous -Post Debridement Size (cm) - Length 0.5 -Post Debridement Size (cm) - Width 0.2 -Post Debridement Size (cm) - Depth 0.2 -Total Square Cm 0.10 -Wound/Ulcer Outcome Not Healed -Ulcer Cleansing Rinsed/ Irrigated with Saline -Foul Odor after Cleansing No -Bioengineered Tissue No -Topical Lidocaine (%) -Bleeding Controlled with Pressure -Treatment Response Procedure Tolerated Well #4 left 4th toe -Time 11:30 -Correct Patient Yes -Correct Side, Site, Position Yes -Correct Procedure Yes -Procedure Performed Yes -Type of Procedure Debridement -Clinical Debridement Subcutaneous -Post Debridement Size (cm) - Length 0.3 -Post Debridement Size (cm) - Width 0.2 -Post Debridement Size (cm) - Depth 0.1 -Total Square Cm 0.06 -Wound/Ulcer Outcome Not Healed -Ulcer Cleansing Rinsed/ Irrigated with Saline -Foul Odor after Cleansing No -Bioengineered Tissue No -Topical Lidocaine (%) -Bleeding Controlled with Pressure -Treatment Response Procedure Tolerated Well #2 Right Lateral Foot -Time 11:30 -Correct Patient Yes -Correct Side, Site, Position Yes -Correct Procedure Yes -Procedure Performed Yes -Type of Procedure Debridement -Clinical Debridement Subcutaneous -Post Debridement Size (cm) - Length 0.3 -Post Debridement Size (cm) - Width 0.3 -Post Debridement Size (cm) - Depth 0.1 -Total Square Cm 0.09 -Wound/Ulcer Outcome Not Healed -Ulcer Cleansing Rinsed/ Irrigated with Saline -Foul Odor after Cleansing No -Bioengineered Tissue No -Topical Lidocaine (%) -Bleeding Controlled with Pressure -Treatment Response Procedure Tolerated Well Pain Scale: 0-10 Numeric Is Patient Pain Free? Yes Wound debrided: lateral forefoot Laterality: Right Type of Debridement: Excisional debridement Anesthesia Used: 5% Lidocaine Gel Depth: in the subcutaneous layer Percentage of wound debrided: 100 Instrument Used: #15 blade Tissue Removed: fibrous, devitalized subcutaneous, biofilm, slough Severity: Fat Layer Exposed Amount of bleeding with debridement: Mild Bleeding Controlled with: Pressure Patient tolerated procedure well - Additional Wound Wound debrided: distal 2nd toe Laterality: Right Type of Debridement: Excisional debridement Anesthesia Used: 5% Lidocaine Gel Depth: in the subcutaneous layer Percentage of wound debrided: 100 Instrument Used: #15 blade Tissue Removed: fibrous, devitalized subcutaneous, biofilm, slough Severity: Fat Layer Exposed Amount of bleeding with debridement: Mild Bleeding Controlled with: Pressure Patient tolerated procedure: Patient tolerated procedure well - Additional Wound Wound debrided: distal fourth toe Laterality: Left Anesthesia Used: 5% Lidocaine Gel Depth: in the subcutaneous layer Percentage of wound debrided: 100 Instrument Used: #15 blade Tissue Removed: fibrous, devitalized subcutaneous, biofilm, slough Severity: Fat Layer Exposed Amount of bleeding with debridement: Mild Bleeding Controlled with: Pressure Patient tolerated procedure: Patient tolerated procedure well Assessment/Plan Active Problems Chronic ulcer of left foot with fat layer exposed (Chronic) Delayed wound healing (Chronic) Tinea unguium (Chronic) Hammer toe of right foot (Chronic) Other specified peripheral vascular diseases (Chronic) Ulcer of right foot with fat layer exposed (Chronic) Assessment: right toe ulcer. right lateral foot (fat exposed). left fourth toe ulcer (fat exposed). Severe peripheral vascular disease. Malnutrition. Delayed healing. Bilateral hammertoe deformities. Tinea unguium bilateral [id number]. Callus left foot ?2-no wound or infection Plan: I reviewed and discussed his case this morning. Debridement was performed as noted in the clinical panel. To change dressing every 1-2 days with aquacel ag. To continue with open toe shoe that does not put pressure on this site. He was reassured there are no signs of infection. His noninvasive vascular studies were also reviewed which demonstrated significant loss of flow with an TALIA of 0.27 in the right lower extremity. He attended the vascular surgery and will proceed with surgical intervention this upcoming month with Dr. Cazares on 09/25. His full note will be requested. His laboratory data was reviewed with a white blood cell count 9.7 prealbumin of 25 and hemoglobin A1c of 5.4%. To continue with proper nutrition optimize healing. Understand he is at risk for limb loss. I did also review his right foot x-rays which demonstrated osseous destruction. There is evidence of some tophi formation and diffuse decreased bone density noted to the entire foot. He has generalized osteopenia and his foot x-rays but no bone resorption suggestive of osteomyelitis. His white blood cell count was 8.1, sedimentation rate 9. His albumin is noted at 3.7 and hemoglobin A1c at 5.4%. Approval for advanced wound care product has been denied by insurance noted. . Continue bilateral surgical shoe use. Futher gout work up was initiated when he saw his primary care physician Dr. Iniguez this past week. He was started on a new medication for better control; allopurinol. He denies known side effects. To continue is advised. I recommend he returns to clinic in 1 week or call sooner if he has any questions or concerns. He is not amenable to follow-up with a different physician next week and is scheduled for vascular angioplasty with Dr. Cazares. Therefore, he will return to clinic in 2 weeks. I answered all his questions. I debrided his long thick dystrophic toenails that were causing pressure on his friable adjacent skin to toes 1, 2, 3, 4, and 5 bilateral with nail nippers. There are reduced in length and thickness. I also debrided his left heel callus and left third toe callus without incident with a 15 blade to reduce further wound formation or pain. He was advised to wear protective and supportive shoes. He tolerated this well. He is high risk and was unable to perform this safely on his own. He did see Dr. Cazares on September 04, 2017.
== END 2017-09-19 23:59 ==
LOC: WC 10:30
PROVIDERS: Family Provider Family Medicine; PCP Family Medicine; Visit Provider Podiatrist
DX: L97.512 Non-pressure chronic ulcer of other part of right foot with fat layer exposed (principal); L97.522 Non-pressure chronic ulcer of other part of left foot with fat layer exposed; M20.41 Other hammer toe(s) (acquired), right foot; I73.89 Other specified peripheral vascular diseases; T14.8XXD Other injury of unspecified body region, subsequent encounter; E46 Unspecified protein-calorie malnutrition; B35.1 Tinea unguium; M85.80 Other specified disorders of bone density and structure, unspecified site
CPT/HCPCS: 11042

== ENCOUNTER → 2017-09-25 09:00 | Day surgery (SDC) | payer OTHER, SELFPAY ==
--- NOTE | 2017-09-25 09:00 | DT_ITS ---
This patient was seen during an EMR downtime September 23, 2017 - September 30, 2017. This patient may have a combination of paper and electronic documentation or all paper documentation. All documentation is viewable within the e-chart portion of [facility] for each patient visit.
[2017-09-28 09:04] LABS: Hematocrit 46.3 % (40-54); Hemoglobin 15.4 g/dl (13.0-16.5); Red Blood Count 5.08 M/mm3 (4.6-6.2); White Blood Count 9.9 K/mm3 (4.4-11.0)
[2017-09-28 09:05] LABS: Mean Corp Hgb Conc 33.3 g/gl (32-36); Mean Corpuscular Hgb 30.3 pg (27.0-32.0); Mean Corpuscular Volume 91.1 fL (80-94); Mean Platelet Vol. 11.5 fl (6.2-12.0); Platelet Count 146 K/mm3 (150-450); RBC Distribution Width CV 14.9 % (11.6-14.6); RBC Distribution Width SD 48.6 fl (35.1-43.9); Scan Indicated on CBC? Y/N NO
[2017-09-30 13:39] LABS: BUN 30 mg/dL (7-18); BUN/Creat Ratio 16.9 RATIO (10-20); Calcium,Total 9.1 mg/dL (8.5-10.1); Chloride 103 mmol/L (98-107); Creatinine, Serum 1.77 mg/dL (0.70-1.30); EST Glomerular Filtration Rate 39 mL/min (>60); Est Glom Filt Rate - Afr Amer 47 mL/min (>60); Glucose 105 mg/dL (74-106); Phosphorus 3.2 mg/dL (2.5-4.9); Potassium 4.8 mmol/L (3.5-5.1); Sodium Level 140 mmol/L (136-145)
== END ==
PROVIDERS: Family Provider Family Medicine; PCP Family Medicine; Visit Provider Surgery Vascular Surgery
DX: I73.9 Peripheral vascular disease, unspecified (principal); M19.90 Unspecified osteoarthritis, unspecified site; I10 Essential (primary) hypertension; E78.00 Pure hypercholesterolemia, unspecified; M81.0 Age-related osteoporosis without current pathological fracture; E07.9 Disorder of thyroid, unspecified; Z79.899 Other long term (current) drug therapy; Z87.891 Personal history of nicotine dependence
CPT/HCPCS: 36245; 36415; 37224; 37228; 75710; 76937; 80069; 85027; 99152; 99153; C2623; Q9967; C1725; C1760; C1769; C1887; C1894

== ENCOUNTER 2017-10-16 10:30 | Outpatient (RCR) | payer OTHER, SELFPAY ==
[2017-09-20 00:27] VITALS: BP 157/84; PULSE 58; RESP 18; TEMP 36.6; BMI 21.2
[2017-10-02 10:32] VITALS: BP 142/83; PULSE 58; RESP 18; TEMP 36.6; BMI 21.2
--- NOTE | 2017-10-02 11:35 | PCM.WC.PN ---
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 exposed Status: Resolved Current Visit: Yes Code(s): L97.522 - Non-pressure chronic ulcer of other part of left foot with fat layer exposed (3) Delayed wound healing Status: Chronic Current Visit: Yes Code(s): T14.8XXD - Other injury of unspecified body region, subsequent encounter (4) Hammer toe of right foot Status: Chronic Current Visit: Yes Code(s): M20.41 - Other hammer toe(s) (acquired), right foot (5) Other specified peripheral vascular diseases Status: Chronic Current Visit: Yes Code(s): I73.89 - Other specified peripheral vascular diseases (6) Hammer toe of left foot Status: Chronic Current Visit: Yes Code(s): M20.42 - Other hammer toe(s) (acquired), left foot (7) Ulcer of right foot with fat layer exposed Status: Chronic Current Visit: Yes Code(s): L97.512 - Non-pressure chronic ulcer of other part of right foot with fat layer exposed Type of Wound Date of Service: 10/02/17 Chief Complaint: Chronic, nonhealing ulcerations of the right and left foot. peripheral vascular disease s/p intervention. delayed healing. ulcer right toe-2. Callus left heel and sub-fifth metatarsal head. Blister left second toe History of Wound: This is an 81-year-old male who presents with multiple ulcerations on his right foot and one ulcer to the left fourth toe. He denies fever, chills, nausea, vomiting, loss of appetite. He continues to use aquacel Ag as advised. He denies foot pain. He wears a toe spacer. He had vascular surgery performed left lower extremity this past week on 09/25/2017. He denies complications and is happy he had the procedure done. 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 This is being managed by his primary care physician. He denies redness or odor to the feet. He also complains of calluses to the left foot and is worried these may turn into ulcers; he asked for help trimming these today. Progress of Wound: Healed right lateral foot ulcer. Healed left fourth toe ulcer. Improving right second toe ulcer. New blister left second toe - Physical Exam Vital Signs Temp Pulse Resp BP 97.8 F 58 L 18 142/83 H 10/02/17 10:32 10/02/17 10:32 10/02/17 10:32 10/02/17 10:32 General: Alert, Oriented x3, Cooperative HEENT: Atraumatic Extremities: No cyanosis, Capillary Refill Less than 3 Seconds, No Calf Tenderness - Negative Heidi and Alfonso sign bilateral, Diminished Peripheral Pulses, Edema - Minimal bilateral lower extremities Skin: Ulcer/ Wound - No purulence, no erythema, streaking, no odor, no acute signs of infection bilateral lower extremity. There is full epithelialization and the wound is healed to the lateral right foot and also to the left fourth toe. There is callus formation without wound noted to the sub-fifth metatarsal head and the plantar central heel of the left foot. The right second toe ulcer is decreased in size and has a healthy granular base. There is evidence of a previous serous draining bulla to the dorsal aspect of the left second toe with the overlying skin intact., - - His skin is very atrophic without hair bilateral lower extremities. There is no development of additional tophi formation bilateral Wound Measurements and Assessment WC - Nurse 1 - General Ulcer Measurement Start: 10/02/17 10:31 Freq: Status: Active Protocol: Activity Type Activity Date Activity User E-Sign Co-Sign Detail Recorded Client Recorded Date Recorded By Document 10/02/17 10:32 DL [id number] 10/02/17 10:46 DL 10/02/17 10:32 Wound Center Nurse 1 [Ulcer Assessment] #6 L 2nd toe -Current Size (cm) - Length 4 -Current Size (cm) - Width 2 -Current Size (cm) - Depth 0.1 -Total Square Cm 8 -Photo Taken Yes -Exudate Amt Small (1-33%) -Exudate Type Serosanguineous -Wound Margin Distinct, Outline Attached -Granulation Amt Small (1-33%) -Granulation Quality [place] -Necrosis Amt None Present (0 %) -Structure Exposed N/A -Texture (Alba-wound Skin Appearance) No Abnormality -Moisture (Alba-wound Skin Appearance No Abnormality ) -Color (Alba-wound Skin Appearance) Erythema -Temperature (Alba-wound Skin No Abnormality Appearance) (Pt Warm) -Ulcer Cleansing Rinsed/ Irrigated with Saline -Foul Odor after Cleansing No -Anesthetic Used 4% Lidocaine Solution 5. R second toe -Current Size (cm) - Length 0.2 -Current Size (cm) - Width 0.2 -Current Size (cm) - Depth 0.2 -Total Square Cm 0.04 -Photo Taken No -Maximum Distance #2 (cm) 0.2 -Circular Undermining Yes -Exudate Amt None Present (0 %) -Wound Margin Thickened -Granulation Amt None Present (0 %) -Necrosis Amt Small (1-33%) -Necrotic Tissue Type Adherent Slough -Structure Exposed N/A -Texture (Alba-wound Skin Appearance) Callus -Moisture (Alba-wound Skin Appearance Dry/Scaly ) -Color (Alba-wound Skin Appearance) Hemosiderin Staining -Temperature (Alba-wound Skin No Abnormality Appearance) (Pt Warm) -Tenderness on Palpation (Alba-wound No Skin Appearance) -Ulcer Cleansing Rinsed/ Irrigated with Saline -Foul Odor after Cleansing No -Anesthetic Used 4% Lidocaine Solution #4 left 4th toe -Current Size (cm) - Length 0.4 -Current Size (cm) - Width 0.2 -Current Size (cm) - Depth 0.1 -Total Square Cm 0.08 -Photo Taken No -Exudate Amt None Present (0 %) -Wound Margin Thickened -Granulation Amt None Present (0 %) -Necrosis Amt Small (1-33%) -Necrotic Tissue Type Eschar -Structure Exposed N/A -Texture (Alba-wound Skin Appearance) Scarring -Moisture (Alba-wound Skin Appearance Dry/Scaly ) -Color (Alba-wound Skin Appearance) Hemosiderin Staining -Temperature (Alba-wound Skin No Abnormality Appearance) (Pt Warm) -Tenderness on Palpation (Alba-wound No Skin Appearance) -Ulcer Cleansing Rinsed/ Irrigated with Saline -Foul Odor after Cleansing No -Anesthetic Used 4% Lidocaine Solution #2 Right Lateral Foot -Current Size (cm) - Length 0.2 -Current Size (cm) - Width 0.2 -Current Size (cm) - Depth 0.1 -Total Square Cm 0.04 -Photo Taken No -Exudate Amt None Present (0 %) -Wound Margin Thickened -Granulation Amt Small (1-33%) -Granulation Quality [place] -Necrosis Amt Small (1-33%) -Necrotic Tissue Type Adherent Slough -Structure Exposed N/A -Texture (Alba-wound Skin Appearance) No Abnormality -Moisture (Alba-wound Skin Appearance Dry/Scaly ) -Color (Alba-wound Skin Appearance) Hemosiderin Staining -Temperature (Alba-wound Skin No Abnormality Appearance) (Pt Warm) -Ulcer Cleansing Rinsed/ Irrigated with Saline -Foul Odor after Cleansing No -Anesthetic Used 4% Lidocaine Solution WC - Nurse 2 - General Ulcer CM Notes Start: 10/02/17 10:31 Freq: Status: Active Protocol: Activity Type Activity Date Activity User E-Sign Co-Sign Detail Recorded Client Recorded Date Recorded By Document 10/02/17 11:06 LIZ [id number] 10/02/17 11:16 LIZ 10/02/17 11:06 Wound Center Nurse 2 [Procedure/Treatment] #6 L 2nd toe -Correct Patient No -Correct Side, Site, Position No -Correct Procedure No -Procedure Performed No #4 left 4th toe -Correct Patient No -Correct Side, Site, Position No -Correct Procedure No -Procedure Performed No -Post Debridement Size (cm) - Length 0 -Post Debridement Size (cm) - Width 0 -Post Debridement Size (cm) - Depth 0 -Total Square Cm 0 -Wound/Ulcer Outcome Healed- Epithelialized #2 Right Lateral Foot -Correct Patient No -Correct Side, Site, Position No -Correct Procedure No -Procedure Performed No -Post Debridement Size (cm) - Length 0 -Post Debridement Size (cm) - Width 0 -Post Debridement Size (cm) - Depth 0 -Total Square Cm 0 -Wound/Ulcer Outcome Healed- Epithelialized [See Physician Procedure note for Specifics] Pain Scale: 0-10 Numeric [Pain] -Is Patient Pain Free? Yes Musculoskeletal: No Tenderness to Palpation of Joints or Extremities, Muscle Wasting, - - Nonreducible and rigid digital deformities bilateral. All of the toes are abutting bilateral Neurological: - - Diminished sensation to light touch in wound manipulation bilateral Psych/Mental Status: Normal Affect, Appropriate Debridement Note Post-Debridement Measurements/Treatment - Nurse 2 - General Ulcer CM Notes Start: 10/02/17 10:31 Freq: Status: Active Protocol: Activity Type Activity Date Activity User E-Sign Co-Sign Detail Recorded Client Recorded Date Recorded By Document 10/02/17 11:06 LIZ [id number] 10/02/17 11:16 LIZ 10/02/17 11:06 Wound Center Nurse 2 #6 L 2nd toe -Correct Patient No -Correct Side, Site, Position No -Correct Procedure No -Procedure Performed No #4 left 4th toe -Correct Patient No -Correct Side, Site, Position No -Correct Procedure No -Procedure Performed No -Post Debridement Size (cm) - Length 0 -Post Debridement Size (cm) - Width 0 -Post Debridement Size (cm) - Depth 0 -Total Square Cm 0 -Wound/Ulcer Outcome Healed- Epithelialized #2 Right Lateral Foot -Correct Patient No -Correct Side, Site, Position No -Correct Procedure No -Procedure Performed No -Post Debridement Size (cm) - Length 0 -Post Debridement Size (cm) - Width 0 -Post Debridement Size (cm) - Depth 0 -Total Square Cm 0 -Wound/Ulcer Outcome Healed- Epithelialized Pain Scale: 0-10 Numeric Is Patient Pain Free? Yes Wound debrided: distal 2nd toe Laterality: Right Type of Debridement: Excisional debridement Anesthesia Used: 5% Lidocaine Gel Depth: in the subcutaneous layer Percentage of wound debrided: 100 Instrument Used: #15 blade Tissue Removed: fibrous, devitalized subcutaneous, biofilm, slough Severity: Fat Layer Exposed Amount of bleeding with debridement: Mild Bleeding Controlled with: Pressure Patient tolerated procedure well Assessment/Plan Active Problems Delayed wound healing (Chronic) Blister of toe of left foot (Acute) Hammer toe of right foot (Chronic) Other specified peripheral vascular diseases (Chronic) Hammer toe of left foot (Chronic) Ulcer of right foot with fat layer exposed (Chronic) Assessment: right toe ulcer. right lateral foot (fat exposed). left fourth toe ulcer (fat exposed). Severe peripheral vascular disease. Malnutrition. Delayed healing. Bilateral hammertoe deformities. Tinea unguium bilateral [id number]. Callus left foot ?2-no wound or infection Plan: I reviewed and discussed his case this morning. Debridement was performed as noted in the clinical panel to the only open site which is located to the distal right second toe. It is noted he has healed his right lateral foot wound as well as his distal fourth toe ulcer on the left foot. The new blister is noted to the left second toe and the skin was left in place as a biological dressing. He was advised to place a dry gauze over the drained blister site of the left foot daily. To change dressing every 1-2 days with aquacel ag to the remaining open wound on the right foot. To continue with open toe shoe that does not put pressure on this site. He was reassured there are no signs of infection. His noninvasive vascular studies were also reviewed which demonstrated significant loss of flow with an TALIA of 0.27 in the right lower extremity. He attended the vascular surgery with Dr. Cazares on 09/25 and he is doing well. To follow-up as scheduled. His venous laboratory data was reviewed with a white blood cell count 9.7 prealbumin of 25 and hemoglobin A1c of 5.4%. To continue with proper nutrition optimize healing. He understands he is at risk for limb loss. I did also review his right foot x-rays which demonstrated osseous destruction. There is evidence of some tophi formation and diffuse decreased bone density noted to the entire foot. He has generalized osteopenia and his foot x-rays but no bone resorption suggestive of osteomyelitis. His white blood cell count was 8.1, sedimentation rate 9. His albumin is noted at 3.7 and hemoglobin A1c at 5.4%. Approval for advanced wound care product has been denied by insurance noted. . Continue bilateral surgical shoe use. Futher gout work up was initiated when he saw his primary care physician Dr. Iniguez. His allopurinol dosage was increased to 300 mg daily and he is responding well. I recommend he continue this in a long-term basis as prescribed. I recommend he returns to clinic in 1 week or call sooner if he has any questions or concerns.
[2017-10-09 10:34] VITALS: BP 145/64; PULSE 57; RESP 18; TEMP 36.9; BMI 21.2
--- NOTE | 2017-10-09 11:10 | PCM.WC.PN ---
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 exposed Status: Resolved Current Visit: Yes Code(s): L97.522 - Non-pressure chronic ulcer of other part of left foot with fat layer exposed (3) Delayed wound healing Status: Chronic Current Visit: Yes Code(s): T14.8XXD - Other injury of unspecified body region, subsequent encounter (4) Hammer toe of right foot Status: Chronic Current Visit: Yes Code(s): M20.41 - Other hammer toe(s) (acquired), right foot (5) Other specified peripheral vascular diseases Status: Chronic Current Visit: Yes Code(s): I73.89 - Other specified peripheral vascular diseases (6) Hammer toe of left foot Status: Chronic Current Visit: Yes Code(s): M20.42 - Other hammer toe(s) (acquired), left foot (7) Ulcer of right foot with fat layer exposed Status: Resolved Current Visit: Yes Code(s): L97.512 - Non-pressure chronic ulcer of other part of right foot with fat layer exposed Type of Wound Date of Service: 10/09/17 Chief Complaint: Chronic, nonhealing ulcerations of the right (2 toe) and left foot (4th toe) -all are healed today. Blister healed left second toe. peripheral vascular disease s/p intervention. delayed healing History of Wound: This is an 81-year-old male who presents with multiple ulcerations on his right foot and one ulcer to the left fourth toe. He denies fever, chills, nausea, vomiting, loss of appetite. He continues to use aquacel Ag as advised. He denies foot pain or drainage. He had vascular surgery performed left lower extremity this past week on 09/25/2017. He denies complications and is happy he had the procedure done. 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 She reports right index finger discomfort similar to his previous fifth right finger gout pain. He thinks his protein intake is aggravating this condition and recently decreased use ; reduction in pain was noted around the same time and he asked about this today. This is being managed by his primary care physician. He denies redness or odor to the feet. He denies drainage or redness. Progress of Wound: Remains healed right lateral foot ulcer. Healed left fourth toe ulcer. Healed right second toe ulcer. Healed blister left second toe - Physical Exam Vital Signs Temp Pulse Resp BP 98.4 F 57 L 18 145/64 H 10/09/17 10:34 10/09/17 10:34 10/09/17 10:34 10/09/17 10:34 General: Alert, Oriented x3, Cooperative Extremities: No cyanosis, Capillary Refill Less than 3 Seconds, No Calf Tenderness, Diminished Peripheral Pulses, Edema, - - Rigid digital deformities bilateral lower extremities Skin: Ulcer/ Wound - Full epithelialization is noted to the right second toe today. His previously healed wounds to bilateral feet also remained fully epithelialized. There is no purulence, erythema, streaking, odor, or infection. His previous left dorsal toe blister is also healed, completely dry, and there is evidence of dried blood underneath the outer skin layer which was well adhered and left intact today. His skin is atrophic and hairless bilateral lower extremities, - - There is callusing noted to the distal right second toe at the recently healed ulcer site Wound Measurements and Assessment WC - Nurse 1 - General Ulcer Measurement Start: 10/02/17 10:31 Freq: Status: Active Protocol: Activity Type Activity Date Activity User E-Sign Co-Sign Detail Recorded Client Recorded Date Recorded By Document 10/09/17 10:34 [id number] 10/09/17 10:48 RB 10/09/17 10:34 Wound Center Nurse 1 [Ulcer Assessment] #6 L 2nd toe -Combined with other wound No -Current Size (cm) - Length 0.1 -Current Size (cm) - Width 0.1 -Current Size (cm) - Depth 0.1 -Total Square Cm 0.01 -Tunneling No -Undermining/Tunneling No -Circular Undermining No -Classification - Thickness Full Thickness without Exposed Support Structure -Exudate Amt None Present (0 %) -Wound Margin Distinct, Outline Attached -Granulation Amt Medium (34-66%) -Granulation Quality [place] -Slough/Fibrin Yes -Necrosis Amt Medium (34-66%) -Necrotic Tissue Type Adherent Slough -Structure Exposed N/A -Texture (Alba-wound Skin Appearance) Assessed -Moisture (Alba-wound Skin Appearance Assessed ) Dry/Scaly -Color (Alba-wound Skin Appearance) Assessed Erythema -Temperature (Alba-wound Skin No Abnormality Appearance) (Pt Warm) -Tenderness on Palpation (Alba-wound No Skin Appearance) -Ulcer Cleansing Rinsed/ Irrigated with Saline -Foul Odor after Cleansing No -Anesthetic Used 4% Lidocaine Solution 5. R second toe -Combined with other wound No -Current Size (cm) - Length 0.2 -Current Size (cm) - Width 0.2 -Current Size (cm) - Depth 0.2 -Total Square Cm 0.04 -Photo Taken No -Tunneling No -Undermining/Tunneling No -Circular Undermining No -Classification - Thickness Full Thickness without Exposed Support Structure -Exudate Amt Small (1-33%) -Exudate Type Serosanguineous -Wound Margin Distinct, Outline Attached -Granulation Amt Medium (34-66%) -Granulation Quality [place] -Slough/Fibrin Yes -Necrosis Amt Medium (34-66%) -Necrotic Tissue Type Adherent Slough -Structure Exposed N/A -Texture (Alba-wound Skin Appearance) Assessed -Moisture (Alba-wound Skin Appearance Assessed ) Dry/Scaly -Color (Alba-wound Skin Appearance) Assessed -Temperature (Alba-wound Skin No Abnormality Appearance) (Pt Warm) -Ulcer Cleansing Rinsed/ Irrigated with Saline -Foul Odor after Cleansing No -Anesthetic Used 4% Lidocaine Solution WC - Nurse 2 - General Ulcer CM Notes Start: 10/02/17 10:31 Freq: Status: Active Protocol: Activity Type Activity Date Activity User E-Sign Co-Sign Detail Recorded Client Recorded Date Recorded By Document 10/09/17 11:02 LIZ [id number] 10/09/17 11:04 LIZ 10/09/17 11:02 Wound Center Nurse 2 [Procedure/Treatment] #6 L 2nd toe -Correct Patient No -Correct Side, Site, Position No -Correct Procedure No -Procedure Performed No -Post Debridement Size (cm) - Length 0 -Post Debridement Size (cm) - Width 0 -Post Debridement Size (cm) - Depth 0 -Total Square Cm 0 -Wound/Ulcer Outcome Healed- Epithelialized 5. R second toe -Correct Patient No -Correct Side, Site, Position No -Correct Procedure No -Procedure Performed No -Post Debridement Size (cm) - Length 0 -Post Debridement Size (cm) - Width 0 -Post Debridement Size (cm) - Depth 0 -Total Square Cm 0 -Wound/Ulcer Outcome Healed- Epithelialized [See Physician Procedure note for Specifics] Pain Scale: 0-10 Numeric [Pain] -Is Patient Pain Free? Yes Musculoskeletal: No Tenderness to Palpation of Joints or Extremities, Muscle Wasting Neurological: - - Altered sensation light touch to bilateral lower extremities Psych/Mental Status: Normal Affect, Appropriate Debridement Note Post-Debridement Measurements/Treatment WC - Nurse 2 - General Ulcer CM Notes Start: 10/02/17 10:31 Freq: Status: Active Protocol: Activity Type Activity Date Activity User E-Sign Co-Sign Detail Recorded Client Recorded Date Recorded By Document 10/02/17 11:06 [id number] 10/02/17 11:16 Document 10/09/17 11:02 [id number] 10/09/17 11:04 10/02/17 10/09/17 11:06 11:02 Wound Center Nurse 2 #6 L 2nd toe -Correct Patient No No -Correct Side, Site, Position No No -Correct Procedure No No -Procedure Performed No No -Post Debridement Size (cm) - Length 0 -Post Debridement Size (cm) - Width 0 -Post Debridement Size (cm) - Depth 0 -Total Square Cm 0 -Wound/Ulcer Outcome Healed- Epithelialized 5. R second toe -Correct Patient No -Correct Side, Site, Position No -Correct Procedure No -Procedure Performed No -Post Debridement Size (cm) - Length 0 -Post Debridement Size (cm) - Width 0 -Post Debridement Size (cm) - Depth 0 -Total Square Cm 0 -Wound/Ulcer Outcome Healed- Epithelialized #4 left 4th toe -Correct Patient No -Correct Side, Site, Position No -Correct Procedure No -Procedure Performed No -Post Debridement Size (cm) - Length 0 -Post Debridement Size (cm) - Width 0 -Post Debridement Size (cm) - Depth 0 -Total Square Cm 0 -Wound/Ulcer Outcome Healed- Epithelialized #2 Right Lateral Foot -Correct Patient No -Correct Side, Site, Position No -Correct Procedure No -Procedure Performed No -Post Debridement Size (cm) - Length 0 -Post Debridement Size (cm) - Width 0 -Post Debridement Size (cm) - Depth 0 -Total Square Cm 0 -Wound/Ulcer Outcome Healed- Epithelialized Pain Scale: 0-10 Numeric Is Patient Pain Free? Yes Yes No debridement was completed today - Wounds are healed Assessment/Plan Active Problems Delayed wound healing (Chronic) Blister of toe of left foot (Acute) Hammer toe of right foot (Chronic) Other specified peripheral vascular diseases (Chronic) Hammer toe of left foot (Chronic) Assessment: right toe ulcer healed. right lateral foot remains healed. left fourth toe ulcer healed. Severe peripheral vascular status post intervention disease with vascular surgery. Malnutrition. Delayed healing history. Bilateral hammertoe deformities Plan: I reviewed and discussed his case this morning. Debridement was not performed today because all the wounds are healed. His callus to his right second toe was debrided with a 15 blade to reassure there is no underlying open wound. To discontinue dressing care because the ulcer sites have healed. To continue with open toe shoe that does not put pressure on this site. He will bring his desired shoe gear next week for evaluation. At that time I will confirm that his wounds have remained healed because he is high risk for reopening. He may need a special order for extra-depth shoes in which I can help him set this up after I evaluate his shoe gear next week. He was reassured there are no signs of infection. His noninvasive vascular studies were also reviewed which demonstrated significant loss of flow with an TALIA of 0.27 in the right lower extremity. He attended the vascular surgery with Dr. Cazares on 09/25 and he is doing well. To follow-up as scheduled. A copy of the surgical intervention is pending. He is responding well to his medical treatment for gout. To discontinue protein supplementation now that his wounds are healed. To follow-up with his primary care physician for long-term management of gout as scheduled and is advised. I answered all his questions. I recommend he returns to clinic in 1 week to confirm the wound sites remain healing and for shoe evaluation. He will be discharged after that if things look good again next week.
--- NOTE | 2017-10-09 11:30 | PN.PCM_ITS ---
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 exposed Status: Resolved Current Visit: Yes Code(s): L97.522 - Non-pressure chronic ulcer of other part of left foot with fat layer exposed (3) Delayed wound healing Status: Chronic Current Visit: Yes Code(s): T14.8XXD - Other injury of unspecified body region, subsequent encounter (4) Hammer toe of right foot Status: Chronic Current Visit: Yes Code(s): M20.41 - Other hammer toe(s) ( acquired), right foot (5) Other specified peripheral vascular diseases Status: Chronic Current Visit: Yes Code(s): I73.89 - Other specified peripheral vascular diseases (6) Hammer toe of left foot Status: Chronic Current Visit: Yes Code(s): M20.42 - Other hammer toe(s) ( acquired), left foot (7) Ulcer of right foot with fat layer exposed Status: Resolved Current Visit: Yes Code(s): L97.512 - Non-pressure chronic ulcer of other part of right foot with fat layer exposed Type of Wound Date of Service: 10/09/17 Chief Complaint: Chronic, nonhealing ulcerations of the right (2 toe) and left foot (4th toe) -all are healed today. Blister healed left second toe. peripheral vascular disease s/p intervention. delayed healing History of Wound: This is an 81-year-old male who presents with multiple ulcerations on his right foot and one ulcer to the left fourth toe. He denies fever, chills, nausea, vomiting, loss of appetite. He continues to use aquacel Ag as advised. He denies foot pain or drainage. He had vascular surgery performed left lower extremity this past week on 09/25/2017. He denies complications and is happy he had the procedure done. 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 She reports right index finger discomfort similar to his previous fifth right finger gout pain. He thinks his protein intake is aggravating this condition and recently decreased use ; reduction in pain was noted around the same time and he asked about this today. This is being managed by his primary care physician. He denies redness or odor to the feet. He denies drainage or redness. Progress of Wound: Remains healed right lateral foot ulcer. Healed left fourth toe ulcer. Healed right second toe ulcer. Healed blister left second toe - Physical Exam Vital Signs Temp Pulse Resp BP 98.4 F 57 L 18 145/64 H 10/09/17 10:34 10/09/17 10:34 10/09/17 10:34 10/09/17 10:34 General: Alert, Oriented x3, Cooperative Extremities: No cyanosis, Capillary Refill Less than 3 Seconds, No Calf Tenderness, Diminished Peripheral Pulses, Edema, - - Rigid digital deformities bilateral lower extremities Skin: Ulcer/ Wound - Full epithelialization is noted to the right second toe today. His previously healed wounds to bilateral feet also remained fully epithelialized. There is no purulence, erythema, streaking, odor, or infection. His previous left dorsal toe blister is also healed, completely dry , and there is evidence of dried blood underneath the outer skin layer which was well adhered and left intact today. His skin is atrophic and hairless bilateral lower extremities, - - There is callusing noted to the distal right second toe at the recently healed ulcer site Wound Measurements and Assessment WC - Nurse 1 - General Ulcer Measurement Start: 10/02/17 10:31 Freq: Status: Active Protocol: Activity Type Activity Date Activity User E-Sign Co-Sign Detail Recorded Client Recorded Date Recorded By Document 10/09/17 10:34 [id number] 10/09/17 10:48 RB 10/09/17 10:34 Wound Center Nurse 1 [Ulcer Assessment] #6 L 2nd toe -Combined with other wound No -Current Size (cm) - Length 0.1 -Current Size (cm) - Width 0.1 -Current Size (cm) - Depth 0.1 -Total Square Cm 0.01 -Tunneling No -Undermining/Tunneling No -Circular Undermining No -Classification - Thickness Full Thickness without Exposed Support Structure -Exudate Amt None Present (0 %) -Wound Margin Distinct, Outline Attached -Granulation Amt Medium (34-66%) -Granulation Quality [place] -Slough/Fibrin Yes -Necrosis Amt Medium (34-66%) -Necrotic Tissue Type Adherent Slough -Structure Exposed N/A -Texture (Alba-wound Skin Appearance) Assessed -Moisture (Alba-wound Skin Appearance Assessed ) Dry/Scaly -Color (Alba-wound Skin Appearance) Assessed Erythema -Temperature (Alba-wound Skin No Abnormality Appearance) (Pt Warm) -Tenderness on Palpation (Alba-wound No Skin Appearance) -Ulcer Cleansing Rinsed/ Irrigated with Saline -Foul Odor after Cleansing No -Anesthetic Used 4% Lidocaine Solution 5. R second toe -Combined with other wound No -Current Size (cm) - Length 0.2 -Current Size (cm) - Width 0.2 -Current Size (cm) - Depth 0.2 -Total Square Cm 0.04 -Photo Taken No -Tunneling No -Undermining/Tunneling No -Circular Undermining No -Classification - Thickness Full Thickness without Exposed Support Structure -Exudate Amt Small (1-33%) -Exudate Type Serosanguineous -Wound Margin Distinct, Outline Attached -Granulation Amt Medium (34-66%) -Granulation Quality [place] -Slough/Fibrin Yes -Necrosis Amt Medium (34-66%) -Necrotic Tissue Type Adherent Slough -Structure Exposed N/A -Texture (Alba-wound Skin Appearance) Assessed -Moisture (Alba-wound Skin Appearance Assessed ) Dry/Scaly -Color (Alba-wound Skin Appearance) Assessed -Temperature (Alba-wound Skin No Abnormality Appearance) (Pt Warm) -Ulcer Cleansing Rinsed/ Irrigated with Saline -Foul Odor after Cleansing No -Anesthetic Used 4% Lidocaine Solution WC - Nurse 2 - General Ulcer CM Notes Start: 10/02/17 10:31 Freq: Status: Active Protocol: Activity Type Activity Date Activity User E-Sign Co-Sign Detail Recorded Client Recorded Date Recorded By Document 10/09/17 11:02 [email or web address] [id number] 10/09/17 11:04 LIZ 10/09/17 11:02 Wound Center Nurse 2 [Procedure/Treatment] #6 L 2nd toe -Correct Patient No -Correct Side, Site, Position No -Correct Procedure No -Procedure Performed No -Post Debridement Size (cm) - Length 0 -Post Debridement Size (cm) - Width 0 -Post Debridement Size (cm) - Depth 0 -Total Square Cm 0 -Wound/Ulcer Outcome Healed- Epithelialized 5. R second toe -Correct Patient No -Correct Side, Site, Position No -Correct Procedure No -Procedure Performed No -Post Debridement Size (cm) - Length 0 -Post Debridement Size (cm) - Width 0 -Post Debridement Size (cm) - Depth 0 -Total Square Cm 0 -Wound/Ulcer Outcome Healed- Epithelialized [See Physician Procedure note for Specifics] Pain Scale: 0-10 Numeric [Pain] -Is Patient Pain Free? Yes Musculoskeletal: No Tenderness to Palpation of Joints or Extremities, Muscle Wasting Neurological: - - Altered sensation light touch to bilateral lower extremities Psych/Mental Status: Normal Affect, Appropriate Debridement Note Post-Debridement Measurements/Treatment WC - Nurse 2 - General Ulcer CM Notes Start: 10/02/17 10:31 Freq: Status: Active Protocol: Activity Type Activity Date Activity User E-Sign Co-Sign Detail Recorded Client Recorded Date Recorded By Document 10/02/17 11:06 [id number] 10/02/17 11:16 Document 10/09/17 11:02 [id number] 10/09/17 11:04 10/02/17 10/09/17 11:06 11:02 Wound Center Nurse 2 #6 L 2nd toe -Correct Patient No No -Correct Side, Site, Position No No -Correct Procedure No No -Procedure Performed No No -Post Debridement Size (cm) - Length 0 -Post Debridement Size (cm) - Width 0 -Post Debridement Size (cm) - Depth 0 -Total Square Cm 0 -Wound/Ulcer Outcome Healed- Epithelialized 5. R second toe -Correct Patient No -Correct Side, Site, Position No -Correct Procedure No -Procedure Performed No -Post Debridement Size (cm) - Length 0 -Post Debridement Size (cm) - Width 0 -Post Debridement Size (cm) - Depth 0 -Total Square Cm 0 -Wound/Ulcer Outcome Healed- Epithelialized #4 left 4th toe -Correct Patient No -Correct Side, Site, Position No -Correct Procedure No -Procedure Performed No -Post Debridement Size (cm) - Length 0 -Post Debridement Size (cm) - Width 0 -Post Debridement Size (cm) - Depth 0 -Total Square Cm 0 -Wound/Ulcer Outcome Healed- Epithelialized #2 Right Lateral Foot -Correct Patient No -Correct Side, Site, Position No -Correct Procedure No -Procedure Performed No -Post Debridement Size (cm) - Length 0 -Post Debridement Size (cm) - Width 0 -Post Debridement Size (cm) - Depth 0 -Total Square Cm 0 -Wound/Ulcer Outcome Healed- Epithelialized Pain Scale: 0-10 Numeric Is Patient Pain Free? Yes Yes No debridement was completed today - Wounds are healed Assessment/Plan Active Problems Delayed wound healing (Chronic) Blister of toe of left foot (Acute) Hammer toe of right foot (Chronic) Other specified peripheral vascular diseases (Chronic) Hammer toe of left foot (Chronic) Assessment: right toe ulcer healed. right lateral foot remains healed. left fourth toe ulcer healed. Severe peripheral vascular status post intervention disease with vascular surgery. Malnutrition. Delayed healing history. Bilateral hammertoe deformities Plan: I reviewed and discussed his case this morning. Debridement was not performed today because all the wounds are healed. His callus to his right second toe was debrided with a 15 blade to reassure there is no underlying open wound. To discontinue dressing care because the ulcer sites have healed. To continue with open toe shoe that does not put pressure on this site. He will bring his desired shoe gear next week for evaluation. At that time I will confirm that his wounds have remained healed because he is high risk for reopening. He may need a special order for extra-depth shoes in which I can help him set this up after I evaluate his shoe gear next week. He was reassured there are no signs of infection. His noninvasive vascular studies were also reviewed which demonstrated significant loss of flow with an TALIA of 0.27 in the right lower extremity. He attended the vascular surgery with Dr. Cazares on 09/25 and he is doing well. To follow-up as scheduled. A copy of the surgical intervention is pending. He is responding well to his medical treatment for gout. To discontinue protein supplementation now that his wounds are healed. To follow-up with his primary care physician for long-term management of gout as scheduled and is advised. I answered all his questions. I recommend he returns to clinic in 1 week to confirm the wound sites remain healing and for shoe evaluation. He will be discharged after that if things look good again next week.
[2017-10-16 10:14] VITALS: BP 140/81; PULSE 61; RESP 16; TEMP 36.8; BMI 21.2
--- NOTE | 2017-10-16 10:43 | PN.PCM_ITS ---
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 Status: Chronic Current Visit: Yes Code(s): L97.512 - Non-pressure chronic ulcer of other part of right foot with fat layer exposed (2) Blister of toe of left foot Status: Resolved Current Visit: Yes Code(s): S90.425A - Blister (nonthermal) , left lesser toe(s), initial encounter (3) Delayed wound healing Status: Chronic Current Visit: Yes Code(s): T14.8XXD - Other injury of unspecified body region, subsequent encounter (4) Hammer toe of right foot Status: Chronic Current Visit: Yes Code(s): M20.41 - Other hammer toe(s) ( acquired), right foot (5) Other specified peripheral vascular diseases Status: Chronic Current Visit: Yes Code(s): I73.89 - Other specified peripheral vascular diseases (6) Hammer toe of left foot Status: Chronic Current Visit: Yes Code(s): M20.42 - Other hammer toe(s) ( acquired), left foot Type of Wound Date of Service: 10/16/17 Chief Complaint: Chronic, nonhealing ulcerations of the right (2 toe) and left foot (4th toe) -all are healed today. Blister healed left second toe. peripheral vascular disease s/p intervention. delayed healing History of Wound: This is an 81-year-old male who presents with multiple ulcerations on his right foot and one ulcer to the left fourth toe that were healed last week. He denies fever, chills, nausea, vomiting, loss of appetite. He denies foot pain or drainage. He has some scabbing. He had vascular surgery performed left lower extremity this past week on 09/25/2017. He denies complications and is happy he had the procedure done. 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 He denies known drainage. Progress of Wound: Remains healed right lateral foot ulcer. Healed left fourth toe ulcer. Healed right second toe ulcer. Healed blister left second toe - Physical Exam Vital Signs Temp Pulse Resp BP 98.2 F 61 16 140/81 H 10/16/17 10:14 10/16/17 10:14 10/16/17 10:14 10/16/17 10:14 General: Alert, Oriented x3, Cooperative Extremities: No cyanosis, Capillary Refill Less than 3 Seconds, No Calf Tenderness - Negative Heidi and Alfonso bilateral, Diminished Peripheral Pulses, Edema, - - Rigid digital contractures bilateral Skin: Ulcer/ Wound - No purulence, erythema, streaking, no odor, no infection. The right second toe recently healed wound site has skin discontinuity with granulation tissue exposed that is very superficial. There is peripheral callus noted. There is no deep tissue exposed. The peripheral skin is atrophic and hairless to Bilateral lower extremities Wound Measurements and Assessment - Nurse 2 - General Ulcer CM Notes Start: 10/02/17 10:31 Freq: Status: Active Protocol: Activity Type Activity Date Activity User E-Sign Co-Sign Detail Recorded Client Recorded Date Recorded By Document 10/16/17 10:35 [id number] 10/16/17 10:38 10/16/17 10:35 Wound Center Nurse 2 [Procedure/Treatment] 5. R second toe -Time 10:36 -Correct Patient Yes -Correct Side, Site, Position Yes -Correct Procedure Yes -Procedure Performed Yes -Type of Procedure Debridement -Clinical Debridement Subcutaneous -Post Debridement Size (cm) - Length 0.5 -Post Debridement Size (cm) - Width 0.5 -Post Debridement Size (cm) - Depth 0.1 -Total Square Cm 0.25 -Wound/Ulcer Outcome Not Healed -Ulcer Cleansing Not Cleansed -Foul Odor after Cleansing No -Bioengineered Tissue No -Bleeding Controlled with NA -Treatment Response Procedure Tolerated Well [See Physician Procedure note for Specifics] Pain Scale: 0-10 Numeric [Pain] -Is Patient Pain Free? Yes Musculoskeletal: No Tenderness to Palpation of Joints or Extremities, Muscle Wasting Neurological: Sensory exam intact to light touch and pain Psych/Mental Status: Normal Affect, Appropriate Debridement Note Post-Debridement Measurements/Treatment - Nurse 2 - General Ulcer CM Notes Start: 10/02/17 10:31 Freq: Status: Active Protocol: Activity Type Activity Date Activity User E-Sign Co-Sign Detail Recorded Client Recorded Date Recorded By Document 10/02/17 11:06 [id number] 10/02/17 11:16 Document 10/09/17 11:02 [id number] 10/09/17 11:04 Document 10/16/17 10:35 [id number] 10/16/17 10:38 10/02/17 10/09/17 10/16/17 11:06 11:02 10:35 Wound Center Nurse 2 #6 L 2nd toe -Correct Patient No No -Correct Side, Site, Position No No -Correct Procedure No No -Procedure Performed No No -Post Debridement Size (cm) - Length 0 -Post Debridement Size (cm) - Width 0 -Post Debridement Size (cm) - Depth 0 -Total Square Cm 0 -Wound/Ulcer Outcome Healed- Epithelialized 5. R second toe -Time 10:36 -Correct Patient No Yes -Correct Side, Site, Position No Yes -Correct Procedure No Yes -Procedure Performed No Yes -Type of Procedure Debridement -Clinical Debridement Subcutaneous -Post Debridement Size (cm) - Length 0 0.5 -Post Debridement Size (cm) - Width 0 0.5 -Post Debridement Size (cm) - Depth 0 0.1 -Total Square Cm 0 0.25 -Wound/Ulcer Outcome Healed- Not Healed Epithelialized -Ulcer Cleansing Not Cleansed -Foul Odor after Cleansing No -Bioengineered Tissue No -Bleeding Controlled with NA -Treatment Response Procedure Tolerated Well #4 left 4th toe -Correct Patient No -Correct Side, Site, Position No -Correct Procedure No -Procedure Performed No -Post Debridement Size (cm) - Length 0 -Post Debridement Size (cm) - Width 0 -Post Debridement Size (cm) - Depth 0 -Total Square Cm 0 -Wound/Ulcer Outcome Healed- Epithelialized #2 Right Lateral Foot -Correct Patient No -Correct Side, Site, Position No -Correct Procedure No -Procedure Performed No -Post Debridement Size (cm) - Length 0 -Post Debridement Size (cm) - Width 0 -Post Debridement Size (cm) - Depth 0 -Total Square Cm 0 -Wound/Ulcer Outcome Healed- Epithelialized Pain Scale: 0-10 Numeric Is Patient Pain Free? Yes Yes Yes Wound debrided: distal 2nd toe Laterality: Right Type of Debridement: Excisional debridement Anesthesia Used: 5% Lidocaine Gel Depth: in the subcutaneous layer Percentage of wound debrided: 100 Instrument Used: #15 blade Tissue Removed: fibrous, devitalized subcutaneous, biofilm, slough Severity: Fat Layer Exposed Amount of bleeding with debridement: Mild Bleeding Controlled with: Pressure Patient tolerated procedure well Assessment/Plan Active Problems Delayed wound healing (Chronic) Onycholysis (Chronic) Hammer toe of right foot (Chronic) Other specified peripheral vascular diseases (Chronic) Hammer toe of left foot (Chronic) Ulcer of right foot with fat layer exposed (Chronic) Assessment: right toe ulcer reopened. right lateral foot remains healed. left fourth toe ulcer reamins healed. Severe peripheral vascular status post intervention disease with vascular surgery. Malnutrition. Delayed healing history. Bilateral hammertoe deformities Plan: I reviewed and discussed his case this morning. Debridement was not performed today because all the wounds are healed. His callus to his right second toe was debrided with a 15 blade and a wound was identified. To resume dressing care because the ulcer sites have reopened. To continue with open toe shoe that does not put pressure on this site. He may need a special order for extra-depth shoes in which I can help him set this up after I evaluate his shoe gear next week. He was reassured there are no signs of infection. His noninvasive vascular studies were also reviewed which demonstrated significant loss of flow with an TALIA of 0.27 in the right lower extremity. He attended the vascular surgery with Dr. Cazares on 09/25 and he is doing well. To follow-up as scheduled. A copy of the surgical intervention is pending. He is responding well to his medical treatment for gout. To discontinue protein supplementation now that his wounds are healed. To follow-up with his primary care physician for long-term management of gout as scheduled and is advised. I answered all his questions. I recommend he returns to clinic in 1 week to confirm the wound sites remain healing and for shoe evaluation. He will be discharged after that if things look good again next week.
== END 2017-10-19 23:59 ==
LOC: WC 10:30
PROVIDERS: Family Provider Family Medicine; PCP Family Medicine; Visit Provider Podiatrist
DX: I73.89 Other specified peripheral vascular diseases (principal); M20.41 Other hammer toe(s) (acquired), right foot; M20.42 Other hammer toe(s) (acquired), left foot; L97.512 Non-pressure chronic ulcer of other part of right foot with fat layer exposed; B35.1 Tinea unguium; L84 Corns and callosities
CPT/HCPCS: 11042; 99213; G0463

== ENCOUNTER 2017-11-13 10:30 | Outpatient (RCR) | payer OTHER, SELFPAY ==
[2017-10-20 00:28] VITALS: BP 140/81; PULSE 61; RESP 16; TEMP 36.8; BMI 21.2
[2017-10-30 10:26] VITALS: BP 149/74; PULSE 63; RESP 18; TEMP 36.4; BMI 21.2
--- NOTE | 2017-10-30 12:37 | PCM.WC.PN ---
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 Status: Chronic Current Visit: Yes Code(s): L97.512 - Non-pressure chronic ulcer of other part of right foot with fat layer exposed (2) Chronic ulcer of left foot with fat layer exposed Status: Chronic Current Visit: Yes Code(s): L97.522 - Non-pressure chronic ulcer of other part of left foot with fat layer exposed (3) Delayed wound healing Status: Chronic Current Visit: Yes Code(s): T14.8XXD - Other injury of unspecified body region, subsequent encounter (4) Hammer toe of right foot Status: Chronic Current Visit: Yes Code(s): M20.41 - Other hammer toe(s) (acquired), right foot (5) Other specified peripheral vascular diseases Status: Chronic Current Visit: Yes Code(s): I73.89 - Other specified peripheral vascular diseases (6) Delayed wound healing Status: Chronic Current Visit: Yes Code(s): T14.8 - Other injury of unspecified body region (7) Malnutrition Status: Chronic Current Visit: Yes Code(s): E46 - Unspecified protein-calorie malnutrition (8) Hammertoe of left foot Status: Chronic Current Visit: Yes Code(s): M20.42 - Other hammer toe(s) (acquired), left foot Type of Wound Date of Service: 10/30/17 Chief Complaint: Chronic, nonhealing ulcerations of the right (2 toe) and left foot (4th toe) -all are healed today. Blister healed left second toe. peripheral vascular disease s/p intervention. delayed healing History of Wound: This is an 81-year-old male who presents with multiple ulcerations on his right foot and one ulcer to the left fourth toe that were healed last week. He denies fever, chills, nausea, vomiting, loss of appetite. He denies foot pain or drainage. He has some scabbing. He had vascular surgery performed left lower extremity this past week on 09/25/2017. He has some tenderness in his left groin and relates he has a follow-up appointment with Dr. Cazares next week. Home health helps with dressing changes. He does have a callus to his left bottom outer foot and he has for help trimming this down. He is not sure if this is opening up into the wound at this time. Progress of Wound: Remains healed right lateral foot ulcer. Healed left fourth toe ulcer. Healed right second toe ulcer. Healed blister left second toe - Physical Exam Vital Signs Temp Pulse Resp BP 97.6 F L 63 18 149/74 H 10/30/17 10:26 10/30/17 10:26 10/30/17 10:26 10/30/17 10:26 General: Alert, Oriented x3, Cooperative Extremities: No cyanosis, No edema, Capillary Refill Less than 3 Seconds, No Calf Tenderness, Diminished Peripheral Pulses Skin: Ulcer/ Wound - No purulence, no erythema, no necrosis, No odor, no infection bilateral. Skin is very atrophic., - - Callus with sub-hemorrhagic tissue sub-fifth metatarsal head left foot. No ulcer noted upon debridement Wound Measurements and Assessment WC - Nurse 1 - General Ulcer Measurement Start: 10/30/17 10:26 Freq: Status: Active Protocol: Activity Type Activity Date Activity User E-Sign Co-Sign Detail Recorded Client Recorded Date Recorded By Document 10/30/17 10:26 DL [id number] 10/30/17 10:31 DL 10/30/17 10:26 Wound Center Nurse 1 [Ulcer Assessment] 5. R second toe -Current Size (cm) - Length 0.1 -Current Size (cm) - Width 0.1 -Current Size (cm) - Depth 0.1 -Total Square Cm 0.01 -Photo Taken No -Exudate Amt None Present (0 %) -Wound Margin Thickened -Granulation Amt None Present (0 %) -Necrosis Amt Small (1-33%) -Necrotic Tissue Type Eschar -Structure Exposed N/A -Texture (Alba-wound Skin Appearance) Callus -Moisture (Alba-wound Skin Appearance Dry/Scaly ) -Color (Alba-wound Skin Appearance) Hemosiderin Staining -Temperature (Alba-wound Skin No Abnormality Appearance) (Pt Warm) -Ulcer Cleansing Rinsed/ Irrigated with Saline -Foul Odor after Cleansing No -Anesthetic Used 4% Lidocaine Solution WC - Nurse 2 - General Ulcer CM Notes Start: 10/30/17 10:26 Freq: Status: Active Protocol: Activity Type Activity Date Activity User E-Sign Co-Sign Detail Recorded Client Recorded Date Recorded By Document 10/30/17 10:45 TM [id number] 10/30/17 10:48 10/30/17 10:45 Wound Center Nurse 2 [Procedure/Treatment] #6 left 2nd toe -Time 10:46 -Correct Patient Yes -Correct Side, Site, Position Yes -Correct Procedure Yes -Procedure Performed Yes -Type of Procedure Debridement -Clinical Debridement Subcutaneous -Post Debridement Size (cm) - Length 0.3 -Post Debridement Size (cm) - Width 0.2 -Post Debridement Size (cm) - Depth 0.2 -Total Square Cm 0.06 -Wound/Ulcer Outcome Not Healed -Ulcer Cleansing Rinsed/ Irrigated with Saline -Foul Odor after Cleansing No -Bioengineered Tissue No -Bleeding Controlled with Pressure -Treatment Response Procedure Tolerated Well 5. R second toe -Time 10:46 -Correct Patient Yes -Correct Side, Site, Position Yes -Correct Procedure Yes -Procedure Performed Yes -Type of Procedure Debridement -Clinical Debridement Subcutaneous -Post Debridement Size (cm) - Length 0.2 -Post Debridement Size (cm) - Width 0.2 -Post Debridement Size (cm) - Depth 0.1 -Total Square Cm 0.04 -Wound/Ulcer Outcome Not Healed -Ulcer Cleansing Rinsed/ Irrigated with Saline -Foul Odor after Cleansing No -Bioengineered Tissue No -Topical Lidocaine (%) 4 -Bleeding Controlled with Pressure -Treatment Response Procedure Tolerated Well [See Physician Procedure note for Specifics] Pain Scale: 0-10 Numeric [Pain] -Is Patient Pain Free? Yes Musculoskeletal: No Tenderness to Palpation of Joints or Extremities, Muscle Wasting, - - Dorsal contraction of lesser digits bilateral lower extremities Neurological: Sensory exam intact to light touch and pain Psych/Mental Status: Normal Affect, Appropriate Debridement Note Post-Debridement Measurements/Treatment WC - Nurse 2 - General Ulcer CM Notes Start: 10/30/17 10:26 Freq: Status: Active Protocol: Activity Type Activity Date Activity User E-Sign Co-Sign Detail Recorded Client Recorded Date Recorded By Document 10/30/17 10:45 [id number] 10/30/17 10:48 10/30/17 10:45 Wound Center Nurse 2 #6 left 2nd toe -Time 10:46 -Correct Patient Yes -Correct Side, Site, Position Yes -Correct Procedure Yes -Procedure Performed Yes -Type of Procedure Debridement -Clinical Debridement Subcutaneous -Post Debridement Size (cm) - Length 0.3 -Post Debridement Size (cm) - Width 0.2 -Post Debridement Size (cm) - Depth 0.2 -Total Square Cm 0.06 -Wound/Ulcer Outcome Not Healed -Ulcer Cleansing Rinsed/ Irrigated with Saline -Foul Odor after Cleansing No -Bioengineered Tissue No -Bleeding Controlled with Pressure -Treatment Response Procedure Tolerated Well 5. R second toe -Time 10:46 -Correct Patient Yes -Correct Side, Site, Position Yes -Correct Procedure Yes -Procedure Performed Yes -Type of Procedure Debridement -Clinical Debridement Subcutaneous -Post Debridement Size (cm) - Length 0.2 -Post Debridement Size (cm) - Width 0.2 -Post Debridement Size (cm) - Depth 0.1 -Total Square Cm 0.04 -Wound/Ulcer Outcome Not Healed -Ulcer Cleansing Rinsed/ Irrigated with Saline -Foul Odor after Cleansing No -Bioengineered Tissue No -Topical Lidocaine (%) 4 -Bleeding Controlled with Pressure -Treatment Response Procedure Tolerated Well Pain Scale: 0-10 Numeric Is Patient Pain Free? Yes Wound debrided: distal 2nd toe Laterality: Right Type of Debridement: Excisional debridement Anesthesia Used: 5% Lidocaine Gel Depth: in the subcutaneous layer Percentage of wound debrided: 100 Instrument Used: #15 blade Tissue Removed: fibrous, devitalized subcutaneous, biofilm, slough Severity: Fat Layer Exposed Amount of bleeding with debridement: Mild Bleeding Controlled with: Pressure Patient tolerated procedure well - Additional Wound Wound debrided: distal 2nd toe Laterality: Left Type of Debridement: Excisional debridement Anesthesia Used: 5% Lidocaine Gel Depth: in the subcutaneous layer Percentage of wound debrided: 100 Instrument Used: #15 blade Tissue Removed: fibrous, devitalized subcutaneous, biofilm, slough Severity: Fat Layer Exposed Amount of bleeding with debridement: Mild Bleeding Controlled with: Pressure Patient tolerated procedure: Patient tolerated procedure well Assessment/Plan Active Problems 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 Left second toe ulcer with fat layer exposed. Severe peripheral vascular status post intervention disease with vascular surgery. Malnutrition. Delayed healing history. Bilateral hammertoe deformities Plan: I reviewed and discussed his case this morning. Debridement was performed today as noted in the clinical panel. To change dressing daily with Aquacel Ag with the assistance of home health. His callus to his left sub-fifth metatarsal head was debrided and he was reassured no ulcers noted. He last saw Dr. Cazares on September 25, 2017. I advised him to call Dr. Cazares or his nurse to discuss his surgical site new sensation. To resume dressing care because the ulcer sites have reopened. To continue with open toe shoe that does not put pressure on this site. He was reassured there are no signs of infection. His noninvasive vascular studies were also reviewed which demonstrated significant loss of flow with an TALIA of 0.27 in the right lower extremity. He is responding well to his medical treatment for gout. To discontinue protein supplementation now that his wounds are healed. To follow-up with his primary care physician for long-term management of gout as scheduled and is advised. I answered all his questions. I recommend he returns to clinic in 1 week to confirm the wound sites remain healing. I answered all his questions.
--- NOTE | 2017-10-30 12:47 | PN.PCM_ITS ---
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 Status: Chronic Current Visit: Yes Code(s): L97.512 - Non-pressure chronic ulcer of other part of right foot with fat layer exposed (2) Chronic ulcer of left foot with fat layer exposed Status: Chronic Current Visit: Yes Code(s): L97.522 - Non-pressure chronic ulcer of other part of left foot with fat layer exposed (3) Delayed wound healing Status: Chronic Current Visit: Yes Code(s): T14.8XXD - Other injury of unspecified body region, subsequent encounter (4) Hammer toe of right foot Status: Chronic Current Visit: Yes Code(s): M20.41 - Other hammer toe(s) ( acquired), right foot (5) Other specified peripheral vascular diseases Status: Chronic Current Visit: Yes Code(s): I73.89 - Other specified peripheral vascular diseases (6) Delayed wound healing Status: Chronic Current Visit: Yes Code(s): T14.8 - Other injury of unspecified body region (7) Malnutrition Status: Chronic Current Visit: Yes Code(s): E46 - Unspecified protein- calorie malnutrition (8) Hammertoe of left foot Status: Chronic Current Visit: Yes Code(s): M20.42 - Other hammer toe(s) ( acquired), left foot Type of Wound Date of Service: 10/30/17 Chief Complaint: Chronic, nonhealing ulcerations of the right (2 toe) and left foot (4th toe) -all are healed today. Blister healed left second toe. peripheral vascular disease s/p intervention. delayed healing History of Wound: This is an 81-year-old male who presents with multiple ulcerations on his right foot and one ulcer to the left fourth toe that were healed last week. He denies fever, chills, nausea, vomiting, loss of appetite. He denies foot pain or drainage. He has some scabbing. He had vascular surgery performed left lower extremity this past week on 09/25/2017. He has some tenderness in his left groin and relates he has a follow-up appointment with Dr. Cazares next week. Home health helps with dressing changes. He does have a callus to his left bottom outer foot and he has for help trimming this down. He is not sure if this is opening up into the wound at this time. Progress of Wound: Remains healed right lateral foot ulcer. Healed left fourth toe ulcer. Healed right second toe ulcer. Healed blister left second toe - Physical Exam Vital Signs Temp Pulse Resp BP 97.6 F L 63 18 149/74 H 10/30/17 10:26 10/30/17 10:26 10/30/17 10:26 10/30/17 10:26 General: Alert, Oriented x3, Cooperative Extremities: No cyanosis, No edema, Capillary Refill Less than 3 Seconds, No Calf Tenderness, Diminished Peripheral Pulses Skin: Ulcer/ Wound - No purulence, no erythema, no necrosis, No odor, no infection bilateral. Skin is very atrophic., - - Callus with sub-hemorrhagic tissue sub-fifth metatarsal head left foot. No ulcer noted upon debridement Wound Measurements and Assessment WC - Nurse 1 - General Ulcer Measurement Start: 10/30/17 10:26 Freq: Status: Active Protocol: Activity Type Activity Date Activity User E-Sign Co-Sign Detail Recorded Client Recorded Date Recorded By Document 10/30/17 10:26 DL [id number] 10/30/17 10:31 DL 10/30/17 10:26 Wound Center Nurse 1 [Ulcer Assessment] 5. R second toe -Current Size (cm) - Length 0.1 -Current Size (cm) - Width 0.1 -Current Size (cm) - Depth 0.1 -Total Square Cm 0.01 -Photo Taken No -Exudate Amt None Present (0 %) -Wound Margin Thickened -Granulation Amt None Present (0 %) -Necrosis Amt Small (1-33%) -Necrotic Tissue Type Eschar -Structure Exposed N/A -Texture (Alba-wound Skin Appearance) Callus -Moisture (Alba-wound Skin Appearance Dry/Scaly ) -Color (Alba-wound Skin Appearance) Hemosiderin Staining -Temperature (Alba-wound Skin No Abnormality Appearance) (Pt Warm) -Ulcer Cleansing Rinsed/ Irrigated with Saline -Foul Odor after Cleansing No -Anesthetic Used 4% Lidocaine Solution WC - Nurse 2 - General Ulcer CM Notes Start: 10/30/17 10:26 Freq: Status: Active Protocol: Activity Type Activity Date Activity User E-Sign Co-Sign Detail Recorded Client Recorded Date Recorded By Document 10/30/17 10:45 TM [id number] 10/30/17 10:48 10/30/17 10:45 Wound Center Nurse 2 [Procedure/Treatment] #6 left 2nd toe -Time 10:46 -Correct Patient Yes -Correct Side, Site, Position Yes -Correct Procedure Yes -Procedure Performed Yes -Type of Procedure Debridement -Clinical Debridement Subcutaneous -Post Debridement Size (cm) - Length 0.3 -Post Debridement Size (cm) - Width 0.2 -Post Debridement Size (cm) - Depth 0.2 -Total Square Cm 0.06 -Wound/Ulcer Outcome Not Healed -Ulcer Cleansing Rinsed/ Irrigated with Saline -Foul Odor after Cleansing No -Bioengineered Tissue No -Bleeding Controlled with Pressure -Treatment Response Procedure Tolerated Well 5. R second toe -Time 10:46 -Correct Patient Yes -Correct Side, Site, Position Yes -Correct Procedure Yes -Procedure Performed Yes -Type of Procedure Debridement -Clinical Debridement Subcutaneous -Post Debridement Size (cm) - Length 0.2 -Post Debridement Size (cm) - Width 0.2 -Post Debridement Size (cm) - Depth 0.1 -Total Square Cm 0.04 -Wound/Ulcer Outcome Not Healed -Ulcer Cleansing Rinsed/ Irrigated with Saline -Foul Odor after Cleansing No -Bioengineered Tissue No -Topical Lidocaine (%) 4 -Bleeding Controlled with Pressure -Treatment Response Procedure Tolerated Well [See Physician Procedure note for Specifics] Pain Scale: 0-10 Numeric [Pain] -Is Patient Pain Free? Yes Musculoskeletal: No Tenderness to Palpation of Joints or Extremities, Muscle Wasting, - - Dorsal contraction of lesser digits bilateral lower extremities Neurological: Sensory exam intact to light touch and pain Psych/Mental Status: Normal Affect, Appropriate Debridement Note Post-Debridement Measurements/Treatment WC - Nurse 2 - General Ulcer CM Notes Start: 10/30/17 10:26 Freq: Status: Active Protocol: Activity Type Activity Date Activity User E-Sign Co-Sign Detail Recorded Client Recorded Date Recorded By Document 10/30/17 10:45 [id number] 10/30/17 10:48 10/30/17 10:45 Wound Center Nurse 2 #6 left 2nd toe -Time 10:46 -Correct Patient Yes -Correct Side, Site, Position Yes -Correct Procedure Yes -Procedure Performed Yes -Type of Procedure Debridement -Clinical Debridement Subcutaneous -Post Debridement Size (cm) - Length 0.3 -Post Debridement Size (cm) - Width 0.2 -Post Debridement Size (cm) - Depth 0.2 -Total Square Cm 0.06 -Wound/Ulcer Outcome Not Healed -Ulcer Cleansing Rinsed/ Irrigated with Saline -Foul Odor after Cleansing No -Bioengineered Tissue No -Bleeding Controlled with Pressure -Treatment Response Procedure Tolerated Well 5. R second toe -Time 10:46 -Correct Patient Yes -Correct Side, Site, Position Yes -Correct Procedure Yes -Procedure Performed Yes -Type of Procedure Debridement -Clinical Debridement Subcutaneous -Post Debridement Size (cm) - Length 0.2 -Post Debridement Size (cm) - Width 0.2 -Post Debridement Size (cm) - Depth 0.1 -Total Square Cm 0.04 -Wound/Ulcer Outcome Not Healed -Ulcer Cleansing Rinsed/ Irrigated with Saline -Foul Odor after Cleansing No -Bioengineered Tissue No -Topical Lidocaine (%) 4 -Bleeding Controlled with Pressure -Treatment Response Procedure Tolerated Well Pain Scale: 0-10 Numeric Is Patient Pain Free? Yes Wound debrided: distal 2nd toe Laterality: Right Type of Debridement: Excisional debridement Anesthesia Used: 5% Lidocaine Gel Depth: in the subcutaneous layer Percentage of wound debrided: 100 Instrument Used: #15 blade Tissue Removed: fibrous, devitalized subcutaneous, biofilm, slough Severity: Fat Layer Exposed Amount of bleeding with debridement: Mild Bleeding Controlled with: Pressure Patient tolerated procedure well - Additional Wound Wound debrided: distal 2nd toe Laterality: Left Type of Debridement: Excisional debridement Anesthesia Used: 5% Lidocaine Gel Depth: in the subcutaneous layer Percentage of wound debrided: 100 Instrument Used: #15 blade Tissue Removed: fibrous, devitalized subcutaneous, biofilm, slough Severity: Fat Layer Exposed Amount of bleeding with debridement: Mild Bleeding Controlled with: Pressure Patient tolerated procedure: Patient tolerated procedure well Assessment/Plan Active Problems 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 Left second toe ulcer with fat layer exposed. Severe peripheral vascular status post intervention disease with vascular surgery. Malnutrition. Delayed healing history. Bilateral hammertoe deformities Plan: I reviewed and discussed his case this morning. Debridement was performed today as noted in the clinical panel. To change dressing daily with Aquacel Ag with the assistance of home health. His callus to his left sub- fifth metatarsal head was debrided and he was reassured no ulcers noted. He last saw Dr. Cazares on September 25, 2017. I advised him to call Dr. Cazares or his nurse to discuss his surgical site new sensation. To resume dressing care because the ulcer sites have reopened. To continue with open toe shoe that does not put pressure on this site. He was reassured there are no signs of infection. His noninvasive vascular studies were also reviewed which demonstrated significant loss of flow with an TALIA of 0.27 in the right lower extremity. He is responding well to his medical treatment for gout. To discontinue protein supplementation now that his wounds are healed. To follow- up with his primary care physician for long-term management of gout as scheduled and is advised. I answered all his questions. I recommend he returns to clinic in 1 week to confirm the wound sites remain healing. I answered all his questions.
[2017-11-06 10:49] VITALS: BP 134/62; PULSE 54; RESP 18; TEMP 36.6; BMI 21.2
--- NOTE | 2017-11-06 16:58 | PN.PCM_ITS ---
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 Status: Chronic Current Visit: Yes Code(s): L97.512 - Non-pressure chronic ulcer of other part of right foot with fat layer exposed (2) Chronic ulcer of left foot with fat layer exposed Status: Chronic Current Visit: Yes Code(s): L97.522 - Non-pressure chronic ulcer of other part of left foot with fat layer exposed (3) Delayed wound healing Status: Chronic Current Visit: Yes Code(s): T14.8XXD - Other injury of unspecified body region, subsequent encounter (4) Hammer toe of right foot Status: Chronic Current Visit: Yes Code(s): M20.41 - Other hammer toe(s) ( acquired), right foot (5) Other specified peripheral vascular diseases Status: Chronic Current Visit: Yes Code(s): I73.89 - Other specified peripheral vascular diseases (6) Delayed wound healing Status: Chronic Current Visit: Yes Code(s): T14.8 - Other injury of unspecified body region (7) Malnutrition Status: Chronic Current Visit: Yes Code(s): E46 - Unspecified protein- calorie malnutrition (8) Hammertoe of left foot Status: Chronic Current Visit: Yes Code(s): M20.42 - Other hammer toe(s) ( acquired), left foot Type of Wound Date of Service: 11/07/17 Chief Complaint: Chronic, nonhealing ulcerations of the right (2 toe) and left foot (4th toe) -all are healed today. Blister healed left second toe. peripheral vascular disease s/p intervention. delayed healing History of Wound: This is an 81-year-old male who presents with multiple ulcerations on his right foot and one ulcer to the left fourth toe that were healed last week. He denies fever, chills, nausea, vomiting, loss of appetite. He denies foot pain or drainage . He had vascular surgery performed left lower extremity on 09/25/2017 and is followed up as advised. Home health helps with dressing changes. He denies drainage the right foot and thinks it may be healed today. Progress of Wound: Remains healed right lateral foot ulcer. Healed left fourth toe ulcer. Healed right second toe ulcer. Healed blister left second toe. Ulcer left distal second toe fat layer exposed and no infection - Physical Exam Vital Signs Temp Pulse Resp BP 97.8 F 54 L 18 134/62 H 11/06/17 10:49 11/06/17 10:49 11/06/17 10:49 11/06/17 10:49 General: Alert, Oriented x3, Cooperative Extremities: No cyanosis, No edema, Capillary Refill Less than 3 Seconds, No Calf Tenderness, Peripheral Pulses Normal Skin: Ulcer/ Wound - No purulence, no erythema, streaking, odor, no acute infection bilateral lower extremities. There is full epithelialization noted to the right toes and the site has healed. His toenail is very long thick dystrophic and they are violating the adjacent tissue on toes 1, 2, 3, 4, 5 bilateral, - - His skin is atrophic and hairless bilateral Wound Measurements and Assessment WC - Nurse 1 - General Ulcer Measurement Start: 10/30/17 10:26 Freq: Status: Active Protocol: Activity Type Activity Date Activity User E-Sign Co-Sign Detail Recorded Client Recorded Date Recorded By Document 11/06/17 10:49 RAYNA [email or web address] 11/06/17 11:01 RB 11/06/17 10:49 Wound Center Nurse 1 [Ulcer Assessment] #6 left 2nd toe -Combined with other wound No -Current Size (cm) - Length 0.2 -Current Size (cm) - Width 0.2 -Current Size (cm) - Depth 0.1 -Total Square Cm 0.04 -Photo Taken No -Tunneling No -Undermining/Tunneling No -Circular Undermining No -Classification - Thickness Full Thickness without Exposed Support Structure -Exudate Amt Small (1-33%) -Exudate Type Serosanguineous -Wound Margin Thickened -Granulation Amt Medium (34-66%) -Granulation Quality [place] -Slough/Fibrin Yes -Necrosis Amt Small (1-33%) -Necrotic Tissue Type Adherent Slough -Structure Exposed N/A -Texture (Alba-wound Skin Appearance) Assessed -Moisture (Alba-wound Skin Appearance Dry/Scaly ) -Color (Alba-wound Skin Appearance) Assessed -Temperature (Alba-wound Skin No Abnormality Appearance) (Pt Warm) -Tenderness on Palpation (Alba-wound No Skin Appearance) -Ulcer Cleansing Rinsed/ Irrigated with Saline -Foul Odor after Cleansing No -Anesthetic Used 5% Lidocaine Gel #7 R second toe -Combined with other wound No -Current Size (cm) - Length 0.5 -Current Size (cm) - Width 0.4 -Current Size (cm) - Depth 0.1 -Total Square Cm 0.20 -Photo Taken No -Tunneling No -Undermining/Tunneling No -Circular Undermining No -Classification - Thickness Full Thickness without Exposed Support Structure -Exudate Amt Small (1-33%) -Exudate Type Serosanguineous -Wound Margin Distinct, Outline Attached -Granulation Amt Small (1-33%) -Granulation Quality [place] -Slough/Fibrin Yes -Necrosis Amt Medium (34-66%) -Necrotic Tissue Type Adherent Slough -Structure Exposed N/A -Texture (Alba-wound Skin Appearance) Assessed -Moisture (Alba-wound Skin Appearance Assessed ) -Color (Alba-wound Skin Appearance) Assessed -Temperature (Alba-wound Skin No Abnormality Appearance) (Pt Warm) -Tenderness on Palpation (Alba-wound No Skin Appearance) -Ulcer Cleansing Rinsed/ Irrigated with Saline -Foul Odor after Cleansing No -Anesthetic Used 5% Lidocaine Gel WC - Nurse 2 - General Ulcer CM Notes Start: 10/30/17 10:26 Freq: Status: Active Protocol: Activity Type Activity Date Activity User E-Sign Co-Sign Detail Recorded Client Recorded Date Recorded By Document 11/06/17 11:25 [id number] 11/06/17 11:27 11/06/17 11:25 Wound Center Nurse 2 [Procedure/Treatment] #6 left 2nd toe -Time 11:25 -Correct Patient Yes -Correct Side, Site, Position Yes -Correct Procedure Yes -Procedure Performed Yes -Type of Procedure Debridement -Clinical Debridement Subcutaneous -Post Debridement Size (cm) - Length 0.3 -Post Debridement Size (cm) - Width 0.3 -Post Debridement Size (cm) - Depth 0.1 -Total Square Cm 0.09 -Wound/Ulcer Outcome Not Healed -Ulcer Cleansing Rinsed/ Irrigated with Saline -Foul Odor after Cleansing No -Bioengineered Tissue No -Bleeding Controlled with Pressure -Treatment Response Procedure Tolerated Well #7 R second toe -Time 11:26 -Correct Patient Yes -Correct Side, Site, Position Yes -Correct Procedure Yes -Procedure Performed Yes -Post Debridement Size (cm) - Length 0 -Post Debridement Size (cm) - Width 0 -Post Debridement Size (cm) - Depth 0 -Total Square Cm 0 -Wound/Ulcer Outcome Healed- Epithelialized -Ulcer Cleansing Rinsed/ Irrigated with Saline -Foul Odor after Cleansing No -Bioengineered Tissue No -Topical Lidocaine (%) 4 -Bleeding Controlled with Pressure -Treatment Response Procedure Tolerated Well [See Physician Procedure note for Specifics] Pain Scale: 0-10 Numeric [Pain] -Is Patient Pain Free? Yes Musculoskeletal: No Tenderness to Palpation of Joints or Extremities, Muscle Wasting, - - Rigid digital deformity noted bilateral Neurological: Sensory exam intact to light touch and pain Psych/Mental Status: Normal Affect, Appropriate Debridement Note Post-Debridement Measurements/Treatment WC - Nurse 2 - General Ulcer CM Notes Start: 10/30/17 10:26 Freq: Status: Active Protocol: Activity Type Activity Date Activity User E-Sign Co-Sign Detail Recorded Client Recorded Date Recorded By Document 10/30/17 10:45 TM [id number] 10/30/17 10:48 TM Document 11/06/17 11:25 TM [id number] 11/06/17 11:27 TM 10/30/17 11/06/17 10:45 11:25 Wound Center Nurse 2 #6 left 2nd toe -Time 10:46 11:25 -Correct Patient Yes Yes -Correct Side, Site, Position Yes Yes -Correct Procedure Yes Yes -Procedure Performed Yes Yes -Type of Procedure Debridement Debridement -Clinical Debridement Subcutaneous Subcutaneous -Post Debridement Size (cm) - Length 0.3 0.3 -Post Debridement Size (cm) - Width 0.2 0.3 -Post Debridement Size (cm) - Depth 0.2 0.1 -Total Square Cm 0.06 0.09 -Wound/Ulcer Outcome Not Healed Not Healed -Ulcer Cleansing Rinsed/ Rinsed/ Irrigated with Irrigated with Saline Saline -Foul Odor after Cleansing No No -Bioengineered Tissue No No -Bleeding Controlled with Pressure Pressure -Treatment Response Procedure Procedure Tolerated Well Tolerated Well #7 R second toe -Time 10:46 11:26 -Correct Patient Yes Yes -Correct Side, Site, Position Yes Yes -Correct Procedure Yes Yes -Procedure Performed Yes Yes -Type of Procedure Debridement -Clinical Debridement Subcutaneous -Post Debridement Size (cm) - Length 0.2 0 -Post Debridement Size (cm) - Width 0.2 0 -Post Debridement Size (cm) - Depth 0.1 0 -Total Square Cm 0.04 0 -Wound/Ulcer Outcome Not Healed Healed- Epithelialized -Ulcer Cleansing Rinsed/ Rinsed/ Irrigated with Irrigated with Saline Saline -Foul Odor after Cleansing No No -Bioengineered Tissue No No -Topical Lidocaine (%) 4 4 -Bleeding Controlled with Pressure Pressure -Treatment Response Procedure Procedure Tolerated Well Tolerated Well Pain Scale: 0-10 Numeric Is Patient Pain Free? Yes Yes Wound debrided: distal 2nd toe Laterality: Left Type of Debridement: Excisional debridement Anesthesia Used: 5% Lidocaine Gel Depth: in the subcutaneous layer Percentage of wound debrided: 100 Instrument Used: #15 blade Tissue Removed: devitalized subcutaneous, biofilm, slough, fibrous Severity: Fat Layer Exposed Amount of bleeding with debridement: Mild Bleeding Controlled with: Pressure Patient tolerated procedure well Assessment/Plan Active Problems Chronic ulcer of left foot with fat layer exposed (Chronic) Delayed wound healing (Chronic) Hammertoe of left foot (Chronic) Hammer toe of right foot (Chronic) Other specified peripheral vascular diseases (Chronic) Delayed wound healing (Chronic) Malnutrition (Chronic) Ulcer of right foot with fat layer exposed (Chronic) Assessment: right second toe ulcer - healed, no infection. Left second toe ulcer with fat layer exposed. Severe peripheral vascular status post intervention disease with vascular surgery. Malnutrition. Delayed healing history. Bilateral hammertoe deformities Plan: I reviewed and discussed his case this morning. Debridement was performed today as noted in the clinical panel. To change dressing daily with [employer] with the assistance of home health. He last saw Dr. Cazares on September 25, 2017. He denies groin discomfort today. To continue with open toe shoe that does not put pressure on this site. He was reassured there are no signs of infection. His noninvasive vascular studies were also reviewed which demonstrated significant loss of flow with an TALIA of 0.27 in the right lower extremity. He is responding well to his medical treatment for gout. To discontinue protein supplementation now that his wounds are healed. To follow- up with his primary care physician for long-term management of gout as scheduled and is advised. I answered all his questions. I recommend he returns to clinic in 1 week to follow-up on the wound site only to the left second toe. I answered all his questions.
[2017-11-13 10:38] VITALS: BP 136/59; PULSE 55; RESP 18; TEMP 37.1; BMI 21.2
--- NOTE | 2017-11-13 11:53 | PN.PCM_ITS ---
(1) Chronic ulcer of left foot with fat layer exposed Status: Chronic Current Visit: Yes Code(s): L97.522 - Non-pressure chronic ulcer of other part of left foot with fat layer exposed (2) Ulcer of right foot with fat layer exposed Status: Resolved Current Visit: Yes Code(s): L97.512 - Non-pressure chronic ulcer of other part of right foot with fat layer exposed (3) Delayed wound healing Status: Chronic Current Visit: Yes Code(s): T14.8XXD - Other injury of unspecified body region, subsequent encounter (4) Hammer toe of right foot Status: Chronic Current Visit: Yes Code(s): M20.41 - Other hammer toe(s) ( acquired), right foot (5) Other specified peripheral vascular diseases Status: Chronic Current Visit: Yes Code(s): I73.89 - Other specified peripheral vascular diseases (6) Delayed wound healing Status: Chronic Current Visit: Yes Code(s): T14.8 - Other injury of unspecified body region (7) Malnutrition Status: Chronic Current Visit: Yes Code(s): E46 - Unspecified protein- calorie malnutrition (8) Hammertoe of left foot Status: Chronic Current Visit: Yes Code(s): M20.42 - Other hammer toe(s) ( acquired), left foot Type of Wound Date of Service: 11/13/17 Chief Complaint: Chronic, nonhealing ulcerations of the left 2nd toe. healed right toe ulcer. peripheral vascular disease s/p intervention. delayed healing History of Wound: This is an 81-year-old male who presents with healed ulcerations on his right foot and one ulcer to the left second toe and has decreased drainage. He denies fever, chills, nausea, vomiting, loss of appetite , or redness. He denies foot pain or drainage . He had vascular surgery performed left lower extremity on 09/25/2017 and is followed up as advised. Home health helps with dressing changes. Progress of Wound: Improving - Physical Exam Vital Signs Temp Pulse Resp BP 98.7 F 55 L 18 136/59 H 11/13/17 10:38 11/13/17 10:38 11/13/17 10:38 11/13/17 10:38 General: Alert, Oriented x3, Cooperative Extremities: No cyanosis, No edema, Capillary Refill Less than 3 Seconds, No Calf Tenderness, Diminished Peripheral Pulses Skin: Ulcer/ Wound - No purulence, no erythema, streaking, no odor, no infection. Peripheral epithelialization is noted. The skin is atrophic and hairless left. full epithelialization continues to the right foot Wound Measurements and Assessment WC - Nurse 1 - General Ulcer Measurement Start: 10/30/17 10:26 Freq: Status: Active Protocol: Activity Type Activity Date Activity User E-Sign Co-Sign Detail Recorded Client Recorded Date Recorded By Document 11/13/17 10:38 DL [id number] 11/13/17 10:44 DL 11/13/17 10:38 Wound Center Nurse 1 [Ulcer Assessment] #6 left 2nd toe -Combined with other wound No -Current Size (cm) - Length 0.2 -Current Size (cm) - Width 0.2 -Current Size (cm) - Depth 0.2 -Total Square Cm 0.04 -Photo Taken No -Maximum Distance #2 (cm) 0.2 -Circular Undermining Yes -Exudate Amt None Present (0 %) -Wound Margin Thickened -Granulation Amt Small (1-33%) -Granulation Quality Pale -Necrosis Amt None Present (0 %) -Texture (Alba-wound Skin Appearance) Callus -Moisture (Alba-wound Skin Appearance Dry/Scaly ) -Color (Alba-wound Skin Appearance) Hemosiderin Staining -Temperature (Alba-wound Skin No Abnormality Appearance) (Pt Warm) -Ulcer Cleansing Wound Cleanser -Foul Odor after Cleansing No -Anesthetic Used 4% Lidocaine Solution WC - Nurse 2 - General Ulcer CM Notes Start: 10/30/17 10:26 Freq: Status: Active Protocol: Activity Type Activity Date Activity User E-Sign Co-Sign Detail Recorded Client Recorded Date Recorded By Document 11/13/17 11:17 TM [id number] 11/13/17 11:18 11/13/17 11:17 Wound Center Nurse 2 [Procedure/Treatment] -Time 11:18 -Correct Patient Yes -Correct Side, Site, Position Yes -Correct Procedure Yes -Procedure Performed Yes -Type of Procedure Debridement -Clinical Debridement Subcutaneous -Post Debridement Size (cm) - Length 0.3 -Post Debridement Size (cm) - Width 0.3 -Post Debridement Size (cm) - Depth 0.2 -Total Square Cm 0.09 -Wound/Ulcer Outcome Not Healed -Ulcer Cleansing Rinsed/ Irrigated with Saline -Foul Odor after Cleansing No -Bioengineered Tissue No -Topical Lidocaine (%) 4 -Bleeding Controlled with Pressure -Treatment Response Procedure Tolerated Well [See Physician Procedure note for Specifics] Pain Scale: 0-10 Numeric [Pain] -Is Patient Pain Free? Yes Musculoskeletal: No Tenderness to Palpation of Joints or Extremities, Muscle Wasting, - - Rigid dorsal contraction of all lesser digits bilateral Neurological: - - Altered sensation light touch bilateral Psych/Mental Status: Normal Affect, Appropriate Debridement Note Post-Debridement Measurements/Treatment WC - Nurse 2 - General Ulcer CM Notes Start: 10/30/17 10:26 Freq: Status: Active Protocol: Activity Type Activity Date Activity User E-Sign Co-Sign Detail Recorded Client Recorded Date Recorded By Document 10/30/17 10:45 TM [id number] 10/30/17 10:48 TM Document 11/06/17 11:25 TM [id number] 11/06/17 11:27 TM Document 11/13/17 11:17 TM [id number] 11/13/17 11:18 TM 10/30/17 11/06/17 11/13/17 10:45 11:25 11:17 Wound Center Nurse 2 #6 left 2nd toe -Time 10:46 11:25 11:18 -Correct Patient Yes Yes Yes -Correct Side, Site, Position Yes Yes Yes -Correct Procedure Yes Yes Yes -Procedure Performed Yes Yes Yes -Type of Procedure Debridement Debridement Debridement -Clinical Debridement Subcutaneous Subcutaneous Subcutaneous -Post Debridement Size (cm) - Length 0.3 0.3 0.3 -Post Debridement Size (cm) - Width 0.2 0.3 0.3 -Post Debridement Size (cm) - Depth 0.2 0.1 0.2 -Total Square Cm 0.06 0.09 0.09 -Wound/Ulcer Outcome Not Healed Not Healed Not Healed -Ulcer Cleansing Rinsed/ Rinsed/ Rinsed/ Irrigated with Irrigated with Irrigated with Saline Saline Saline -Foul Odor after Cleansing No No No -Bioengineered Tissue No No No -Topical Lidocaine (%) 4 -Bleeding Controlled with Pressure Pressure Pressure -Treatment Response Procedure Procedure Procedure Tolerated Well Tolerated Well Tolerated Well #7 R second toe -Time 10:46 11:26 -Correct Patient Yes Yes -Correct Side, Site, Position Yes Yes -Correct Procedure Yes Yes -Procedure Performed Yes Yes -Type of Procedure Debridement -Clinical Debridement Subcutaneous -Post Debridement Size (cm) - Length 0.2 0 -Post Debridement Size (cm) - Width 0.2 0 -Post Debridement Size (cm) - Depth 0.1 0 -Total Square Cm 0.04 0 -Wound/Ulcer Outcome Not Healed Healed- Epithelialized -Ulcer Cleansing Rinsed/ Rinsed/ Irrigated with Irrigated with Saline Saline -Foul Odor after Cleansing No No -Bioengineered Tissue No No -Topical Lidocaine (%) 4 4 -Bleeding Controlled with Pressure Pressure -Treatment Response Procedure Procedure Tolerated Well Tolerated Well Pain Scale: 0-10 Numeric Is Patient Pain Free? 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 Severe peripheral vascular status post intervention disease with vascular surgery. Malnutrition. Delayed healing history. Bilateral hammertoe deformities Plan: I reviewed and discussed his case this morning. Debridement was performed today as noted in the clinical panel to the small remaining left second toe ulcer site. To change dressing daily with [employer] with the assistance of home health. He last saw Dr. Cazares on September 25, 2017. He denies groin discomfort today. To continue with open toe shoe that does not put pressure on this site. He was reassured there are no signs of infection. His noninvasive vascular studies were also reviewed which demonstrated significant loss of flow with an TALIA of 0.27 in the right lower extremity. He is responding well to his medical treatment for gout. To discontinue protein supplementation now that his wounds are healed. To follow-up with his primary care physician for long-term management of gout as scheduled and is advised. I answered all his questions. I recommend he returns to clinic in 1 week to follow-up on the wound site only to the left second toe. I answered all his questions.
== END 2017-11-19 23:59 ==
LOC: WC 10:30
PROVIDERS: Family Provider Family Medicine; PCP Family Medicine; Visit Provider Podiatrist
DX: I73.89 Other specified peripheral vascular diseases (principal); M20.41 Other hammer toe(s) (acquired), right foot; M20.42 Other hammer toe(s) (acquired), left foot; L97.512 Non-pressure chronic ulcer of other part of right foot with fat layer exposed; L97.522 Non-pressure chronic ulcer of other part of left foot with fat layer exposed; L84 Corns and callosities
CPT/HCPCS: 11042

== ENCOUNTER 2017-11-27 10:30 | Outpatient (RCR) | payer OTHER, SELFPAY ==
[2017-11-20 00:31] VITALS: BP 136/59; PULSE 55; RESP 18; TEMP 37.1; BMI 21.2
[2017-11-20 11:05] VITALS: BP 112/74; PULSE 56; RESP 18; TEMP 36; BMI 21.2
--- NOTE | 2017-11-20 11:51 | PN.PCM_ITS ---
(1) Chronic ulcer of left foot with fat layer exposed Status: Chronic Current Visit: Yes Code(s): L97.522 - Non-pressure chronic ulcer of other part of left foot with fat layer exposed (2) Other specified peripheral vascular diseases Status: Chronic Current Visit: Yes Code(s): I73.89 - Other specified peripheral vascular diseases (3) Hammer toe of left foot Status: Chronic Current Visit: Yes Code(s): M20.42 - Other hammer toe(s) ( acquired), left foot (4) Delayed wound healing Status: Chronic Current Visit: Yes Code(s): T14.8 - Other injury of unspecified body region (5) Malnutrition Status: Chronic Current Visit: Yes Code(s): E46 - Unspecified protein- calorie malnutrition Type of Wound Date of Service: 11/21/17 Chief Complaint: Chronic, nonhealing ulcerations of the left 2nd toe. healed right toe ulcer. peripheral vascular disease s/p intervention. delayed healing History of Wound: This is an 81-year-old male who presents with healed ulcerations on his right foot and one ulcer to the left second toe and has decreased drainage. He denies fever, chills, nausea, vomiting, loss of appetite , or redness. He denies foot pain or drainage . He had vascular surgery performed left lower extremity on 09/25/2017 and is followed up as advised. Home health helps with dressing changes. He is not sure if his ulcer site is healed because he still has some drainage on his dressing yesterday. Progress of Wound: Improving - Physical Exam Vital Signs Temp Pulse Resp BP 96.8 F L 56 L 18 112/74 11/20/17 11:05 11/20/17 11:05 11/20/17 11:05 11/20/17 11:05 General: Alert, Oriented x3, Cooperative Extremities: No cyanosis, Capillary Refill Less than 3 Seconds, No Calf Tenderness, Diminished Peripheral Pulses, Edema, - - Rigid digital contractures with all toes abutting bilateral Skin: Ulcer/ Wound - There is pinpoint skin discontinuity to the distal left second toe with skin layer and scant granulation tissue exposed. There is peripheral epithelialization that is significant. There are no signs of infection, purulence, eschar, erythema or streaking. The peripheral skin is atrophic and hairless Wound Measurements and Assessment WC - Nurse 1 - General Ulcer Measurement Start: 11/20/17 11:05 Freq: Status: Active Protocol: Activity Type Activity Date Activity User E-Sign Co-Sign Detail Recorded Client Recorded Date Recorded By Document 11/20/17 11:05 RB [id number] 11/20/17 11:08 RB 11/20/17 11:05 Wound Center Nurse 1 [Ulcer Assessment] #6 left 2nd toe -Combined with other wound No -Current Size (cm) - Length 0.1 -Current Size (cm) - Width 0.1 -Current Size (cm) - Depth 0.1 -Total Square Cm 0.01 -Photo Taken No -Tunneling No -Undermining/Tunneling No -Circular Undermining No -Classification - Thickness Full Thickness without Exposed Support Structure -Exudate Amt None Present (0 %) -Wound Margin Distinct, Outline Attached -Granulation Amt Medium (34-66%) -Granulation Quality Encinal -Slough/Fibrin Yes -Necrosis Amt Large (67-100%) -Necrotic Tissue Type Adherent Slough -Structure Exposed N/A -Texture (Alba-wound Skin Appearance) Assessed -Moisture (Alba-wound Skin Appearance Dry/Scaly ) -Color (Alba-wound Skin Appearance) Assessed -Temperature (Alba-wound Skin No Abnormality Appearance) (Pt Warm) -Tenderness on Palpation (Alba-wound No Skin Appearance) -Ulcer Cleansing Rinsed/ Irrigated with Saline -Foul Odor after Cleansing No -Anesthetic Used 5% Lidocaine Gel [Edema Assessment] -Lower Limb Edema Present Yes -Right Calf (cm) 34.6 -Right Ankle (cm) 23 -Left Calf (cm) 33 -Left Ankle (cm) 23.2 WC - Nurse 2 - General Ulcer CM Notes Start: 11/20/17 11:05 Freq: Status: Active Protocol: Activity Type Activity Date Activity User E-Sign Co-Sign Detail Recorded Client Recorded Date Recorded By Document 11/20/17 11:28 TM [id number] 11/20/17 11:29 11/20/17 11:28 Wound Center Nurse 2 [Procedure/Treatment] #6 left 2nd toe -Time 11:28 -Correct Patient Yes -Correct Side, Site, Position Yes -Correct Procedure Yes -Procedure Performed Yes -Type of Procedure Debridement -Clinical Debridement Subcutaneous -Post Debridement Size (cm) - Length 0.1 -Post Debridement Size (cm) - Width 0.1 -Post Debridement Size (cm) - Depth 0.1 -Total Square Cm 0.01 -Wound/Ulcer Outcome Not Healed -Ulcer Cleansing Rinsed/ Irrigated with Saline -Foul Odor after Cleansing No -Bioengineered Tissue No -Topical Lidocaine (%) 4 -Bleeding Controlled with Pressure -Treatment Response Procedure Tolerated Well [See Physician Procedure note for Specifics] Pain Scale: 0-10 Numeric [Pain] -Is Patient Pain Free? Yes Musculoskeletal: No Tenderness to Palpation of Joints or Extremities, Muscle Wasting Neurological: Sensory exam intact to light touch and pain Psych/Mental Status: Normal Affect, Appropriate Debridement Note Post-Debridement Measurements/Treatment WC - Nurse 2 - General Ulcer CM Notes Start: 11/20/17 11:05 Freq: Status: Active Protocol: Activity Type Activity Date Activity User E-Sign Co-Sign Detail Recorded Client Recorded Date Recorded By Document 11/20/17 11:28 [id number] 11/20/17 11:29 11/20/17 11:28 Wound Center Nurse 2 #6 left 2nd toe -Time 11:28 -Correct Patient Yes -Correct Side, Site, Position Yes -Correct Procedure Yes -Procedure Performed Yes -Type of Procedure Debridement -Clinical Debridement Subcutaneous -Post Debridement Size (cm) - Length 0.1 -Post Debridement Size (cm) - Width 0.1 -Post Debridement Size (cm) - Depth 0.1 -Total Square Cm 0.01 -Wound/Ulcer Outcome Not Healed -Ulcer Cleansing Rinsed/ Irrigated with Saline -Foul Odor after Cleansing No -Bioengineered Tissue No -Topical Lidocaine (%) 4 -Bleeding Controlled with Pressure -Treatment Response Procedure Tolerated Well Pain Scale: 0-10 Numeric Is Patient Pain Free? Yes Wound debrided: distal 2nd toe Laterality: Left Type of Debridement: Excisional debridement Anesthesia Used: 4% Lidocaine Solution Depth: in the subcutaneous layer Percentage of wound debrided: 100 Instrument Used: #15 blade Tissue Removed: fibrous, devitalized subcutaneous, biofilm, slough Severity: Fat Layer Exposed Amount of bleeding with debridement: Mild Bleeding Controlled with: Pressure Patient tolerated procedure well Assessment/Plan Active Problems Chronic ulcer of left foot with fat layer exposed (Chronic) Other specified peripheral vascular diseases (Chronic) Hammer toe of left foot (Chronic) Delayed wound healing (Chronic) Malnutrition (Chronic) Assessment: Left second toe ulcer with fat layer exposed. Severe peripheral vascular status post intervention disease with vascular surgery. Malnutrition. Delayed healing history. Bilateral hammertoe deformities Plan: I reviewed and discussed his case this morning. Debridement was performed today as noted in the clinical panel to the small remaining left second toe ulcer site. To change dressing daily with [employer] with the assistance of home health. He last saw Dr. Cazares on September 25, 2017. To continue with open toe shoe that does not put pressure on this site. He was reassured there are no signs of infection and his ulcer site is nearly healed. His noninvasive vascular studies were also reviewed which demonstrated significant loss of flow with an TALIA of 0.27 in the right lower extremity. He is responding well to his medical treatment for gout. To discontinue protein supplementation now that his wounds are healed. To follow-up with his primary care physician for long-term management of gout as scheduled and is advised. I answered all his questions. I recommend he returns to clinic in 1 week to follow-up on the wound site only to the left second toe. I answered all his questions.
[2017-11-27 10:41] VITALS: BP 120/64; PULSE 53; RESP 18; TEMP 36.6; BMI 21.2
--- NOTE | 2017-11-27 16:18 | PN.PCM_ITS ---
(1) Chronic ulcer of left foot with fat layer exposed Status: Chronic Code(s): L97.522 - Non-pressure chronic ulcer of other part of left foot with fat layer exposed (2) Other specified peripheral vascular diseases Status: Chronic Code(s): I73.89 - Other specified peripheral vascular diseases (3) Hammer toe of left foot Status: Chronic Code(s): M20.42 - Other hammer toe(s) (acquired), left foot (4) Delayed wound healing Status: Chronic Code(s): T14.8 - Other injury of unspecified body region (5) Malnutrition Status: Chronic Code(s): E46 - Unspecified protein-calorie malnutrition Type of Wound Date of Service: 11/30/17 Chief Complaint: Chronic, nonhealing ulcerations of the left 2nd toe. healed right toe ulcer. peripheral vascular disease s/p intervention. delayed healing History of Wound: This is an 81-year-old male who presents with healed ulcerations on his right foot and one ulcer to the left second toe and has decreased drainage. He denies fever, chills, nausea, vomiting, loss of appetite , or redness. He denies foot pain or drainage . He had vascular surgery performed left lower extremity on 09/25/2017 and is followed up as advised. Home health helps with dressing changes. He denies drainage and thinks the ulcers healed. Progress of Wound: Healed - Physical Exam Vital Signs Temp Pulse Resp BP 97.8 F 53 L 18 120/64 11/27/17 10:41 11/27/17 10:41 11/27/17 10:41 11/27/17 10:41 General: Alert, Oriented x3, Cooperative Extremities: No edema, Capillary Refill Less than 3 Seconds, No Calf Tenderness , Diminished Peripheral Pulses Skin: Ulcer/ Wound - No purulence, no erythema, streaking, odor, no infection. All ulcer sites are healed and there is full epithelialization noted. His skin is hairless and atrophic bilateral lower extremities Wound Measurements and Assessment WC - Nurse 1 - General Ulcer Measurement Start: 11/20/17 11:05 Freq: Status: Active Protocol: Activity Type Activity Date Activity User E-Sign Co-Sign Detail Recorded Client Recorded Date Recorded By Document 11/27/17 10:41 [email or web address] [id number] 11/27/17 10:43 LIZ 11/27/17 10:41 Wound Center Nurse 1 [Ulcer Assessment] #6 left 2nd toe -Combined with other wound No -Current Size (cm) - Length 0 -Current Size (cm) - Width 0 -Current Size (cm) - Depth 0 -Total Square Cm 0 -Photo Taken Yes -Epithelialization Large 67-100% [Edema Assessment] -Lower Limb Edema Present NA - Nurse 2 - General Ulcer CM Notes Start: 11/20/17 11:05 Freq: Status: Active Protocol: Activity Type Activity Date Activity User E-Sign Co-Sign Detail Recorded Client Recorded Date Recorded By Document 11/27/17 10:56 [id number] 11/27/17 10:58 11/27/17 10:56 Wound Center Nurse 2 [Procedure/Treatment] #6 left 2nd toe -Correct Patient No -Correct Side, Site, Position No -Correct Procedure No -Procedure Performed No -Post Debridement Size (cm) - Length 0 -Post Debridement Size (cm) - Width 0 -Post Debridement Size (cm) - Depth 0 -Total Square Cm 0 -Wound/Ulcer Outcome Healed- Epithelialized [See Physician Procedure note for Specifics] Pain Scale: 0-10 Numeric [Pain] -Is Patient Pain Free? Yes Musculoskeletal: No Tenderness to Palpation of Joints or Extremities, Muscle Wasting, - - Rigid digital contraction noted bilateral lower extremities Neurological: Sensory exam intact to light touch and pain Psych/Mental Status: Normal Affect, Appropriate Debridement Note Post-Debridement Measurements/Treatment - Nurse 2 - General Ulcer CM Notes Start: 11/20/17 11:05 Freq: Status: Active Protocol: Activity Type Activity Date Activity User E-Sign Co-Sign Detail Recorded Client Recorded Date Recorded By Document 11/20/17 11:28 [id number] 11/20/17 11:29 Document 11/27/17 10:56 [id number] 11/27/17 10:58 11/20/17 11/27/17 11:28 10:56 Wound Center Nurse 2 #6 left 2nd toe -Time 11:28 -Correct Patient Yes No -Correct Side, Site, Position Yes No -Correct Procedure Yes No -Procedure Performed Yes No -Type of Procedure Debridement -Clinical Debridement Subcutaneous -Post Debridement Size (cm) - Length 0.1 0 -Post Debridement Size (cm) - Width 0.1 0 -Post Debridement Size (cm) - Depth 0.1 0 -Total Square Cm 0.01 0 -Wound/Ulcer Outcome Not Healed Healed- Epithelialized -Ulcer Cleansing Rinsed/ Irrigated with Saline -Foul Odor after Cleansing No -Bioengineered Tissue No -Topical Lidocaine (%) 4 -Bleeding Controlled with Pressure -Treatment Response Procedure Tolerated Well Pain Scale: 0-10 Numeric Is Patient Pain Free? Yes Yes No debridement was completed today - The wound is healed Assessment/Plan Assessment: Left second toe ulcer now healed. Severe peripheral vascular status post intervention disease with vascular surgery. Malnutrition. Delayed healing history. Bilateral hammertoe deformities Plan: I reviewed and discussed his case this morning. The wound was changed and he was advised to discontinue all dressing care. To moisturize feet to maintain good skin integrity. He last saw Dr. Cazares on September 25, 2017. To continue with open toe shoe that does not put pressure on this site. He was reassured there are no signs of infection and his ulcer site is healed. His noninvasive vascular studies were also reviewed which demonstrated significant loss of flow with an TALIA of 0.27 in the right lower extremity. He is responding well to his medical treatment for gout. To discontinue protein supplementation now that his wounds are healed. To follow-up with his primary care physician for long-term management of gout as scheduled and is advised. I answered all his questions. I recommend he returns to the foot and ankle center in the very near future to get measured and fitted for extra-depth shoe. This will ultimately reduce pressure to his toe deformities and further wound formation will be less likely. He is discharged from the wound care center at this time. I answered all his questions.
== END 2017-12-20 23:59 ==
LOC: WC 10:30
PROVIDERS: Family Provider Family Medicine; PCP Family Medicine; Visit Provider Podiatrist
DX: I73.89 Other specified peripheral vascular diseases (principal); M20.41 Other hammer toe(s) (acquired), right foot; M20.42 Other hammer toe(s) (acquired), left foot; L84 Corns and callosities; L97.512 Non-pressure chronic ulcer of other part of right foot with fat layer exposed; L97.522 Non-pressure chronic ulcer of other part of left foot with fat layer exposed
CPT/HCPCS: 11042; 99213; G0463

== ENCOUNTER → 2018-05-29 09:28 | Outpatient (CLI) | payer OTHER, SELFPAY ==
--- NOTE | 2018-05-29 09:32 | ADUL_ITS ---
Reason For Study: atherosclerosis Left Velocities Common Femoral Artery, mid = 78.6 cm./sec. Supf. Femoral Artery, prox = 64.4 cm./sec. Supf. Femoral Artery, mid = 86.4 cm./sec. Supf. Femoral Artery, dist = 58.1 cm./sec. Profunda Femoral Artery = 70.7 cm./sec. Popliteal Artery, mid = 91.9 cm./sec. Post. Tibial Artery, prox = 66.8 cm./sec. Post Tibial Artery, mid = 51.9 cm./sec. Peroneal Artery, prox = 47.9 cm./sec. Peroneal Artery, mid = 62.9 cm./sec. Peroneal Artery,dist. = 79.4 cm./sec. Ant.Tibial Artery, prox = 63.6 cm./sec. Ant Tibial Artery, mid = 143 cm./sec. Ant. Tibial Artery, distal = 197 cm./sec. Unable to demonstrate flow in the Distal PROGRAM MANAGER RN. Interpretation Summary 1. Proximal no stenosis with triphasic flow thorugh popliteal. 2. Tibials with triphasic to biphasic flow distally. Anterior tibial with mid and distal stenosis and posterior tibial occluded distally. Ordering Physician: Torrey Cazares Performed By: Amilcar Carpenter, RVT
--- NOTE | 2018-05-29 09:32 | ART_ITS ---
Left Segmental Pressures The left ankle is noncompressible. Left brachial= 173mmHg. Left digit = 115 mmHg. The left dorsalis pedis waveforms are biphasic. The left posterior tibial artery waveforms are biphasic. Right Segmental Pressures The right ankle is noncompressible. Right brachial= 167mmHg. Right digit = 61 mmHg. The right dorsalis pedis waveforms are biphasic. The right posterior tibial artery waveforms are biphasic. Indices The right digital-brachial index is .35. The left digital-brachial index is .66. Interpretation Summary 1. Bilateral noncompressible consistent with medial calcinosis but biphasic flow noted. Further evaluation is clinically warranted. . 2. Right severe smal vessel disease wth DBI 0.35 and mild left with 0.66. Ordering Physician: Torrey Cazares Performed By: DORA LOPEZ T
== END ==
PROVIDERS: Family Provider Family Medicine; PCP Family Medicine; Referring Provider Surgery Vascular Surgery; Visit Provider Surgery Vascular Surgery
DX: I70.235 Atherosclerosis of native arteries of right leg with ulceration of other part of foot (principal); I70.245 Atherosclerosis of native arteries of left leg with ulceration of other part of foot; I20.9 Angina pectoris, unspecified; I10 Essential (primary) hypertension; E07.9 Disorder of thyroid, unspecified; E78.00 Pure hypercholesterolemia, unspecified
CPT/HCPCS: 93922; 93926